=== PATIENT | male | born 1945 | race Caucasian/White ===

== ENCOUNTER → 2019-08-12 14:04 | Outpatient (BNVA) | payer OTHER, MEDICARE, SELFPAY | PROVIDERS: Family Provider Family Medicine; PCP Family Medicine; Visit Provider Urology | DX: R97.20 Elevated prostate specific antigen [PSA] (principal); R82.81 Pyuria; N40.1 Benign prostatic hyperplasia with lower urinary tract symptoms | CPT/HCPCS: 81001; 84153; 87077; 87086; 87186 ==

== ENCOUNTER 2019-08-26 13:12 | Outpatient (CLI) | payer MEDICARE, SELFPAY ==
[2019-08-26 14:10] LABS: Basophils % 0.2 %; Eosinophils # 0.1 10^3/uL (0.0-0.8); Eosinophils % 1.9 %; Hematocrit 39.5 % (42.0-52.0); Hemoglobin 13.8 g/dL (11.7-16.6); Lymphocytes # 1.2 10^3/uL (0.8-4.8); Lymphocytes % 25.9 %; Mean Corpuscular HGB Conc 34.9 g/dL (30.0-36.0); Mean Corpuscular Hemoglobin 33.7 pg (28.0-34.0); Mean Corpuscular Volume 96.3 fL (80-94); Mean Platelet Volume 10.8 fL (7.4-10.4); Monocytes # 0.4 10^3/uL (0.2-0.9); Monocytes % 8.6 %; Nucleated Red Blood Cells % 0 %; Platelet Count 158 10^3/cmm (130-400); Red Cell Distribution Width 12.4 % (12.1-15.1); White Blood Count 4.8 10^3/uL (4.0-10.0)
--- NOTE | 2019-08-26 16:58 | ONC CON_ITS ---
Dr. Sarabia New Patient Note Patient: Yan Piedra Unit #: [id number]: 1945 Dicatated By: Cara Sarabia M.D.Date of Visit: Aug 26, 2019 Onc MED New Patient/Consult Referring Physician: Dr. Deepak Estrada M.D. History of Present Illness: Mr. 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 Patient denies any history of gross bleeding, denies any history of hematological evaluation in the past, denies any history of night sweats or weight loss or recent fevers denies any history of peripheral lymphadenopathy, denies any history of alcohol abuse, denies any history of hepatic cirrhosis or splenomegaly. Next Patient denies any alcohol use or smoking. As per patient recently he was diagnosed with elevated PSA it was around 14 and he was given course of antibiotics for possible infection and now being monitored by urologist. Past Medical History: Mr. Piedra's medical history consists of atrial fibrillation, chronic anticoagulation, colon polyps, diverticulosis, dyslipidemia, goiter, hypertension, muscular dystrophy, and type II diabetes. Past Surgical History: Mr. Piedra's surgical/procedural history consists of back surgery x5, cholecystectomy, excision of tumor from chest, pacemaker placement, and thyroidectomy. Medications: Chlorthalidone 1 Tablet (of 25 mg) Oral daily, Cipro 1 Tablet (of 500 mg) Oral b.i.d. for 5 days, Famotidine (20 mg) Tablet Oral b.i.d., Levothyroxine Sodium 1 Tablet (of 125 mcg) Oral daily, metFORMIN HCl 1 Tablet (of 1000 mg) Oral b.i.d., Metoprolol Tartrate 1 Tablet (of 100 mg) Oral b.i.d., Pradaxa 1 Capsule (of 150 mg) Oral daily, Tamsulosin HCl 1 Capsule (of 0.4 mg) Oral daily Allergies: Amoxicillin, Codeine Sulfate, and HYDROmorphone HCl. Social History: Mr. Piedra is . Mr. Piedra has never smoked. He has no history of drinking. Family History: Mr. Piedra's mother at age 88: heart disease. Mr. Piedra's father at age 84: brain cancer. Mr. Piedra has 1 brother who is : bone cancer. He has 1 sister who is : colon cancer. Review Of Symptoms: Constitutional - Appetite is good and weight is stable. No fever, chills, hot flashes, or night sweats. Energy level is good, ENMT - No sinus congestion/drainage. No mouth sores. No sore throat or difficulty swallowing, Hematologic/Lymphatic - No abnormal bruising or bleeding, Respiratory - Occasionall shortness of breath. Positive for cough. No pleuritic pain or hemoptysis, Cardiovascular - No angina pain. No palpitations, Gastrointestinal - Occasional nausea, no vomiting. No heartburn or acid reflux. No diarrhea or constipation. No blood in the stool or black stools, Genitourinary (M) - No dysuria or hematuria. Positive for urinary frequency. No urgency or incontinence, Musculoskeletal - No joint or bone pain, Neurologic - No headache, positive for dizziness. No numbness/paresthesias or other focal neurologic symptoms, Psychiatric - No anxiety or depression. No insomnia. Vital Signs: Performed on Aug 26, 2019 14:54: 0, 32.43 (HIGH), 2.17 sq.m, 69.50 in, 98 %, 94 /min, 22 /min, 108/69 mm(hg), 98.0 F (LOW), and 222.8 lbs (HIGH). Performance Status: 0 - Fully active, able to carry on all predisease activities without restrictions. (ECOG) Physical Examination: ENMT - No oral exudates, ulcers, masses, thrush or mucositis. Oropharynx clear. Tongue normal, Respiratory - Lungs are clear to auscultation without rhonchi or wheezing, Cardiovascular - Regular rate and rhythm of heart, Abdomen - Non-tender, non-distended, no masses, Good bowel sounds. No guarding or rebound tenderness. No pulsatile masses, Extremities - no edema. Lab/Imaging: Most recent lab results are not available for this patient. Impression: long-standing history of isolated Thrombocytopenia, etiology unclear could be underlying low-grade ITP or considering his age early myelodysplasia or due to medication.or platelets clumping due to EDTA in the sampling tube. History of elevated PSA, now being monitored by urology Plan: Discussed with patient regarding his labs white blood count 4.8 hemoglobin 13.8 hematocrit 39.5, platelets 158,000 with a normal differential Clinically, patient has no evidence of gross bleeding and today's lab shows normalization of moderate thrombocytopenia seen on labs done on 07/24/2019. His remaining CBC is also within normal limits. At this point, we will monitor and he will return to clinic in one month with CBC and if there is a drop in his platelet count then will consider workup Signed By: Cara Sarabia M.D. <<Signature on File>>
== END 2019-08-26 13:13 | disposition home or self-care (01) ==
PROVIDERS: Family Provider Family Medicine; PCP Family Medicine; Referring Provider Family Medicine; Visit Provider Internal Medicine Hematology & Oncology
DX: D69.6 Thrombocytopenia, unspecified (principal); I48.91 Unspecified atrial fibrillation; R97.20 Elevated prostate specific antigen [PSA]; K57.90 Diverticulosis of intestine, part unspecified, without perforation or abscess without bleeding; E78.5 Hyperlipidemia, unspecified; I10 Essential (primary) hypertension; E11.9 Type 2 diabetes mellitus without complications; G71.00 Muscular dystrophy, unspecified; E89.0 Postprocedural hypothyroidism; Z79.01 Long term (current) use of anticoagulants; Z79.84 Long term (current) use of oral hypoglycemic drugs; Z95.0 Presence of cardiac pacemaker
CPT/HCPCS: 85025; 99204

== ENCOUNTER → 2019-10-13 12:01 | Outpatient (BNVA) | payer OTHER, MEDICARE, SELFPAY | PROVIDERS: Family Provider Family Medicine; PCP Family Medicine; Visit Provider Urology | DX: R97.20 Elevated prostate specific antigen [PSA] (principal); N40.1 Benign prostatic hyperplasia with lower urinary tract symptoms; R35.1 Nocturia | CPT/HCPCS: 81001; 84153 ==

== ENCOUNTER 2019-11-17 09:43 | Outpatient (CLI) | payer MEDICARE, SELFPAY ==
[2019-11-17 10:22] LABS: Basophils % 0.2 %; Eosinophils # 0.1 10^3/uL (0.0-0.8); Eosinophils % 1.5 %; Hematocrit 41.3 % (42.0-52.0); Hemoglobin 14.2 g/dL (11.7-16.6); Lymphocytes # 1.6 10^3/uL (0.8-4.8); Lymphocytes % 31.5 %; Mean Corpuscular HGB Conc 34.4 g/dL (30.0-36.0); Mean Corpuscular Hemoglobin 33.4 pg (28.0-34.0); Mean Corpuscular Volume 97.2 fL (80-94); Mean Platelet Volume 10.6 fL (7.4-10.4); Monocytes # 0.5 10^3/uL (0.2-0.9); Monocytes % 9.3 %; Neutrophils % 57.1 %; Nucleated Red Blood Cells % 0 %; Platelet Count 162 10^3/cmm (130-400); Red Blood Count 4.25 10^6/uL (4.1-5.3); Red Cell Distribution Width 12.4 % (12.1-15.1); White Blood Count 5.2 10^3/uL (4.0-10.0)
--- NOTE | 2019-11-17 18:00 | ONC FU_ITS ---
Dr. Sarabia follow up note Patient: Yan Piedra Unit #: [id number]: 1945 Dicatated By: Cara Sarabia M.D.Date of Visit:Nov 17, 2019 Onc Med Follow-up/Prog Note History of Present Illness: Mr. 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 Patient denies any history of gross bleeding, denies any history of hematological evaluation in the past, denies any history of night sweats or weight loss or recent fevers denies any history of peripheral lymphadenopathy, denies any history of alcohol abuse, denies any history of hepatic cirrhosis or splenomegaly. Next Patient denies any alcohol use or smoking. As per patient recently he was diagnosed with elevated PSA it was around 14 and he was given course of antibiotics for possible infection and now being monitored by urologist. Came for follow-up, denies any specific complaints, no nausea vomiting, no fever or chills, no melena hematochezia, no nosebleed or gum bleed, no petechiae or ecchymosis Medications: Chlorthalidone 1 Tablet (of 25 mg) Oral daily, Famotidine (20 mg) Tablet Oral b.i.d., Levothyroxine Sodium 1 Tablet (of 125 mcg) Oral daily, metFORMIN HCl 1 Tablet (of 1000 mg) Oral b.i.d., Metoprolol Tartrate 1 Tablet (of 100 mg) Oral b.i.d., Pradaxa 1 Capsule (of 150 mg) Oral daily, Tamsulosin HCl 1 Capsule (of 0.4 mg) Oral daily Allergies: Amoxicillin, Codeine Sulfate, and HYDROmorphone HCl. Review of Systems: Review of Systems is not available for this patient. Vital Signs: Performed on Nov 17, 2019 11:41 Height - 69.50 in Weight - 223.4 lbs (HIGH) BSA - 2.18 sq.m BMI - 32.52 (HIGH) Temperature - 98.2 F (LOW) Pulse - 80 /min Respiration - 18 /min BP - 120/83 mm(hg) O2 Sat - 100 % Pain - 0 Performance Status: 0 - Fully active, able to carry on all predisease activities without restrictions. (ECOG) Physical Examination: ENMT - no thrush, no mouth sores, Respiratory - Lungs are clear, Cardiovascular - Regular rate and rhythm of heart, Abdomen - soft, bowel sounds present, Extremities - no visible edema. Lab/Imaging: Test performed on Aug 26, 2019 13:23 WBC 4.8 10 3/uL RBC 4.10 10 6/uL HGB 13.8 g/dL HCT 39.5 % MCV 96.3 fL MCH 33.7 pg MCHC 34.9 g/dL RDW 12.4 % Platelet Count 158 10 3/cmm MPV 10.8 fL Neutrophils 3.0 10 3/uL Lymphocytes 1.2 10 3/uL Monocytes 0.4 10 3/uL Eosinophils 0.1 10 3/uL Basophils 0.0 10 3/uL Neutrophil % 63.0 % Lymphocyte % 25.9 % Monocyte % 8.6 % Eosinophil % 1.9 % Basophils % 0.2 % Impression: long-standing history of isolated Thrombocytopenia, etiology unclear could be underlying low-grade ITP or considering his age early myelodysplasia or due to medication.or platelets clumping due to EDTA in the sampling tube. History of elevated PSA, now being monitored by urology Plan: Discussed with patient regarding his labs white blood count 5.2 hemoglobin 14.2 crit 41.3 platelets 162,000 Clinically, patient doing well with no signs symptoms suggestive of gross bleeding, his follow-up lab shows resolution of thrombocytopenia, no further workup is needed, as per patient when his labs were done in his PMDs office, platelet clumping was mentioned., In that case, we will suggest repeating his CBC in heparinized tube to avoid EDTA induced platelet clumping in the simple. And we will see him on as-needed basis Signed By: Cara Sarabia M.D. <<Signature on File>>
== END 2019-11-17 09:44 | disposition home or self-care (01) ==
LOC: ONCMED 09:45
PROVIDERS: Family Provider Family Medicine; PCP Family Medicine; Visit Provider Internal Medicine Hematology & Oncology
DX: D69.6 Thrombocytopenia, unspecified (principal); I48.91 Unspecified atrial fibrillation; K57.90 Diverticulosis of intestine, part unspecified, without perforation or abscess without bleeding; E78.5 Hyperlipidemia, unspecified; E04.9 Nontoxic goiter, unspecified; I10 Essential (primary) hypertension; G71.00 Muscular dystrophy, unspecified; E11.9 Type 2 diabetes mellitus without complications; Z86.010 Personal history of colon polyps; Z79.899 Other long term (current) drug therapy
CPT/HCPCS: 36415; 85025; G0463

== ENCOUNTER 2020-02-26 08:03 | Outpatient (CLI) | payer MEDICARE, SELFPAY ==
[2020-02-26 08:11] VITALS: BMI 30.8
--- NOTE | 2020-02-26 08:11 | ECG_ITS ---
[facility] Test Date: 2020-02-26 Pat Name: Yan Alonso Department: Room: Gender: Male Radar Scientist: : 1945 Requested By: Germán Mcdonough Order Number: [id number] Jaquan MD: Germán Mcdonough M.D. Interpretive Statements NAME OF STUDY: LEXISCAN SESTAMIBI STRESS TEST INDICATION: [unspecified a fib, ] Procedure: At the baseline, the blood pressure was 111/43 mmHg, oxygen saturation 89% with a heart rate of 75 bpm. The electrocardiogram showed atrial fibrillation with no significant ST-T wave changes. The Lexiscan was infused over the period Of 20 seconds. A total of 0.4 mg of Lexiscan was infused. The stress phase was continued for a total of 5 minutes. Heart rate at the end of stress phase was 86 Bpm, oxygen saturation 93% with a blood pressure of 142/100 mmHg. The EKG at peak infusion revealed atrial fibrillation with no significant ST-T wave changes. Sestamibi was injected 20 seconds after the Lexiscan infusion. The blood pressure at the end of recovery phase was 124/89 mmHg, oxygen saturation 91% with a heart rate of 90bpm. Conclusions,: 1. Normal EKG response to Lexiscan infusion 2. No Lexiscan induced chest pain or cardiac arrhythmias. 3. Normal blood pressure and heart rate response. 4. Sestamibi/sestamibi perfusion scan pending: See separate report. Electronically Signed On 03-01-2020 11:22:53 CDT by Germán Mcdonough M.D. [email or web address]
--- NOTE | 2020-02-26 08:12 | NMCV_ITS ---
NM syed perf SPECT r/s* [id number] Yan Alonso Age: 74 Gender: M : 1945 Exam Date: 02/26/2020 09:23 Ordering Phys: Germán Mcdonough M.D ([email or web address]) Technologist: TREVA Lawler Exam Location: [facility] Indications: UNSPECIFIED ATRIAL FIBRILLATION STRESS TEST Please see separate stress test report in [facility] for full findings IMAGE PROTOCOL Rest/Stress 1 Lexiscan Day Radiopharmaceutical Dose (mCi) Administration Site Administered by Rest: Tc-99m 10.8 IV TREVA Lawler Sestamibi Stress:Tc-99m 32.3 IV TREVA Raya Sestamibi Rest: 26-Feb-2020 60 Discovery 630 Stress: 26-Feb-2020 30 Discovery 630 0.4mg Lexiscan. Images obtained in supine and prone position. SPECT RESULTS Technical Quality: Excellent Raw Data Analysis: Normal Image Corrections: No attenuation or motion correction applied Summed Stress Score: 2 Summed Rest Score: 1 Summed Difference Score: 1 PERFUSION FINDINGS There is a small, partially reversible perfusion defect in the inferior and apical inferior wall FUNCTIONAL RESULTS (calculated via Gated SPECT) Stress Image LV EF (%): 55 Stress EDV (mL):116 TID: 1.15 Stress ESV (mL):52 FUNCTIONAL FINDINGS: There is normal left ventricular systolic function. IMPRESSIONS 1. Small, partially reversible perfusion defect noted in the inferior and apical inferior wall. This could represent attenuation artifact or ischemia. Clinical correlation is required. 2. Normal LV systolic function. Germán Mcdonough MD (Electronically Signed) Final Date: 26 February 2020 12:35 S
[2020-02-26] MEDS: regadenoson 0.4 Mg/5 ml Syringe IVP (10:05)
[2020-02-26 10:25] VITALS: BP 124/89; PULSE 98
== END 2020-02-26 08:04 | disposition home or self-care (01) ==
LOC: CDL 08:06
PROVIDERS: PCP Family Medicine; Visit Provider Internal Medicine
DX: I48.91 Unspecified atrial fibrillation (principal)
CPT/HCPCS: 78452; 93017; A9500; J2785

== ENCOUNTER → 2020-03-05 15:21 | Outpatient (BNVA) | payer MEDICARE, SELFPAY | PROVIDERS: PCP Family Medicine; Visit Provider Internal Medicine Cardiovascular Disease | DX: Z20.828 Contact with and (suspected) exposure to other viral communicable diseases (principal) | CPT/HCPCS: 87635 ==

== ENCOUNTER 2020-03-09 09:18 | Day surgery (SDC) | payer MEDICARE, SELFPAY ==
[2020-03-05 16:09] LABS: Basophils % 0.5 %; Eosinophils # 0.1 10^3/uL (0.0-0.8); Eosinophils % 1.1 %; Hematocrit 41.2 % (42.0-52.0); Hemoglobin 14.3 g/dL (11.7-16.6); Lymphocytes # 1.4 10^3/uL (0.8-4.8); Lymphocytes % 25.6 %; Mean Corpuscular HGB Conc 34.7 g/dL (30.0-36.0); Mean Corpuscular Hemoglobin 33.5 pg (28.0-34.0); Mean Corpuscular Volume 96.5 fL (80-94); Mean Platelet Volume 10.2 fL (7.4-10.4); Monocytes # 0.4 10^3/uL (0.2-0.9); Monocytes % 7.4 %; Neutrophils # 3.61 10^3/uL (1.8-7.7); Neutrophils % 65.2 %; Nucleated Red Blood Cells % 0 %; Platelet Count 179 10^3/cmm (130-400); Red Blood Count 4.27 10^6/uL (4.1-5.3); Red Cell Distribution Width 12.3 % (12.1-15.1); White Blood Count 5.5 10^3/uL (4.0-10.0)
[2020-03-05 16:36] LABS: Anion Gap 15.2 (5-19); Blood Urea Nitrogen 17 mg/dL (8-23); Carbon Dioxide 26 mmol/L (22-29); Chloride 98 mmol/L (98-107); Glucose 197 mg/dL (65-115); Osmolality Calculated 287 mOsm/kg (285-295); Potassium 4.2 mmol/L (3.5-5.1); Sodium 135 mmol/L (136-145)
[2020-03-05 16:52] LABS: INR 0.93 (0.8-1.2)
[2020-03-09] VITALS (17 sets, daily range): BP systolic 100–153; BP diastolic 60–107; PULSE 70–100; RESP 8–20; TEMP 36.5–36.7; O2SAT 91–99; BMI 32.3
--- NOTE | 2020-03-09 09:00 | XACV_ITS ---
Ht: 175 cm Wt: 99 kg BSA: 2.23 m2 Gender: Male : 1945 Any Known Allergies: Penicillins Exam Priority: Routine Procedure(s): Procedure Description: Diagnostic procedure Procedure Description: Left Heart Catheterization Procedure Description: Left ventriculography Procedure Description: Coronary Angiography Diagnostic Cath Status: Elective Diagnostic Findings LM has 0% stenosis. mLAD: Mild 30% stenosis, JENNIFER: 3 flow. 2nd Diag: Moderate 50% stenosis, JENNIFER: 3 flow. pCIRC: Mild 30% stenosis, JENNIFER: 3 flow. dRCA: Mild 30% stenosis, JENNIFER: 3 flow. Coronary angiography shows right dominance. Conclusions Second diagonal artery has moderate disease. There is mild coronary artery disease with three vessel disease. Normal left ventricular systolic function. Ejection fraction of 55%. Recommendations No severe disease noted in epicardial vessels. There is mild atherosclerotic disease in circumflex, distal RCA and mid LAD. We will add Imdur 30 mg daily for possible small vessel disease. Aggressive blood pressure control. Diagnostic RX Recommendation: medical therapy and/or counseling Ejection Fraction: 55.0 % Pressures Phase:Rest AO : 107 mmHg / 69 mmHg ( 82 mmHg ) @ 5:17:00 AM 114 mmHg / 80 mmHg ( 97 mmHg ) @ 5:21:00 AM 128 mmHg / 82 mmHg ( 104 mmHg ) @ 5:35:00 AM 129 mmHg / 83 mmHg ( 101 mmHg ) @ 5:35:00 AM LV : 120 mmHg / 0 mmHg / @ 5:31:00 AM 124 mmHg / 0 mmHg / @ 5:35:00 AM 121 mmHg / 0 mmHg / @ 5:35:00 AM Valves Phase:DefaultPhase AV : 0.0 mmHg @ 10:45:05 AM AV Mean Gradient: 0.0 mmHg @ 10:45:05 AM Clinical Evaluation EBL: 5mL-10mL Procedural Details Pre-Procedure Time Out. Identified patient by full name and date of as verbalized by the patient/guarantor. Does the consent match the physician's order: Yes. Accurate & Complete Informed Consent: Yes. Inpatient/Outpatient History & Physical on Chart: Yes. If H&P is completed, is and addenduem needed: No; If yes, is the addendum complete: N/A. Visualize and Verify Site with Patient/Guarantor: N/A. Relevant Radiology Images available: Yes. Pre-op teaching completed and patient verbalized understanding. The risks, benefits, and alternatives of sedation and/or procedure were discussed by physician. The patient agrees to continue. Procedure started. [facility] Clinical Fraility Score: 3: Managing Well. Double End Tenoner Operator Indications: Suspected CAD. Chest Pain Symptom Assessment: Typical Angina Symptoms. Correct patient, site and procedure confirmed by cath team. Current diagnosis: Chest Pain. PERRLA. Strong, equal hand repair specialist bilaterally. Lungs clear x 5 lobes. IV Site on Arrival: 20 gauge in the left anticubital. IV Fluids: 0.9% NaCl at KVO. 50 mL infused prior to labor and delivery nurse. Oxygen started at 2liters/min via nasal canula. Vital chart was stopped. right groin was prepped with chloroprep then draped in the usual sterile fashion. right radial was prepped with chloroprep then draped in the usual sterile fashion. Baseline sample Acquired. HR: 83 BPM. Physician notified. Pre Procedural Pulses: bilateral radial was 2+. Pre Procedural Pulses: bilateral dorsalis pedis was Doppled. Patient's family unavailable. Physician arrived. Physician scrubbed in. Immediate Pre-Procedure Time Out. Correct Patient: Yes; Correct Procedure: Yes; Correct Site: Yes; Correct Patient Position: Yes; Correct Supplies: Yes; Dried Flammable Prep: Yes; Blood Products Available: N/A;. Lidocaine 1% infiltrated to the right radial. Arterial access obtained. A 5 senegalese TIG catheter in over wire. Multiple views taken of left coronary artery. Catheter redirected to the RCA. Multiple views taken of right coronary artery. Physician review of cine films. Catheter removed over the exchange wire. A 5 senegalese Angled Pig catheter in over wire. EDP Sample taken: LV 120/0,8; HR: 93 BPM; SpO2: Off%. LV gram performed in MCKEON @ 10 mL/second for a total of 30 mL. EDP Sample taken: LV 124/0,16; HR: 93 BPM; SpO2: Off%. Pullback taken: LV 121/0,10; AO 128/82(104); Mean: 0mmHg, Peak to Peak: 0mmHg, SEP: 8sec/min; HR: 93 BPM; SpO2: Off%. Catheter removed over the exchange wire. Physician scrubbed out. Physician review of cine films. A TR Band was successful obtaining hemostatsis at the Right Radial artery insertion site. TR band placed. Hemostasis obtained. Arterial sheath flushed and connected to tranducer and pressure bag with heparinized saline. Post Procedure: Pulses reassessed and unchanged. PERRLA. Strong, equal hand repair specialist bilaterally. No VTE prophylaxis required. Total IV fluids: 200 mL. Medication's Wasted: Lidocaine 1% = 18 mL. Medication's Wasted: Nitro = 49.8 mcg. Medication's Wasted: Heparin = 1000 units. Contrast type used: Omnipaque 300 mgI/mL, 500 mL bottle. Post-op diagnosis: Mild CAD. Complications: None. Estimated blood loss: 5mL-10mL. Procedure completed. Patient transferred by wheelchair to 1st floor. Vital chart was stopped. Site: Right Radial artery Sheath Size: 6 Fr Hemostasis Method: TR Band Hemostasis Success: Successful Procedure Medications Start: 10:10 AM Stop: 10:10 AM Medication: Versed Amount: 1 mg Route: I.V. Start: 10:10 AM Stop: 10:10 AM Medication: Fentanyl Amount: 50 mcg Route: I.V. Start: 10:13 AM Stop: 10:13 AM Medication: Versed Amount: 0.5 mg Route: I.V. Start: 10:13 AM Stop: 10: AM Medication: Fentanyl Amount: 25 mcg Route: I.V. Start: 10: AM Stop: 10: AM Medication: Nitrogylcerin Amount: 200 mcg Route: I.A. Start: 10:16 AM Stop: 10:16 AM Medication: Heparin Amount: 5000 units Route: I.V. Start: 10: AM Stop: : AM Medication: Versed Amount: 0.5 mg Route: I.V. Start: 10: AM Stop: : AM Medication: Fentanyl Amount: 25 mcg Route: I.V. I, the attending physician, have reviewed and verified all procedure medications. Yes, all medications given per verbal order History/Risk Factors Hypertension: Yes Dyslipidemia: Yes Diabetic Therapy: Oral Peripheral Arterial Disease (PAD): No Myocardial Infarction (IN): No Obesity: No Renal Disease: No Tobacco Use: Never Prior Interventions PCI: No CABG: No Valve Surgery: No Report Signatures Finalized by:Germán Mcdonough MD on 03/10/2020 11:34:39 AM
--- NOTE | 2020-03-09 10:00 | W.PM.OPSUD ---
Surgery/Procedure H&P Update DATE OF PROCEDURE: March 09, 2020 DATE H&P PERFORMED: 02/13/20 H&P UPDATE INFORMATION: I have reviewed H&P completed within last 30 days, I have examined patient prior to procedure and Changes to prior documentation as noted here CHANGES TO PREVIOUS DOCUMENTATION: 74-year-old man with past medical history of dyslipidemia, hypertension and diabetes, sick sinus syndrome with pacemaker in place was seen in the office with complaints of increasing shortness of breath partially on incline associated with squeezing chest pressure. Given his significant risk factors and symptoms that are interfering with his everyday activities and recently are worsening a stress test was performed. It was mildly abnormal and apical and inferior trveiño. We have decided to proceed with coronary angiogram with possible intervention after discussion with the patient. I had a detailed discussion with patient regarding risks and benefits of the procedure. Risks including bleeding, infection, renal function worsening, heart attack, stroke or have been described to the patient who understands it and wants to proceed with the procedure. PREOP DIAGNOSIS: Abnormal stress test/ Typical worsening chest pain PRIMARY INDICATION FOR PROCEDURE: Abnormal stress test/ Typical worsening chest pain PLANNED PROCEDURE: Operation Date: 03/09/20 10:00 Proposed Procedures p Cardiac Catheterization left(Left) - Germán Mcdonough M.D PATIENT REASSESSED PRIOR TO SEDATION, WITH NO CHANGE NOTED: Yes PHYSICAL EXAM: alert, oriented x 3, clear to auscultation bilaterally and regular rate & rhythm AIRWAY EVAL/ANESTHESIA PLAN: normal airway, ASA III, Risks, benefits & alternatives of sedation and/or procedure discussed and Patient agrees to continue as planned
--- NOTE | 2020-03-09 11:00 | PC.NURSE ---
Patient to floor from canvas shop laborer at 1050. 2 nurse verification of insertion site. TR band intact, site asymptomatic. Patient denies any pain at this time. VSS. Nurse to continue to monitor.
--- NOTE | 2020-03-09 15:10 | PC.NURSE ---
Discharge instructions given per the physician's orders. Patient verbalized understanding of information and did not have any further questions. Patient daughter waiting in parking lot to drive patient home. IV has been removed. Patient dressed self. Insertion site asymptomatic. No further needs identified.
== END 2020-03-09 15:10 | disposition home or self-care (01) ==
LOC: CCL 09:18 → CSU 10:58
PROVIDERS: PCP Family Medicine; Visit Provider Internal Medicine
DX: I25.10 Atherosclerotic heart disease of native coronary artery without angina pectoris (principal); I48.91 Unspecified atrial fibrillation; N40.1 Benign prostatic hyperplasia with lower urinary tract symptoms; I10 Essential (primary) hypertension; E78.5 Hyperlipidemia, unspecified; Z95.0 Presence of cardiac pacemaker; E11.9 Type 2 diabetes mellitus without complications
CPT/HCPCS: 12345; 36415; 80048; 85025; 85610; 93452; C1769; C1887; C1894; J1644; J2250; J3010; J3490; J7030; Q0163; Q9967

== ENCOUNTER → 2020-03-15 10:04 | Outpatient (BNVA) | payer MEDICARE, SELFPAY | PROVIDERS: PCP Family Medicine; Visit Provider Urology | DX: R97.20 Elevated prostate specific antigen [PSA] (principal) | CPT/HCPCS: 81001; 84153 ==

== ENCOUNTER 2020-03-16 15:02 | Outpatient (CLI) | payer MEDICARE, SELFPAY ==
--- NOTE | 2020-03-16 15:08 | XRR_ITS ---
PROCEDURE INFORMATION: Exam: XR Chest, 2 Views Exam date and time: 03/16/2020 3:17 PM Age: 74 years old Clinical indication: Chest pain; Type not specified; Prior surgery; Surgery type: Tumor removed, pacemaker TECHNIQUE: Imaging protocol: XR of the chest Views: 2 views. COMPARISON: CT chest w con* [id number] 03/21/2018 8:44 AM FINDINGS: Lungs: Unremarkable. No consolidation. Pleural space: Elevated right hemidiaphragm is present. No pleural effusion. No pneumothorax. Heart/Mediastinum: Unremarkable. No cardiomegaly. Bones/joints: Metallic sternotomy wires are in place. There is a unipolar cardiac pacemaker left anterior chest in good position. XR/XR chest 2V* [id number] IMPRESSION: No acute findings. Metallic stent sternotomy wires are in place. Cardiac pacemaker left anterior chest
== END 2020-03-16 15:03 | disposition home or self-care (01) ==
LOC: RAD 15:06
PROVIDERS: PCP Family Medicine; Visit Provider Family Medicine
DX: R07.9 Chest pain, unspecified (principal); Z95.0 Presence of cardiac pacemaker
CPT/HCPCS: 71046; 80048

== ENCOUNTER 2020-05-11 04:39 | Emergency (ER) | payer OTHER, MEDICARE, SELFPAY ==
[2020-05-11 04:47] VITALS: BP 122/86; PULSE 96; RESP 16; TEMP 36.5; O2SAT 96; BMI 29.5
--- NOTE | 2020-05-11 04:59 | XR_ITS ---
WS: [id number] XR chest 1V portable [id number] REASON FOR EXAM: shortness of breath FINDINGS: Compared to the previous examination of 03/16/2020, there is an alveolar and interstitial infiltrative process involving the lateral right lower and midlung calderón. No definite infiltrate identified on t he left. Cardiac pacemaker over the right chest with lead to the right ventricular apex unchanged compared to the previous examination. Degenerative changes in the left glenohumeral joint and mid and lower thoracic spine. XR/XR chest 1V portable [id number] IMPRESSION: Infiltrate of unknown chronicity in the right lung compatible with acute/subacu te pneumonitis.
[2020-05-11 05:07] VITALS: BP 122/78; PULSE 82; RESP 28; O2SAT 92
--- NOTE | 2020-05-11 05:09 | W.ED.SOB ---
Documented by User: Mishel Wayne 05/11/20 18:39 HPI - SOB/Dyspnea General: Chief Complaint: Shortness of Breath/Dyspnea Stated Complaint: COVID+ 05/04 test/SOB Time Seen by Provider: 05/11/20 05:10 Source: patient Mode of arrival: ambulatory Limitations: no limitations History of Present Illness: HPI Narrative: Mr. Alonso is a 74-year-old male who comes in complaining of increased shortness of breath and weakness. As he tested positive for the COVID-19 virus and was notified yesterday of the results. He has been sick approximately 1 week with the symptoms. Patient states he feels fatigued and has malaise. He has a dry cough occasionally. He has had a fever. His greatest complaint is that of increasing shortness of breath which got much worse tonight. He states that he just does not feel like he can get a deep breath in. His cough not productive and he states overall the cough is not severe it is just the shortness of breath. Does not describe her complaint of chest pain. Patient has a known history of A. fib and is anticoagulated with Pradaxa. Associated symptoms: Reports fever(s); Deny abdominal pain, chest congestion, chest pain, diaphoresis, dizziness, extremity pain, hemoptysis, lightheadedness, nausea, orthopnea, palpitations, syncope or vomiting Review of Systems Const: Reports: fever(s), chills, body aches, fatigue and malaise; Denies: diaphoresis Eyes: Denies: change in vision, blurry vision, photophobia, eye discomfort, eye discharge, eye redness or yellow eyes ENMT: Denies: throat pain, odynophagia, hoarseness, swelling of lips/tongue, ear or mastoid pain, ear discharge, change in hearing or nasal discharge Card: Denies: chest pain, palpitations, irregular heart rhythm, edema, lightheadedness, syncope, pre-syncope, dyspnea on exertion or orthopnea Resp: Reports: dyspnea and non-productive cough; Denies: productive cough, wheezing, hemoptysis or chest congestion GI: Denies: abdominal pain, nausea, vomiting, hematemesis, coffee ground emesis, heartburn, diarrhea, constipation, GI cramping, hematochezia or melena : Denies: flank pain, dysuria, urinary frequency, urinary urgency or hematuria Musc: Denies: neck pain, back pain, extremity pain, extremity swelling, joint pain, joint swelling, joint redness, joint warmth or joint stiffness Skin/Breast: Denies: rash, pruritus, erythema, skin pain or skin tenderness Neuro: Denies: headache(s), numbness in extremities, weakness in extremities, sensory changes, lack of coordination, difficulty walking, dizziness, vertigo, confusion, Slurred speech present or seizure-like activity Lul/Lymph: Denies: easy bruising, easy bleeding, petechiae, purpura or enlarged lymph nodes All/Imm: Denies: urticaria, throat swelling, tongue swelling, facial swelling or acute wheezing PFSH ED PFSH: Medical History (Updated 05/11/20 @ 08:40 by Laura Aguero MD) Anticoagulation adequate with anticoagulant therapy Pradaxa Atrial fibrillation Benign prostatic hyperplasia with lower urinary tract symptoms Cardiac pacemaker Coronary artery disease Diabetes Dyslipidemia Elevated PSA Essential hypertension Muscular dystrophy Pneumonia due to COVID-19 virus SOBOE (shortness of breath on exertion) Thrombocytopenia Surgical History History of back surgery S/P cholecystectomy S/P thyroidectomy Family History Mother , at age 88 CAD (coronary artery disease) Father , at age 84 Cancer BRAIN Sister Cancer COLON Social History Smoking and tobacco status: never smoked Alcohol intake: never Marital status: Current occupational status: retired History of recent travel: No Physical Exam Const: COMMON NORMALS: no acute distress, patient oriented x3, no limitations and alert GENERAL APPEARANCE: cooperative HENMT: COMMON NORMALS: normocephalic, atraumatic, external ears normal, EAC's normal and Normal external nose present HEAD & SCALP: normal to inspection, normocephalic and atraumatic FACE & SINUS: normal facial exam and face symmetric NOSE: Normal external nose present and Normal nares present EXTERNAL EAR: Yes external ears normal EXTERNAL AUDITORY CANAL: EAC's normal MOUTH: Normal oral and palatal mucosa present, lip normal and tongue normal Eye: COMMON NORMALS: Equal, round and reactive pupils present and conjunctivae normal GENERAL EYE: appearance normal, both eyes and all related structures ALIGNMENT: Yes alignment normal PERIORBITAL: periorbital findings normal EYELID: eyelids normal CONJUNCTIVA: Yes conjunctivae normal SCLERA: sclerae normal PUPIL: Yes Equal, round and reactive pupils present Neck/C-Spine: COMMON NORMALS: full ROM, no lymphadenopathy, supple, no meningeal signs and no JVD GENERAL: Yes normal visual inspection and Yes trachea midline Chest: COMMONS NORMALS: normal inspection of the chest and normal palpation of entire chest wall Resp: COMMON NORMALS: normal respiratory effort, No retractions, No use of accessory muscles and clear to auscultation bilaterally EFFORT & INSPECTION: Yes able to speak in complete sentences and Yes symmetric chest movement AUSCULTATION: clear to auscultation bilaterally, no crackles, no rales, no rhonchi and no wheezes Cardio: COMMON NORMALS: no JVD, regular rate, regular rhythm, S1 normal heart sound present and S2 normal heart sound present RATE: regular rate RHYTHM: regular rhythm HEART SOUNDS: S1 normal heart sound present, S2 normal heart sound present, no click, no gallops, no murmurs and no rubs GI: COMMON NORMALS: Soft to palpation and No hepatosplenomegaly present PALPATION: Yes Soft to palpation, No Tenderness to palpation present (GI), No Guarding due to palpation present (GI), No Rigid due to palpation, Yes No hepatosplenomegaly present, No Hernia present, No Palpable mass present and No Pulsatile mass present : COMMON NORMALS: Yes no CVA tenderness BLADDER/KIDNEY EXAM: Yes no CVA tenderness Back/Pelvis: COMMON NORMALS: no CVA tenderness, thoracic and lumbar spine normal to inspection, no thoracic nor lumbar tenderness and thoraco-lumbar ROM normal Extremity: COMMON NORMALS: normal to inspection, full ROM, capillary refill normal, no joint enlargement, no clubbing, cyanosis or edema and no calf tenderness Neuro: COMMON NORMALS: patient oriented x3, CN's II-XII intact bilaterally, moves all extremities, no focal motor deficits and no sensory deficits noted SENSORIUM/ORIENTATION: Yes alert MENINGEAL SIGNS: Yes no meningeal signs SPEECH: speech normal Psych: COMMON NORMALS: mental status grossly normal, Normal thought process present, cooperative, normal affect, speech normal and activity/motor behavior normal SPEECH: Yes normal speech THOUGHT PROCESS: Normal thought process present Skin: COMMON NORMALS: no rashes or lesions noted, turgor normal, no jaundice, no petechiae and no mottling GENERAL SKIN EXAM: no rashes or lesions noted and turgor normal Course Vital Signs: Vital signs: Vital Signs Temperature 97.7 F 05/11/20 04:47 Pulse Rate 84 05/11/20 09:10 Respiratory Rate 18 05/11/20 09:10 Blood Pressure 146/84 05/11/20 09:10 Pulse Oximetry 95 05/11/20 09:10 MDM - SOB/Dyspnea Lab Data: Labs: Lab Results 05/11/20 05/11/20 05/11/20 Range/Units 04:00 04:00 04:55 WBC 6.5 (4.0-10.0) 10^3/ uL RBC 3.90 L (4.1-5.3) 10^6/u L Hgb 12.8 (11.7-16.6) g/dL Hct 36.7 L (42.0-52.0) % MCV 94.1 H (80-94) fL MCH 32.8 (28.0-34.0) pg MCHC 34.9 (30.0-36.0) g/dL RDW 11.6 L (12.1-15.1) % Plt Count 148 (130-400) 10^3/c mm MPV 11.0 H (7.4-10.4) fL Neut % (Auto) 75.5 % Lymph % (Auto) 12.2 % [place] % (Auto) 11.1 % Eos % (Auto) 0.5 % Baso % (Auto) 0.2 % Neut # (Auto) 4.92 (1.8-7.7) 10^3/u L Lymph # (Auto) 0.8 (0.8-4.8) 10^3/u L [place] # (Auto) 0.7 (0.2-0.9) 10^3/u L Eos # (Auto) 0.0 (0.0-0.8) 10^3/u L Baso # (Auto) 0.0 (0.0-0.1) 10^3/u L Nucleated RBC % (a uto) 0 % Nucleated RBCs # 0.0 /100WBC D-Dimer (0-0.59) ug/mIFE U Specimen Type Sample Site ABG pH (7.35-7.45) ABG pCO2 (35-45) mmHg ABG pO2 (80.0-100.0) mmH g ABG HCO3 (22-26) mmol/L ABG Base Excess (-2.0-2.0) mmol/ L Pablo Test Hematocrit (42-52) % Engagement Specialist ID Sodium (136-145) mmol/L Potassium (3.5-5.1) mmol/L Chloride (98-107) mmol/L Carbon Dioxide (22-29) mmol/L Anion Gap (5-19) BUN (8-23) mg/dL Creatinine (0.7-1.2) mg/dL GFR Calculation Glucose (65-115) mg/dL Calculated Osmolal ity (285-295) mOsm/k g Lactic Acid (0.5-2.2) mmol/L Calcium (8.5-10.5) mg/dL Magnesium (1.7-2.3) mg/dL Ferritin (30-400) ng/mL Total Bilirubin (0.15-1.2) mg/dL AST (0-40) U/L ALT (0-41) U/L Alkaline Phosphata se (40-130) IU/L Troponin T Gen 5 n g/L (0-15) ng/L Troponin T Baselin e 27 H (0-15) ng/L Troponin T 120 Min lower [place]rule (0-15) ng/L Delta Troponin T (0-10) ABS# C-Reactive Protein (0.0-4.9) mg/L NT-Pro-B Natriuret Pep 835 H (0-450) pg/mL Total Protein (6.6-8.7) g/dL Albumin (3.5-5.2) g/dL Globulin (1.3-4.6) g/dL Influenza Type A A g (Negative) Influenza Type B A g (Negative) SARS-CoV-2 Ag (Rap id) (Negative) 05/11/20 05/11/20 05/11/20 Range/Units 04:55 04:55 04:55 WBC (4.0-10.0) 10^3/ uL RBC (4.1-5.3) 10^6/u L Hgb (11.7-16.6) g/dL Hct (42.0-52.0) % MCV (80-94) fL MCH (28.0-34.0) pg MCHC (30.0-36.0) g/dL RDW (12.1-15.1) % Plt Count (130-400) 10^3/c mm MPV (7.4-10.4) fL Neut % (Auto) % Lymph % (Auto) % [place] % (Auto) % Eos % (Auto) % Baso % (Auto) % Neut # (Auto) (1.8-7.7) 10^3/u L Lymph # (Auto) (0.8-4.8) 10^3/u L [place] # (Auto) (0.2-0.9) 10^3/u L Eos # (Auto) (0.0-0.8) 10^3/u L Baso # (Auto) (0.0-0.1) 10^3/u L Nucleated RBC % (a uto) % Nucleated RBCs # /100WBC D-Dimer 0.42 (0-0.59) ug/mIFE U Specimen Type Sample Site ABG pH (7.35-7.45) ABG pCO2 (35-45) mmHg ABG pO2 (80.0-100.0) mmH g ABG HCO3 (22-26) mmol/L ABG Base Excess (-2.0-2.0) mmol/ L Pablo Test Hematocrit (42-52) % Engagement Specialist ID Sodium 131 L (136-145) mmol/L Potassium 3.6 (3.5-5.1) mmol/L Chloride 90 L (98-107) mmol/L Carbon Dioxide 27 (22-29) mmol/L Anion Gap 17.6 (5-19) BUN 27 H (8-23) mg/dL Creatinine 1.4 H (0.7-1.2) mg/dL GFR Calculation Not Reportable Glucose 175 H (65-115) mg/dL Calculated Osmolal ity 281 L (285-295) mOsm/k g Lactic Acid (0.5-2.2) mmol/L Calcium 8.5 (8.5-10.5) mg/dL Magnesium (1.7-2.3) mg/dL Ferritin 890 H (30-400) ng/mL Total Bilirubin 0.9 (0.15-1.2) mg/dL AST 60 H (0-40) U/L ALT 57 H (0-41) U/L Alkaline Phosphata se 102 (40-130) IU/L Troponin T Gen 5 n g/L 26 H (0-15) ng/L Troponin T Baselin e (0-15) ng/L Troponin T 120 Min [place] (0-15) ng/L Delta Troponin T (0-10) ABS# C-Reactive Protein 240.8 H (0.0-4.9) mg/L NT-Pro-B Natriuret Pep (0-450) pg/mL Total Protein 6.2 L (6.6-8.7) g/dL Albumin 3.7 (3.5-5.2) g/dL Globulin 2.5 (1.3-4.6) g/dL Influenza Type A A g (Negative) Influenza Type B A g (Negative) SARS-CoV-2 Ag (Rap id) (Negative) 05/11/20 05/11/20 05/11/20 Range/Units 04:55 05:15 05:20 WBC (4.0-10.0) 10^3/ uL RBC (4.1-5.3) 10^6/u L Hgb (11.7-16.6) g/dL Hct (42.0-52.0) % MCV (80-94) fL MCH (28.0-34.0) pg MCHC (30.0-36.0) g/dL RDW (12.1-15.1) % Plt Count (130-400) 10^3/c mm MPV (7.4-10.4) fL Neut % (Auto) % Lymph % (Auto) % [place] % (Auto) % Eos % (Auto) % Baso % (Auto) % Neut # (Auto) (1.8-7.7) 10^3/u L Lymph # (Auto) (0.8-4.8) 10^3/u L [place] # (Auto) (0.2-0.9) 10^3/u L Eos # (Auto) (0.0-0.8) 10^3/u L Baso # (Auto) (0.0-0.1) 10^3/u L Nucleated RBC % (a uto) % Nucleated RBCs # /100WBC D-Dimer (0-0.59) ug/mIFE U Specimen Type Arterial Sample Site Radial, right ABG pH 7.52 H (7.35-7.45) ABG pCO2 35.2 (35-45) mmHg ABG pO2 58.9 L (80.0-100.0) mmH g ABG HCO3 28.7 H (22-26) mmol/L ABG Base Excess 5.7 H (-2.0-2.0) mmol/ L Pablo Test Pos Hematocrit 37.4 L (42-52) % Engagement Specialist ID [email or web address] Sodium (136-145) mmol/L Potassium (3.5-5.1) mmol/L Chloride (98-107) mmol/L Carbon Dioxide (22-29) mmol/L Anion Gap (5-19) BUN (8-23) mg/dL Creatinine (0.7-1.2) mg/dL GFR Calculation Glucose (65-115) mg/dL Calculated Osmolal ity (285-295) mOsm/k g Lactic Acid 1.9 (0.5-2.2) mmol/L Calcium (8.5-10.5) mg/dL Magnesium 1.7 (1.7-2.3) mg/dL Ferritin (30-400) ng/mL Total Bilirubin (0.15-1.2) mg/dL AST (0-40) U/L ALT (0-41) U/L Alkaline Phosphata se (40-130) IU/L Troponin T Gen 5 n g/L (0-15) ng/L Troponin T Baselin e (0-15) ng/L Troponin T 120 Min [place] (0-15) ng/L Delta Troponin T (0-10) ABS# C-Reactive Protein (0.0-4.9) mg/L NT-Pro-B Natriuret Pep (0-450) pg/mL Total Protein (6.6-8.7) g/dL Albumin (3.5-5.2) g/dL Globulin (1.3-4.6) g/dL Influenza Type A A g (Negative) Influenza Type B A g (Negative) SARS-CoV-2 Ag (Rap id) (Negative) 11/05/11/20 05/11/20 Range/Units 05:25 05:25 07:25 WBC (4.0-10.0) 10^3/ uL RBC (4.1-5.3) 10^6/u L Hgb (11.7-16.6) g/dL Hct (42.0-52.0) % MCV (80-94) fL MCH (28.0-34.0) pg MCHC (30.0-36.0) g/dL RDW (12.1-15.1) % Plt Count (130-400) 10^3/c mm MPV (7.4-10.4) fL Neut % (Auto) % Lymph % (Auto) % [place] % (Auto) % Eos % (Auto) % Baso % (Auto) % Neut # (Auto) (1.8-7.7) 10^3/u L Lymph # (Auto) (0.8-4.8) 10^3/u L [place] # (Auto) (0.2-0.9) 10^3/u L Eos # (Auto) (0.0-0.8) 10^3/u L Baso # (Auto) (0.0-0.1) 10^3/u L Nucleated RBC % (a uto) % Nucleated RBCs # /100WBC D-Dimer (0-0.59) ug/mIFE U Specimen Type Sample Site ABG pH (7.35-7.45) ABG pCO2 (35-45) mmHg ABG pO2 (80.0-100.0) mmH g ABG HCO3 (22-26) mmol/L ABG Base Excess (-2.0-2.0) mmol/ L Pablo Test Hematocrit (42-52) % Engagement Specialist ID Sodium (136-145) mmol/L Potassium (3.5-5.1) mmol/L Chloride (98-107) mmol/L Carbon Dioxide (22-29) mmol/L Anion Gap (5-19) BUN (8-23) mg/dL Creatinine (0.7-1.2) mg/dL GFR Calculation Glucose (65-115) mg/dL Calculated Osmolal ity (285-295) mOsm/k g Lactic Acid (0.5-2.2) mmol/L Calcium (8.5-10.5) mg/dL Magnesium (1.7-2.3) mg/dL Ferritin (30-400) ng/mL Total Bilirubin (0.15-1.2) mg/dL AST (0-40) U/L ALT (0-41) U/L Alkaline Phosphata se (40-130) IU/L Troponin T Gen 5 n g/L (0-15) ng/L Troponin T Baselin e (0-15) ng/L Troponin T 120 Min lower [place] 20.52 H (0-15) ng/L Delta Troponin T -6.48 L (0-10) ABS# C-Reactive Protein (0.0-4.9) mg/L NT-Pro-B Natriuret Pep (0-450) pg/mL Total Protein (6.6-8.7) g/dL Albumin (3.5-5.2) g/dL Globulin (1.3-4.6) g/dL Influenza Type A A g Negative (Negative) Influenza Type B A g Negative (Negative) SARS-CoV-2 Ag (Rap id) Positive H (Negative) Imaging Data^: CXR: Attestation: I personally reviewed and interpreted this imaging study as follows: My impression: Mild cardiomegaly with bilateral pleural effusions right greater than left. EKG Data^: EKG 1: Attestation: I personally reviewed and interpreted this EKG as follows: EKG Interpretation Date: 05/11/20 EKG interpretation time: 05:01 Interpretation: Atrial fibrillation with a ventricular rate of 93 beats a minute, left axis deviation, LVH, nonspecific ST and T wave changes. Discharge Plan Discharge Patient Disposition: Home Clinical Impression: SARS-associated coronavirus infection, Pneumonia due to 2019 novel coronavirus Condition: Stable Prescriptions: New Decadron 6 mg tablet 6 mg PO DAILY Qty: 7 RF: 0 No Action famotidine 20 mg tablet 20 mg PO BID RF: 0 tamsulosin 0.4 mg capsule 0.4 mg PO BID Qty: 180 RF: 3 chlorthalidone 25 mg tablet 25 mg PO DAILY RF: 0 Pradaxa 150 mg capsule 150 mg PO BID RF: 0 metformin 1,000 mg tablet 1,000 mg PO BID RF: 0 levothyroxine 150 mcg capsule 125 mcg PO DAILY RF: 0 metoprolol tartrate 100 mg tablet 100 mg PO BID RF: 0 isosorbide mononitrate 30 mg tablet extended release 24 hr 30 mg PO DAILY Qty: 30 RF: 3 Discharge Orders: Discharge Order (Routine); Ordered 05/11/20 Ordered By: Laura Aguero Other Ambulatory Orders: DME: Oxygen (Order) Location: None Selected Ordered By: Laura Aguero Referrals: Deepak Estrada MD [Primary Care Provider] - Discharge Diet: Usual diet Discharge Activity: Limit activity as instructed Patient Instructions: Viral Pneumonia (ED) Activity Restrictions/Additional Instructions: Use the oxygen as needed to keep your oxygen saturation around 93% or higher. Come back to the ED if you can't keep your oxygen over that even with up to 6 LPM of oxygen. Return as well if difficulty breathing, vomiting, confusion or any other new or concerning symptoms. It is very possible that your condition may worsen and you might need to be in the hospital within the next few days. Make sure to have someone check on you a few times a day to make sure that you are doing ok. 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 for Chg Fwd Exam Comprehensive Documented by User: Laura Aguero MD 05/11/20 16:53 HPI - SOB/Dyspnea General: Chief Complaint: Shortness of Breath/Dyspnea Stated Complaint: COVID+ 05/04 test/SOB Time Seen by Provider: 05/11/20 05:10 [facility] PFSH: Medical History (Updated 05/11/20 @ 08:40 by Laura Aguero MD) Anticoagulation adequate with anticoagulant therapy Pradaxa Atrial fibrillation Benign prostatic hyperplasia with lower urinary tract symptoms Cardiac pacemaker Coronary artery disease Diabetes Dyslipidemia Elevated PSA Essential hypertension Muscular dystrophy Pneumonia due to COVID-19 virus SOBOE (shortness of breath on exertion) Thrombocytopenia Surgical History History of back surgery S/P cholecystectomy S/P thyroidectomy Family History Mother , at age 88 CAD (coronary artery disease) Father , at age 84 Cancer BRAIN Sister Cancer COLON Social History Smoking and tobacco status: never smoked Alcohol intake: never Marital status: Current occupational status: retired History of recent travel: No Course ED course: I assumed care of this patient from Dr. Penny at shift change. He presents with Covid symptoms that started on April 29. He saw his primary care doctor, Dr. Estrada, on May 04 and just found out yesterday that he had a positive Covid test on that date. He presents today with increasing shortness of breath. He has been having cough, fever, body aches for the whole time. He also complains of a headache. He is not requiring oxygen at this time. He does have diabetes, hypertension, heart disease. He has atrial fibrillation and is on Pradaxa. Labs are fairly normal but he does have a obvious Covid pneumonia on x-ray and on CT. No PE was noted. We are considering Bamlamivibab, but researching to see if it is recommended for someone who is had symptoms for 12 days already. His positive test was 8 days ago. He has positive again today. Reevaluation(s): Reevaluation #1: Patient's oxygen remained good while he was at rest. With activity dropped to 90%. He wanted to go home and my intent was to send him home on 2 L nasal cannula. His home O2 evaluation would qualify under Medicare but not under the [facility]. His ABG showed a PaO2 of 58 and we will [facility] to the [facility] to see if that would qualify him for oxygen. He is also quite symptomatic and dyspneic with any movement. We also opted not to do the experimental monoclonal antibody treatment as he is 12 days into his symptoms. Recommendations are for it to only be used if 10 days into symptoms or less. That and the fact that he is requiring some oxygen is also another factor which rules him out for that medication. Reevaluation #2: I spoke with the patient's daughter by phone. She is very concerned about him and wants him to be admitted to the hospital. We discussed that he really does not meet any criteria for admission in the hospital we discussed the various treatments that are available in which ones are and are not recommended. We discussed that he is not actually requiring much oxygen in the ER right now but that I want him to go home with it because I am concerned that he might worsen. She wanted me to call [facility] and see if [facility] would [facility]. I spoke with the patient and he does not wish to be admitted and that he is his own decision maker so as long as he prefers to go home and I feel like that is medically appropriate he will be allowed to do so. Vital Signs: Vital signs: Vital Signs Temperature 97.7 F 05/11/20 04:47 Pulse Rate 84 05/11/20 09:10 Respiratory Rate 18 05/11/20 09:10 Blood Pressure 146/84 05/11/20 09:10 Pulse Oximetry 95 05/11/20 09:10 MDM - SOB/Dyspnea Lab Data: Labs: Lab Results 05/11/20 05/11/20 05/11/20 Range/Units 04:00 04:00 04:55 WBC 6.5 (4.0-10.0) 10^3/ uL RBC 3.90 L (4.1-5.3) 10^6/u L Hgb 12.8 (11.7-16.6) g/dL Hct 36.7 L (42.0-52.0) % MCV 94.1 H (80-94) fL MCH 32.8 (28.0-34.0) pg MCHC 34.9 (30.0-36.0) g/dL RDW 11.6 L (12.1-15.1) % Plt Count 148 (130-400) 10^3/c mm MPV 11.0 H (7.4-10.4) fL Neut % (Auto) 75.5 % Lymph % (Auto) 12.2 % [place] % (Auto) 11.1 % Eos % (Auto) 0.5 % Baso % (Auto) 0.2 % Neut # (Auto) 4.92 (1.8-7.7) 10^3/u L Lymph # (Auto) 0.8 (0.8-4.8) 10^3/u L [place] # (Auto) 0.7 (0.2-0.9) 10^3/u L Eos # (Auto) 0.0 (0.0-0.8) 10^3/u L Baso # (Auto) 0.0 (0.0-0.1) 10^3/u L Nucleated RBC % (a uto) 0 % Nucleated RBCs # 0.0 /100WBC D-Dimer (0-0.59) ug/mIFE U Specimen Type Sample Site ABG pH (7.35-7.45) ABG pCO2 (35-45) mmHg ABG pO2 (80.0-100.0) mmH g ABG HCO3 (22-26) mmol/L ABG Base Excess (-2.0-2.0) mmol/ L Pablo Test Hematocrit (42-52) % Engagement Specialist ID Sodium (136-145) mmol/L Potassium (3.5-5.1) mmol/L Chloride (98-107) mmol/L Carbon Dioxide (22-29) mmol/L Anion Gap (5-19) BUN (8-23) mg/dL Creatinine (0.7-1.2) mg/dL GFR Calculation Glucose (65-115) mg/dL Calculated Osmolal ity (285-295) mOsm/k g Lactic Acid (0.5-2.2) mmol/L Calcium (8.5-10.5) mg/dL Magnesium (1.7-2.3) mg/dL Ferritin (30-400) ng/mL Total Bilirubin (0.15-1.2) mg/dL AST (0-40) U/L ALT (0-41) U/L Alkaline Phosphata se (40-130) IU/L Troponin T Gen 5 n g/L (0-15) ng/L Troponin T Baselin e 27 H (0-15) ng/L Troponin T 120 Min lower [place] (0-15) ng/L Delta Troponin T (0-10) ABS# C-Reactive Protein (0.0-4.9) mg/L NT-Pro-B Natriuret Pep 835 H (0-450) pg/mL Total Protein (6.6-8.7) g/dL Albumin (3.5-5.2) g/dL Globulin (1.3-4.6) g/dL Influenza Type A A g (Negative) Influenza Type B A g (Negative) SARS-CoV-2 Ag (Rap id) (Negative) 05/11/20 05/11/20 05/11/20 Range/Units 04:55 04:55 04:55 WBC (4.0-10.0) 10^3/ uL RBC (4.1-5.3) 10^6/u L Hgb (11.7-16.6) g/dL Hct (42.0-52.0) % MCV (80-94) fL MCH (28.0-34.0) pg MCHC (30.0-36.0) g/dL RDW (12.1-15.1) % Plt Count (130-400) 10^3/c mm MPV (7.4-10.4) fL Neut % (Auto) % Lymph % (Auto) % [place] % (Auto) % Eos % (Auto) % Baso % (Auto) % Neut # (Auto) (1.8-7.7) 10^3/u L Lymph # (Auto) (0.8-4.8) 10^3/u L [place] # (Auto) (0.2-0.9) 10^3/u L Eos # (Auto) (0.0-0.8) 10^3/u L Baso # (Auto) (0.0-0.1) 10^3/u L Nucleated RBC % (a uto) % Nucleated RBCs # /100WBC D-Dimer 0.42 (0-0.59) ug/mIFE U Specimen Type Sample Site ABG pH (7.35-7.45) ABG pCO2 (35-45) mmHg ABG pO2 (80.0-100.0) mmH g ABG HCO3 (22-26) mmol/L ABG Base Excess (-2.0-2.0) mmol/ L Pablo Test Hematocrit (42-52) % Engagement Specialist ID Sodium 131 L (136-145) mmol/L Potassium 3.6 (3.5-5.1) mmol/L Chloride 90 L (98-107) mmol/L Carbon Dioxide 27 (22-29) mmol/L Anion Gap 17.6 (5-19) BUN 27 H (8-23) mg/dL Creatinine 1.4 H (0.7-1.2) mg/dL GFR Calculation Not Reportable Glucose 175 H (65-115) mg/dL Calculated Osmolal ity 281 L (285-295) mOsm/k g Lactic Acid (0.5-2.2) mmol/L Calcium 8.5 (8.5-10.5) mg/dL Magnesium (1.7-2.3) mg/dL Ferritin 890 H (30-400) ng/mL Total Bilirubin 0.9 (0.15-1.2) mg/dL AST 60 H (0-40) U/L ALT 57 H (0-41) U/L Alkaline Phosphata se 102 (40-130) IU/L Troponin T Gen 5 n g/L 26 H (0-15) ng/L Troponin T Baselin e (0-15) ng/L Troponin T 120 Min lower [place] (0-15) ng/L Delta Troponin T (0-10) ABS# C-Reactive Protein 240.8 H (0.0-4.9) mg/L NT-Pro-B Natriuret Pep (0-450) pg/mL Total Protein 6.2 L (6.6-8.7) g/dL Albumin 3.7 (3.5-5.2) g/dL Globulin 2.5 (1.3-4.6) g/dL Influenza Type A A g (Negative) Influenza Type B A g (Negative) SARS-CoV-2 Ag (Rap id) (Negative) 05/11/20 05/11/20 05/11/20 Range/Units 04:55 05:15 05:20 WBC (4.0-10.0) 10^3/ uL RBC (4.1-5.3) 10^6/u L Hgb (11.7-16.6) g/dL Hct (42.0-52.0) % MCV (80-94) fL MCH (28.0-34.0) pg MCHC (30.0-36.0) g/dL RDW (12.1-15.1) % Plt Count (130-400) 10^3/c mm MPV (7.4-10.4) fL Neut % (Auto) % Lymph % (Auto) % [place] % (Auto) % Eos % (Auto) % Baso % (Auto) % Neut # (Auto) (1.8-7.7) 10^3/u L Lymph # (Auto) (0.8-4.8) 10^3/u L [place] # (Auto) (0.2-0.9) 10^3/u L Eos # (Auto) (0.0-0.8) 10^3/u L Baso # (Auto) (0.0-0.1) 10^3/u L Nucleated RBC % (a uto) % Nucleated RBCs # /100WBC D-Dimer (0-0.59) ug/mIFE U Specimen Type Arterial Sample Site Radial, right ABG pH 7.52 H (7.35-7.45) ABG pCO2 35.2 (35-45) mmHg ABG pO2 58.9 L (80.0-100.0) mmH g ABG HCO3 28.7 H (22-26) mmol/L ABG Base Excess 5.7 H (-2.0-2.0) mmol/ L Pablo Test Pos Hematocrit 37.4 L (42-52) % Engagement Specialist ID [email or web address] Sodium (136-145) mmol/L Potassium (3.5-5.1) mmol/L Chloride (98-107) mmol/L Carbon Dioxide (22-29) mmol/L Anion Gap (5-19) BUN (8-23) mg/dL Creatinine (0.7-1.2) mg/dL GFR Calculation Glucose (65-115) mg/dL Calculated Osmolal ity (285-295) mOsm/k g Lactic Acid 1.9 (0.5-2.2) mmol/L Calcium (8.5-10.5) mg/dL Magnesium 1.7 (1.7-2.3) mg/dL Ferritin (30-400) ng/mL Total Bilirubin (0.15-1.2) mg/dL AST (0-40) U/L ALT (0-41) U/L Alkaline Phosphata se (40-130) IU/L Troponin T Gen 5 n g/L (0-15) ng/L Troponin T Baselin e (0-15) ng/L Troponin T 120 Min [place] (0-15) ng/L Delta Troponin T (0-10) ABS# C-Reactive Protein (0.0-4.9) mg/L NT-Pro-B Natriuret Pep (0-450) pg/mL Total Protein (6.6-8.7) g/dL Albumin (3.5-5.2) g/dL Globulin (1.3-4.6) g/dL Influenza Type A A g (Negative) Influenza Type B A g (Negative) SARS-CoV-2 Ag (Rap id) (Negative) 05/11/20 05/11/20 05/11/20 Range/Units 05:25 05:25 07:25 WBC (4.0-10.0) 10^3/ uL RBC (4.1-5.3) 10^6/u L Hgb (11.7-16.6) g/dL Hct (42.0-52.0) % MCV (80-94) fL MCH (28.0-34.0) pg MCHC (30.0-36.0) g/dL RDW (12.1-15.1) % Plt Count (130-400) 10^3/c mm MPV (7.4-10.4) fL Neut % (Auto) % Lymph % (Auto) % [place] % (Auto) % Eos % (Auto) % Baso % (Auto) % Neut # (Auto) (1.8-7.7) 10^3/u L Lymph # (Auto) (0.8-4.8) 10^3/u L [place] # (Auto) (0.2-0.9) 10^3/u L Eos # (Auto) (0.0-0.8) 10^3/u L Baso # (Auto) (0.0-0.1) 10^3/u L Nucleated RBC % (a uto) % Nucleated RBCs # /100WBC D-Dimer (0-0.59) ug/mIFE U Specimen Type Sample Site ABG pH (7.35-7.45) ABG pCO2 (35-45) mmHg ABG pO2 (80.0-100.0) mmH g ABG HCO3 (22-26) mmol/L ABG Base Excess (-2.0-2.0) mmol/ L Pablo Test Hematocrit (42-52) % Engagement Specialist ID Sodium (136-145) mmol/L Potassium (3.5-5.1) mmol/L Chloride (98-107) mmol/L Carbon Dioxide (22-29) mmol/L Anion Gap (5-19) BUN (8-23) mg/dL Creatinine (0.7-1.2) mg/dL GFR Calculation Glucose (65-115) mg/dL Calculated Osmolal ity (285-295) mOsm/k g Lactic Acid (0.5-2.2) mmol/L Calcium (8.5-10.5) mg/dL Magnesium (1.7-2.3) mg/dL Ferritin (30-400) ng/mL Total Bilirubin (0.15-1.2) mg/dL AST (0-40) U/L ALT (0-41) U/L Alkaline Phosphata se (40-130) IU/L Troponin T Gen 5 n g/L (0-15) ng/L Troponin T Baselin e (0-15) ng/L Troponin T 120 Min [place] 20.52 H (0-15) ng/L Delta Troponin T -6.48 L (0-10) ABS# C-Reactive Protein (0.0-4.9) mg/L NT-Pro-B Natriuret Pep (0-450) pg/mL Total Protein (6.6-8.7) g/dL Albumin (3.5-5.2) g/dL Globulin (1.3-4.6) g/dL Influenza Type A A g Negative (Negative) Influenza Type B A g Negative (Negative) SARS-CoV-2 Ag (Rap id) Positive H (Negative) Discharge Plan Discharge Patient Disposition: Home Clinical Impression: SARS-associated coronavirus infection, Pneumonia due to 2019 novel coronavirus Condition: Stable Prescriptions: New Decadron 6 mg tablet 6 mg PO DAILY Qty: 7 RF: 0 No Action famotidine 20 mg tablet 20 mg PO BID RF: 0 tamsulosin 0.4 mg capsule 0.4 mg PO BID Qty: 180 RF: 3 chlorthalidone 25 mg tablet 25 mg PO DAILY RF: 0 Pradaxa 150 mg capsule 150 mg PO BID RF: 0 metformin 1,000 mg tablet 1,000 mg PO BID RF: 0 levothyroxine 150 mcg capsule 125 mcg PO DAILY RF: 0 metoprolol tartrate 100 mg tablet 100 mg PO BID RF: 0 isosorbide mononitrate 30 mg tablet extended release 24 hr 30 mg PO DAILY Qty: 30 RF: 3 Discharge Orders: Discharge Order (Routine); Ordered 05/11/20 Ordered By: Laura Aguero Other Ambulatory Orders: DME: Oxygen (Order) Location: None Selected Ordered By: Laura Aguero Referrals: Deepak Estrada MD [Primary Care Provider] - Discharge Diet: Usual diet Discharge Activity: Limit activity as instructed Patient Instructions: Viral Pneumonia (ED) Activity Restrictions/Additional Instructions: Use the oxygen as needed to keep your oxygen saturation around 93% or higher. Come back to the ED if you can't keep your oxygen over that even with up to 6 LPM of oxygen. Return as well if difficulty breathing, vomiting, confusion or any other new or concerning symptoms. It is very possible that your condition may worsen and you might need to be in the hospital within the next few days. Make sure to have someone check on you a few times a day to make sure that you are doing ok. 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 for Dania Fwd Exam Comprehensive
[2020-05-11 05:23] LABS: ABG PCO2 35.2 mmHg (35-45); ABG PH Result 7.52 (7.35-7.45); Arterial Blood Gas Hematocrit 37.4 % (42-52); Base Excess ABG 5.7 mmol/L (-2.0-2.0); Blood Gas Allen Test Pos; Blood Gas Sample Site Radial, right; Blood Gas Sample Type Arterial; HCO3 ABG 28.7 mmol/L (22-26); PO2 ABG 58.9 mmHg (80.0-100.0)
[2020-05-11] MEDS: sodium chloride 0.9% 1,000 ML 150 ML IV (05:25)
[2020-05-11 05:29] LABS: Magnesium 1.7 mg/dL (1.7-2.3)
[2020-05-11 05:30] LABS: Troponin T (5th) Once 26 ng/L (0-15)
--- NOTE | 2020-05-11 05:38 | ECG_ITS ---
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1945 Requested By: Mishel Mercado Order Number: [id number] Jaquan MD: CELIO ENGLISH Measurements Intervals [place] Rate: 93 P: [place]: QRS: -42 QRSD: 104 T: -46 QT: 384 QTc: 478 Interpretive Statements ATRIAL FIBRILLATION LEFT AXIS DEVIATION [QRS AXIS < -30] SEPTAL MYOCARDIAL INFARCTION , PROBABLY OLD [40+ ms Q WAVE IN V1/V2] INTERPRETATION BASED ON A DEFAULT AGE OF 40 YEARS Compared to ECG 05/19/2017 09:08:54 Sinus rhythm no longer present Sinus arrhythmia no longer present Myocardial infarct finding still present Electronically Signed On 05-13-2020 15:28:09 SUPERVISOR PLATE PASTING by CELIO ENGLISH [id number]
[2020-05-11 05:41] LABS: Lactic Sepsis W/Reflex 1.9 mmol/L (0.5-2.2)
--- NOTE | 2020-05-11 05:41 | CTR_ITS ---
PROCEDURE INFORMATION: Exam: CT Angiography Chest With Contrast Exam date and time: 05/11/2020 5:42 AM Age: 74 years old Clinical indication: Shortness of breath; Prior surgery; Surgery date: 6+ months; Surgery type: Thyroid; Patient HX: Covid+; Additional info: Dyspnea TECHNIQUE: Imaging protocol: Computed tomographic angiography of the chest with intravenous contrast. 3D rendering (Not supervised by radiologist): MIP and/or 3D reconstructed images were created by the technologist. Radiation optimization: All CT scans at this facility use at least one of these dose optimization techniques: automated exposure control; mA and/or kV adjustment per patient size (includes targeted exams where dose is matched to clinical indication); or iterative reconstruction. Contrast material: VISIPAQUE 320; Contrast volume: 72 ml; Contrast route: INTRAVENOUS (IV); COMPARISON: CT chest w con* [id number] 03/21/2018 8:44 AM RADIATION DOSE METRICS: Total DLP (mGy-cm): 593.42 FINDINGS: Tubes, catheters and devices: Pacemaker overlies the upper left chest with single intracardiac lead at the right ventricle. Pulmonary arteries: Limited assessment of the aorta due to opacification of pulmonary arteries. Aorta: Dilated ascending thoracic aorta measures 4.2 cm. Dilated descending thoracic aorta maximum diameter 3.2 cm. Lungs: There are bilateral peripheral partially pleural based ground-glass opacities throughout both lungs. No pleural effusion. No lobar airspace consolidation. Pleural space: Pleural base calcified granuloma left upper lobe. Heart: Calcification thoracic aorta and distribution of coronary arteries. The cardiomegaly. Normal right to left ventricular ratio. Lymph nodes: Small mediastinal adenopathy. Calcified hilar lymph nodes. Bones/joints: Postoperative sternotomy. Soft tissues: Unremarkable. Partial air distention of the upper to mid esophagus. CT/CT angio chest PE protcl [id number] IMPRESSION: 1. No visualized pulmonary embolus. 2. Bilateral peripheral patchy ground-glass opacities. TheCommonly reported imaging features of COVID-19 pneumonia are present. Other processes such as influenza pneumonia and organizing pneumonia, as can be seen with drug toxicity and connective tissue disease, can cause a similar imaging pattern. (Reference: Jeremy) 3. Postoperative sternotomy. 4. Dilated ascending and descending thoracic aorta.Recommend clinical assessment and follow-up. REFERENCES: Jeremy Hyman, et al., Radiological Society of [place] Expert Consensus Statement on Reporting Chest CT Findings Related to COVID-19. Endorsed by the Society of Thoracic Radiology, the [place] [employer] [place] [employer], and RSNA. Published September 10, 2019. Radiation Dose CTDIVOL = (mGy): DLP = 593.42 (mGy-cm)
[2020-05-11 05:51] LABS: D Dimer 0.42 ug/mIFEU (0-0.59)
[2020-05-11] MEDS: levofloxacin-dextrose 5 % 750 MG/150 ML PREMIX 150 MG IV (05:58)
[2020-05-11 06:00] VITALS: BP 122/82; PULSE 84; RESP 21; O2SAT 92
[2020-05-11 06:03] LABS: Alanine Aminotransferase 57 U/L (0-41); Albumin Level 3.7 g/dL (3.5-5.2); Alkaline Phosphatase 102 IU/L (40-130); Aspartate Amino Transferase 60 U/L (0-40); Blood Urea Nitrogen 27 mg/dL (8-23); C Reactive Protein 240.8 mg/L (0.0-4.9); Calcium 8.5 mg/dL (8.5-10.5); Carbon Dioxide 27 mmol/L (22-29); Ferritin 890 ng/mL (30-400); Globulin 2.5 g/dL (1.3-4.6); Glucose 175 mg/dL (65-115); Total Bilirubin 0.9 mg/dL (0.15-1.2); Total Protein 6.2 g/dL (6.6-8.7)
[2020-05-11 06:04] LABS: Basophils % 0.2 %; Eosinophils % 0.5 %; Hematocrit 36.7 % (42.0-52.0); Hemoglobin 12.8 g/dL (11.7-16.6); Lymphocytes # 0.8 10^3/uL (0.8-4.8); Lymphocytes % 12.2 %; Mean Corpuscular HGB Conc 34.9 g/dL (30.0-36.0); Mean Corpuscular Hemoglobin 32.8 pg (28.0-34.0); Mean Corpuscular Volume 94.1 fL (80-94); Monocytes # 0.7 10^3/uL (0.2-0.9); Monocytes % 11.1 %; Neutrophils # 4.92 10^3/uL (1.8-7.7); Neutrophils % 75.5 %; Nucleated Red Blood Cells % 0 %; Platelet Count 148 10^3/cmm (130-400); Red Cell Distribution Width 11.6 % (12.1-15.1); White Blood Count 6.5 10^3/uL (4.0-10.0)
[2020-05-11 06:17] LABS: Influenza A by IFA Negative (Negative)
[2020-05-11 06:18] LABS: Influenza B by IFA Negative (Negative); SARS Covid-2 Antigen Positive (Negative)
[2020-05-11 06:22] LABS: Anion Gap 17.6 (5-19); Chloride 90 mmol/L (98-107); Osmolality Calculated 281 mOsm/kg (285-295); Potassium 3.6 mmol/L (3.5-5.1); Sodium 131 mmol/L (136-145)
[2020-05-11 06:40] VITALS: BP 151/86; PULSE 88; RESP 22; O2SAT 93
[2020-05-11 06:40] LABS: Troponin(5th) Baseline 27 ng/L (0-15)
[2020-05-11] MEDS: iodixanol 320 mg/mL 100mL Btl IV (06:43)
[2020-05-11 06:47] LABS: NT Pro B Type Natriuretic Pept 835 pg/mL (0-450)
--- NOTE | 2020-05-11 07:38 | ECG_ITS ---
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1945 Requested By: Mishel Mercado Order Number: [id number] Jaquan MD: CELIO ENGLISH Measurements Intervals [place] Rate: 90 P: [place]: QRS: -35 QRSD: 106 T: -50 QT: 380 QTc: 465 Interpretive Statements ATRIAL FIBRILLATION LEFT AXIS DEVIATION [QRS AXIS < -30] SEPTAL MYOCARDIAL INFARCTION , PROBABLY OLD [40+ ms Q WAVE IN V1/V2] Compared to ECG 05/19/2017 09:08:54 Sinus rhythm no longer present Sinus arrhythmia no longer present Myocardial infarct finding still present Electronically Signed On 05-13-2020 15:34:45 ROLL HANDLER by CELIO ENGLISH [id number]
[2020-05-11 08:09] LABS: Troponin 5 2HR 20.52 ng/L (0-15)
[2020-05-11] MEDS: acetaminophen 500 mg Tablet 1000 MG PO (08:15)
[2020-05-11 08:17] LABS: Troponin 5 2HR Delta -6.48 ABS# (0-10)
[2020-05-11 09:00] VITALS: O2SAT 90; O2SAT 95
[2020-05-11] MEDS: dexamethasone 4 mg/mL INJ 6 MG IVP (09:04)
[2020-05-11 09:10] VITALS: BP 146/84; PULSE 84; RESP 18; O2SAT 95
--- NOTE | 2020-05-11 11:36 | DCPLANNER ---
manager combination was asked to arrange for home oxygen for patient. Patient has [facility] insurance, embedded case manager sent patients information to September with the [facility] to see if patient would qualify for home oxygen. September with the [facility] called embedded case manager and informed embedded case manager that patient did qualify for home oxygen.
--- NOTE | 2020-05-14 08:52 | PC.NURSE ---
pt's family member called because pt turned in [facility] and he has not been able to get it due to holiday schedule. New prescription for dexamethasone 6mg daily *7 days called into [facility] pharmacy per Dr. Corrales.
== END 2020-05-11 13:07 | disposition home or self-care (01) ==
PROVIDERS: Emergency Medicine; Emergency Provider Emergency Medicine; PCP Family Medicine
DX: U07.1 COVID-19 (principal); J12.89 Other viral pneumonia; I48.91 Unspecified atrial fibrillation; Z95.0 Presence of cardiac pacemaker; I25.10 Atherosclerotic heart disease of native coronary artery without angina pectoris; E11.9 Type 2 diabetes mellitus without complications; E78.5 Hyperlipidemia, unspecified; I10 Essential (primary) hypertension
CPT/HCPCS: 12345; 36600; 71045; 71275; 80053; 82728; 82803; 83605; 83735; 83880; 84484; 85025; 85378; 86140; 87426; 87804; 93005; 96361; 96365; 96375; 99283; 99284; J1100; J1956; J7030; Q9967

== ENCOUNTER → 2020-10-15 13:16 | Outpatient (BNVA) | payer OTHER, SELFPAY | PROVIDERS: PCP Family Medicine; Visit Provider Surgery | DX: Z01.812 Encounter for preprocedural laboratory examination (principal); Z20.822 Contact with and (suspected) exposure to COVID-19 | CPT/HCPCS: 87635 ==

== ENCOUNTER 2020-10-20 09:30 | Day surgery (SDC) | payer OTHER, SELFPAY ==
[2020-10-18 13:56] VITALS: BMI 30.1
--- NOTE | 2020-10-20 10:16 | ANES.PREANE2 ---
Pre-Anesthetic Assessment Pre-Anesthetic Assessment: Height/Weight: Height 1.78 m Weight 95.254 kg Preop Diagnosis: Abnormal stress test/ Typical worsening chest pain Proposed Procedure: Operation Date: 10/20/20 11:00 Proposed Procedures p Colonoscopy 00567 Z86.010(Not Applicable) - Kwabena Banerjee MD Was Beta Eula taken within 24 hours: Yes Was Clonidine taken within 24 hours: N/A Social: Social History: No alcohol and No tobacco Exam: Pre-Anes Outpt Exam: alert, oriented x 3 and clear to auscultation bilaterally Airway: Submandibular: WNL Cervical ROM: WNL MP: 2 Dentition: False (upper) Pulmonary: Pulmonary: HEBERT CV/HEM: CV/HEM: Afib, CAD, DVT and HTN Comments: Pacemaker Metabolic: Metabolic: DM Musc/skel: Comments: Anesthetic Plan: ASA status: 3 Anesthesia: MAC Risk of > 500 ml blood loss (7ml/kg in children): No PFSH Anesthesia PFSH: Medical History Anticoagulation adequate with anticoagulant therapy Pradaxa Atrial fibrillation Benign prostatic hyperplasia with lower urinary tract symptoms Cardiac pacemaker Coronary artery disease Diabetes Dyslipidemia Elevated PSA Essential hypertension Muscular dystrophy Pneumonia due to COVID-19 virus SOBOE (shortness of breath on exertion) Thrombocytopenia Surgical History History of back surgery S/P cholecystectomy S/P thyroidectomy Family History Mother , at age 88 CAD (coronary artery disease) Father , at age 84 Cancer BRAIN Sister Cancer COLON Social History Smoking and tobacco status: never smoked Alcohol intake: never Marital status: Current occupational status: retired History of recent travel: No Data Anesthesia Cardiac Studies: No Data to Display
[2020-10-20 10:31] VITALS: BP 127/69; PULSE 90; RESP 18; TEMP 36.6; O2SAT 96
--- NOTE | 2020-10-20 10:41 | W.PM.OPSFHP ---
Same Day Surgery H&P Indication for Procedure/HPI DATE OF PROCEDURE: October 20, 2020 CHIEF COMPLAINT/INDICATIONFOR SURGICAL PROCEDURE: History of colon polyp PREOP DIAGNOSIS: Abnormal stress test/ Typical worsening chest pain PLANNED PROCEDRUE: Operation Date: 10/20/20 11:00 Proposed Procedures p Colonoscopy 24866 Z86.010(Not Applicable) - Kwabena Banerjee MD Clinic visit 09/16/2020 Patient comes today to discuss surveillance colonoscopy as last one was done last year and multiple polyps were removed Interim history 10/20/2020 Patient comes today for surveillance Medications/Allergies* Home Medications Medication Instructions Recorded Confirmed Type chlorthalidone 25 mg tablet 25 mg PO DAILY 08/11/19 10/18/20 History dabigatran etexilate 150 mg capsule 150 mg PO BID 08/11/19 10/18/20 History metformin 1,000 mg tablet 1,000 mg PO BID 08/11/19 10/18/20 History famotidine 20 mg tablet 20 mg PO BID 08/12/19 10/18/20 History metoprolol tartrate 100 mg tablet 100 mg PO BID tab 08/12/19 10/18/20 History levothyroxine 125 mcg PO DAILY 10/18/20 10/18/20 History Allergies/Adverse Reactions Allergy/AdvReac Type Severity Reaction Status Date / Time amoxicillin [From Amoxil] Allergy na Verified 10/20/20 10:44 codeine Allergy na Verified 10/20/20 10:44 hydromorphone Allergy na Verified 10/20/20 10:44 penicillin G Allergy Unknown Verified 10/20/20 10:44 Pertinent History/Comorbid Conditions* Medical History (Updated 09/17/20 @ 15:50 by Kwabena Banerjee MD) Anticoagulation adequate with anticoagulant therapy Pradaxa Atrial fibrillation Benign prostatic hyperplasia with lower urinary tract symptoms Cardiac pacemaker Coronary artery disease Diabetes Dyslipidemia Elevated PSA Essential hypertension Muscular dystrophy Pneumonia due to COVID-19 virus SOBOE (shortness of breath on exertion) Thrombocytopenia Surgical History (Updated 08/12/19 @ 12:42 by Imelda Sutherland APRN) History of back surgery S/P cholecystectomy S/P thyroidectomy Family History (Updated 08/05/19 @ 14:08 by Yuly Nichole RN) Father, at age 84 Mother, at age 88 CAD (coronary artery disease) Mother Cancer Father BRAIN Sister COLON Social History Smoking and tobacco status: never smoked Alcohol intake: never Marital status: Current occupational status: retired History of recent travel: No Pertinent Exam Findings alert, oriented x 3, clear to auscultation bilaterally, regular rate & rhythm and procedure specific exam findings (Abdominal exam nontender nondistended soft) Recommendations Surgery/Procedure today (Surveillance colonoscopy) Other Plans: Plan of care; After thorough history and physical examination and reviewing the chart, plan to perform surveillance colonoscopy. I discussed with the patient in details the risks,benefits,alternatives and indications.The risk of aspiration, bleeding, soft tissue injury, perforation of the colon and other potential concomitant complications were explained to the patient in details,also the potential need for Laproscoy/Laparotomy to repair any related complications including but not limited to colectomy and or Closotomy.The patient understood this well and did agree to proceed. Rationale was carefully and clearly discussed with the patient.Appropriate informed consent have been reviewed and signed All questions have been answered and all concerns have been addressed to patient's satisfaction. Verbal and written Instructions were given to the patient for colonoscopy prep Coding Level of Care Code Acute Technical Customer Support Specialist for Dania Sibley
[2020-10-20] MEDS: sodium chloride 0.9% 1,000 ML 30 ML IV (10:58)
[2020-10-20 11:37] LABS: Glucose Point of Care 191 mg/dL (70-110)
[2020-10-20 11:49] VITALS: BP 83/56; PULSE 76; RESP 18; TEMP 36.8; O2SAT 98
[2020-10-20 12:11] VITALS: BP 121/63; PULSE 74; RESP 18; O2SAT 96
--- NOTE | 2020-10-20 12:12 | ANE.PACU2 ---
Inpatient post-anesthesia follow up: Airway intact: Yes Vital signs: Temperature 98.2 F Pulse Rate 74 Respiratory Rate 18 Blood Pressure 121/63 Pulse Oximetry 96 Oxygen Delivery Me thod Room Air Oxygen Flow Rate Fraction of Inspir ed Oxygen Hydration adequate: Yes Nausea and vomiting: No Pain level: 1 Mental status: Baseline
== END 2020-10-20 12:10 | disposition home or self-care (01) ==
PROVIDERS: PCP Family Medicine; Visit Provider Surgery
PROC: 0DJD8ZZ Inspection of Lower Intestinal Tract, Via Natural or Artificial Opening Endoscopic (ICD-10-PCS; CPT 45378; principal; 2020-10-20 11:00)
DX: Z12.11 Encounter for screening for malignant neoplasm of colon (principal); Z86.010 Personal history of colon polyps; Z79.01 Long term (current) use of anticoagulants; I48.91 Unspecified atrial fibrillation; N40.0 Benign prostatic hyperplasia without lower urinary tract symptoms; Z95.0 Presence of cardiac pacemaker; I25.10 Atherosclerotic heart disease of native coronary artery without angina pectoris; E11.9 Type 2 diabetes mellitus without complications; E78.5 Hyperlipidemia, unspecified; I10 Essential (primary) hypertension; Z86.16 Personal history of COVID-19
CPT/HCPCS: 36416; 45380; 82962; 88305; 96360; J2704; J7030

== ENCOUNTER → 2020-10-28 10:12 | Outpatient (BNVA) | payer MEDICARE, SELFPAY | PROVIDERS: PCP Family Medicine; Visit Provider Urology | DX: R97.20 Elevated prostate specific antigen [PSA] (principal); N40.1 Benign prostatic hyperplasia with lower urinary tract symptoms; R35.1 Nocturia | CPT/HCPCS: G0103 ==

== ENCOUNTER → 2020-12-01 14:27 | Outpatient (BNVA) | payer MEDICARE, SELFPAY | PROVIDERS: PCP Family Medicine; Visit Provider Internal Medicine | DX: R06.02 Shortness of breath (principal); I25.10 Atherosclerotic heart disease of native coronary artery without angina pectoris; I48.91 Unspecified atrial fibrillation; I10 Essential (primary) hypertension | CPT/HCPCS: 80048; 83880 ==

== ENCOUNTER 2020-12-31 15:40 | Outpatient (CLI) | payer MEDICARE, SELFPAY ==
--- NOTE | 2020-12-31 15:45 | USCV_ITS ---
Yan Alonso Age: 75 Gender: M : 1945 Exam Date: 12/31/2020 16:21 Ordering Phys: Germán Mcdonough M.D ([email or web address]) Technologist: Marylou Key Exam Location: [facility] Indication: SOB BP: 106 / 60 HR: 75 Rhythm: Atrial fibrillation Technical Quality: Adequate MEASUREMENTS (Male / Female) Normal Values 2D ECHO LV Diastolic Diameter PLAX 4.8 cm 4.2 - 5.9 / 3.9 - 5.3 cm LV Systolic Diameter PLAX 3.5 cm IVS Diastolic Thickness 1.6 cm 0.6 - 1.0 / 0.6 - 0.9 cm IVS Systolic Thickness 1.8 cm LVPW Diastolic Thickness 1.5 cm 0.6 - 1.0 / 0.6 - 0.9 cm LVPW Systolic Thickness 1.9 cm LVOT Diameter 2.0 cm LV Ejection Fraction 2D Teich 50.8 % LV Ejection Fraction MOD 2C 61.6 % LV Ejection Fraction 2C AL 60.9 % LA Diameter 4.4 cm LA Width 3.0 cm LA Height 5.1 cm RA Width 2.5 cm RA Height 3.6 cm Aorta at Sinotubular Diameter 3.1 cm M-MODE Aortic Annulus Diameter 3.3 cm LA Ao Ratio MM 1.3 MV E Point Septal Separation 0.5 cm DOPPLER AV Peak Velocity 109.0 cm/s LVOT Peak Velocity 80.0 cm/s AV Area Cont Eq vti 2.1 cm squared AV Area Cont Eq pk 2.3 cm squared MV Area PHT 5.8 cm squared MV E' Velocity 40.5 cm/s Mitral E to MV E' Ratio 10.9 Mitral E to LV E' Lateral Ratio 9.4 Mitral E to LV E' Septal Ratio 12.8 TR Peak Velocity 222.8 cm/s TR Peak Gradient 19.9 mmHg TR Mean Velocity 172.4 cm/s TR Mean Gradient 13.0 mmHg TR Velocity Time Integral 64.7 cm TV Peak E Velocity 53.0 cm/s Right Atrial Pressure 3.0 mmHg Pulmonary Artery Systolic Pressu 22.9 mmHg PV Peak Velocity 69.0 cm/s RV Acceleration Time 0.1 s RV Ejection Time 0.2 s RV AcT/ET 0.3 FINDINGS Left Ventricle Normal left ventricular size. LV systolic function is normal with EF of 55-60%. No regional wall motion abnormalities. Septal motion consistent with paced rhtyhm. Diastolic function is indeterminate Right Ventricle The right ventricle is normal in size and function. Pacemaker lead is seen Right Atrium The right atrium is normal in size. Pacemaker lead is seen Left Atrium The left atrium is mildly dilated Mitral Valve Structurally normal mitral valve without significant stenosis or prolapse. There is mild to moderate mitral regurgitation. Aortic Valve Structurally normal aortic valve without significant sclerosis or stenosis. There is mild aortic regurgitation. Tricuspid Valve Structurally normal tricuspid valve without significant stenosis. Mild tricuspid regurgitation. Pulmonary artery systolic pressure is normal. Pulmonic Valve Structurally normal pulmonic valve without significant stenosis. There is no pulmonic regurgitation. Pericardium Normal pericardium without effusion. Aorta Normal ascending aorta dimension. CONCLUSIONS LV systolic function is normal with EF of 55-60% Diastolic function is indeterminate Left atrium is mildly dilated Mild to moderate mitral regurgitation Mild aortic regurgitation Mild tricuspid regurgitation Compared to prior echocardiogram from 06/14/2015, no significant changes are noted Germán Mcdonough MD (Electronically Signed) Final Date: 10 January 2021 11:37 S
== END 2020-12-31 15:41 | disposition home or self-care (01) ==
PROVIDERS: PCP Family Medicine; Visit Provider Internal Medicine
DX: R06.02 Shortness of breath (principal); I08.3 Combined rheumatic disorders of mitral, aortic and tricuspid valves
CPT/HCPCS: 93306

== ENCOUNTER → 2021-05-02 10:49 | Outpatient (BNVA) | payer MEDICARE, SELFPAY | PROVIDERS: PCP Family Medicine; Visit Provider Urology | DX: R97.20 Elevated prostate specific antigen [PSA] (principal); N40.1 Benign prostatic hyperplasia with lower urinary tract symptoms; R35.1 Nocturia | CPT/HCPCS: 81003; 84153 ==

== ENCOUNTER → 2021-05-03 08:42 | Outpatient (BNVA) | payer MEDICARE, SELFPAY | PROVIDERS: PCP Family Medicine; Referring Provider Family Medicine; Visit Provider Orthopaedic Surgery | DX: S12.9XXA Fracture of neck, unspecified, initial encounter (principal); X58.XXXA Exposure to other specified factors, initial encounter | CPT/HCPCS: 72040 ==

== ENCOUNTER 2021-05-30 13:15 | Outpatient (CLI) | payer MEDICARE, SELFPAY ==
--- NOTE | 2021-05-30 13:19 | CT_ITS ---
WS: [id number] CT CERVICAL SPINE TECHNIQUE: Noncontrast CT of the cervical spine with coronal and sagittal reformatted images. CLINICAL INFORMATION: S12.100A - Unspecified displaced fracture of second cervi... COMPARISON: None. DLP: 743.[address] scans at [facility] use at least one of these dose optimization techniques: automated e xposure control; mA and/or kV adjustment per patient size (includes targeted exams where dose is matc hed to clinical indication); or iterative reconstruction. FINDINGS: Straightening of the normal cervical lordosis with moderate to advanced spondylitic changes. Prominen t anterior hypertrophic changes. Slight ossification of the posterior longitudinal ligament in the lo wer cervical spine with disc osteophyte complexes at C6-C7. Normal craniocervical articulation. Normal C1-C2 articulation. No visualized acute appearing C2 fract ures. Small lucency base of the dens on the right. Otherwise no visualized C2 fractures. C2-C3: Normal. C3-C4: Disc osteophyte complex with mild central canal stenosis. Advanced left facet arthropathy. Mod erate to severe left and mild right bony foraminal narrowing. C4-C5: Disc osteophyte complex with endplate ridging. Mild central canal stenosis. Moderate to severe bilateral bony foraminal narrowing. Moderate to advanced facet arthropathy. C5-C6: Disc osteophyte complex with endplate ridging. Mild central canal stenosis. Moderate to severe bilateral bony foraminal narrowing. Moderate to advanced facet arthropathy. C6-C7: Disc osteophyte complex with endplate ridging. Ossification posterior longitudinal ligament. M oderate central canal stenosis. Moderate bilateral bony foraminal narrowing. Moderate facet arthropat hy. C7-T1: Disc osteophyte complex with endplate ridging. Mild central canal stenosis. Mild right bony fo raminal narrowing. Visualized posterior nasopharynx: Normal. Prevertebral soft tissues: Normal. Mastoid air cells are well aerated. CT/CT cervical spin wo con* [id number] IMPRESSION: 1. Straightening of the normal cervical lordosis. Moderate to advanced spondyl itic changes. 2. Small lucency at the base of the dens on the right may represent the area o f interest. Otherwise no acute appearing C2 fractures. 3. Normal C1-2 articulation. 4. Multilevel spondylitic changes described above.
== END 2021-05-30 13:16 | disposition home or self-care (01) ==
LOC: RAD 13:18
PROVIDERS: PCP Family Medicine; Visit Provider Orthopaedic Surgery
DX: S12.100A Unspecified displaced fracture of second cervical vertebra, initial encounter for closed fracture (principal); X58.XXXA Exposure to other specified factors, initial encounter
CPT/HCPCS: 72125

== ENCOUNTER 2021-07-06 11:36 | Emergency (ER) | payer OTHER, MEDICARE, SELFPAY ==
[2021-07-06 13:06] VITALS: BP 126/85; PULSE 94; RESP 18; TEMP 36.9; O2SAT 96; BMI 30.1
--- NOTE | 2021-07-06 13:16 | XR_ITS ---
WS: [id number] Exam: XR ribs RT mn 3V w CXR1V [id number] Date/Time of Exam: 07/06/2021 1:17 PM Reason For Exam: rib pain, fall No acute right rib fracture noted. The right lung is fully expanded. No significant pleural or pulmon harjinder reactive changes are seen. XR/XR ribs RT mn 3V w CXR1V [id number] IMPRESSION: 1. No acute right rib fracture or pneumothorax.
--- NOTE | 2021-07-06 13:17 | W.ED.FALL ---
Documented by User: JOHN Torres 07/06/21 16:47 HPI - Fall General: Chief Complaint: Fall Stated Complaint: Fall, rib area hurts Time Seen by Provider: 07/06/21 13:18 History of Present Illness: HPI Narrative: Patient states he fell yesterday striking his right-sided chest now he has rib pain. Pain with deep breath on right side denies any other injury Associated symptoms-after fall: Denies abdominal pain, chest pain or headache(s) Review of Systems Narrative: Right-sided rib pain that occurred after a fall yesterday. Hurts to take a deep breath. Patient in no acute distress and having no difficulty breathing. Patient is on anticoagulant therapy Const: Denies: fever(s), chills or body aches Eyes: Denies: change in vision or blurry vision ENMT: Denies: throat pain or nasal congestion Card: Denies: chest pain or dyspnea on exertion Resp: Denies: dyspnea, productive cough or non-productive cough GI: Denies: abdominal pain, nausea or vomiting : Denies: difficulty urinating Musc: Denies: extremity pain Skin/Breast: Denies: rash Neuro: Denies: headache(s) Psych: Denies: anxiety or depression Lul/Lymph: Denies: easy bruising PFSH ED PFSH: Medical History Anticoagulation adequate with anticoagulant therapy Pradaxa Atrial fibrillation Benign prostatic hyperplasia with lower urinary tract symptoms Cardiac pacemaker Coronary artery disease Diabetes Dyslipidemia Elevated PSA Essential hypertension History of colon polyps Muscular dystrophy Pneumonia due to COVID-19 virus SOBOE (shortness of breath on exertion) Thrombocytopenia Surgical History History of back surgery S/P cholecystectomy S/P thyroidectomy Family History Mother , at age 88 CAD (coronary artery disease) Father , at age 84 Cancer BRAIN Sister Cancer COLON Social History Smoking and tobacco status: never smoked Alcohol intake: never Marital status: Current occupational status: retired History of recent travel: No Physical Exam Const: COMMON NORMALS: no acute distress and patient oriented x3 GENERAL APPEARANCE: cooperative Chest: CHEST: Yes localized rib tenderness with anteroposterior compression (Right side) Resp: COMMON NORMALS: normal respiratory effort and No use of accessory muscles EFFORT & INSPECTION: Yes able to speak in complete sentences Cardio: COMMON NORMALS: regular rate RATE: regular rate Neuro: COMMON NORMALS: patient oriented x3 Psych: COMMON NORMALS: mental status grossly normal Course Vital Signs: Vital signs: Vital Signs Temperature 98.8 F 07/06/21 14:13 Pulse Rate 88 07/06/21 14:13 Respiratory Rate 15 07/06/21 14:13 Blood Pressure 123/78 07/06/21 14:13 Pulse Oximetry 97 07/06/21 14:13 MDM - Fall MDM Narrative Medical decision making narrative: Patient in no acute distress. [facility] x-ray Dr. Corrales. Patient no acute distress patient not coughing up blood patient not have any shortness of breath. [facility] Discharge Plan Discharge Patient Disposition: Home Clinical Impression: Contusion of rib on right side Qualifiers: Encounter type: initial encounter Qualified Code(s): S20.211A - Contusion of right front wall of thorax, initial encounter Condition: Stable Prescriptions: New tramadol 50 mg tablet 50 mg PO TID PRN (Reason: pain) Qty: 7 0RF No Action famotidine 20 mg tablet 20 mg PO BID 0RF tamsulosin 0.4 mg capsule 0.4 mg PO BID Qty: 180 3RF finasteride 5 mg tablet 5 mg PO DAILY Qty: 90 3RF chlorthalidone 25 mg tablet 25 mg PO DAILY 0RF Pradaxa 150 mg capsule 150 mg PO BID 0RF Hold Instructions: Resume on 10/27/20. metformin 1,000 mg tablet 1,000 mg PO BID 0RF metoprolol tartrate 100 mg tablet 100 mg PO BID 0RF furosemide 20 mg tablet 20 mg PO BID Qty: 20 0RF Rx Instructions: Take for 10 days twice a day. levothyroxine 125 mcg Capsule 125 mcg PO DAILY 0RF isosorbide mononitrate 30 mg tablet extended release 24 hr 30 mg PO DAILY Qty: 30 3RF Discharge Orders: Discharge ED (Routine); Ordered 07/06/21 Ordered By: Justin Hendrickson Referrals: Deepak Estrada MD [Primary Care Provider] - Discharge Diet: Usual diet Discharge Activity: Increase activity as tolerated Patient Instructions: Contusion in Adults (ED) Activity Restrictions/Additional Instructions: Follow-up with medical provider as directed. Take medications as prescribed. Return to the ER or your medical provider if condition worsens. Please read and understand discharge instructions. If any questions ask please. Coding Level of Care Code ED [employer] Science Tutor for Chg Fwd Exam Detailed Documented by User: Jarred Corrales DO 07/12/21 06:19 HPI - Fall General: Chief Complaint: Fall Stated Complaint: Fall, rib area hurts Time Seen by Provider: 07/06/21 13:18 PFSH ED PFSH: Medical History Anticoagulation adequate with anticoagulant therapy Pradaxa Atrial fibrillation Benign prostatic hyperplasia with lower urinary tract symptoms Cardiac pacemaker Coronary artery disease Diabetes Dyslipidemia Elevated PSA Essential hypertension History of colon polyps Muscular dystrophy Pneumonia due to COVID-19 virus SOBOE (shortness of breath on exertion) Thrombocytopenia Surgical History History of back surgery S/P cholecystectomy S/P thyroidectomy Family History Mother , at age 88 CAD (coronary artery disease) Father , at age 84 Cancer BRAIN Sister Cancer COLON Social History Smoking and tobacco status: never smoked Alcohol intake: never Marital status: Current occupational status: retired History of recent travel: No Course Vital Signs: Vital signs: Vital Signs Temperature 98.8 F 07/06/21 14:13 Pulse Rate 88 07/06/21 14:13 Respiratory Rate 15 07/06/21 14:13 Blood Pressure 123/78 07/06/21 14:13 Pulse Oximetry 97 07/06/21 14:13 MDM - Fall MDM Narrative Medical decision making narrative: Chart reviewed and patient discussed with midlevel. Agree with assessment and plan. Discharge Plan Discharge Patient Disposition: Home Clinical Impression: Contusion of rib on right side Qualifiers: Encounter type: initial encounter Qualified Code(s): S20.211A - Contusion of right front wall of thorax, initial encounter Condition: Stable Prescriptions: New tramadol 50 mg tablet 50 mg PO TID PRN (Reason: pain) Qty: 7 0RF No Action famotidine 20 mg tablet 20 mg PO BID 0RF tamsulosin 0.4 mg capsule 0.4 mg PO BID Qty: 180 3RF finasteride 5 mg tablet 5 mg PO DAILY Qty: 90 3RF chlorthalidone 25 mg tablet 25 mg PO DAILY 0RF Pradaxa 150 mg capsule 150 mg PO BID 0RF Hold Instructions: Resume on 10/27/20. metformin 1,000 mg tablet 1,000 mg PO BID 0RF metoprolol tartrate 100 mg tablet 100 mg PO BID 0RF furosemide 20 mg tablet 20 mg PO BID Qty: 20 0RF Rx Instructions: Take for 10 days twice a day. levothyroxine 125 mcg Capsule 125 mcg PO DAILY 0RF isosorbide mononitrate 30 mg tablet extended release 24 hr 30 mg PO DAILY Qty: 30 3RF Discharge Orders: Discharge ED (Routine); Ordered 07/06/21 Ordered By: Justin Hendrickson Referrals: Deepak Estrada MD [Primary Care Provider] - Discharge Diet: Usual diet Discharge Activity: Increase activity as tolerated Patient Instructions: Contusion in Adults (ED) Activity Restrictions/Additional Instructions: Follow-up with medical provider as directed. Take medications as prescribed. Return to the ER or your medical provider if condition worsens. Please read and understand discharge instructions. If any questions ask please. Coding Level of Care Code ED [employer] Science Tutor for Dania Sibley Exam Detailed
[2021-07-06 14:13] VITALS: BP 123/78; PULSE 88; RESP 15; TEMP 37.1; O2SAT 97
== END 2021-07-06 14:17 | disposition home or self-care (01) ==
PROVIDERS: Emergency Provider Nurse Practitioner Family; PCP Family Medicine
DX: S20.211A Contusion of right front wall of thorax, initial encounter (principal); W19.XXXA Unspecified fall, initial encounter; Z79.01 Long term (current) use of anticoagulants; I48.91 Unspecified atrial fibrillation; I25.10 Atherosclerotic heart disease of native coronary artery without angina pectoris; E11.9 Type 2 diabetes mellitus without complications; E78.5 Hyperlipidemia, unspecified; I10 Essential (primary) hypertension; G71.00 Muscular dystrophy, unspecified; Z86.16 Personal history of COVID-19; Z79.84 Long term (current) use of oral hypoglycemic drugs
CPT/HCPCS: 12345; 71101; 99282

== ENCOUNTER → 2021-07-27 10:39 | Outpatient (BNVA) | payer OTHER, SELFPAY | PROVIDERS: PCP Family Medicine; Referring Provider Family Medicine; Visit Provider Anesthesiology Pain Medicine | DX: G89.29 Other chronic pain (principal); M96.1 Postlaminectomy syndrome, not elsewhere classified; M47.816 Spondylosis without myelopathy or radiculopathy, lumbar region; M51.16 Intervertebral disc disorders with radiculopathy, lumbar region; Z79.891 Long term (current) use of opiate analgesic | CPT/HCPCS: 99204 ==

== ENCOUNTER 2021-07-27 12:03 | Outpatient (CLI) | payer OTHER, SELFPAY ==
--- NOTE | 2021-07-27 12:06 | XR_ITS ---
WS: [id number] XR lumbar spine min 4V [id number] REASON FOR EXAM: M47.816 - Spondylosis without myelopathy or radiculopathy... FINDINGS: Relatively normal lumbar spine curvature AP and lateral projections. No significant vertebral body abnormality. Narrowing of the intervertebral disc spaces from L2-3 to S1 with large marginal osteophytes. Previous laminectomy right L5. Degenerative changes in the facet joints L4-S1. No significant listhesis. XR/XR lumbar spine min 4V [id number] IMPRESSION: Multilevel degenerative spondylosis. The lumbar spine does not appear to be sig nificantly changed compared to 02/28/2016.
== END 2021-07-27 12:04 | disposition home or self-care (01) ==
PROVIDERS: PCP Family Medicine; Visit Provider Anesthesiology Pain Medicine
DX: M47.816 Spondylosis without myelopathy or radiculopathy, lumbar region (principal)
CPT/HCPCS: 72110

== ENCOUNTER → 2021-08-23 08:59 | Outpatient (BNVA) | payer OTHER, SELFPAY | PROVIDERS: PCP Family Medicine; Visit Provider Anesthesiology Pain Medicine | DX: M51.16 Intervertebral disc disorders with radiculopathy, lumbar region (principal); M47.816 Spondylosis without myelopathy or radiculopathy, lumbar region; M54.2 Cervicalgia; M96.1 Postlaminectomy syndrome, not elsewhere classified; M79.604 Pain in right leg; M79.605 Pain in left leg; Z79.891 Long term (current) use of opiate analgesic | CPT/HCPCS: 99214 ==

== ENCOUNTER → 2021-09-02 10:07 | Outpatient (BNVA) | payer MEDICARE, SELFPAY | PROVIDERS: PCP Family Medicine; Visit Provider Internal Medicine | DX: Z95.0 Presence of cardiac pacemaker (principal) ==

== ENCOUNTER 2021-09-20 11:17 | Outpatient (CLI) | payer MEDICARE, SELFPAY ==
--- NOTE | 2021-09-20 11:34 | US_ITS ---
WS: [id number] RENAL ULTRASOUND HISTORY: STAGE 3A CHRONIC KIDNEY DZ COMPARISON: No similar studies. Renal ultrasound 06/04/2014. TECHNIQUE: 2-D and color Doppler imaging of the kidney submitted. Right kidney: 11.2 cm x 5.2 cm x 5.2 cm. Kidney is normal size with moderate increased echogenicity. Poor cortical medullary differentiation. No mass. No hydronephrosis. Left kidney: 9.8 cm x 4.8 cm x 4.6 cm. Normal size kidney. Mild increased echogenicity with no hydronephrosis. Poor cortical medullary diffe rentiation. Aorta: Normal. Urinary Bladder: Nondistended. Enlarged prostate measures 3.4 x 2.7 x 3.1 cm with encroachment into t he urinary bladder. US/US renal BI* [id number] IMPRESSION: 1. Normal size kidneys with no hydronephrosis. 2. Chronic medical renal disease, moderate on the RIGHT and mild on the LEFT.
== END 2021-09-20 11:18 | disposition home or self-care (01) ==
LOC: RAD 11:21
PROVIDERS: PCP Family Medicine; Visit Provider Internal Medicine Nephrology
DX: N18.31 Chronic kidney disease, stage 3a (principal)
CPT/HCPCS: 76770

== ENCOUNTER 2021-09-21 06:00 | Outpatient (RCR) | payer MEDICARE, SELFPAY | END 2021-10-15 23:59 | disposition home or self-care (01) | LOC: SPT 06:00 | PROVIDERS: PCP Family Medicine; Referring Provider Anesthesiology Pain Medicine; Visit Provider Anesthesiology Pain Medicine | DX: M54.16 Radiculopathy, lumbar region (principal) | CPT/HCPCS: 97110; 97161 ==

== ENCOUNTER 2021-10-12 14:47 | Outpatient (CLI) | payer MEDICARE, SELFPAY ==
--- NOTE | 2021-10-12 14:57 | CT_ITS ---
WS: [id number] CT LUMBAR SPINE TECHNIQUE: Noncontrast CT of the lumbar spine with coronal and sagittal reformatted images. CLINICAL INFORMATION: SCIATICA COMPARISON: None. DLP: 1427.[address] scans at [facility] use at least one of these dose optimization techniques: automated e xposure control; mA and/or kV adjustment per patient size (includes targeted exams where dose is matc hed to clinical indication); or iterative reconstruction. FINDINGS: Mild lumbar curve. No acute compression. Bony ankylosis with fusion across the disc spaces at L4-L5 a nd L5-S1. Anterior hypertrophic changes at these levels. Evidence of prior LEFT L4-L5 and RIGHT L5-S1 hemilaminectomies. L1-L2: Normal L2-L3: Mild annular bulging with slight narrowing of the subarticular recess bilaterally. Moderate fa cet arthropathy ligamentum flavum hypertrophy. Foramen are patent. L3-L4: Mild annular bulging with osteophytic ridging. Slight effacement of ventral thecal sac. Periph eral disc calcification. Moderate facet arthropathy ligamentum flavum flavum hypertrophy. Mild centra l canal stenosis and impingement traversing L4 nerve roots bilaterally. Eccentric disc bulging and os teophytic ridging results in mild bilateral foraminal narrowing. L4-L5: Prior LEFT hemilaminectomy. RIGHT pericentral protruding osteophyte impinges the RIGHT subarti cular recess and traversing RIGHT L5 nerve root. In addition, osteophytic ridging results in impingem ent of the traversing LEFT L5 nerve root in the LEFT subarticular recess. Mild residual central canal stenosis. Mild LEFT bony foraminal narrowing. Moderate facet arthropathy. L5-S1: Prior postoperative changes RIGHT hemilaminectomy. LEFT S1 nerve root appears normal. Endplate bony spurring impinges the traversing S1 nerve root in the subarticular recess. Moderate RIGHT and m ild LEFT bony foraminal narrowing. Adrenal glands are normal. Small RIGHT renal cyst. Normal caliber abdominal aorta. Vascular calcifica tion. Visualized pelvic bony structures: Normal. Paravertebral soft tissues: Normal. CT/CT lumbar spine wo con* [id number] IMPRESSION: 1. Prior postoperative changes LEFT L4-L5 and L5-S1 hemilaminectomies with bon y fusion across the L4-L5 disc spaces. 2. Mild annular bulging L3-L4 with impingement traversing L4 nerve roots bilat erally and mild central canal stenosis. Moderate facet arthropathy at this leve l with ligamentum flavum hypertrophy. 3. Disc osteophytic ridging L4-L5 with RIGHT pericentral osteophyte impinges t he RIGHT and LEFT subarticular recess and traversing L5 nerve roots bilaterally . 4. Crowding of the RIGHT S1 nerve root in the subarticular recess L5-S1. 5. Moderate bony foraminal narrowing RIGHT L5-S1 with impingement on the exiti ng RIGHT L5 nerve root. 6. Otherwise mild bony foraminal narrowing LEFT L3-L4, LEFT L4-L5 and LEFT L5- S1. This is worse at LEFT L4-L5. 7. Moderate facet arthropathy L3-L5.
== END 2021-10-12 14:48 | disposition home or self-care (01) ==
LOC: RAD 14:51
PROVIDERS: PCP Family Medicine; Visit Provider Family Medicine
DX: M54.30 Sciatica, unspecified side (principal); M48.07 Spinal stenosis, lumbosacral region; M47.816 Spondylosis without myelopathy or radiculopathy, lumbar region; M25.78 Osteophyte, vertebrae
CPT/HCPCS: 72131

== ENCOUNTER → 2021-10-20 08:57 | Outpatient (BNVA) | payer OTHER, SELFPAY | PROVIDERS: PCP Family Medicine; Referring Provider Family Medicine; Visit Provider Physician Assistant | DX: M48.062 Spinal stenosis, lumbar region with neurogenic claudication (principal); M96.1 Postlaminectomy syndrome, not elsewhere classified | CPT/HCPCS: 72110; 99204; 99999 ==

== ENCOUNTER → 2021-10-26 14:33 | Outpatient (BNVA) | payer OTHER, SELFPAY | PROVIDERS: PCP Family Medicine; Visit Provider Surgery | DX: Z86.010 Personal history of colon polyps (principal) | CPT/HCPCS: 99213 ==

== ENCOUNTER 2021-11-17 10:08 | Outpatient (CLI) | payer OTHER, SELFPAY ==
--- NOTE | 2021-11-17 10:15 | IR_ITS ---
WS: [id number] MYELOGRAM LUMBAR SPINE Fluoroscopic guided lumbar myelogram CLINICAL INFORMATION: LUMBAR PAIN COMPARISON: None. TECHNIQUE: The procedure, including risks, benefits, and complications, were discussed with the patie nt who agreed to proceed. A timeout was performed to confirm correct patient, procedure, and site. Using sterile technique, the patient was prepped and draped in the usual sterile fashion. After admin istration of local anesthesia using 1% preservative-free lidocaine and using fluoroscopic guidance, a 22-gauge spinal needle was advanced into the subarachnoid space at the L2-L3 level. Subsequently 13 cc of Omnipaque 240 was administered into the thecal sac. The needle was removed and hemostasis was a chieved. Spot fluoroscopic images were obtained. FLUOROSCOPIC TIME: 2min [id number] # of spot films: 1 Spot fluoroscopic images demonstrate mixed injection with intrathecal and subdural extension of contr ast. Subdural contrast in the upper lumbar spine. Disc space narrowing worse at L4-L5 and L5-S1. Hype rtrophic changes mid and lower thoracic spine. Prior postoperative changes lower lumbar spine with la minectomy defects. Slight retrolisthesis L3 on L4. No instability on flexion-extension. Please see CT myelogram report for additional detail. IR/IR myelogram sp lumbar [id number] IMPRESSION: 1. Lumbar myelogram with CT to follow. Please see CT report for further anatom ic detail. 2. Slight retrolisthesis L3 on L4. No instability on flexion-extension. 3. Disc space narrowing worse L4-L5 and L5-S1. 4. Prior laminectomy defects lower lumbar spine. 5. Mixed contrast injection with intrathecal and subdural contrast visualized.
--- NOTE | 2021-11-17 10:30 | CT_ITS ---
WS: [id number] CT LUMBAR SPINE TECHNIQUE: Contrast-enhanced CT of the lumbar spine with coronal and sagittal reformatted images. CLINICAL INFORMATION: LUMBAR PAIN COMPARISON: CT October 12, 2021 DLP: 1323.[address] scans at [facility] use at least one of these dose optimization techniques: automated e xposure control; mA and/or kV adjustment per patient size (includes targeted exams where dose is matc hed to clinical indication); or iterative reconstruction. FINDINGS: Mixed epidural and subdural injection. Disc space narrowing worse L4-L5 and L5-S1 with partial ankylo sis. No acute appearing compression fractures. Hypertrophic changes lumbar spine. L1-L2: Normal. L2-L3: Mild annular bulging with slight effacement of ventral thecal sac. Narrowing of the subarticul ar recess bilaterally. Moderate facet arthropathy with ligamentum flavum hypertrophy. Foramen are pat ent. L3-L4: Mild annular bulging with slight effacement of ventral thecal sac. Moderate facet arthropathy with ligamentum flavum hypertrophy. LEFT eccentric osteophytic ridging with mild LEFT foraminal narro wing and slight encroachment on the far exiting LEFT L3 nerve root. Mild RIGHT foraminal narrowing. M ild to moderate central canal stenosis at this level with narrowing of the subarticular recess. L4-L5: RIGHT pericentral protruding osteophyte. Slight impingement on the RIGHT subarticular recess a nd traversing RIGHT L5 nerve root. Prior LEFT hemilaminectomy. Eccentric disc bulging results in mild LEFT greater than RIGHT foraminal narrowing. L5-S1: Prior postoperative changes remote RIGHT hemilaminectomy. Moderate facet arthropathy with liga mentum flavum flavum hypertrophy. Mild RIGHT bony foraminal narrowing. Spinal canal is patent. Adrenal glands are normal. CT/CT lumbar spine w con [id number] IMPRESSION: 1. Mild lumbar curve. Moderate spondylitic changes. 2. Mixed intrathecal and subdural contrast injection in the mid and upper lumb ar spine. 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 3. Small shallow central protrusion L3-L4 with mild to moderate central canal stenosis and impingement subarticular recess bilaterally. Moderate facet arthro michelle with ligamentum flavum hypertrophy. Mild LEFT greater than RIGHT bony for aminal narrowing at this level. 4. RIGHT pericentral protruding osteophyte L4-L5 impinges the RIGHT subarticul ar recess and traversing RIGHT L5 nerve root. LEFT hemilaminectomy. Mild LEFT b maverick foraminal narrowing. 5. Prior RIGHT L5-S1 hemilaminectomy with moderate RIGHT bony foraminal narrow ing.
[2021-11-17] MEDS: iohexol 240 mg/mL 50 mL Btl INTRATHECA (11:17)
[2021-11-17 17:38] LABS: Prothrombin Time (Patient) 11.9 Seconds (12.1-14.9)
== END 2021-11-17 10:09 | disposition home or self-care (01) ==
PROVIDERS: PCP Family Medicine; Visit Provider Physician Assistant
DX: M96.1 Postlaminectomy syndrome, not elsewhere classified (principal); M51.16 Intervertebral disc disorders with radiculopathy, lumbar region; M47.816 Spondylosis without myelopathy or radiculopathy, lumbar region; Z01.812 Encounter for preprocedural laboratory examination
CPT/HCPCS: 62304; 72120; 72132; 85610

== ENCOUNTER → 2021-11-24 10:27 | Outpatient (BNVA) | payer OTHER, SELFPAY | PROVIDERS: PCP Family Medicine; Visit Provider Orthopaedic Surgery | DX: M48.10 Ankylosing hyperostosis [Forestier], site unspecified (principal); M48.062 Spinal stenosis, lumbar region with neurogenic claudication | CPT/HCPCS: 99213; 99214 ==

== ENCOUNTER → 2021-11-29 14:30 | Outpatient (BNVA) | payer OTHER, SELFPAY | PROVIDERS: PCP Family Medicine; Referring Provider Physician Assistant; Visit Provider Specialist | DX: G62.89 Other specified polyneuropathies (principal) | CPT/HCPCS: 95908; 95909 ==

== ENCOUNTER → 2021-12-29 10:00 | Outpatient (BNVA) | payer OTHER, SELFPAY | PROVIDERS: PCP Family Medicine; Referring Provider Physician Assistant; Visit Provider Specialist | DX: G71.00 Muscular dystrophy, unspecified (principal); G62.9 Polyneuropathy, unspecified; M96.1 Postlaminectomy syndrome, not elsewhere classified | CPT/HCPCS: 95860; 99202 ==

== ENCOUNTER → 2022-01-03 09:52 | Outpatient (BNVA) | payer OTHER, SELFPAY | PROVIDERS: PCP Family Medicine; Visit Provider Anesthesiology Pain Medicine | DX: M51.16 Intervertebral disc disorders with radiculopathy, lumbar region (principal); M51.17 Intervertebral disc disorders with radiculopathy, lumbosacral region; M48.062 Spinal stenosis, lumbar region with neurogenic claudication; M47.816 Spondylosis without myelopathy or radiculopathy, lumbar region; M96.1 Postlaminectomy syndrome, not elsewhere classified; M54.2 Cervicalgia; G62.9 Polyneuropathy, unspecified; M79.604 Pain in right leg; M79.605 Pain in left leg | CPT/HCPCS: 99214 ==

== ENCOUNTER 2022-01-13 09:30 | Outpatient (CLI) | payer MEDICARE, SELFPAY ==
--- NOTE | 2022-01-13 09:30 | USCV_ITS ---
Yan Alonso Age: 76 Gender: M : 1945 Exam Date: 01/13/2022 09:50 Ordering Phys: Germán Mcdonough M.D ([email or web address]) Technologist: Bushra An Exam Location: [facility] [place] Indication: ASHD BP: 120 / 68 HR: 73 Rhythm: Sinus Technical Quality: Adequate MEASUREMENTS (Male / Female) Normal Values 2D ECHO LV Diastolic Diameter PLAX 4.6 cm 4.2 - 5.9 / 3.9 - 5.3 cm LV Systolic Diameter PLAX 3.3 cm IVS Diastolic Thickness 1.4 cm 0.6 - 1.0 / 0.6 - 0.9 cm IVS Systolic Thickness 1.9 cm LVPW Diastolic Thickness 1.3 cm 0.6 - 1.0 / 0.6 - 0.9 cm LVPW Systolic Thickness 1.6 cm LVOT Diameter 2.1 cm LV Ejection Fraction 2D Teich 56.2 % LV Ejection Fraction MOD 2C 55.8 % LV Ejection Fraction 2C AL 56.4 % LA Diameter 4.4 cm LA Width 4.4 cm LA Height 6.3 cm RA Width 3.3 cm RA Height 5.1 cm Aorta at Sinotubular Diameter 3.9 cm IVC Diameter 1.1 cm DOPPLER AV Peak Velocity 121.0 cm/s LVOT Peak Velocity 74.0 cm/s AV Area Cont Eq vti 2.0 cm squared AV Area Cont Eq pk 2.0 cm squared MV Peak Velocity 87.0 cm/s MV Area PHT 3.4 cm squared Mitral E to A Ratio 1.9 MV E' Velocity 44.5 cm/s Mitral E to MV E' Ratio 15.9 Mitral E to LV E' Lateral Ratio 15.3 Mitral E to LV E' Septal Ratio 16.9 TR Peak Velocity 185.0 cm/s TR Peak Gradient 13.7 mmHg Right Atrial Pressure 3.0 mmHg Pulmonary Artery Systolic Pressu 16.7 mmHg PV Peak Velocity 85.0 cm/s RV Acceleration Time 0.1 s FINDINGS Left Ventricle Normal left ventricular size. LV systolic function is normal with EF of 55-60%. No regional wall motion abnormalities. Right Ventricle The right ventricle is normal in size and function. Pacemaker lead is seen. Right Atrium The right atrium is normal in size. Left Atrium The left atrium is normal in size. Mitral Valve Structurally normal mitral valve without significant stenosis or prolapse. There is mild to moderate mitral regurgitation. Aortic Valve Structurally normal aortic valve without significant sclerosis or stenosis. There is mild aortic regurgitation. Tricuspid Valve Mild tricuspid regurgitation. Normal pulmonary artery systolic pressure. Pulmonic Valve Not well-visualized. Mild pulmonic regurgitation. Pericardium Normal pericardium without effusion. Aorta Normal ascending aorta dimension. IVC CONCLUSIONS LV systolic function is normal with EF 55- 60%. Mild to moderate mitral regurgitation. Mild aortic regurgitation. Mild tricuspid regurgitation. Mild pulmonic regurgitation. Compared to prior echocardiogram from 12/31/2020, no significant changes are seen. Germán Mcdonough MD (Electronically Signed) Final Date: 24 January 2022 18:35 S
== END 2022-01-13 09:31 | disposition home or self-care (01) ==
LOC: RAD 09:32
PROVIDERS: PCP Family Medicine; Visit Provider Internal Medicine
DX: I25.10 Atherosclerotic heart disease of native coronary artery without angina pectoris (principal); I08.3 Combined rheumatic disorders of mitral, aortic and tricuspid valves
CPT/HCPCS: 93306

== ENCOUNTER 2022-01-19 10:53 | Outpatient (CLI) | payer MEDICARE, SELFPAY ==
[2022-01-19 12:01] LABS: Prostate Specific AG Urology 4.32 ng/mL (0-4)
== END 2022-01-19 10:54 | disposition home or self-care (01) ==
LOC: LAB 10:56
PROVIDERS: PCP Family Medicine; Visit Provider Urology
DX: R97.20 Elevated prostate specific antigen [PSA] (principal); N40.1 Benign prostatic hyperplasia with lower urinary tract symptoms; R35.1 Nocturia
CPT/HCPCS: 36415; 84153; 99213

== ENCOUNTER → 2022-01-30 14:42 | Outpatient (BNVA) | payer OTHER, SELFPAY | PROVIDERS: PCP Family Medicine; Visit Provider Anesthesiology Pain Medicine | DX: M47.816 Spondylosis without myelopathy or radiculopathy, lumbar region (principal); M48.062 Spinal stenosis, lumbar region with neurogenic claudication | CPT/HCPCS: 64493; 64494; 64495; J3490 ==

== ENCOUNTER 2022-02-02 07:49 | Day surgery (SDC) | payer OTHER, SELFPAY ==
[2022-01-31 10:58] VITALS: BMI 30.1
[2022-02-02 08:10] VITALS: BP 124/73; PULSE 87; RESP 18; TEMP 36.3; O2SAT 99
[2022-02-02] MEDS: sodium chloride 0.9% 1,000 ML 30 ML IV (08:23)
--- NOTE | 2022-02-02 08:43 | W.PM.OPSFHP ---
Same Day Surgery H&P Indication for Procedure/HPI DATE OF PROCEDURE: February 02, 2022 CHIEF COMPLAINT/INDICATIONFOR SURGICAL PROCEDURE: Colon polyps PREOP DIAGNOSIS: History of colon polyps PLANNED PROCEDURE: Operation Date: 02/02/22 09:30 Proposed Procedures p Colonoscopy 42521/Z86.010(Not Applicable) - Kwabena Banerjee MD This is a pleasant 76 years old gentleman, comes today for surveillance colonoscopy because of history of colon polyps. ROS All systems have been reviewed negative except as for the above or per problem list. Medications/Allergies* Home Medications Medication Instructions Recorded Confirmed Type chlorthalidone 25 mg tablet 25 mg PO DAILY 08/11/19 01/31/22 History dabigatran etexilate 150 mg 150 mg PO BID 08/11/19 01/31/22 History capsule (Pradaxa) metformin 1,000 mg tablet 1,000 mg PO BID 08/11/19 01/31/22 History famotidine 20 mg tablet 20 mg PO BID 08/12/19 01/31/22 History metoprolol tartrate 100 mg tablet 100 mg PO BID 08/12/19 01/31/22 History levothyroxine 125 mcg capsule 125 mcg PO DAILY 10/18/20 01/31/22 History rosuvastatin 40 mg tablet 40 mg PO DAILY 12/29/21 01/31/22 History Allergies/Adverse Reactions Allergy/AdvReac Type Severity Reaction Status Date / Time amoxicillin [From Amoxil] Allergy na Verified 02/02/22 08:44 codeine Allergy na Verified 02/02/22 08:44 hydromorphone Allergy na Verified 02/02/22 08:44 penicillin G Allergy Unknown Verified 02/02/22 08:44 Current Medications: Generic Name Dose Route Start Last Admin Trade Name Freq PRN Reason Stop Dose Admin Sodium Chloride 1,000 mls @ 30 mls/hr 02/02/22 08:00 02/02/22 08:23 Sodium Chloride 0.9% IV 30 mls/hr .Q24H BETTE Administration Pertinent History/Comorbid Conditions* Medical History (Updated 11/29/21 @ 18:28 by Jessica Miranda MD) Anticoagulation adequate with anticoagulant therapy Pradaxa Atrial fibrillation Benign prostatic hyperplasia with lower urinary tract symptoms Cardiac pacemaker Coronary artery disease Diabetes Dyslipidemia Elevated PSA Essential hypertension History of colon polyps Muscular dystrophy Pneumonia due to COVID-19 virus SOBOE (shortness of breath on exertion) Thrombocytopenia Surgical History (Updated 08/12/19 @ 12:42 by Imelda Sutherland APRN) History of back surgery S/P cholecystectomy S/P thyroidectomy Family History (Updated 08/05/19 @ 14:08 by Yuly Nichole RN) Father, at age 84 Mother, at age 88 CAD (coronary artery disease) Mother Cancer Father BRAIN Sister COLON Social History Smoking and tobacco status: never smoked Second hand smoke exposure: No Alcohol intake: never Marital status: Current occupational status: retired History of recent travel: No Pertinent Exam Findings alert, oriented x 3, regular rate & rhythm and procedure specific exam findings (Abdominal examination nontender nondistended soft) Recommendations Surgery/Procedure today (Surveillance colonoscopy) Coding Level of Care Code Acute Electric Tape Slitter for Dania Sibley
--- NOTE | 2022-02-02 09:06 | ANES.PREANE2 ---
Pre-Anesthetic Assessment Height/Weight: Height 1.78 m Weight 95.254 kg Temp Pulse Resp BP Pulse Ox O2 Del Method 97.3 F L 87 18 124/73 99 02/02/22 08:10 02/02/22 08:10 02/02/22 08:10 02/02/22 08:10 02/02/22 08:10 02/02/22 08:10 Preop Diagnosis: History of colon polyps Operation Date: 02/02/22 09:30 Proposed Procedures p Colonoscopy 69503/Z86.010(Not Applicable) - Kwabena Banerjee MD Familial anesthetic complications: Hard to wake up Was Beta Eula taken within 24 hours: Yes Was Clonidine taken within 24 hours: N/A Last intake: Intake Last Liquid Date 02/01/22 Last Liquid Time 20:30 Last Solid Date 01/31/22 Last Solid Time 19:00 Social No alcohol and No tobacco Exam alert, oriented x 3, clear to auscultation bilaterally and regular rate & rhythm Airway Mallampati: Class III Dentition: false CV/HEM Atrial Fibrillation and Hypertension cardiac pacemaker for Sick sinus syndrome, mild to moderate CAD, mod MVR, mild AVR TVR and PVR on echo GI Gastroesophageal Reflux Disease Metabolic Diabetes Mellitus, Hyperlipidemia and Thyroid Disease Musc/skel muscular dystrophy - no symptoms, no medications Anesthetic Plan ASA status: 4 Anesthesia: MAC Risk of > 500 ml blood loss (7ml/kg in children): No Medications/Allergies Home Medications Medication Instructions Recorded Confirmed Last Taken Type chlorthalidone 25 mg tablet 25 mg PO DAILY 08/11/19 01/31/22 10/19/20 History dabigatran etexilate 150 mg 150 mg PO BID 08/11/19 01/31/22 02/01/22 History capsule (Pradaxa) metformin 1,000 mg tablet 1,000 mg PO BID 08/11/19 01/31/22 02/01/22 History famotidine 20 mg tablet 20 mg PO BID 08/12/19 01/31/22 02/01/22 History metoprolol tartrate 100 mg tablet 100 mg PO BID 08/12/19 01/31/22 02/02/22 History isosorbide mononitrate 30 mg 30 mg PO DAILY #30 tabs 03/09/20 01/31/22 02/01/22 Rx tablet,extended release 24 hr levothyroxine 125 mcg capsule 125 mcg PO DAILY 10/18/20 01/31/22 02/01/22 History finasteride 5 mg tablet 5 mg PO DAILY #90 tabs 07/26/21 01/31/22 02/01/22 Rx tamsulosin 0.4 mg capsule 0.4 mg PO BID #180 caps 08/18/21 01/31/22 02/01/22 Rx diltiazem HCl 120 mg 120 mg PO DAILY #90 tabs 12/08/21 01/31/22 Unknown Rx tablet,extended release 24 hr (Cardizem LA) rosuvastatin 40 mg tablet 40 mg PO DAILY 12/29/21 01/31/22 02/01/22 History gabapentin 100 mg capsule 100 mg PO BID pain #60 caps 01/03/22 01/31/22 02/01/22 Rx Allergies Allergy/AdvReac Type Severity Reaction Status Date / Time amoxicillin [From Amoxil] Allergy na Verified 02/02/22 08:44 codeine Allergy na Verified 02/02/22 08:44 hydromorphone Allergy na Verified 02/02/22 08:44 penicillin G Allergy Unknown Verified 02/02/22 08:44 Current Medications Generic Name Dose Route Start Last Admin Trade Name Freq PRN Reason Stop Dose Admin Sodium Chloride 1,000 mls @ 30 mls/hr 02/02/22 08:00 02/02/22 08:23 Sodium Chloride 0.9% IV 30 mls/hr .Q24H BETTE Administration PFSH Anesthesia Medical History Anticoagulation adequate with anticoagulant therapy Pradaxa Atrial fibrillation Benign prostatic hyperplasia with lower urinary tract symptoms Cardiac pacemaker Coronary artery disease Diabetes Dyslipidemia Elevated PSA Essential hypertension History of colon polyps Muscular dystrophy Pneumonia due to COVID-19 virus SOBOE (shortness of breath on exertion) Thrombocytopenia Surgical History History of back surgery S/P cholecystectomy S/P thyroidectomy Family History Mother , at age 88 CAD (coronary artery disease) Father , at age 84 Cancer BRAIN Sister Cancer COLON Social History Smoking and tobacco status: never smoked Second hand smoke exposure: No Alcohol intake: never Marital status: Current occupational status: retired History of recent travel: No Data Anesthesia Cardiac Studies: Echocardiogram 01/13/22 Sestamibi Stress Test (Cardiology) 02/26/20
--- NOTE | 2022-02-02 09:39 | ANE.PACU2 ---
Inpatient post-anesthesia follow up: Airway intact: Yes Vital signs: Temperature 97.3 F Pulse Rate 87 Respiratory Rate 18 Blood Pressure 124/73 Pulse Oximetry 99 Oxygen Delivery Me thod Room Air Oxygen Flow Rate Fraction of Inspir ed Oxygen Hydration adequate: Yes Nausea and vomiting: No Pain level: 1 Mental status: Baseline
[2022-02-02 09:40] VITALS: BP 112/66; PULSE 91; RESP 16; TEMP 36.1; O2SAT 100
[2022-02-02 09:48] VITALS: BP 92/65; PULSE 77; RESP 18; O2SAT 97
== END 2022-02-02 10:23 | disposition home or self-care (01) ==
PROVIDERS: PCP Family Medicine; Visit Provider Surgery
PROC: 0DJD8ZZ Inspection of Lower Intestinal Tract, Via Natural or Artificial Opening Endoscopic (ICD-10-PCS; CPT 45378; principal; 2022-02-02 09:30)
DX: Z12.11 Encounter for screening for malignant neoplasm of colon (principal); Z86.010 Personal history of colon polyps; Z79.01 Long term (current) use of anticoagulants; I48.91 Unspecified atrial fibrillation; Z95.0 Presence of cardiac pacemaker; E11.9 Type 2 diabetes mellitus without complications; E78.5 Hyperlipidemia, unspecified; I10 Essential (primary) hypertension; Z86.16 Personal history of COVID-19; K21.9 Gastro-esophageal reflux disease without esophagitis; Z79.84 Long term (current) use of oral hypoglycemic drugs
CPT/HCPCS: 45380; 88305; J2704; J7030

== ENCOUNTER → 2022-02-14 13:59 | Outpatient (BNVA) | payer OTHER, SELFPAY | PROVIDERS: PCP Family Medicine; Visit Provider Anesthesiology Pain Medicine | DX: M47.816 Spondylosis without myelopathy or radiculopathy, lumbar region (principal); M48.062 Spinal stenosis, lumbar region with neurogenic claudication | CPT/HCPCS: 64493; 64494; 64495; J3490 ==

== ENCOUNTER → 2022-02-15 11:02 | Outpatient (BNVA) | payer OTHER, SELFPAY | PROVIDERS: PCP Family Medicine; Visit Provider Surgery | DX: Z09 Encounter for follow-up examination after completed treatment for conditions other than malignant neoplasm (principal); Z86.010 Personal history of colon polyps | CPT/HCPCS: 99213 ==

== ENCOUNTER → 2022-03-01 09:22 | Outpatient (BNVA) | payer OTHER, SELFPAY | PROVIDERS: PCP Family Medicine; Visit Provider Anesthesiology Pain Medicine | DX: M48.062 Spinal stenosis, lumbar region with neurogenic claudication (principal); M54.2 Cervicalgia; M96.1 Postlaminectomy syndrome, not elsewhere classified; M47.816 Spondylosis without myelopathy or radiculopathy, lumbar region; M51.16 Intervertebral disc disorders with radiculopathy, lumbar region; G62.9 Polyneuropathy, unspecified | CPT/HCPCS: 99214 ==

== ENCOUNTER → 2022-03-16 13:29 | Outpatient (BNVA) | payer OTHER, SELFPAY | PROVIDERS: PCP Family Medicine; Visit Provider Anesthesiology Pain Medicine | DX: M47.816 Spondylosis without myelopathy or radiculopathy, lumbar region (principal); M48.062 Spinal stenosis, lumbar region with neurogenic claudication; E11.9 Type 2 diabetes mellitus without complications; Z79.84 Long term (current) use of oral hypoglycemic drugs | CPT/HCPCS: 36416; 64635; 64636; 82962; J1030 ==

== ENCOUNTER → 2022-03-22 09:33 | Outpatient (BNVA) | payer OTHER, SELFPAY | PROVIDERS: PCP Family Medicine; Visit Provider Family Medicine | DX: I48.91 Unspecified atrial fibrillation (principal); E78.5 Hyperlipidemia, unspecified; I10 Essential (primary) hypertension; I25.10 Atherosclerotic heart disease of native coronary artery without angina pectoris; R07.9 Chest pain, unspecified; E11.9 Type 2 diabetes mellitus without complications; U07.1 COVID-19; J12.89 Other viral pneumonia; Z79.01 Long term (current) use of anticoagulants | CPT/HCPCS: 80053; 80061; 83036; 84443 ==

== ENCOUNTER → 2022-03-30 13:02 | Outpatient (BNVA) | payer OTHER, SELFPAY | PROVIDERS: PCP Family Medicine; Visit Provider Anesthesiology Pain Medicine | DX: M47.816 Spondylosis without myelopathy or radiculopathy, lumbar region (principal); E11.9 Type 2 diabetes mellitus without complications; M48.062 Spinal stenosis, lumbar region with neurogenic claudication; Z79.84 Long term (current) use of oral hypoglycemic drugs; Z95.0 Presence of cardiac pacemaker | CPT/HCPCS: 36416; 64635; 64636; 82962; 93279; J1030 ==

== ENCOUNTER → 2022-04-17 10:19 | Outpatient (BNVA) | payer OTHER, SELFPAY | PROVIDERS: PCP Family Medicine; Visit Provider Anesthesiology Pain Medicine | DX: M48.062 Spinal stenosis, lumbar region with neurogenic claudication (principal); M47.816 Spondylosis without myelopathy or radiculopathy, lumbar region; M51.16 Intervertebral disc disorders with radiculopathy, lumbar region; M54.2 Cervicalgia; M96.1 Postlaminectomy syndrome, not elsewhere classified; G62.9 Polyneuropathy, unspecified | CPT/HCPCS: 99214 ==

== ENCOUNTER → 2022-05-25 11:16 | Outpatient (BNVA) | payer OTHER, SELFPAY | PROVIDERS: PCP Family Medicine; Visit Provider Anesthesiology Pain Medicine | DX: M48.062 Spinal stenosis, lumbar region with neurogenic claudication (principal); M51.16 Intervertebral disc disorders with radiculopathy, lumbar region; M47.816 Spondylosis without myelopathy or radiculopathy, lumbar region; G62.9 Polyneuropathy, unspecified; M96.1 Postlaminectomy syndrome, not elsewhere classified; M54.2 Cervicalgia | CPT/HCPCS: 99214 ==

== ENCOUNTER 2022-07-19 14:09 | Outpatient (CLI) | payer MEDICARE, SELFPAY ==
[2022-07-19 15:33] LABS: Prostate Specific AG Urology 5.95 ng/mL (0-4)
== END 2022-07-19 14:10 | disposition home or self-care (01) ==
PROVIDERS: PCP Family Medicine; Visit Provider Urology
DX: N40.1 Benign prostatic hyperplasia with lower urinary tract symptoms (principal); R35.1 Nocturia
CPT/HCPCS: 36415; 84153

== ENCOUNTER 2022-07-19 14:17 | Outpatient (CLI) | payer OTHER, SELFPAY ==
[2022-07-19 15:05] LABS: Basophils % 0.4 %; Eosinophils # 0.1 10^3/uL (0.0-0.8); Eosinophils % 1.2 %; Hematocrit 35.8 % (42.0-52.0); Hemoglobin 12.3 g/dL (11.7-16.6); Lymphocytes # 1.3 10^3/uL (0.8-4.8); Mean Corpuscular HGB Conc 34.4 g/dL (30.0-36.0); Mean Corpuscular Hemoglobin 32.5 pg (28.0-34.0); Mean Corpuscular Volume 94.7 fl (80-94); Mean Platelet Volume 9.4 fL (7.4-10.4); Monocytes # 0.4 10^3/uL (0.2-0.9); Monocytes % 7.1 %; Neutrophils # 3.82 10^3/uL (1.8-7.7); Neutrophils % 67.9 %; Nucleated Red Blood Cells % 0 %; Platelet Count 164 10^3/cmm (130-400); Red Blood Count 3.78 10^6/uL (4.1-5.3); Red Cell Distribution Width 14.6 % (12.1-15.1); White Blood Count 5.6 10^3/uL (4.0-10.0)
[2022-07-19 15:23] LABS: Albumin Level 4.3 g/dL (3.5-5.2); Anion Gap 13.3 (5-19); Blood Urea Nitrogen 18 mg/dL (8-23); Calcium 9.1 mg/dL (8.5-10.5); Carbon Dioxide 29 mmol/L (22-29); Chloride 94 mmol/L (98-107); Glucose 237 mg/dL (65-115); Phosphorus 2.6 mg/dL (2.5-4.5); Potassium 4.3 mmol/L (3.5-5.1); Sodium 132 mmol/L (136-145)
[2022-07-19 15:28] LABS: Creatinine Urine, Random 167 mg/dL (39-259); Microalbum Creatinine Ratio Ur 12 mg/dL (0-20); Microalbumin Random Urine 2 ug/dL (0-20)
[2022-07-19 16:22] LABS: Calcium 9.3 mg/dL (8.5-10.5); Parathyroid Hormone 39.9 pg/mL (15-65)
== END 2022-07-19 14:18 | disposition home or self-care (01) ==
PROVIDERS: PCP Family Medicine; Visit Provider Internal Medicine Nephrology
DX: N18.31 Chronic kidney disease, stage 3a (principal)
CPT/HCPCS: 36415; 80069; 82044; 82310; 83970; 85025

== ENCOUNTER → 2022-07-25 10:57 | Outpatient (BNVA) | payer OTHER, SELFPAY | PROVIDERS: PCP Family Medicine; Visit Provider Urology | DX: N40.1 Benign prostatic hyperplasia with lower urinary tract symptoms (principal); R35.1 Nocturia; R97.20 Elevated prostate specific antigen [PSA] | CPT/HCPCS: 81003; 99213 ==

== ENCOUNTER → 2022-08-08 10:09 | Outpatient (BNVA) | payer OTHER, SELFPAY | PROVIDERS: PCP Family Medicine; Visit Provider Anesthesiology Pain Medicine | DX: M48.062 Spinal stenosis, lumbar region with neurogenic claudication (principal); M47.816 Spondylosis without myelopathy or radiculopathy, lumbar region; M51.16 Intervertebral disc disorders with radiculopathy, lumbar region; G62.9 Polyneuropathy, unspecified; M54.2 Cervicalgia; M96.1 Postlaminectomy syndrome, not elsewhere classified | CPT/HCPCS: 99214 ==

== ENCOUNTER → 2022-08-11 09:59 | Outpatient (BNVA) | payer OTHER, SELFPAY | PROVIDERS: PCP Family Medicine; Visit Provider Internal Medicine | DX: I48.91 Unspecified atrial fibrillation (principal); R07.9 Chest pain, unspecified; I10 Essential (primary) hypertension; E78.5 Hyperlipidemia, unspecified; R06.02 Shortness of breath; Z79.01 Long term (current) use of anticoagulants | CPT/HCPCS: 99214 ==

== ENCOUNTER → 2022-09-20 11:42 | Outpatient (BNVA) | payer MEDICARE, SELFPAY | PROVIDERS: PCP Family Medicine; Visit Provider Family Medicine | DX: U07.1 COVID-19 (principal); J12.89 Other viral pneumonia; E11.9 Type 2 diabetes mellitus without complications; I48.91 Unspecified atrial fibrillation; I10 Essential (primary) hypertension | CPT/HCPCS: 80053; 83036; 84443 ==

== ENCOUNTER 2022-11-09 13:08 | Outpatient (RCR) | payer OTHER, SELFPAY | END 2022-11-15 23:59 | disposition home or self-care (01) | LOC: SOT 13:08 | PROVIDERS: Visit Provider Family Medicine | DX: M24.541 Contracture, right hand (principal) | CPT/HCPCS: 97022; 97110; 97530 ==

== ENCOUNTER 2022-11-16 06:00 | Outpatient (RCR) | payer OTHER, SELFPAY | END 2022-12-15 23:59 | disposition home or self-care (01) | LOC: SOT 06:00 | PROVIDERS: Visit Provider Family Medicine | DX: M24.541 Contracture, right hand (principal) | CPT/HCPCS: 97022; 97110; 97140 ==

== ENCOUNTER → 2022-12-21 09:58 | Outpatient (BNVA) | payer OTHER, SELFPAY | PROVIDERS: PCP Family Medicine; Visit Provider Family Medicine | DX: E11.9 Type 2 diabetes mellitus without complications (principal); I48.91 Unspecified atrial fibrillation; Z79.01 Long term (current) use of anticoagulants; I10 Essential (primary) hypertension; I25.10 Atherosclerotic heart disease of native coronary artery without angina pectoris; E78.5 Hyperlipidemia, unspecified | CPT/HCPCS: 80053; 80061; 83036; 84443; 85025 ==

== ENCOUNTER → 2023-01-29 10:03 | Outpatient (BNVA) | payer OTHER, SELFPAY | PROVIDERS: PCP Family Medicine; Visit Provider Anesthesiology Pain Medicine | DX: M48.062 Spinal stenosis, lumbar region with neurogenic claudication (principal); M54.2 Cervicalgia; M96.1 Postlaminectomy syndrome, not elsewhere classified; M47.816 Spondylosis without myelopathy or radiculopathy, lumbar region; M51.16 Intervertebral disc disorders with radiculopathy, lumbar region; G62.9 Polyneuropathy, unspecified | CPT/HCPCS: 99214 ==

== ENCOUNTER → 2023-02-09 10:19 | Outpatient (BNVA) | payer OTHER, SELFPAY | PROVIDERS: PCP Family Medicine; Visit Provider Internal Medicine | DX: R06.02 Shortness of breath (principal); I48.91 Unspecified atrial fibrillation; R07.9 Chest pain, unspecified; I10 Essential (primary) hypertension; E78.5 Hyperlipidemia, unspecified | CPT/HCPCS: 99214 ==

== ENCOUNTER → 2023-07-05 10:29 | Outpatient (BNVA) | payer MEDICARE, SELFPAY | PROVIDERS: PCP Family Medicine; Visit Provider Family Medicine | DX: E11.9 Type 2 diabetes mellitus without complications (principal); I10 Essential (primary) hypertension; I25.10 Atherosclerotic heart disease of native coronary artery without angina pectoris; I48.91 Unspecified atrial fibrillation; C61 Malignant neoplasm of prostate; R35.1 Nocturia; N40.1 Benign prostatic hyperplasia with lower urinary tract symptoms; R07.9 Chest pain, unspecified; Z86.010 Personal history of colon polyps | CPT/HCPCS: 80053; 80061; 83036; 84153; 85025 ==

== ENCOUNTER → 2023-07-18 14:28 | Outpatient (BNVA) | payer OTHER, SELFPAY | PROVIDERS: PCP Family Medicine; Visit Provider Internal Medicine Pulmonary Disease | DX: R06.02 Shortness of breath (principal); Z77.090 Contact with and (suspected) exposure to asbestos; G71.00 Muscular dystrophy, unspecified | CPT/HCPCS: 99204 ==

== ENCOUNTER 2023-09-12 13:11 | Oncology outpatient (recurring) (ONCR) | payer OTHER, SELFPAY ==
[2023-09-12 14:49] LABS: Basophils % 0.5 %; Eosinophils # 0.1 10^3/uL (0.0-0.8); Eosinophils % 1.7 %; Hematocrit 34.2 % (37-53); Lymphocytes # 1.9 10^3/uL (0.8-4.8); Lymphocytes % 29.4 %; Mean Corpuscular Hemoglobin 34.4 pg (27-33); Mean Corpuscular Volume 95.5 fl (82-101); Mean Platelet Volume 9.9 fL (7.4-10.4); Monocytes # 0.5 10^3/uL (0.2-0.9); Monocytes % 8.1 %; Neutrophils # 3.78 10^3/uL (1.8-7.7); Neutrophils % 59.8 %; Nucleated Red Blood Cells % 0 %; Platelet Count 164 10^3/cmm (157-399); Red Blood Count 3.58 10^6/uL (3.85-5.65); White Blood Count 6.32 10^3/uL (3.29-11.43)
[2023-09-12 15:07] LABS: Alanine Aminotransferase 16 U/L (0-41); Albumin Level 4.4 g/dL (3.5-5.2); Alkaline Phosphatase 59 U/L (40-130); Anion Gap 15.3 (5-19); Aspartate Amino Transferase 26 U/L (0-40); Blood Urea Nitrogen 22 mg/dL (8-23); Calcium 9.3 mg/dL (8.5-10.5); Carbon Dioxide 27 mmol/L (22-29); Chloride 96 mmol/L (98-107); Creatinine Clr Calc Pharmacy 64.1988; Globulin 2.3 g/dL (1.3-4.6); Glucose 129 mg/dL (65-115); Lactate Dehydrogenase 237 U/L (135-225); Osmolality Calculated 283 mOsm/kg (285-295); Potassium 4.3 mmol/L (3.5-5.1); Prostate Specific Antigen 0.053 ng/mL (0-4); Sodium 134 mmol/L (136-145); Testosterone Total 5.6 ng/dL (193-740); Total Bilirubin 0.5 mg/dL (0.15-1.2); Total Protein 6.7 g/dL (6.6-8.7)
== END 2023-09-16 23:59 | disposition home or self-care (01) ==
PROVIDERS: PCP Family Medicine; Visit Provider Internal Medicine
DX: C61 Malignant neoplasm of prostate (principal); C77.4 Secondary and unspecified malignant neoplasm of inguinal and lower limb lymph nodes; I48.91 Unspecified atrial fibrillation; E11.9 Type 2 diabetes mellitus without complications; Z19.1 Hormone sensitive malignancy status; Z79.818 Long term (current) use of other agents affecting estrogen receptors and estrogen levels
CPT/HCPCS: 36415; 80053; 83615; 84153; 84403; 85025; 99205

== ENCOUNTER 2023-09-17 15:37 | Outpatient (CLI) | payer OTHER, SELFPAY ==
--- NOTE | 2023-09-17 16:00 | CT_ITS ---
WS: [id number] Examination: CT chest wo con [id number] Reason for Exam: to check for resolution of infiltrates and shortness of angela Date: September 17, 2023 Comparison: May 11, 2020 DLP: 609.[address] scans at [facility] use at least one of these dose optimization techniques: automated e xposure control; mA and/or kV adjustment per patient size (includes targeted exams where dose is matc hed to clinical indication); or iterative reconstruction. Findings: The heart is enlarged. There is been a median sternotomy. Pacer leads are in place. Prominent bilater al mediastinal nodes are noted particularly in the subcarinal region prominent hilar nodes are presen t some of which are calcified. Images beneath the hemidiaphragms demonstrate distended stomach with ingested material. No pleural effusions are noted. The previously identified extensive peripheral groundglass infiltrate s have cleared. There is subtle central right upper lobe infiltrate. Minimal lower lung infiltrates a re identified. These may be chronic in nature. Correlation for active inflammatory process is needed. Impression: Prominent cardiomegaly is identified with similar-appearing enlarged lymph nodes. The peripheral groundglass infiltrates have cleared There are now faint more central infiltrates identified these may be chronic in nature.
== END 2023-09-17 15:38 | disposition home or self-care (01) ==
LOC: RAD 15:37
PROVIDERS: PCP Family Medicine; Visit Provider Internal Medicine Pulmonary Disease
DX: R06.02 Shortness of breath (principal); I51.7 Cardiomegaly; R59.0 Localized enlarged lymph nodes
CPT/HCPCS: 71250

== ENCOUNTER 2023-09-25 10:41 | Day surgery (SDC) | payer OTHER, SELFPAY ==
[2023-09-25] VITALS (10 sets, daily range): BP systolic 115–150; BP diastolic 69–93; PULSE 86–107; RESP 12–18; TEMP 36.1–36.3; O2SAT 93–99; BMI 30.1
--- NOTE | 2023-09-25 10:54 | ECG_ITS ---
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 Measurements Intervals [place] Rate: 98 P: 0 TN: 0 QRS: -44 QRSD: 98 T: -16 QT: 365 QTc: 468 Interpretive Statements ATRIAL FIBRILLATION LEFT AXIS DEVIATION [QRS AXIS < -30] SEPTAL MYOCARDIAL INFARCTION , OF INDETERMINATE AGE [40+ ms Q WAVE IN V1/V2] Compared to ECG 05/11/2020 07:28:16 No significant changes Electronically Signed On 09-25-2023 21:26:37 CDT by Bertrand iDal M.D. [id number]
--- NOTE | 2023-09-25 10:57 | PM.OPSURHP ---
Providers/Chief Complaint Admitting Physician: Zac Knowles MD/pulmonary Referring Physican: Traci Phipps MD Primary Care Provider: Deepak Estrada MD History of Present Illness Mr. Yan piedra is a 78-year-old male with past medical history of atrial fibrillation, diabetes, dyslipidemia, hypertension, BPH, CAD, comes for endobronchial ultrasound-guided biopsy of mediastinal adenopathy. Patient was diagnosed with prostate adenocarcinoma Stage ISIS [id number], [place] 3+4=7 diagnosed 03/2023 on Orgovyx and Xtandi-following up with oncology and radiation oncology. 05/10/2023 PSMA PET--Per urology note showed extensive tumor involvement of lymph node above and below the diaphragm with PSMA avidity. Radiation oncology Dr. Phipps reviewed the PSMA PET/CT and thought pattern of adenopathy appeared very unusual for prostate cancer. Dr. Phipps referred patient to pulmonary services to obtain biopsies of mediastinal lymph nodes to rule out other malignancies and even benign processes. Today scheduled for bronchoscopic airway inspection as well as endobronchial ultrasound-guided biopsy of right hilar mass/mediastinal lymph nodes to obtain tissue samples and rule out malignancy/lymphoma Patient denied any complaints. He held the Pradaxa 72 hours prior to procedure. Explained about the nature of procedure, alternatives, complications like bleeding/pneumothorax. Patient verbalized understanding and agreed to do the biopsies. Review of Systems General: Reports: 10 or more systems reviewed and unremarkable except in HPI and below Medications/Allergies Home Medications Medication Instructions Recorded Confirmed Last Taken Type dabigatran etexilate 150 mg 150 mg PO BID 08/11/19 09/25/23 09/21/23 History capsule (Pradaxa) famotidine 20 mg tablet 20 mg PO BID PRN Heartburn 08/12/19 09/25/23 02/01/22 History metoprolol tartrate 100 mg tablet 100 mg PO BID 08/12/19 09/25/23 09/25/23 History isosorbide mononitrate 30 mg 30 mg PO DAILY #30 tabs 03/09/20 09/25/23 09/24/23 Rx tablet,extended release 24 hr diltiazem HCl 120 mg 120 mg PO DAILY #90 tabs 12/08/21 09/25/23 09/24/23 Rx tablet,extended release 24 hr (Cardizem LA) lancets (Accu-Chek Fastclix Lancet #102 ea 04/05/23 04/09/24 Unknown Rx Drum) blood sugar diagnostic (Accu-Chek #100 ea 10/03/22 09/25/23 Unknown Rx Guide test strips) enzalutamide 80 mg tablet (Xtandi) 160 mg (2 x 80 mg) PO DAILY #60 09/14/23 09/25/23 09/24/23 Rx tabs relugolix 120 mg tablet (Orgovyx) 120 mg PO DAILY #30 tabs 09/14/23 09/25/23 09/24/23 Rx ascorbic acid (vitamin C) 1,000 mg 1 cap PO DAILY 09/24/23 09/25/23 09/24/23 History capsule,extended release bisacodyl 5 mg tablet,delayed 5 mg PO DAILY PRN Constipation 09/24/23 09/25/23 Unknown History release (Dulcolax (bisacodyl)) calcium carbonate 600 mg-vitamin 2 tab PO BEDTIME 09/24/23 09/25/23 09/24/23 History D3 5 mcg (200 unit) tablet cholecalciferol (vitamin D3) 25 25 mcg PO DAILY 09/24/23 09/25/23 09/24/23 History mcg (1,000 unit) capsule (Vitamin D3) docusate sodium 100 mg capsule 100 mg PO DAILY 09/24/23 09/25/23 09/24/23 History levothyroxine 150 mcg tablet 150 mcg PO DAILY 09/24/23 09/25/23 09/25/23 History metformin 1,000 mg tablet 1,000 mg PO DAILY 09/24/23 09/25/23 09/24/23 History tamsulosin 0.4 mg capsule 0.4 mg PO DAILY 09/24/23 09/25/23 09/24/23 History Allergies Allergy/AdvReac Type Severity Reaction Status Date / Time amoxicillin [From Amoxil] Allergy na Verified 09/19/23 11:05 codeine Allergy na Verified 09/19/23 11:05 hydromorphone Allergy na Verified 09/19/23 11:05 penicillin G Allergy Unknown Verified 09/19/23 11:05 lisinopril AdvReac Intermediate cough Verified 09/19/23 11:05 PFSH PFSH: Medical History Metastatic castration-sensitive adenocarcinoma of prostate Prostate cancer History of colon polyps Pneumonia due to COVID-19 virus Coronary artery disease Elevated PSA Benign prostatic hyperplasia with lower urinary tract symptoms Thrombocytopenia SOBOE (shortness of breath on exertion) Essential hypertension Dyslipidemia Anticoagulation adequate with anticoagulant therapy Pradaxa Atrial fibrillation Diabetes Muscular dystrophy Cardiac pacemaker Medtronic single-chamber implant 05/18/2017 Surgical History History of back surgery S/P thyroidectomy S/P cholecystectomy Family History Mother , at age 88 CAD (coronary artery disease) Father , at age 84 Cancer BRAIN Sister Cancer COLON Social History Smoking and tobacco/nicotine status: never used tobacco/nicotine Second hand smoke exposure: No Alcohol intake: never Substance/Drug Use: never Marital status: Current occupational status: retired Dietary Habits: Caffeine: Yes Caffeine intake frequency: carbonated beverages and tea Physical Exam Narrative: EXAM NARRATIVE: General: alert, NAD HEENT: conj clear, EOMI, PERRL, mmm, Neck: supple, no meningismus Heme: no cervical LAP Respiratory: Inspection: No visible deformity of the chest wall Palpation: Trachea is mildly deviated to the right, bilateral symmetric expansion Percussion: Bilateral tympanic percussion note both anterior and posteriorly Auscultation: Bilateral clear to auscultation both anterior and posteriorly, no crackles wheezing or rhonchi Cardiovascular: rrr, nl s1s2, no mrg Abdomen: soft, nt, nd, no r/g, bs+ Extremities: pulses +, no edema, no c/c : no CVA tenderness Skin: intact, no rash MSK: no back or neck pain Neurologic: grossly intact A&P Assessment and plan (1) Mediastinal adenopathy: Patient was diagnosed with prostate adenocarcinoma Stage ISIS [id number], [place] 3+4=7 diagnosed 03/2023 on Orgovyx and Xtandi-following up with oncology and radiation oncology. 05/10/2023 PSMA PET--Per urology note showed extensive tumor involvement of lymph node above and below the diaphragm with PSMA avidity. Radiation oncology Dr. Phipps reviewed the PSMA PET/CT and thought pattern of adenopathy appeared very unusual for prostate cancer. Dr. Phipps referred patient to pulmonary services to obtain biopsies of mediastinal lymph nodes to rule out other malignancies and even benign processes. Today scheduled for bronchoscopic airway inspection as well as endobronchial ultrasound-guided biopsy of right hilar mass/mediastinal lymph nodes to obtain tissue samples and rule out malignancy/lymphoma (2) Metastatic castration-sensitive adenocarcinoma of prostate: Coding Level of Care Code Acute Code for Chg Fwd Diagnoses Mediastinal adenopathy R59.0 Metastatic castration-sensitive adenocarcinoma of prostate C61; Z19.1 Time Spent (min) 21
[2023-09-25] MEDS: sodium chloride 0.9% 1,000 ML 30 ML IV (11:27)
[2023-09-25 11:34] LABS: Glucose Point of Care 145 mg/dL (70-110)
--- NOTE | 2023-09-25 11:52 | ANES.PREANE2 ---
Pre-Anesthetic Assessment Height/Weight: Height 1.78 m Weight 95.254 kg Temp Pulse Resp BP Pulse Ox O2 Del Method 97.3 F L 100 18 150/93 97 Room Air 09/25/23 11:00 09/25/23 11:00 09/25/23 11:00 09/25/23 11:00 09/25/23 11:00 09/25/23 11:00 Operation Date: 09/25/23 12:00 Proposed Procedures p Ebus(Not Applicable) - Zac Braga DatarMD Familial anesthetic complications: none Was Beta Eula taken within 24 hours: Yes Was Clonidine taken within 24 hours: N/A Last intake: Intake Last Liquid Date 09/24/23 Last Liquid Time 23:00 Last Solid Date 09/24/23 Last Solid Time 23:00 Social No alcohol and No tobacco Exam alert, oriented x 3, clear to auscultation bilaterally and regular rate & rhythm Airway Submandibular: within normal limits Cervical ROM: within normal limits Mallampati: Class II Dentition: false (upper) CV/HEM Atrial Fibrillation, Coronary Artery Disease and Hypertension Pacemaker GI Gastroesophageal Reflux Disease Metabolic Morbid Obesity Musc/skel Lower Back Pain and Osteoarthritis/DJD Neuropsych Neuropathy Anesthetic Plan ASA status: 3 Anesthesia: General Medications/Allergies Home Medications Medication Instructions Recorded Confirmed Last Taken Type dabigatran etexilate 150 mg 150 mg PO BID 08/11/19 09/25/23 09/21/23 History capsule (Pradaxa) famotidine 20 mg tablet 20 mg PO BID PRN Heartburn 08/12/19 09/25/23 02/01/22 History metoprolol tartrate 100 mg tablet 100 mg PO BID 08/12/19 09/25/23 09/25/23 History isosorbide mononitrate 30 mg 30 mg PO DAILY #30 tabs 03/09/20 09/25/23 09/24/23 Rx tablet,extended release 24 hr diltiazem HCl 120 mg 120 mg PO DAILY #90 tabs 12/08/21 09/25/23 09/24/23 Rx tablet,extended release 24 hr (Cardizem LA) lancets (Accu-Chek Fastclix Lancet #102 ea 09/20/22 09/25/23 Unknown Rx Drum) blood sugar diagnostic (Accu-Chek #100 ea 10/03/22 09/25/23 Unknown Rx Guide test strips) enzalutamide 80 mg tablet (Xtandi) 160 mg (2 x 80 mg) PO DAILY #60 09/14/23 09/25/23 09/24/23 Rx tabs relugolix 120 mg tablet (Orgovyx) 120 mg PO DAILY #30 tabs 09/14/23 09/25/23 09/24/23 Rx ascorbic acid (vitamin C) 1,000 mg 1 cap PO DAILY 09/24/23 09/25/23 09/24/23 History capsule,extended release bisacodyl 5 mg tablet,delayed 5 mg PO DAILY PRN Constipation 09/24/23 09/25/23 Unknown History release (Dulcolax (bisacodyl)) calcium carbonate 600 mg-vitamin 2 tab PO BEDTIME 09/24/23 09/25/23 09/24/23 History D3 5 mcg (200 unit) tablet cholecalciferol (vitamin D3) 25 25 mcg PO DAILY 09/24/23 09/25/23 09/24/23 History mcg (1,000 unit) capsule (Vitamin D3) docusate sodium 100 mg capsule 100 mg PO DAILY 09/24/23 09/25/23 09/24/23 History levothyroxine 150 mcg tablet 150 mcg PO DAILY 09/24/23 09/25/23 09/25/23 History metformin 1,000 mg tablet 1,000 mg PO DAILY 09/24/23 09/25/23 09/24/23 History tamsulosin 0.4 mg capsule 0.4 mg PO DAILY 09/24/23 09/25/23 09/24/23 History Allergies Allergy/AdvReac Type Severity Reaction Status Date / Time amoxicillin [From Amoxil] Allergy na Verified 09/19/23 11:05 codeine Allergy na Verified 09/19/23 11:05 hydromorphone Allergy na Verified 09/19/23 11:05 penicillin G Allergy Unknown Verified 09/19/23 11:05 lisinopril AdvReac Intermediate cough Verified 09/19/23 11:05 Current Medications Generic Name Dose Route Start Last Admin Trade Name Freq PRN Reason Stop Dose Admin Sodium Chloride 1,000 mls @ 30 mls/hr 09/25/23 11:00 09/25/23 11:27 Sodium Chloride 0.9% IV 09/26/23 10:59 30 mls/hr .Q24H BETTE Administration PFSH Anesthesia Medical History Metastatic castration-sensitive adenocarcinoma of prostate Prostate cancer History of colon polyps Pneumonia due to COVID-19 virus Coronary artery disease Elevated PSA Benign prostatic hyperplasia with lower urinary tract symptoms Thrombocytopenia SOBOE (shortness of breath on exertion) Essential hypertension Dyslipidemia Anticoagulation adequate with anticoagulant therapy Pradaxa Atrial fibrillation Diabetes Muscular dystrophy Cardiac pacemaker Surgical History History of back surgery S/P thyroidectomy S/P cholecystectomy Family History Mother , at age 88 CAD (coronary artery disease) Father , at age 84 Cancer BRAIN Sister Cancer COLON Social History Smoking and tobacco/nicotine status: never used tobacco/nicotine Second hand smoke exposure: No Alcohol intake: never Substance/Drug Use: never Marital status: Current occupational status: retired Data Anesthesia Cardiac Studies: Echocardiogram 01/13/22 Sestamibi Stress Test (Cardiology) 02/26/20
[2023-09-25] MEDS: lidocaine 1% INJ 10 mL (per mL) XX (12:38)
[2023-09-25 13:16] LABS: Cyto Order Verification Order Verified
[2023-09-25 13:17] LABS: Apprearance, Bronch Wash Cloudy (CLEAR); Color, Bronc Wash Red
--- NOTE | 2023-09-25 13:39 | XRR_ITS ---
PROCEDURE INFORMATION: Exam: XR Chest Exam date and time: 09/25/2023 12:55 PM Age: 78 years old Clinical indication: Device placement; Other: Post ebus bronch TECHNIQUE: Imaging protocol: Radiologic exam of the chest. Views: 1 view. COMPARISON: CT chest con [id number] 09/17/2023 3:50 PM FINDINGS: Tubes, catheters and devices: Unchanged left pacemaker projecting in satisfactory position. Lungs: A small amount compressive atelectasis in the right lung base is unchanged. Otherwise, unremarkable. Pleural spaces: Unremarkable. No pleural effusion. No pneumothorax. Heart/Mediastinum: Unremarkable. No cardiomegaly. Diaphragm: Unchanged moderate elevation of the right hemidiaphragm. Bones/joints: Unremarkable. Other findings: Stable surgical changes. XR/XR chest 1V portable [id number] IMPRESSION: Unchanged moderate elevation of the right hemidiaphragm with unchanged compressive atelectasis in the right lung base.
--- NOTE | 2023-09-25 14:09 | P.OP_ITS ---
Operative Report Date of procedure: September 25, 2023 Pre-op diagnosis: PSMA PET-- showed extensive tumor involvement of lymph node above and below the diaphragm with PSMA avidity. Post-op diagnosis: Same Procedure done: Dx Bronchoscope w/BAL Bronchoscopy w/ therapeutic aspiration of the tracheobronchial tree (clearance of airway secretions, removal of mucus plugs) EBUS Sampling 1-2 nodes Surgeon: Zac Knowles MD Brief History: Mr. Yan piedar is a 78-year-old male with past medical history of atrial fibrillation, diabetes, dyslipidemia, hypertension, BPH, CAD, comes for endobronchial ultrasound-guided biopsy of mediastinal adenopathy. Patient was diagnosed with prostate adenocarcinoma Stage ISIS [id number], [place] 3+4=7 diagnosed 03/2023 on Orgovyx and Xtandi-following up with oncology and radiation oncology. 05/10/2023 PSMA PET--Per urology note showed extensive tumor involvement of lymph node above and below the diaphragm with PSMA avidity. Radiation oncology Dr. Phipps reviewed the PSMA PET/CT and thought pattern of adenopathy appeared very unusual for prostate cancer. Dr. Phipps referred patient to pulmonary services to obtain biopsies of mediastinal lymph nodes to rule out other malignancies and even benign processes. Today scheduled for bronchoscopic airway inspection as well as endobronchial ultrasound-guided biopsy of right hilar mass/mediastinal lymph nodes to obtain tissue samples and rule out malignancy/lymphoma Patient denied any complaints. He held the Pradaxa 72 hours prior to procedure. Explained about the nature of procedure, alternatives, complications like bleeding/pneumothorax. Patient verbalized understanding and agreed to do the biopsies Procedure: Dx Bronchoscope w/BAL Bronchoscopy w/ therapeutic aspiration of the tracheobronchial tree (clearance of airway secretions, removal of mucus plugs) EBUS Sampling 1-2 nodes Indication: PSMA PET/CT-mediastinal adenopathy appeared very unusual for prostate cancer-biopsies to obtain tissue diagnosis Anesthesia: General anesthesia. Local anesthesia: The jasmin in the right and left mainstem bronchi were anesthetized with 1% lidocaine, 3 mL. Description of the procedure: The procedure was explained to the patient and the consent was obtained. The patient was brought to the OR. The patient underwent induction for general anesthesia and laryngeal mask airway (LMA)) was placed. The bronchoscope was advanced through the LMA. The vocal cords visualized. 1 mL 1% lidocaine was instilled on the vocal cords. They are mobile. Bronchoscope advanced through vocal cords into trachea. Tracheal mucosa appears normal with no endotracheal lesions. There were clear secretions which were suctioned right away. The jasmin was sharp. 1 mL each of 1% lidocaine was instilled in the trachea the right and left mainstem bronchi for local anesthesia. In a systematic manner bilateral bronchial tree was then examined. The bronchoscope was then introduced into the right mainstem bronchus. The right upper lobe, right middle lobe, right lower lobe segmental openings were visualized and scope was passed up to subsegmental level. There were no endobronchial lesions or mucosal abnormalities. There were mucoid secretions which were suctioned right away. The bronchoscope was advanced into the left mainstem bronchus. The left upper lobe, and lingula, left lower lobe were examined up to the third subsegmental level and no abnormalities were identified. There were clear secretions which were suctioned right away. BAL was taken from the right middle lobe. Bronchoscope was retracted and Endobronchial Ultrasound (EBUS) was introduced. Identified a hypoechoic mass in station station 7, station 11 R. Using [id number] were taken from all the stations; there was some evidence of bleeding which is controlled with instillation of cold saline. After making sure there is no active bleeding, bronchoscope retracted and procedure terminated. Samples: 1. Bronchoalveolar lavage was performed after wedging the bronchoscope at the entrance of medial segment of right middle lobe . 30 mL of saline was instilled, fluid return was 12 mL. Bronchoalveolar lavage specimen was sent for cell count and differential, gram stain and culture, cytology B. EBUS guided Fine-needle aspiration biopsies were taken from station station 7 and station 11 R. 1. Total of 3 passes were made using needle aspiration from station 7; the material was placed in formalin and sent for histopathology 2. Total of 3 passes were made using needle aspiration from station 11 R hilar mass; the material was placed in formalin and sent for histopathology; Some of the material from this 'station 7 and station 11 R' was placed in RPMI to rule out lymphoma; labeled as 'mediastinal nodes' Complications: None.The patient was extubated and brought to the PACU in stable condition. Disposition: Patient will be discharged in stable condition. Pt and his daughter is aware that I am going to call them to update final biopsy results once available. Related Problem List Diagnoses (1) Mediastinal adenopathy:
--- NOTE | 2023-09-25 14:39 | ANE.PACU2 ---
Inpatient post-anesthesia follow up: Airway intact: Yes Vital signs: Temperature 97 F Pulse Rate 97 Respiratory Rate 14 Blood Pressure 138/85 Pulse Oximetry 95 Oxygen Delivery Me thod Room Air Oxygen Flow Rate Fraction of Inspir ed Oxygen Hydration adequate: Yes Nausea and vomiting: No Pain level: 2 Mental status: Baseline
[2023-09-25 15:22] LABS: Total Cells Counted Bronch 200
[2023-09-25 15:25] LABS: PATH Referral Yes
[2023-09-27 07:15] LABS: Lymphoma Profile (BBPL) See Report
== END 2023-09-25 15:00 | disposition home or self-care (01) ==
PROVIDERS: PCP Family Medicine; Visit Provider Internal Medicine Pulmonary Disease
PROC: BB4BZZZ Ultrasonography of Pleura (ICD-10-PCS; principal; 2023-09-25 11:50)
DX: R59.0 Localized enlarged lymph nodes (principal); I48.91 Unspecified atrial fibrillation; E78.5 Hyperlipidemia, unspecified; I10 Essential (primary) hypertension; N40.0 Benign prostatic hyperplasia without lower urinary tract symptoms; I25.10 Atherosclerotic heart disease of native coronary artery without angina pectoris; C61 Malignant neoplasm of prostate; Z86.16 Personal history of COVID-19; Z79.01 Long term (current) use of anticoagulants; Z95.0 Presence of cardiac pacemaker
CPT/HCPCS: 31624; 31645; 31652; 36416; 71045; 80503; 82962; 87070; 87205; 88112; 88184; 88185; 88305; 89050; 93005; J1100; J2371; J2405; J2704; J7030

== ENCOUNTER 2023-09-26 12:44 | Outpatient (CLI) | payer OTHER, SELFPAY ==
[2023-09-26 13:35] LABS: Albumin Level 4.2 g/dL (3.5-5.2); Anion Gap 13.6 (5-19); Blood Urea Nitrogen 24 mg/dL (8-23); Calcium 9.2 mg/dL (8.5-10.5); Carbon Dioxide 27 mmol/L (22-29); Chloride 98 mmol/L (98-107); Glucose 113 mg/dL (65-115); Phosphorus 3.4 mg/dL (2.5-4.5); Potassium 4.6 mmol/L (3.5-5.1); Sodium 134 mmol/L (136-145)
--- NOTE | 2023-09-26 14:15 | USCV_ITS ---
Yan Alonso Age: 78 Gender: M : 1945 Exam Date: 09/26/2023 13:36 Ordering Phys: Edel Escobar Technologist: Ex[place] [facility] [place] Indication: valvular insuff BP: 130 / 75 HR: 142 Rhythm: Sinus Technical Quality: Adequate MEASUREMENTS (Male / Female) Normal Values 2D ECHO LV Diastolic Diameter PLAX 5.5 cm 4.2 - 5.9 / 3.9 - 5.3 cm IVS Diastolic Thickness 1.5 cm 0.6 - 1.0 / 0.6 - 0.9 cm IVS Systolic Thickness 1.8 cm LVPW Diastolic Thickness 1.4 cm 0.6 - 1.0 / 0.6 - 0.9 cm LVPW Systolic Thickness 1.6 cm LVOT Diameter 2.2 cm LV Ejection Fraction 2D Teich 69.7 % LV Ejection Fraction MOD 2C 53.9 % LV Ejection Fraction 2C AL 53.9 % LA Diameter 4.8 cm RA Systolic Volume 4C AL 51.2 ml RA Systolic Volume 4C MOD 50.1 ml Aorta at Sinotubular Diameter 3.1 cm IVC Diameter 2.8 cm M-MODE LA Ao Ratio MM 1.4 AV Cusp Separation MM 1.6 cm DOPPLER AV Peak Velocity 99.0 cm/s LVOT Peak Velocity 73.0 cm/s AV Area Cont Eq vti 3.1 cm squared AV Area Cont Eq pk 2.7 cm squared TV Peak Velocity 282.5 cm/s TR Peak Velocity 286.0 cm/s TR Peak Gradient 32.7 mmHg TV Peak E Velocity 89.0 cm/s Right Atrial Pressure 3.0 mmHg Pulmonary Artery Systolic Pressu 35.7 mmHg PV Peak Velocity 69.0 cm/s FINDINGS Left Ventricle Left ventricle is normal size. LV systolic function is normal with EF of 50-55 %. No regional wall motion abnormalities are seen. Right Ventricle Normal in size and function Right Atrium Normal size. Pacemaker lead seen. Left Atrium Dilated Mitral Valve Structurally normal mitral valve. Mild mitral regurgitation. Aortic Valve Structurally normal aortic valve. Mild aortic regurgitation. Tricuspid Valve Mild tricuspid regurgitation. RVSP is 35 to 40 mmHg. This is consistent with mild pulmonary hypertension. Pulmonic Valve Not well visualized Pericardium Normal Aorta Normal in size IVC Not well visualized CONCLUSIONS LV systolic function is normal with EF of 50 to 55%. Left atrial dilation. Mild mitral regurgitation Mild aortic regurgitation Mild tricuspid regurgitation Mild pulmonary hypertension. Compared to prior echocardiogram 2021, no significant changes are seen. Germán Mcodnough MD (Electronically Signed) Final Date: 29 September 2023 22:59 S
[2023-09-28 14:29] LABS: Osmolality Urine 243 mOsm/kg (50-1200)
== END 2023-09-26 12:45 | disposition home or self-care (01) ==
PROVIDERS: PCP Family Medicine; Visit Provider Nurse Practitioner Family
DX: E87.1 Hypo-osmolality and hyponatremia (principal); I48.21 Permanent atrial fibrillation; I51.7 Cardiomegaly; N18.31 Chronic kidney disease, stage 3a
CPT/HCPCS: 36415; 80069; 83935; 93306

== ENCOUNTER 2023-10-16 10:25 | Oncology outpatient (recurring) (ONCR) | payer OTHER, SELFPAY ==
--- NOTE | 2023-09-19 15:00 | N.ONRAD NP_ITS ---
Radiation Oncology New Patient Visit Patient: Yan Alonso MR#: [id number] : 1945 Age: 78 Sex: Male Dictated by: Dr. Traci Phipps Date of Service: 09/19/2023 Referring Physician(s) : Dr. 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 Chief Complaint / History of Present Illness: Patient is a 78-year-old gentleman who recalls how he has been followed by his urologist for several years. He recalls in 2019 his PSA was about 10. He was placed on finasteride and since that time his PSA has ranged between 5.2-5.7. In March 2023 he underwent a biopsy which showed a positive biopsy from the right base which was Homestead score 7. He was started on Orgovyx and Xtandi. He subsequently had CT scans and bone scan. Bone scan was negative. He then had a PSMA PET in April 2023 and this showed that he had cervical mediastinal hilar periaortic pelvic and inguinal adenopathy. Nodes had uptakes that ranged around 11 or 12. The area in the prostate had an SUV around 4. He is seen today in consultation to discuss treatment options Current Medications: blood sugar diagnostic (Accu-Chek Guide test strips) check daily, chlorthalidone 25 mg PO DAILY, dabigatran etexilate (Pradaxa) 150 mg PO BID, diltiazem HCl ER (Cardizem LA) 120 mg PO DAILY, famotidine 20 mg PO BID, isosorbide mononitrate ER 30 mg PO DAILY, lancets (Accu-Chek Fastclix Lancet Drum) USE 1 LANCET TO CHECK GLUCOSE ONCE DAILY. DX E11.9, levothyroxine 125 mcg PO DAILY, metoprolol tartrate 100 mg PO BID, omeprazole magnesium (Prilosec OTC) 20 mg PO DAILY, tamsulosin TAKE ONE CAPSULE BY MOUTH TWICE A DAY APPROXIMATELY 30 MINUTES AFTER THE SAME MEAL EACH DAY (FOR PROSTATE), tizanidine 4 mg PO BID PRN Allergies: Codeine Sulfate, Amoxicillin and HYDROmorphone HCl. 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 Family History: Father is at age 84 having experienced brain cancer. Mother is at age 88 having experienced heart disease. Brother is at age 60 having experienced bone cancer. Sister is at age 53 having experienced colon cancer. Social History: Smoking and tobacco/nicotine status: never used tobacco/nicotine, Second hand smoke exposure: No , Alcohol intake: never, Substance/Drug Use: never, Marital status: , Current occupational status: retired Current Complaints / Review of Systems: . Patiently currently has no overt symptoms in terms of aches or pains. Bowel and bladder habits are normal. Vital Signs: Performed on 09/19/2023 1:04 PM BMI - 30.849 kg/m2 (high), Height - 70 in, Weight - 215 lbs, Temperature - 96.7 f, Pulse - 93 /min, Respiration - 18 /min, O2 Sat - 98 %, Pain - 0, Fatigue - 2 and BP - 132/ 89 mm(hg). Physical Exam: General: Patient is in no apparent distress. He is alone today. HEENT: Normocephalic atraumatic. Pupils are equal, sclera clear, extraocular muscles intact Pulmonary: Respiratory rate is regular nonlabored Cardiovascular: Regular rate and rhythm Abdomen: Mildly protuberant and android pattern Extremities: Without clubbing cyanosis or edema Skin: Warm and dry without ecchymoses or lesions Neurological: Alert and orient x 3. Gait and speech within normal limits Psych: Affect appropriate for current situation Performance Status: KPS 100 Pathology: Primary, d69.6 - thrombocytopenia, unspecified, Diagnosed 08/26/2019 (active) . 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 Alonso the sequence of events. We talked about his PSA over the years. We talked about the scans that he has had and how the bone scan was clear. His PET scan however showed a pattern of adenopathy that was very unusual for prostate cancer. We did obtain the actual images from [facility] and the bulk of his adenopathy is actually in the mediastinum. The other nodes in the cervical and abdominal, pelvic and inguinal area are quite small. After looking at his imaging I have recommended to him that we proceed with a biopsy of the adenopathy in the mediastinum. I reviewed with him that there are many other malignancies and even benign processes that can show up on the PSMA PET. He verbalized understanding of the rationale to proceed with tissue biopsy. He has an appointment as an established patient with Dr. Knowles. I spoke with Dr. Knowles and he will be seeing him in the next few days to do a bronchoscopy and obtain tissue. Once that has been completed we will have him return so that we can go over those results and lay out a treatment plan for him. He verbalized understanding he is agreed to proceed. We gave him a card with our phone numbers so that he can contact us directly. I will otherwise have him scheduled for follow-up once he has had tissue obtained. Signed by: 09/19/2023 2:58:36 PM <<Signature on File>> Time spent with patient:60 CPT Code: CPT Code:
--- NOTE | 2023-10-04 09:38 | ONCRAD EPV_ITS ---
Radiation Oncology Established Patient Visit Patient: Celeste Heredia [id number] : 1945> Age: 78> Sex: Male> Dictated by: Dr. Traci Phipps Date of Service: 10/04/2023 Referring Physician(s) : Dr. Deepak Estrada Diagnosis: C61 - Malignant neoplasm of prostate, Diagnosed 03/28/2023 (Active) Patient returns today to go over the biopsy results and to also review the PSMA PET and discuss treatment for his prostate cancer. He was already aware that his biopsy did not show any malignancy. There were several good deep biopsies and washings none of which showed any malignancy. He does recount now how years ago he had a mass in his lung and had this resected and was ready to start radiation treatments when his tissue had been sent to the [facility]. The [facility] said it was not cancer. 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 He also had a significant bout with COVID with significant respiratory changes and cardiomegaly developing subsequently Radiotherapy to Date: None to date Current History: No current changes Current Medications: Chlorthalidone, famotidine, levothyroxine Sodium, metFORMIN HCl, metoprolol Tartrate, pradaxa, tamsulosin HCl. Allergies: Codeine Sulfate, Amoxicillin and HYDROmorphone HCl. Current Complaints / Review of Systems: . Patient is having difficulty with constipation and sleeping Vital Signs: Performed on 10/04/2023 8:17 AM BMI - 30.735 kg/m2 (high), Height - 70 in, Weight - 214.2 lbs, Temperature - 97.1 f, Pulse - 90 /min, Respiration - 18 /min, O2 Sat - 97 %, Pain - 0, Fatigue - 0 and BP - 129/ 86 mm(hg). Physical Exam: General: Alert and oriented x 3. No acute distress. HEENT: Normocephalic, atraumatic. Extraocular Movements Intact: Pupils Equal, Round, Reactive to Light .LUNGS: Respiratory rate is regular nonlabored HEART: Regular rate and rhythm,. EXTREMITIES: No peripheral edema is identified. NEUROLOGIC: Alert and orient x 3. Gait speech within normal limits. Performance Status: 90 Lab: None pending. Pathology: Primary, c61 - malignant neoplasm of prostate, Diagnosed 03/28/2023 (active) and Primary, d69.6 - thrombocytopenia, unspecified, Diagnosed 08/26/2019 (active) . Imaging: See HPI Impression: Adenocarcinoma the prostate Jessica score 7 Plan: I reviewed with him all the above. We talked about how the PSMA PET is fairly new imaging and it does show up a number of other things besides just prostate cancer. We reviewed his past history and I have recommended at this point that he receive an annual low-dose CT scan to monitor due to his asbestos exposure. We also reviewed the use of radiation for his prostate cancer. He will continue on his Xtandi. His last PSA was 0.02. I reviewed with him the simulation process. We discussed the daily treatment regiment. Reviewed the risks and side effects both acute and long-term. At this point he understands that we will need to proceed with additional imaging down the line to monitor for stability in terms of the lymph nodes and in the meantime we will proceed with radiation to cover both his prostate and the pelvic nodes. He will return for simulation early next week and begin his treatment shortly thereafter Signed by: 10/04/2023 9:37:53 AM <<Signature on File>> Time spent with patient:25 CPT Code: CPT Code:
[2023-10-11 12:51] LABS: Basophils % 0.3 %; Eosinophils # 0.1 10^3/uL (0.0-0.8); Eosinophils % 0.9 %; Hematocrit 36.5 % (37-53); Lymphocytes # 1.6 10^3/uL (0.8-4.8); Lymphocytes % 24.2 %; Mean Corpuscular HGB Conc 35.9 g/dL (30-55); Mean Corpuscular Hemoglobin 34.9 pg (27-33); Mean Corpuscular Volume 97.3 fl (82-101); Mean Platelet Volume 9.9 fL (7.4-10.4); Monocytes # 0.6 10^3/uL (0.2-0.9); Monocytes % 8.6 %; Neutrophils # 4.34 10^3/uL (1.8-7.7); Neutrophils % 65.7 %; Nucleated Red Blood Cells % 0 %; Platelet Count 193 10^3/cmm (157-399); Red Blood Count 3.75 10^6/uL (3.85-5.65); White Blood Count 6.61 10^3/uL (3.29-11.43)
[2023-10-11 13:24] LABS: Alanine Aminotransferase 15 U/L (0-41); Albumin Level 4.2 g/dL (3.5-5.2); Alkaline Phosphatase 65 U/L (40-130); Anion Gap 18.2 (5-19); Aspartate Amino Transferase 21 U/L (0-40); Blood Urea Nitrogen 23 mg/dL (8-23); Calcium 9.4 mg/dL (8.5-10.5); Carbon Dioxide 28 mmol/L (22-29); Chloride 96 mmol/L (98-107); Creatinine Clr Calc Pharmacy 57.8882; Globulin 2.7 g/dL (1.3-4.6); Glucose 152 mg/dL (65-115); Osmolality Calculated 293 mOsm/kg (285-295); Potassium 4.2 mmol/L (3.5-5.1); Sodium 138 mmol/L (136-145); Testosterone Total 10.8 ng/dL (193-740); Thyroid Stimulating Hormone 5.32 uIU/mL (0.27-4.20); Total Bilirubin 0.7 mg/dL (0.15-1.2); Total Protein 6.9 g/dL (6.6-8.7)
[2023-10-11 13:37] LABS: Lactate Dehydrogenase 238 U/L (135-225)
== END 2023-10-16 23:59 | disposition home or self-care (01) ==
PROVIDERS: Internal Medicine Hematology & Oncology; Absent Provider Internal Medicine; PCP Family Medicine; Visit Provider Radiology Radiation Oncology
DX: Z51.0 Encounter for antineoplastic radiation therapy (principal); C61 Malignant neoplasm of prostate
CPT/HCPCS: 36415; 77300; 77301; 77334; 77338; 77385; 80053; 83615; 84153; 84403; 84443; 85025; 99024; 99205; 99214

== ENCOUNTER 2023-11-02 10:19 | Oncology outpatient (recurring) (ONCR) | payer OTHER, SELFPAY ==
--- NOTE | 2023-10-19 08:06 | ONCRAD TMN_ITS ---
Radiation Oncology Weekly Treatment Management Patient: Yan Alonso MR#: [id number] : 1945> Attending Physician: hCuy Pineda Date of Service: 10/17/2023 Referring Physician(s) : Dr. Deepak Estrada Diagnosis: C61 - Malignant neoplasm of prostate, Diagnosed 03/28/2023 (Active) D69.6 - Thrombocytopenia, unspecified, Diagnosed 08/26/2019 (Active) Radiotherapy to date: Course: prostate/pelvic, Treatment Site: Pelvis 50Gy, Ref. ID: [id number], Energy: 15X, Dose/Fx (cGy): 200, #Fx: 3 , Dose Correction (cGy): 0, Total Dose Delivered (cGy): 600, Start Date: 10/15/2023, Elapsed Days: 2 Reason for visit: The patient is being seen today as part of their regularly scheduled weekly on treatment visits to assess for acute toxicities from radiotherapy. Review of Systems: GOOD FLOW WITHNO PAIN. On Flomax 1 Q HS. Nocturia 5 ??? 6 x . Constipated. Active. Vital Signs: Performed on 10/17/2023 10:46 AM BMI - 30.247 kg/m2 (high), Height - 70 in, Weight - 210.8 lbs, Temperature - 96.3 f, Pulse - 85 /min, Respiration - 18 /min, O2 Sat - 97 %, Pain - 0, Fatigue - 0 and BP - 137/ 85 mm(hg). Physical Exam: Imaging: Radiation therapy imaging related to accurate target localization (i.e. KV, MV and CBCT) was reviewed. Appropriate changes, if any, were made to ensure treatment accuracy. Plan: Good tolerance of treatment. OK to increase Flomax to2 q HS. Signed by: Chuy Pineda 10/19/2023 8:05:21 AM Telemedicine Consent Patient seen today via Telemedicine by agreement and consent of patient. Telemedicine technology used during the visit include audio and, as available, review of images. This patient encounter is appropriate and reasonable under the circumstances given the patient???s particular presentation at this time. The patient has been advised of the potential risks and limitations of this mode of treatment (including but not limited to the absence of in-person examination) and has agreed to be treated in a remote fashion in spite of them. Any and all of the patient???s/patient???s family???s questions on this issue have been answered and I have made no promises or guarantees to the patient. The patient has also been advised to contact this office for worsening conditions or problems, and seek emergency medical treatment and/or call 911 if the patient deems either necessary.
--- NOTE | 2023-10-23 13:34 | ONCRAD TMN_ITS ---
Radiation Oncology Weekly Treatment Management Patient: Yan Alonso MR#: [id number] : 1945 Attending Physician: Chuy Pineda Date of Service: 10/23/2023 Referring Physician(s) : Dr. Deepak Estrada Diagnosis: C61 - Malignant neoplasm of prostate, Diagnosed 03/28/2023 (Active) D69.6 - Thrombocytopenia, unspecified, Diagnosed 08/26/2019 (Active) Radiotherapy to date: Course: prostate/pelvic, Treatment Site: Pelvis 50Gy, Ref. ID: [id number], Energy: 15X, Dose/Fx (cGy): 200, #Fx: , Dose Correction (cGy): 0, Total Dose Delivered (cGy): 1,400, Start Date: 10/15/2023, Elapsed Days: 8 Reason for visit: The patient is being seen today as part of their regularly scheduled weekly on treatment visits to assess for acute toxicities from radiotherapy. Review of Systems: Not sleeping. Cannnot say why. Not woken by nocturia. Urination ok with no pain. Nocturia 5 -6 On Flomax 2 perday. Vital Signs: Performed on 10/23/2023 10:44 AM BMI - 30.419 kg/m2 (high), Height - 70 in, Weight - 212 lbs, Temperature - 96 f, Pulse - 86 /min, Respiration - 16 /min, O2 Sat - 98 %, Pain - 0, Fatigue - 10 and BP - 107/ 73 mm(hg). Physical Exam: Imaging: Radiation therapy imaging related to accurate target localization (i.e. KV, MV and CBCT) was reviewed. Appropriate changes, if any, were made to ensure treatment accuracy. Plan: Good tolerance of treatment. Used Flomax 2 q PM, Add Ambien 5 mg q HS. Continue treatment as planned. Signed by: Chuy Pineda 10/23/2023 1:32:06 PM
--- NOTE | 2023-10-30 22:35 | ONCRAD TMN_ITS ---
Radiation Oncology Weekly Treatment Management Patient: Celeste Springer MR#: [id number] : 1945> Attending Physician: Chuy Pineda Date of Service: 10/29/2023 Referring Physician(s) : Dr. Deepak Estrada Diagnosis: C61 - Malignant neoplasm of prostate, Diagnosed 03/28/2023 (Active) D69.6 - Thrombocytopenia, unspecified, Diagnosed 08/26/2019 (Active) Radiotherapy to date: Course: prostate/pelvic, Treatment Site: Pelvis 50Gy, Ref. ID: [id number], Energy: 15X, Dose/Fx (cGy): 200, #Fx: , Dose Correction (cGy): 0, Total Dose Delivered (cGy): 2,200, Start Date: 10/15/2023, Elapsed Days: 14 Reason for visit: The patient is being seen today as part of their regularly scheduled weekly on treatment visits to assess for acute toxicities from radiotherapy. Review of Systems: Not sleeping well despite use of Ambien. Fatigued. Ongoing significant nocturia despite 2 Flomax q HS. No buring. Vital Signs: Performed on 10/29/2023 9:15 AM BMI - 31.022 kg/m2 (high), Height - 70 in, Weight - 216.2 lbs, Temperature - 96.4 f, Pulse - 110 /min (high), Respiration - 18 /min, O2 Sat - 99 %, Pain - 0, Fatigue - 7 and BP - 135/ 91 mm(hg)(/high). Physical Exam: Imaging: Radiation therapy imaging related to accurate target localization (i.e. KV, MV and CBCT) was reviewed. Appropriate changes, if any, were made to ensure treatment accuracy. Plan: Good tolerance of treatment. Continue as planned. Switch from Ambien to Restoril 15 mg. 10 minutes spent with patient and in charting. Signed by: Chuy Pineda 10/30/2023 10:34:08 PM Telemedicine Consent Patient seen today via Telemedicine by agreement and consent of patient. Telemedicine technology used during the visit include audio and, as available, review of images. This patient encounter is appropriate and reasonable under the circumstances given the patient???s particular presentation at this time. The patient has been advised of the potential risks and limitations of this mode of treatment (including but not limited to the absence of in-person examination) and has agreed to be treated in a remote fashion in spite of them. Any and all of the patient???s/patient???s family???s questions on this issue have been answered and I have made no promises or guarantees to the patient. The patient has also been advised to contact this office for worsening conditions or problems, and seek emergency medical treatment and/or call 911 if the patient deems either necessary.
== END 2023-11-02 23:59 | disposition home or self-care (01) ==
PROVIDERS: Absent Provider Internal Medicine; PCP Family Medicine; Visit Provider Radiology Radiation Oncology
DX: Z51.0 Encounter for antineoplastic radiation therapy (principal); C61 Malignant neoplasm of prostate
CPT/HCPCS: 77336; 77385; 99024

== ENCOUNTER 2023-11-16 10:00 | Oncology outpatient (recurring) (ONCR) | payer OTHER, SELFPAY ==
--- NOTE | 2023-11-06 11:41 | ONCRAD TMN_ITS ---
Radiation Oncology Weekly Treatment Management Patient: Yan Alonso MR#: [id number] : 1945 Attending Physician: Dr. Traci Phipps Date of Service: 11/06/2023 Fractions: 17 of 25 to the pelvis with 8 to the boost remaining Referring Physician(s) : Dr. Deepak Estrada Diagnosis: C61 - Malignant neoplasm of prostate, Diagnosed 03/28/2023 (Active) D69.6 - Thrombocytopenia, unspecified, Diagnosed 08/26/2019 (Active) Radiotherapy to date: Course: prostate/pelvic, Treatment Site: Pelvis 50Gy, Ref. ID: [id number], Energy: 15X, Dose/Fx (cGy): 200, #Fx: 17 / 25, Dose Correction (cGy): 0, Total Dose Delivered (cGy): 3,400, Start Date: 10/15/2023, Elapsed Days: 22 Reason for visit: The patient is being seen today as part of their regularly scheduled weekly on treatment visits to assess for acute toxicities from radiotherapy. Review of Systems: Patient has had some increased frequency of stools. He is also having increasing back pain but has had 5 back surgeries. Vital Signs: Performed on 11/06/2023 10:37 AM BMI - 30.563 kg/m2 (high), Height - 70 in, Weight - 213 lbs, Temperature - 97.3 f, Pulse - 108 /min (high), Respiration - 17 /min, O2 Sat - 99 %, Pain - 0, Fatigue - 5 and BP - 128/ 81 mm(hg). Physical Exam: No changes on exam Imaging: Radiation therapy imaging related to accurate target localization (i.e. KV, MV and CBCT) was reviewed. Appropriate changes, if any, were made to ensure treatment accuracy. Plan: Will continue with his treatments as planned. I encouraged him to monitor the frequency of stools and if it increases to the point that it is causing him discomfort he can take 1 dose of Imodium. Signed by: Dr. Traci Phipps 11/06/2023 11:39:23 AM
[2023-11-08 13:00] LABS: Basophils % 0.2 %; Eosinophils # 0.1 10^3/uL (0.0-0.8); Eosinophils % 1.7 %; Lymphocytes # 0.6 10^3/uL (0.8-4.8); Lymphocytes % 15.1 %; Mean Corpuscular HGB Conc 35.2 g/dL (30-55); Mean Corpuscular Hemoglobin 34.9 pg (27-33); Mean Corpuscular Volume 99.4 fl (82-101); Mean Platelet Volume 9.6 fL (7.4-10.4); Monocytes # 0.5 10^3/uL (0.2-0.9); Monocytes % 11.1 %; Neutrophils # 2.87 10^3/uL (1.8-7.7); Neutrophils % 71.2 %; Nucleated Red Blood Cells % 0 %; Platelet Count 109 10^3/cmm (157-399); Red Blood Count 3.12 10^6/uL (3.85-5.65); Red Cell Distribution Width 14.6 % (12.1-15.1); White Blood Count 4.04 10^3/uL (3.29-11.43)
[2023-11-08 13:32] LABS: Alanine Aminotransferase 14 U/L (0-41); Albumin Level 3.9 g/dL (3.5-5.2); Alkaline Phosphatase 64 U/L (40-130); Anion Gap 16.2 (5-19); Aspartate Amino Transferase 20 U/L (0-40); Blood Urea Nitrogen 15 mg/dL (8-23); Calcium 8.9 mg/dL (8.5-10.5); Carbon Dioxide 25 mmol/L (22-29); Chloride 99 mmol/L (98-107); Creatinine Clr Calc Pharmacy 63.5001; Globulin 2.4 g/dL (1.3-4.6); Glucose 165 mg/dL (65-115); Lactate Dehydrogenase 235 U/L (135-225); Osmolality Calculated 287 mOsm/kg (285-295); Potassium 4.2 mmol/L (3.5-5.1); Prostate Specific Antigen 0.015 ng/mL (0-4); Sodium 136 mmol/L (136-145); Testosterone Total 2.5 ng/dL (193-740); Thyroid Stimulating Hormone 10.54 uIU/mL (0.27-4.20); Total Bilirubin 0.5 mg/dL (0.15-1.2); Total Protein 6.3 g/dL (6.6-8.7)
--- NOTE | 2023-11-13 11:10 | ONCRAD TMN_ITS ---
Radiation Oncology Weekly Treatment Management Patient: Yan Alonso MR#: [id number] : 1945 Attending Physician: Dr. Traci Phipps Date of Service: 11/13/2023 Fractions: He has 11 treatments remaining. He will be finished on November 28 Referring Physician(s) : Dr. Deepak Estrada Diagnosis: C61 - Malignant neoplasm of prostate, Diagnosed 03/28/2023 (Active) D69.6 - Thrombocytopenia, unspecified, Diagnosed 08/26/2019 (Active) Radiotherapy to date: Course: prostate/pelvic, Treatment Site: Pelvis 50Gy, Ref. ID: [id number], Energy: 15X, Dose/Fx (cGy): 200, #Fx: , Dose Correction (cGy): 0, Total Dose Delivered (cGy): 4,200, Start Date: 10/15/2023, Elapsed Days: 29 Reason for visit: The patient is being seen today as part of their regularly scheduled weekly on treatment visits to assess for acute toxicities from radiotherapy. Review of Systems: He still continues to have back issues which are chronic. He also has continued problems with fatigue. He is requesting refills on his [facility] his doctor that previously ordered Vital Signs: Performed on 11/13/2023 10:33 AM BMI - 30.333 kg/m2 (high), Height - 70 in, Weight - 211.4 lbs, Temperature - 96.7 f, Pulse - 97 /min, Respiration - 16 /min, O2 Sat - 98 %, Pain - 0, Fatigue - 8 and BP - 124/ 82 mm(hg). Physical Exam: No changes on examination. Patient appears more pale today. Imaging: Radiation therapy imaging related to accurate target localization (i.e. KV, MV and CBCT) was reviewed. Appropriate changes, if any, were made to ensure treatment accuracy. Plan: He has previous CBC had a hemoglobin of 10.9, with a CBC prior to that having a hemoglobin of 13.1. I put through an order for a CBC for tomorrow. I encouraged him to call the doctor who previously ordered a sleeping medication [facility]. Otherwise continue with his treatments as planned. Signed by: Dr. Traci Phipps 11/13/2023 11:08:07 AM
[2023-11-14 11:13] LABS: Basophils % 0.6 %; Eosinophils # 0.1 10^3/uL (0.0-0.8); Eosinophils % 1.7 %; Hematocrit 33.3 % (37-53); Lymphocytes # 0.7 10^3/uL (0.8-4.8); Lymphocytes % 13.9 %; Mean Corpuscular HGB Conc 35.7 g/dL (30-55); Mean Corpuscular Volume 97.9 fl (82-101); Mean Platelet Volume 9.4 fL (7.4-10.4); Monocytes # 0.6 10^3/uL (0.2-0.9); Monocytes % 12.2 %; Neutrophils # 3.38 10^3/uL (1.8-7.7); Neutrophils % 71.2 %; Nucleated Red Blood Cells % 0 %; Platelet Count 136 10^3/cmm (157-399); Red Cell Distribution Width 15.1 % (12.1-15.1); White Blood Count 4.75 10^3/uL (3.29-11.43)
[2023-11-14 11:31] LABS: Add Urine Microscopic? YES; Bilirubin Urine Neg (Negative); Blood Urine 2+ (Negative); Glucose Urine UA Norm (Normal); Ketones Urine Negative (Negative); Leukocyte Esterase Urine Trace (Negative); Nitrate Urine Negative (Negative); Protein Urine Trace (Negative); Urine Appearance Clear (CLEAR); Urine Color Yellow (Yellow); Urobilinogen Urine Norm (Negative); pH Urine 6.5 (5-7)
[2023-11-14 11:35] LABS: Bacteria Urine TRACE /hpf; RBC Urine 0-4 /hpf (0-2); Squamous Epithelial Cell Urine 0-4 /hpf (0-5); Transitional Epi Cells Urine 0-4 /hpf; WBC Urine 0-4 /hpf (0-5)
[2023-11-14 11:36] LABS: Add Urine Culture? No; Hyaline Casts Urine 15-25 /lpf; Mucus Urine 1+ /hpf
== END 2023-11-16 23:59 | disposition home or self-care (01) ==
PROVIDERS: Internal Medicine Hematology & Oncology; Absent Provider Internal Medicine; PCP Family Medicine; Visit Provider Radiology Radiation Oncology
DX: Z51.0 Encounter for antineoplastic radiation therapy (principal); C61 Malignant neoplasm of prostate
CPT/HCPCS: 36415; 77336; 77385; 80053; 81001; 83615; 84153; 84403; 84443; 85025; 99024; 99213

== ENCOUNTER 2023-11-29 10:16 | Oncology outpatient (recurring) (ONCR) | payer OTHER, SELFPAY ==
--- NOTE | 2023-11-20 11:04 | ONCRAD TMN_ITS ---
Radiation Oncology Weekly Treatment Management Patient: Celeste Heredia> MR#: [id number] : 1945> Attending Physician: Dr. Traci Phipps Date of Service: 11/20/2023 Fractions: He has completed 25 out of 25 to the pelvic calderón and the first out of 8 to the reduction Referring Physician(s) : Dr. Deepak Estrada Diagnosis: C61 - Malignant neoplasm of prostate, Diagnosed 03/28/2023 (Active) D69.6 - Thrombocytopenia, unspecified, Diagnosed 08/26/2019 (Active) Radiotherapy to date: Course: prostate/pelvic, Treatment Site: Pelvis 50Gy, Ref. ID: [id number], Energy: 15X, Dose/Fx (cGy): 200, #Fx: 25 / 25, Dose Correction (cGy): 0, Total Dose Delivered (cGy): 5,000, Start Date: 10/15/2023, End Date: 11/19/2023, Elapsed Days: 35 Treatment Site: ProstateBoost, Ref. ID: [id number], Energy: 15X, Dose/Fx (cGy): 250, #Fx: 1 / 8, Dose Correction (cGy): 0, Total Dose Delivered (cGy): 250, Start Date: 11/20/2023, Elapsed Days: 0 Reason for visit: The patient is being seen today as part of their regularly scheduled weekly on treatment visits to assess for acute toxicities from radiotherapy. Review of Systems: Patient is doing well. His only complaint today is that he is lost some muscle mass and gained some weight around his abdomen from his hormone pills Vital Signs: Performed on 11/20/2023 10:45 AM BMI - 28.525 kg/m2 (high), Height - 70 in, Weight - 198.8 lbs, Temperature - 96.7 f, Pulse - 88 /min, Respiration - 18 /min, O2 Sat - 97 %, Pain - 8, Fatigue - 8 and BP - 111/ 66 mm(hg). Physical Exam: No changes on exam Imaging: Radiation therapy imaging related to accurate target localization (i.e. KV, MV and CBCT) was reviewed. Appropriate changes, if any, were made to ensure treatment accuracy. Plan: Will continue with his treatments as planned. He has follow-up scheduled with scans already. I reminded him his PSA will be basically 0 as long as he is taking the hormone pills. Signed by: Dr. Traci Phipps 11/20/2023 11:03:08 AM
--- NOTE | 2023-11-27 11:17 | ONCRAD TMN_ITS ---
Radiation Oncology Weekly Treatment Management Patient: Yan Alonso MR#: [id number] : 1945 Attending Physician: Dr. Traci Phipps Date of Service: 11/27/2023 Fractions: 25 out of 25 completed and 6 out of 8 for the boost Referring Physician(s) : Dr. Deepak Estrada Diagnosis: C61 - Malignant neoplasm of prostate, Diagnosed 03/28/2023 (Active) D69.6 - Thrombocytopenia, unspecified, Diagnosed 08/26/2019 (Active) Radiotherapy to date: Course: prostate/pelvic, Treatment Site: Pelvis 50Gy, Ref. ID: [id number], Energy: 15X, Dose/Fx (cGy): 200, #Fx: 25 / 25, Dose Correction (cGy): 0, Total Dose Delivered (cGy): 5,000, Start Date: 10/15/2023, End Date: 11/19/2023, Elapsed Days: 35 Course: prostate/pelvic, Treatment Site: ProstateBoost, Ref. ID: [id number], Energy: 15X, Dose/Fx (cGy): 250, #Fx: 6 / 8, Dose Correction (cGy): 0, Total Dose Delivered (cGy): 1,500, Start Date: 11/20/2023, Elapsed Days: 7 Reason for visit: The patient is being seen today as part of their regularly scheduled weekly on treatment visits to assess for acute toxicities from radiotherapy. Review of Systems: He still has some frequent stools which are soft. He has no bladder issues. Vital Signs: Performed on 11/27/2023 10:33 AM BMI - 30.62 kg/m2 (high), Height - 70 in, Weight - 213.4 lbs, Temperature - 97.0 f, Pulse - 95 /min, Respiration - 17 /min, O2 Sat - 99 %, Pain - 0, Fatigue - 8 and BP - 137/ 80 mm(hg). Physical Exam: No changes on exam Imaging: Radiation therapy imaging related to accurate target localization (i.e. KV, MV and CBCT) was reviewed. Appropriate changes, if any, were made to ensure treatment accuracy. Plan: Will complete his treatments on . He has appointments with the [place] for lab on the . Will see him back in a month with his PSA. He also had questions about an appointment he has upcoming in medical oncology. Signed by: Dr. Traci Phipps 11/27/2023 11:15:09 AM
--- NOTE | 2023-11-29 11:30 | N.ONRD TS_ITS ---
Radiation Oncology Treatment Summary Patient: Yan Alonso MR#: [id number] : 1945 Age: 78 Sex: Male Dictated by: Dr. Traci Phipps Date of Service: 11/29/2023 Referring Physician(s) : Dr. Deepak Estrada Diagnosis: C61 - Malignant neoplasm of prostate, Diagnosed 03/28/2023 (Active) D69.6 - Thrombocytopenia, unspecified, Diagnosed 08/26/2019 (Active) Radiotherapy to Date: Course: prostate/pelvic, Treatment Site: Pelvis 50Gy, Ref. ID: [id number], Energy: 15X, /Fx (cGy): 200, #Fx: 25 / 25, Dose Correction (cGy): 0, Total Dose Delivered (cGy): 5,000, Start Date: 10/15/2023, End Date: 11/19/2023, Elapsed Days: 35 Course: prostate/pelvic, Treatment Site: ProstateBoost, Ref. ID: [id number], Energy: 15X, Dose/Fx (cGy): 250, #Fx: 8 / 8, Dose Correction (cGy): 0, Total Dose Delivered (cGy): 2,000, Start Date: 11/20/2023, End Date: 11/29/2023, Elapsed Days: 9 Clinical Summary: The patient tolerated RT well. He had minimal changes in bowel or bladder habits. Plan: End of treatment today. Continue on the above medication until the skin reaction resolves. Follow up in one month with PSA the day prior. Signed by: Dr. Traci Phipps>11/29/2023 11:28:42 AM <<Signature on File>>
== END 2023-12-16 23:59 | disposition home or self-care (01) ==
PROVIDERS: Absent Provider Internal Medicine; PCP Family Medicine; Visit Provider Radiology Radiation Oncology
DX: Z53.9 Procedure and treatment not carried out, unspecified reason (principal); Z51.0 Encounter for antineoplastic radiation therapy; C61 Malignant neoplasm of prostate; Z19.1 Hormone sensitive malignancy status; Z79.899 Other long term (current) drug therapy; I48.91 Unspecified atrial fibrillation; E11.9 Type 2 diabetes mellitus without complications; Z79.84 Long term (current) use of oral hypoglycemic drugs
CPT/HCPCS: 77336; 77385; 99024

== ENCOUNTER 2023-12-28 09:51 | Oncology outpatient (recurring) (ONCR) | payer OTHER, SELFPAY ==
--- OUTSIDE RECORDS SUMMARY | 2023-12-26 10:13 | XMS_ITS | Patient Health Record ---
Author Name Unknown Organization [facility] Address [address] [place] [address] Care Team Providers Care Forging Die Finisher Name Role Phone Kenyetta SOTO Primary Care Provider Unavailab Gavino Asencio Unavailable [phone] Migration, Provider Unavailable Unavailable Allergies Allergen (clinical drug ingredient) Drug/Non Drug Allergy documented on EMR Reaction Allergy Type Onset Date Status amoxicillin Amoxicillin Unknown Drug Allergy Act pam hydromorphone Dilaudid Unknown Drug Allergy 02/27/2023 ac tive codeine Codeine Unknown Drug Allergy Active hydromorphone Hydromorphone Unknown Drug Allergy Active lisinopril Lisinopril Unknown Drug Allergy Activ e Penicillin Unknown Drug Allergy Active Reason For Referral No Information Medications Medication SIG (Take, Route, Frequency, Duration) Notes Start Date End Date Status Famotidine Active Ascorbic Acid 1000 MG Oral 05/08/2023 Active Finasteride Active Tamsulosin HCl Activ e Dabigatran Etexilate Mesylate Active Omeprazole Active Chlorthalidone Activ e dilTIAZem HCl Active Topiramate Active DEPO-Medrol Active Metoprolol Tartrate 100 MG Oral Tablet ORAL *Reorder from [facility] for eRx and Interaction Alerts* 02/27/2023 Active Finasteride 1 MG Oral Tablet ORAL *Reorder from [facility] for eRx and Interaction Alerts* 04/04/2023 Active dabigatran etexilate 110 MG Oral Capsule [Pradaxa] ORAL *Reorder from [facility] for eRx and Interaction Alerts* 02/27/2023 Active enzalutamide 40 MG Oral Capsule [Xtandi] ORAL *Reorder from [facility] for eRx and Interaction Alerts* 06/07/2023 06/01/2024 Active levothyroxine sodium 0.1 MG Oral Tablet [Synthroid] ORAL *Reorder from [facility] for eRx and Interaction Alerts* 02/27/2023 Active relugolix 120 MG Oral Tablet [Orgovyx] ORAL *Reorder from [facility] for eRx and Interaction Alerts* 06/07/2023 06/01/2024 Active Levothyroxine Sodium Active Isosorbide Mononitrate Active Metoprolol Succinate Active BUPivacaine Active metFORMIN HCl ER Act pam Social History Tobacco Use: Social History Observation Description Date Details (start date - stop date) Never Smoker NA - NA xTobacco Use/Smoking Question Answer Notes Are you a nonsmoker Problems Problem Type SNOMED Code ICD Code Onset Dates Problem Status W/U Status Risk Notes Problem Elevated PSA (425820014) Elevated PSA (R97.20) Active confirmed Problem Benign prostatic hypertrophy with outflow obstruction (854995017) 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) Active confirmed Problem Malignant tumor of prostate (179236245) Malignant neoplasm of prostate (C61) 06/07/2023 Active confirmed Vital Signs Heart Rate 82 /min 07/10/2023 Temperature 97.8 degrees Fahrenheit 07/10/2023 Height-cm 177.80 cm 07/10/2023 Blood pressure diastolic 78 mm Hg 07/10/2023 Weight-kg 97.16 kg 07/10/2023 Height 70.00 in 07/10/2023 Blood pressure systolic 135 mm Hg 07/10/2023 Weight 214.201 lbs 07/10/2023 BMI 30.7 kg/m2 07/10/2023 Encounters Encounter Location Date Provider Diagnosis [facility] [address] [place] [id number] 01/18/2023 Gavino Elaine [facility] 0 02/27/2023 Provider Migration [facility] 0 03/27/2023 Provider Migration [facility] 0 04/03/2023 Provider Migration [facility] 0 0 05/08/2023 Provider Migration [facility] 0 06/05/2023 Provider [facility] 0 07/10/2023 Provider [facility] 0 12/08/2023 Provider Migration [facility] 0 0 12/09/2023 Provider Migration [facility] [address] [place] [address], [place] [address] 12/27/2022 Gavino Elaine Plan Of Treatment Pending Test Test Name Order Date PSA Diagnostic--[id number] 12/14/2022 MRI Pelvis w/ + w/o [id number] Insurance Providers Payer Name Payer Address Payer Phone Subscriber Number Group Number Insured Name Patient Relationship to Insured Coverage Start Date Coverage End Date [employer] [address] [place] [phone] [id number] Yan Alonso Self - patient is the insured Medical (General) History Medical History History ICD Code hypertension diabetes arthritis Surgical History Surgery Date(Month/Year) back surgery X 5 cholecystectomy tumor removal, chest cavity thyroidectomy
--- OUTSIDE RECORDS SUMMARY | 2023-12-26 10:13 | XMS_ITS | Patient Health Record ---
Author Name Unknown Organization [facility] Address [address] [place] [address] Care Team Providers Care Handy Worker Name Role Phone Vasu Garzon Primary Care Provider REYNA Ambrose Unavailable [phone] Allergies Allergen (clinical drug ingredient) Drug/Non Drug Allergy documented on EMR Reaction Allergy Type Onset Date Status amoxicillin Amoxicillin Unknown Drug Allergy Act pam lisinopril Lisinopril Unknown Drug Allergy Activ e codeine Codeine Unknown Drug Allergy Active hydromorphone Hydromorphone Unknown Drug Allergy Active Penicillin Unknown Drug Allergy Active Reason For Referral No Information Medications Medication SIG (Take, Route, Frequency, Duration) Notes Start Date End Date Status Topiramate *Pick strength-form from [facility] for eRX* Active [facility]FORMIN HCl ER [facility] Active Tamsulosin HCl *[facility] Active Omeprazole *[facility] Active BUPivacaine *Reorder from [facility] for eRx and Interaction Alerts* Active Chlorthalidone *Pick strength-form from [facility] for eRX* Active DEPO-Medrol *Pick strength-form from [facility] for eRX* Active Levothyroxine Sodium *[facility]* Active Dabigatran Etexilate Mesylate *Reorder from [facility] for eRx and Interaction Alerts* Active Metoprolol Succinate *Reorder fr [facility] for eRx and Interaction Alerts* Active Famotidine *Pick strength-form from [facility] for eRX* Active Finasteride *Pick strength-form from [facility] for eRX* Active dilTIAZem HCl *Pick strength-form from [facility] for eRX* Active Isosorbide Mononitrate *Pick strength-form from [facility] for eRX* Active Problems Problem Type SNOMED Code ICD Code Onset Dates Problem Status W/U Status Risk Notes Problem 150948037 Elevated PSA (R97.20) Active confirmed Problem 198510514 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) Active confirmed Encounters Encounter Location Date Provider Diagnosis [facility] [address] [facility] [place] [address] 01/18/2023 REYNA BRANNON [facility] [address] [facility] [place] [address] 12/27/2022 REYNA BRANNON Plan Of Treatment Pending Test Test Name Order Date PSA Diagnostic--[id number] 12/14/2022 MRI Pelvis w/ + w/o Cont-[id number] 3 Insurance Providers Payer Name Payer Address Payer Phone Subscriber Number Group Number Insured Name Patient Relationship to Insured Coverage Start Date Coverage End Date [employer] [address] [place], [place] [phone] [id number] Yan Alonso Self - patient is the insured Medical (General) History Medical History History ICD Code hypertension diabetes arthritis Surgical History Surgery Date(Month/Year) back surgery X 5 cholecystectomy tumor removal, chest cavity thyroidectomy
[2023-12-26 11:17] LABS: Basophils % 0.4 %; Eosinophils # 0.1 10^3/uL (0.0-0.8); Eosinophils % 1.7 %; Hematocrit 31.6 % (37-53); Lymphocytes # 0.5 10^3/uL (0.8-4.8); Lymphocytes % 11.2 %; Mean Corpuscular HGB Conc 34.8 g/dL (30-55); Mean Corpuscular Hemoglobin 34.6 pg (27-33); Mean Corpuscular Volume 99.4 fl (82-101); Mean Platelet Volume 9.3 fL (7.4-10.4); Monocytes # 0.5 10^3/uL (0.2-0.9); Monocytes % 10.6 %; Neutrophils # 3.55 10^3/uL (1.8-7.7); Neutrophils % 75.3 %; Nucleated Red Blood Cells % 0 %; Platelet Count 145 10^3/cmm (157-399); Red Blood Count 3.18 10^6/uL (3.85-5.65); Red Cell Distribution Width 14.1 % (12.1-15.1); White Blood Count 4.72 10^3/uL (3.29-11.43)
[2023-12-26 11:46] LABS: Alanine Aminotransferase 15 U/L (0-41); Alkaline Phosphatase 81 U/L (40-130); Aspartate Amino Transferase 19 U/L (0-40); Blood Urea Nitrogen 21 mg/dL (8-23); Calcium 9.2 mg/dL (8.5-10.5); Carbon Dioxide 25 mmol/L (22-29); Chloride 98 mmol/L (98-107); Globulin 2.5 g/dL (1.3-4.6); Glucose 143 mg/dL (65-115); Osmolality Calculated 285 mOsm/kg (285-295); Sodium 135 mmol/L (136-145); Testosterone Total 13.1 ng/dL (193-740); Total Bilirubin 0.6 mg/dL (0.15-1.2); Total Protein 6.5 g/dL (6.6-8.7)
[2023-12-26 11:52] LABS: Prostate Specific Antigen < 0.014 ng/mL (0-4)
--- NOTE | 2023-12-28 10:55 | ONCRAD EPV_ITS ---
Radiation Oncology Established Patient Visit Patient: Celeste Heredia [id number] : 1945> Age: 78> Sex: Male> Dictated by: Toi Shoemaker DO/JOSIAH/KUSH Date of Service: 12/28/2023 Referring Physician(s) : Dr. Deepak Estrada Diagnosis: C61 - Malignant neoplasm of prostate, Diagnosed 03/28/2023 (Active) D69.6 - Thrombocytopenia, unspecified, Diagnosed 08/26/2019 (Active) thrombocytopenia Mr. 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 Patient denies any history of gross bleeding, denies any history of hematological evaluation in the past, denies any history of night sweats or weight loss or recent fevers denies any history of peripheral lymphadenopathy, denies any history of alcohol abuse, denies any history of hepatic cirrhosis or splenomegaly. Next Patient denies any alcohol use or smoking. As per patient recently he was diagnosed with elevated PSA it was around 14 and he was given course of antibiotics for possible infection and now being monitored by urologist. Came for follow-up, denies any specific complaints, no nausea vomiting, no fever or chills, no melena hematochezia, no nosebleed or gum bleed, no petechiae or ecchymosis Radiotherapy to Date: Course: prostate/pelvic, Treatment Site: Pelvis 50Gy, Ref. ID: [id number], Energy: 15X, Dose/Fx (cGy): 200, #Fx: 25 / 25, Dose Correction (cGy): 0, Total Dose Delivered (cGy): 5,000, Start Date: 10/15/2023, End Date: 11/19/2023, Elapsed Days: 35 Treatment Site: ProstateBoost, Ref. ID: [id number], Energy: 15X, Dose/Fx (cGy): 250, #Fx: 8 / 8, Dose Correction (cGy): 0, Total Dose Delivered (cGy): 2,000, Start Date: 11/20/2023, End Date: 11/29/2023, Elapsed Days: 9 Current History: This is a pleasant 74-year-old male who is now 1 month s/p definitive XRT to the prostate and lymph nodes. 7000 cGy in 33 fractions over 44 elapsed days completing this on 11/29/2023. He specifically denies any blood in the urine, blood in stool, diarrhea, constipation, or new bony tenderness. Patient does complain of fatigue and sleep dysfunction. He has been treated by another practitioner with Ambien with some relief. Patient is to see his family doctor next week for review evaluation of his thyroid dysfunction. He states he may ask him about vitamin B12 shots. Also PSMA PET noted mediastinal adenopathy. He underwent bronchoscopy with biopsy and this returned asbestosis. 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 Patient underwent PSA evaluation on 12/26/2023. This returned a value of <0.014. Patient to see Dr. Jones at the end of January. Current Medications: Chlorthalidone, famotidine, levothyroxine Sodium, metFORMIN HCl, metoprolol Tartrate, pradaxa, tamsulosin HCl. Allergies: Codeine Sulfate, Amoxicillin and HYDROmorphone HCl. Current Complaints / Review of Systems: . ABOVE Vital Signs: Performed on 12/28/2023 10:02 AM BMI - 30.276 kg/m2 (high), Height - 70 in, Weight - 211 lbs, Temperature - 96.7 f, Pulse - 93 /min, Respiration - 18 /min, O2 Sat - 98 %, Pain - 0, Fatigue - 8 and BP - 114/ 66 mm(hg). Physical Exam: General: Alert and oriented x 3. No acute distress. HEENT: Normocephalic, atraumatic. Extraocular Movements Intact: Pupils Equal, Round, Reactive to Light and Accommodation: Sclerae anicteric. Oral cavity is clear without lesions, masses or ulcers. NECK: Supple without supraclavicular or jugular lymphadenopathy. LUNGS: Clear to auscultation bilaterally without rales, rhonchi or wheeze. HEART: Regular rate and rhythm, normal S1 and S2 without murmur, gallop or rub. MUSCULOSKELETAL: No tenderness or percussion pain over the axial skeleton, scapulae or pelvis. ABDOMEN: Soft, nontender, nondistended without masses or organomegaly. Bowell sounds are present. EXTREMITIES: No peripheral edema is identified. Limited motor and sensory examination are grossly intact and symmetric bilaterally. NEUROLOGIC: Cranial nerves II ???XII are grossly intact. Normal sensation, strength 5/5 in all extremities, normal gait, no ataxia. Performance Status: KPS 90 Lab: None pending. Pathology: Primary, c61 - malignant neoplasm of prostate, Diagnosed 03/28/2023 (active) and Primary, d69.6 - thrombocytopenia, unspecified, Diagnosed 08/26/2019 (active) . Imaging: See HPI Impression: Asbestosis Active prostate cancer with good recent PSA PLAN: Continue follow-up with family doctor next week See Dr. Jones at the end of January RTC in 3 months with PSA or sooner if need be. Signed by: 12/28/2023 10:54:13 AM <<Signature on File>> Time spent with patient: NO CHARGE due to less than 90 days from XRT CPT Code: CPT Code:
== END 2024-01-16 23:59 | disposition home or self-care (01) ==
PROVIDERS: Absent Provider Internal Medicine; PCP Family Medicine; Visit Provider Radiology Radiation Oncology
DX: C61 Malignant neoplasm of prostate (principal); D69.6 Thrombocytopenia, unspecified; Z92.3 Personal history of irradiation
CPT/HCPCS: 36415; 80053; 84153; 84403; 85025; 99024

== ENCOUNTER → 2024-01-02 13:17 | Outpatient (BNVA) | payer OTHER, SELFPAY | PROVIDERS: PCP Family Medicine; Visit Provider Family Medicine | DX: E11.9 Type 2 diabetes mellitus without complications (principal); I10 Essential (primary) hypertension; I25.10 Atherosclerotic heart disease of native coronary artery without angina pectoris; I48.21 Permanent atrial fibrillation; E03.9 Hypothyroidism, unspecified | CPT/HCPCS: 80061; 83036; 84443 ==

== ENCOUNTER 2024-01-23 07:48 | Outpatient (CLI) | payer OTHER, SELFPAY ==
--- NOTE | 2024-01-23 08:30 | ECG_ITS ---
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 Interpretive Statements NAME OF STUDY: LEXISCAN SESTAMIBI STRESS TEST INDICATION: [WORSENING DYSPNEA AND FATIGUE, ] Procedure: At the baseline, the blood pressure was 153/83 mmHg with a heart rate of 81 bpm. The electrocardiogram showed atrial fibrillation with normal ST and T's. The Lexiscan was infused over a period of 20 seconds. A total of 0.4 mg of Lexiscan was infused. The stress phase was continued for a total of 5 minutes. Heart rate was at the end of stress phase was 88 bpm and a blood pressure of 135/84 mmHg. The EKG at the peak infusion revealed atrial fibrillation with no significant ST-T wave changes. Sestamibi was injected 20 seconds after the Lexiscan infusion. Blood pressure at the end of recovery phase was 128/74 mmHg with a heart rate of 84 bpm. Conclusion: 1. Normal EKG response to Lexiscan infusion 2. No Lexiscan induced chest pain or cardiac arrhythmia. 3. Normal blood pressure and heart rate response. 4. Sestamibi/sestamibi perfusion scan pending; see separate report. Electronically Signed On 01-27-2024 21:18:17 CDT by Germán Mcdonough M.D. [email or web address]
--- NOTE | 2024-01-23 08:31 | NMCV_ITS ---
NM syed perf SPECT r/s* [id number] Yan Alonso Age: 78 Gender: M : 1945 Exam Date: 01/23/2024 08:31 Ordering Phys: Edel Esocbar Technologist: TREVA Raya Exam Location: [facility] Indications: Fatigue, dyspnea STRESS TEST Please see separate stress test report in [facility] for full findings IMAGE PROTOCOL Rest/Stress 1 Lexiscan Day Radiopharmaceutical Dose (mCi) Administration Site Administered by Rest: Tc-99m 10.6 IV TREVA Raya Sestamibi Stress:Tc-99m 32.6 IV TREVA Raya Sestamibi Rest: 23-Jan-2024 60 Discovery 630 Stress: 23-Jan-2024 30 Discovery 630 0.4mg Lexiscan. Images obtained in supine and prone position. SPECT RESULTS Technical Quality: Excellent Raw Data Analysis: Normal Image Corrections: No attenuation or motion correction applied Summed Stress Score: 0 Summed Rest Score: 2 Summed Difference Score: 0 PERFUSION FINDINGS SPECT images demonstrate homogeneous tracer distribution throughout the myocardium. FUNCTIONAL RESULTS (calculated via Gated SPECT) Stress Image LV EF (%): 50 Stress EDV (mL):125 TID: 1 Stress ESV (mL):62 FUNCTIONAL FINDINGS: There is normal left ventricular systolic function. IMPRESSIONS 1. Normal myocardial perfusion imaging with no evidence of ischemia 2. LV systolic function is normal Germán Mcdonough MD (Electronically Signed) Final Date: 24 January 2024 11:35 S
[2024-01-23 08:46] VITALS: BMI 30.4
[2024-01-23] MEDS: regadenoson 0.4 Mg/5 ml Syringe IVP (09:45)
[2024-01-23 10:10] VITALS: BP 123/88; PULSE 89
== END 2024-01-23 07:49 | disposition home or self-care (01) ==
LOC: CDL 07:49
PROVIDERS: PCP Family Medicine; Visit Provider Nurse Practitioner Family
DX: R06.00 Dyspnea, unspecified (principal); R53.81 Other malaise
CPT/HCPCS: 36415; 78452; 93017; 96374; A9500; J2785

== ENCOUNTER 2024-02-14 12:00 | Oncology outpatient (recurring) (ONCR) | payer MEDICARE, SELFPAY ==
--- NOTE | 2024-02-06 12:00 | CT_ITS ---
WS: [id number] CT CHEST, ABDOMEN AND PELVIS WITH CONTRAST HISTORY: prostate cancer TECHNIQUE: Contiguous 5 mm axial imaging performed through the chest, abdomen and pelvis with IV cont rast, oral contrast has been provided. Coronal and sagittal reformats chest. Coronal and sagittal ref ormats through the abdomen and pelvis. All CT scans at [facility] use at least one of these d ose optimization techniques: automated exposure control; mA and/or kV adjustment per patient size (in cludes targeted exams where dose is matched to clinical indication); or iterative reconstruction. CONTRAST: Omnipaque 350; 100 mL IV. DLP: 1327.45 mGy.cm COMPARISON: 09/17/2023, 02/03/[address]: New small but slightly loculated LEFT pleural effusion. No pleural thickening or enhancemen t. New central areas of groundglass attenuation. Most significant in the RIGHT upper lobe. Smaller ar eas of groundglass attenuation in the RIGHT middle lobe. There is no mass. Moderate elevation of the RIGHT diaphragm. Prior CABG. Single lead defibrillator. Reidentified are numerous mediastinal and hilar lymph nodes. These lymph nodes have been previously d escribed and do not appear to be increasing in size. Subcarinal lymph node is the largest at 1.8 cm. High RIGHT paratracheal lymph node at 1.5 cm. Mild atherosclerosis aorta. Normal size pulmonary arter y. Heart is moderately enlarged. No pericardial effusion. Abdomen CT: Normal size liver with a prior cholecystectomy. No bile duct dilatation. Normal portal ve in. Normal size spleen with granulomata. Diffuse pancreatic atrophy with no pancreatic duct dilatatio n. There are calcifications along the pancreas suggesting prior episodes of pancreatitis. Slight nodu larity of the LEFT adrenal gland but similar to prior studies. Negative RIGHT adrenal gland. Mild cor tical thinning and atrophy of each kidney. No obstruction. No solid mass. Mild atherosclerosis aorta. Calcification at the origin of the SMA and celiac axis. Normally distended stomach. No small bowel obstruction. Limited contrast in the colon. No acute infla mmation is identified. There is no obstruction of the colon. Mild diverticular disease. Pelvic CT: Urinary bladder is normal. No free fluid or adenopathy. Minimal prostate enlargement with central calcifications. Thoracic and lumbar spondylosis. No osteoblastic or osteolytic bone disease. CT/CT chest abdpel w/*[id number] IMPRESSION: 1. New small but slightly loculated LEFT pleural effusion of uncertain etiolog y. 2. Progression of groundglass opacifications since 09/17/2023. These are predomi nantly in the RIGHT lung. Fever pneumonitis is a possible etiology. 3. Stable indeterminate mediastinal and hilar lymph nodes. 4. Prior cholecystectomy. 5. Atrophic pancreas with evidence of prior chronic pancreatitis. 6. No GI tract obstruction. 7. No osteoblastic bone disease identified.
[2024-02-06] MEDS: iohexol 350 mg/mL 500 mL Btl (per mL) PO (12:30)
[2024-02-06] MEDS: iohexol 350 mg/mL 500 mL Btl (per mL) IV (12:30)
[2024-02-14 13:08] LABS: Reticulocyte % 2.2 % (0.5-2.0)
[2024-02-14 13:09] LABS: Basophils % 0.5 %; Eosinophils # 0.1 10^3/uL (0.0-0.8); Eosinophils % 1.4 %; Hematocrit 33.3 % (37-53); Lymphocytes # 0.6 10^3/uL (0.8-4.8); Lymphocytes % 11.1 %; Mean Corpuscular HGB Conc 34.5 g/dL (30-55); Mean Corpuscular Hemoglobin 33.5 pg (27-33); Mean Corpuscular Volume 97.1 fl (82-101); Mean Platelet Volume 9.3 fL (7.4-10.4); Monocytes # 0.4 10^3/uL (0.2-0.9); Monocytes % 6.9 %; Neutrophils # 4.47 10^3/uL (1.8-7.7); Neutrophils % 78.5 %; Nucleated Red Blood Cells % 0 %; Platelet Count 173 10^3/cmm (157-399); Red Blood Count 3.43 10^6/uL (3.85-5.65); Red Cell Distribution Width 13.1 % (12.1-15.1); White Blood Count 5.69 10^3/uL (3.29-11.43)
[2024-02-14 13:59] LABS: Alanine Aminotransferase 20 U/L (0-41); Albumin Level 4.4 g/dL (3.5-5.2); Alkaline Phosphatase 100 U/L (40-130); Anion Gap 18.9 (5-19); Aspartate Amino Transferase 25 U/L (0-40); Blood Urea Nitrogen 28 mg/dL (8-23); Calcium 9.5 mg/dL (8.5-10.5); Carbon Dioxide 28 mmol/L (22-29); Chloride 95 mmol/L (98-107); Globulin 2.4 g/dL (1.3-4.6); Glucose 202 mg/dL (65-115); Lactate Dehydrogenase 349 U/L (135-225); Osmolality Calculated 295 mOsm/kg (285-295); Potassium 4.9 mmol/L (3.5-5.1); Sodium 137 mmol/L (136-145); Testosterone Total 8.1 ng/dL (193-740); Total Bilirubin 0.7 mg/dL (0.15-1.2); Total Protein 6.8 g/dL (6.6-8.7)
[2024-02-14 14:12] LABS: Prostate Specific Antigen < 0.014 ng/mL (0-4)
[2024-02-14 14:35] LABS: Ferritin 210 ng/mL (30-400); Iron 95 ug/dL (59-158); Percent Saturation 40.9 % (20-50); Total Iron Binding Capacity 232 mcg/dl; Unsaturated Iron Binding 137 ug/dL (112-347)
[2024-02-19 13:54] LABS: Soluble Transferrin Receptor 2.61 mg/L (0.76-1.76)
== END 2024-02-16 23:59 | disposition home or self-care (01) ==
PROVIDERS: Absent Provider Internal Medicine; PCP Family Medicine; Visit Provider Radiology Radiation Oncology
DX: Z53.9 Procedure and treatment not carried out, unspecified reason; C61 Malignant neoplasm of prostate; D64.9 Anemia, unspecified; Z19.1 Hormone sensitive malignancy status; Z92.3 Personal history of irradiation
CPT/HCPCS: 36415; 71260; 74177; 80053; 82728; 83540; 83550; 83615; 84153; 84238; 84403; 85025; 85045; 99214; Q9967

== ENCOUNTER 2024-03-17 09:43 | Oncology outpatient (recurring) (ONCR) | payer MEDICARE, SELFPAY ==
--- OUTSIDE RECORDS SUMMARY | 2024-03-17 09:46 | XMS_ITS ---
Author Name Unknown Organization [facility] Address [address] [place] [address] Care Team Providers Care Laminating Machine Tender Name Role Phone Kenyetta SOTO Primary Care Provider Unavailab neil Elaine Gavino Unavailable [phone] Migration, Provider Unavailable Unavailable REASON FOR VISIT EMR-[facility] Encounters Encounter Location Date Provider Diagnosis [facility]rated[facility]Facility 0 0 12/08/2023 Provider Migration Plan Of Treatment Medication Medication Name Sig Start Date Stop Date Notes Metoprolol Tartrate 100 MG Oral Tablet ORAL 05/08/2023 *Reorder from [facility] for eRx and Interaction Alerts* Sulfamethoxazole-Trimethopri m 800-160 MG Oral 05/08/2023 05/13/2023 Progress Notes * Yan RODRIGUEZDOB: [birth year] (78 yo M)Acc No.[id number]:12/08/2023 Patient:?Yan RODRIGUEZ :1945???Age:78 Y???Sex:Male Address:[address], [place] [address] * Refills? Stop Sulfamethoxazole-Trimethoprim Tablet, 800-160 MG, Oral Stop Metoprolol Tartrate 100 MG Oral Tablet, ORAL Subjective: * Chief Complaints: * ???EMR-[facility] * Medical History:? * Surgical History:? * Hospitalization/Major Diagno stic Procedure:? * Medications:? Objective: * Vitals:? * Physical Examination:? Assessment: Plan: * Treatment: * Procedure Codes:? * * Date:?
--- OUTSIDE RECORDS SUMMARY | 2024-03-17 09:46 | XMS_ITS ---
Author Name Unknown Organization [facility] Address [address] [place] [address] Care Team Providers Care Wood Boatbuilder Name Role Phone Kenyetta SOTO Primary Care Provider Unavailab Gavino Asencio Unavailable [phone] Migration, Provider Unavailable Unavailable Allergies Allergen (clinical drug ingredient) Drug/Non Drug Allergy documented on EMR Reaction Allergy Type Onset Date Status amoxicillin Amoxicillin Unknown Drug Allergy Act pam hydromorphone Dilaudid Unknown Drug Allergy 02/27/2023 ac tive codeine Codeine Unknown Drug Allergy Active hydromorphone Hydromorphone Unknown Drug Allergy Active lisinopril Lisinopril Unknown Drug Allergy Activ e Penicillin Unknown Drug Allergy Active REASON FOR VISIT EMR-[facility] Medications Medication SIG (Take, Route, Frequency, Duration) Notes Start Date End Date Status Finasteride 1 MG Oral Tablet ORAL *Reorder from [facility] for eRx and Interaction Alerts* 04/04/2023 Active dabigatran etexilate 110 MG Oral Capsule [Pradaxa] ORAL *Reorder from [facility] for eRx and Interaction Alerts* 02/27/2023 Active enzalutamide 40 MG Oral Capsule [Xtandi] ORAL *Reorder from [facility] for eRx and Interaction Alerts* 06/07/2023 06/01/2024 Active levothyroxine sodium 0.1 MG Oral Tablet [Synthroid] ORAL *Reorder from [facility] for eRx and Interaction Alerts* 02/27/2023 Active relugolix 120 MG Oral Tablet [Orgovyx] ORAL *Reorder from [facility] for eRx and Interaction Alerts* 06/07/2023 06/01/2024 Active Ascorbic Acid 1000 MG Oral 05/08/2023 Active Tamsulosin HCl 0.4 MG Oral 04/03/2023 024 Active tizanidine 4 MG Oral Capsule *Reorder from [facility] for eRx and Interaction Alerts* 02/27/2023 03/29/2023 Active Metoprolol Tartrate 100 MG Oral Tablet ORAL *Reorder from [facility] for eRx and Interaction Alerts* 02/27/2023 Active Encounters Encounter Location Date Provider Diagnosis Migrated_Facility 0 0 12/09/2023 Provider Migration Plan Of Treatment No Information Progress Notes * Yan RODRIGUEZDOB: 4 (78 yo M)Acc No.[id number]:12/09/2023 Patient:?Yan RODRIGUEZ :1945???Age:78 Y???Sex:Male Address:[address] [place] [address] Subjective: * Chief Complaints: * ???EMR-[facility] * Medical History:? * Surgical History:? * Hospitalization/Major Diagno stic Procedure:? * Family History:?Father: PRN - Father: :: Neoplasm of brain,,known absent .?Siblings: SIB - Sister: :: Leukemia,,known absent , :: Cancer of colon,,known absent .? * Social History:?Migrated Social History:?Migrated Social History: History of tobacco use : , Smoking Status : Never used tobacco. * Medications:?TakingAscorbic Acid 1000 MG Tablet Oral Tamsulosin HCl 0.4 MG Capsule Oral , stop date 09/30/2023tizanidine 4 MG Oral Capsule , stop date 03/29/2023, Notes to Pharmacist: *Reorder from [facility] for eRx and Interaction Alerts*Metoprolol Tartrate 100 MG Oral Tablet ORAL , Notes to Pharmacist: *Reorder from [facility] for eRx and Interaction Alerts*Finasteride 1 MG Oral Tablet ORAL , Notes to Pharmacist: *Reorder from [facility] for eRx and Interaction Alerts*dabigatran etexilate 110 MG Oral Capsule [Pradaxa] ORAL , Notes to Pharmacist: *Reorder from [facility] for eRx and Interaction Alerts*enzalutamide 40 MG Oral Capsule [Xtandi] ORAL , stop date 06/01/2024, Notes to Pharmacist: *Reorder from [facility] for eRx and Interaction Alerts*levothyroxine sodium 0.1 MG Oral Tablet [Synthroid] ORAL , Notes to Pharmacist: *Reorder from [facility] for eRx and Interaction Alerts*relugolix 120 MG Oral Tablet [Orgovyx] ORAL , stop date 06/01/2024, Notes to Pharmacist: *Reorder from [facility] for eRx and Interaction Alerts*Taking Ascorbic Acid 1000 MG Tablet Oral Taking Tamsulosin HCl 0.4 MG Capsule Oral , stop date 09/30/2023Taking tizanidine 4 MG Oral Capsule , stop date 03/29/2023, Notes to Pharmacist: *Reorder from [facility] for eRx and Interaction Alerts*Taking Metoprolol Tartrate 100 MG Oral Tablet ORAL , Notes to Pharmacist: *Reorder from [facility] for eRx and Interaction Alerts*Taking Finasteride 1 MG Oral Tablet ORAL , Notes to Pharmacist: *Reorder from [facility] for eRx and Interaction Alerts*Taking dabigatran etexilate 110 MG Oral Capsule [Pradaxa] ORAL , Notes to Pharmacist: *Reorder from [facility] for eRx and Interaction Alerts*Taking enzalutamide 40 MG Oral Capsule [Xtandi] ORAL , stop date 06/01/2024, Notes to Pharmacist: *Reorder from [facility] for eRx and Interaction Alerts*Taking levothyroxine sodium 0.1 MG Oral Tablet [Synthroid] ORAL , Notes to Pharmacist: *Reorder from [facility] for eRx and Interaction Alerts*Taking relugolix 120 MG Oral Tablet [Orgovyx] ORAL , stop date 06/01/2024, Notes to Pharmacist: *Reorder from [facility] for eRx and Interaction Alerts* * Allergies:?Dilaudid: Allergy - Onset Date 3Codeine: AllergyAmoxicillin: AllergyHydromorphone: AllergyPenicillin: AllergyLisinopril: Allergy Objective: * Vitals:? * Physical Examination:? Assessment: Plan: * Treatment: * Procedure Codes:? * * Date:?
--- OUTSIDE RECORDS SUMMARY | 2024-03-17 09:46 | XMS_ITS | Patient Health Record ---
Author Name Unknown Organization [facility] Address [address] [place] [address] Care Team Providers Care Service Superintendent Name Role Phone Kenyetta SOTO Primary Care Provider Unavailab Gavino Asencio Unavailable [phone] Migration, Provider Unavailable Unavailable Allergies Allergen (clinical [...] 100 MG Oral Tablet ORAL *Reorder from [facility] for eRx and Interaction Alerts* 02/27/2023 Active Finasteride 1 MG Oral Tablet ORAL *Reorder from [facility] for eRx and Interaction Alerts* 04/04/2023 Active dabigatran etexilate 110 MG Oral Capsule [Pradaxa] ORAL *Reorder from [facility] for eRx and Interaction Alerts* [...] W/U Status Risk Notes Problem Elevated PSA (342788574) Elevated PSA (R97.20) Active confirmed Problem Benign prostatic hypertrophy with outflow obstruction (863015412) 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) Active confirmed Problem Malignant tumor of prostate (332847772) Malignant neoplasm of prostate (C61) 06/07/2023 Active confirmed Vital Signs Heart Rate 82 /min 07/10/2023 Temperature 97.8 degrees Fahrenheit 07/10/2023 Height-cm 177.80 cm 07/10/2023 Blood pressure diastolic 78 mm Hg 07/10/2023 Weight-kg 97.16 kg 07/10/2023 Height 70.00 in 07/10/2023 Blood pressure systolic 135 mm Hg 07/10/2023 Weight 214.201 lbs 07/10/2023 BMI 30.7 kg/m2 07/10/2023 Encounters Encounter Location Date Provider Diagnosis Migrated_Facility 0 0 03/27/2023 Provider Migration Migrated_Facility 0 0 04/03/2023 Provider Migration Migrated_Facility 0 0 05/08/2023 Provider Migration Migrated_Facility 0 0 06/05/2023 Provider Migration Migrated_Facility 0 0 07/10/2023 Provider Migration Migrated_Facility 0 0 12/08/2023 Provider Migration Migrated_Facility 0 0 12/09/2023 Provider Migration Plan Of Treatment Pending Test Test Name Order Date PSA Diagnostic--[id number] 12/14/2022 MRI Pelvis w/ + w/o Cont-[id number] Insurance Providers Payer Name Payer Address Payer Phone Subscriber Number Group Number Insured Name Patient Relationship to Insured Coverage Start Date Coverage End Date VACCN [employer]UM [address] [place] [phone] [id number] Yan Alonso Self - patient is the insured Medical (General) History Medical History History ICD Code hypertension diabetes arthritis Surgical History Surgery Date(Month/Year) thyroidectomy tumor removal, chest cavity cholecystectomy back surgery X 5
--- OUTSIDE RECORDS SUMMARY | 2024-03-17 09:46 | XMS_ITS ---
Author Name Unknown Organization [facility] Address [address] [place] [address] Care Team Providers Care Rectangular Tank Cooper Name Role Phone Vasu Garzon Primary Care Provider REYNA Ambrose [phone] REASON FOR VISIT 3-4 wks w/ ua/psa/mri Encounters Encounter Location Date Provider Diagnosis [facility] [address] [place] [address] 01/18/2023 REYNA BRANNON Plan Of Treatment No Information Progress Notes * Yan RODRIGUEZDOB: 4 (78 yo M)Acc No.[id number]:01/18/2023 Progress Notes Patient:?Yan RODRIGUEZ Provider:?REYNA BRANNON MD :1945???Age:77 Y???Sex:Male Arsh e:01/18/2023 Address:[address] Pcp:Vasu Garzon Subjective: * Chief Complaints: * ???1. 3-4 wks w/ ua/psa/mri. * Medical History:? Objective: * Vitals:? Assessment: Plan: * Treatment: * Billing Information: * Visit Code:? * Procedure Codes:? * Electronic signature of AUST IN MD CLOVIS on 03/17/2024 at 09:46 AM CDT Sign off status: Pending * Provider:?REYNA BRANNON MD Date:?08/2022 Generated for Printi ng/Raymond/Dovitting on:?03/17/2024 09:46 AM CDT
--- OUTSIDE RECORDS SUMMARY | 2024-03-17 09:46 | XMS_ITS ---
Author Name Unknown Organization [facility] Address [address] [place] [address] Care Team Providers Care Suppository Molding Machine Operator Name Role Phone Vasu Garzon Primary Care Provider REYNA Ambrose [phone] REASON FOR VISIT Other Encounters Encounter Location Date Provider Diagnosis [facility] [address] [place] [address] 12/27/2022 REYNA BRANNON Plan Of Treatment No Information Progress Notes * Yan RODRIGUEZDOB: 4 (77 yo M)Acc No.[id number]:12/27/2022 Patient:?Yan Rodriguez :1945???Age:77 Y???Sex:Male Address:[address] [facility] [facility] [address] * true * Date:? Generated for Juaquini christopher/Raymond/eTransmitting on:?03/17/2024 09:46 AM CDT
--- OUTSIDE RECORDS SUMMARY | 2024-03-17 09:46 | XMS_ITS ---
Author Name Unknown Organization [facility] Address [address] [place] [address] Care Team Providers Care Tire Man Name Role Phone Kenyetta SOTO Primary Care Provider Unavailab Gavino Asencio Unavailable [phone] Migration, Provider Unavailable Unavailable REASON FOR VISIT EMR-[facility] Vital Signs Temperature 97.8 degrees Fahrenheit 07/10/19 24 Blood pressure systolic 135 mm Hg 07/10/19 24 Blood pressure diastolic 78 mm Hg 024 Heart Rate 82 /min 07/10/2023 Height 70.00 in 07/10/2023 Weight 214.201 lbs 07/10/2023 BMI 30.7 kg/m2 07/10/2023 Height-cm 177.80 cm 07/10/2023 Weight-kg 97.16 kg 07/10/2023 Encounters Encounter Location Date Provider Diagnosis Migrated_Facility 0 0 07/10/2023 Provider Migration Plan Of Treatment No Information Progress Notes * Yan RODRIGUEZDOB: 4 (78 yo M)Acc No.[id number]:07/10/2023 Patient:?Yan RODRIGUEZ Provider:?Provider Migration :1945???Age:78 Y???Sex:Male Arsh e:07/10/2023 Address:[address] Pcp:Kenyetta SOTO Subjective: * Chief Complaints: * ???1. EMR-[facility]. * Medical History:? Objective: * Vitals:?Ht: 70.00 in, Wt: 21 4.201 lbs, Wt-k.16 kg, BMI: 30.7 Index, Temp: 97.8 F, BP: 135/78 mm Hg, HR: 82 /min, Ht-cm: 177.80 cm. Assessment: Plan: * Treatment: * Procedure Codes:?41396 URINA LYSIS, AUTO, W/O SCOPE * Billing Information: * Visit Code:? * Procedure Codes:? 03663 URINALYSIS, AUTO, W/O SCOPE. * Electronic signature of Prov ider Migration on 03/17/2024 at 09:46 AM CDT Sign off status: Pending * Provider:?Provider Migration Date:?07/10 Generated for Verna white/Raymond/Elina on:?03/17/2024 09:46 AM CDT
--- OUTSIDE RECORDS SUMMARY | 2024-03-17 09:47 | XMS_ITS | Patient Health Record ---
Author Name Unknown Organization [facility] Address [address] [place] [address] Care Team Providers Care Sales Expert Name Role Phone Vasu Garzon Primary Care Provider REYNA Ambrose Unavailable [phone] Allergies Allergen (clinical drug ingredient) Drug/Non Drug [...] Active metFORMIN HCl ER *[facility]* Active Tamsulosin HCl *[facility]* Active Omeprazole *[facility]* Active BUPivacaine *Reorder from [facility] for eRx and Interaction Alerts* Active Chlorthalidone *Pick strength-form from [facility] for eRX* Active DEPO-Medrol *Pick strength-form from [facility] for eRX* Active Levothyroxine Sodium *[facility]* Active Dabigatran Etexilate Mesylate *Reorder [...] Problem Status W/U Status Risk Notes Problem 730319327 Elevated PSA (R97.20) Active confirmed Problem 911910468 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) Active confirmed Plan Of Treatment Pending Test Test Name Order Date PSA Diagnostic--[id number] 12/14/2022 MRI Pelvis w/ + w/o Cont-[id number] Insurance Providers Payer Name Payer Address Payer Phone Subscriber Number Group Number Insured Name Patient Relationship to Insured Coverage Start Date Coverage End Date VACCN [employer]UM [address] [place] [id number] Yan Alonso Self - patient is the insured Medical (General) History Medical History History ICD Code hypertension diabetes arthritis Surgical History Surgery Date(Month/Year) back surgery X 5 cholecystectomy tumor removal, chest cavity thyroidectomy
--- OUTSIDE RECORDS SUMMARY | 2024-03-17 09:47 | XMS_ITS ---
Author Name Unknown Organization [facility] Address [address] [place] [address] Care Team Providers Care Track Broom Operator Name Role Phone Vasu Garzon Primary Care Provider REYNA Ambrose [phone] REASON FOR VISIT Other Encounters Encounter Location Date Provider Diagnosis [facility] [address] [facility] [place] [address] 12/22/2022 REYNA BRANNON Plan Of Treatment No Information Progress Notes * Yan RODRIGUEZDOB: 4 (78 yo M)Acc No.[id number]:12/22/2022 Patient:?Yan RODRIGUEZ :1945???Age:77 Y???Sex:Male Address:[address] [address] * true * Date:? Generated for Juaquini christopher/Raymond/eTransmitting on:?03/17/2024 09:46 AM CDT
[2024-03-17 10:01] LABS: Basophils % 0.3 %; Eosinophils # 0.1 10^3/uL (0.0-0.8); Eosinophils % 1.3 %; Hematocrit 32.3 % (37-53); Lymphocytes # 0.6 10^3/uL (0.8-4.8); Lymphocytes % 15.7 %; Mean Corpuscular HGB Conc 34.4 g/dL (30-55); Mean Corpuscular Hemoglobin 32.6 pg (27-33); Mean Platelet Volume 9.2 fL (7.4-10.4); Monocytes # 0.5 10^3/uL (0.2-0.9); Monocytes % 12.2 %; Neutrophils # 2.75 10^3/uL (1.8-7.7); Neutrophils % 69.7 %; Nucleated Red Blood Cells % 0 %; Platelet Count 147 10^3/cmm (157-399); Red Cell Distribution Width 13.5 % (12.1-15.1); White Blood Count 3.94 10^3/uL (3.29-11.43)
[2024-03-17 10:29] LABS: Alanine Aminotransferase 19 U/L (0-41); Alkaline Phosphatase 79 U/L (40-130); Anion Gap 11.8 (5-19); Aspartate Amino Transferase 29 U/L (0-40); Blood Urea Nitrogen 25 mg/dL (8-23); Calcium 8.8 mg/dL (8.5-10.5); Carbon Dioxide 29 mmol/L (22-29); Chloride 100 mmol/L (98-107); Globulin 2.4 g/dL (1.3-4.6); Glucose 155 mg/dL (65-115); Lactate Dehydrogenase 202 U/L (135-225); Osmolality Calculated 292 mOsm/kg (285-295); Potassium 3.8 mmol/L (3.5-5.1); Sodium 137 mmol/L (136-145); Testosterone Total 2.5 ng/dL (193-740); Total Bilirubin 0.5 mg/dL (0.15-1.2); Total Protein 6.4 g/dL (6.6-8.7)
[2024-03-17 10:33] LABS: Prostate Specific Antigen < 0.014 ng/mL (0-4)
== END 2024-03-17 23:59 | disposition home or self-care (01) ==
PROVIDERS: Nurse Practitioner Family; Absent Provider Internal Medicine Hematology & Oncology; PCP Family Medicine; Visit Provider Radiology Radiation Oncology
DX: Z53.9 Procedure and treatment not carried out, unspecified reason (principal); C61 Malignant neoplasm of prostate; D64.9 Anemia, unspecified; Z19.1 Hormone sensitive malignancy status; Z92.3 Personal history of irradiation; D69.6 Thrombocytopenia, unspecified
CPT/HCPCS: 36415; 80053; 83615; 84153; 84403; 85025

== ENCOUNTER → 2024-03-19 11:11 | Outpatient (BNVA) | payer MEDICARE, SELFPAY | PROVIDERS: PCP Family Medicine; Visit Provider Internal Medicine | DX: R06.02 Shortness of breath (principal); I48.21 Permanent atrial fibrillation; R07.9 Chest pain, unspecified; I10 Essential (primary) hypertension; E78.5 Hyperlipidemia, unspecified | CPT/HCPCS: 99214 ==

== ENCOUNTER 2024-04-02 10:11 | Oncology outpatient (recurring) (ONCR) | payer MEDICARE, SELFPAY ==
--- OUTSIDE RECORDS SUMMARY | 2024-04-02 10:14 | XMS_ITS ---
Author Name Unknown Organization [facility] Address [address] [place] [address] Care Team Providers Care Tire Mounter Name Role Phone Kenyetta SOTO Primary Care Provider Unavailab neil Elaine Gavino Unavailable [phone] Migration, Provider Unavailable Unavailable REASON FOR VISIT EMR-[facility] Encounters Encounter Location Date Provider Diagnosis Migrated_Facility 0 0 12/08/2023 Provider Migration Plan Of Treatment Medication Medication Name Sig Start Date Stop Date Notes Metoprolol Tartrate 100 MG Oral Tablet ORAL 05/08/2023 *Reorder from [facility] for eRx and Interaction Alerts* Sulfamethoxazole-Trimethopri m 800-160 MG Oral 05/08/2023 05/13/2023 Progress Notes * Yan RODRIGUEZDOB: [birth year] (78 yo M)Acc No.[id number]:12/08/2023 Patient:?Yan RODRIGUEZ :1945???Age:78 Y???Sex:Male Address:[address], [place] [address] * Refills? Stop Sulfamethoxazole-Trimethoprim Tablet, 800-160 MG, Oral Stop Metoprolol Tartrate 100 MG Oral Tablet, ORAL Subjective: * Chief Complaints: * ???EMR-[facility] * Medical History:? * Surgical History:? * Hospitalization/Major Diagno stic Procedure:? * Medications:? Objective: * Vitals:? * Physical Examination:? Assessment: Plan: * Treatment: * Procedure Codes:? * * Date:?
--- OUTSIDE RECORDS SUMMARY | 2024-04-02 10:14 | XMS_ITS ---
Author Name Unknown Organization [facility] Address [address] [place] [address] Care Team Providers Care General Service Technician Name Role Phone Kenyetta SOTO Primary Care Provider Unavailab Gavino Asencio Unavailable [phone] Migration, Provider Unavailable Unavailable Allergies Allergen (clinical [...] 1 MG Oral Tablet ORAL *Reorder from [facility] for eRx and Interaction Alerts* 04/04/2023 Active dabigatran etexilate 110 MG Oral Capsule [Pradaxa] ORAL *Reorder from [facility] for eRx and Interaction Alerts* 02/27/2023 Active enzalutamide 40 MG Oral Capsule [Xtandi] ORAL *Reorder from [facility] for eRx and Interaction Alerts* 06/07/2023 06/01/2024 Active levothyroxine sodium 0.1 MG Oral Tablet [Synthroid] ORAL *Reorder from [facility] for eRx and Interaction Alerts* 02/27/2023 Active relugolix 120 MG Oral Tablet [Orgovyx] ORAL *Reorder from [facility] for eRx and Interaction Alerts* 06/07/2023 06/01/2024 Active Ascorbic Acid 1000 MG Oral 05/08/2023 Active Tamsulosin HCl 0.4 MG Oral 04/03/2023 024 Active tizanidine 4 MG Oral Capsule *Reorder from [facility] for eRx and Interaction Alerts* 02/27/2023 03/29/2023 Active Metoprolol Tartrate 100 MG Oral Tablet ORAL *Reorder from [facility] for eRx and Interaction Alerts* 02/27/2023 Active Encounters Encounter Location Date Provider Diagnosis Migrated_Facility 0 0 12/09/2023 Provider Migration Plan Of Treatment No Information Progress Notes * Yan RODRIGUEZDOB: [birth year] (78 yo M)Acc No.[id number]:12/09/2023 Patient:?Yan RODRIGUEZ :1945???Age:78 Y???Sex:Male Address:[address] [place] [address] Subjective: * Chief Complaints: * ???EMR-[facility] * [...] date 03/29/2023, Notes to Pharmacist: *Reorder from [facility] for eRx and Interaction Alerts*Metoprolol Tartrate 100 MG Oral Tablet ORAL , Notes to Pharmacist: *Reorder from [facility] for eRx and Interaction Alerts*Finasteride 1 MG Oral Tablet ORAL , Notes to Pharmacist: *Reorder from [facility] for eRx and Interaction Alerts*dabigatran etexilate 110 MG Oral Capsule [Pradaxa] ORAL , Notes to Pharmacist: *Reorder from [facility] for eRx and Interaction Alerts*enzalutamide 40 MG Oral Capsule [Xtandi] ORAL , stop date 06/01/2024, Notes to Pharmacist: *Reorder from [facility] for eRx and Interaction Alerts*levothyroxine sodium 0.1 MG Oral Tablet [Synthroid] ORAL , Notes to Pharmacist: *Reorder from [facility] for eRx and Interaction Alerts*relugolix 120 MG Oral Tablet [Orgovyx] ORAL , stop date 06/01/2024, Notes to Pharmacist: *Reorder from [facility] for eRx and Interaction Alerts*Taking Ascorbic Acid 1000 MG Tablet Oral Taking Tamsulosin HCl 0.4 MG Capsule Oral , stop date 09/30/2023Taking tizanidine 4 MG Oral Capsule , stop date 03/29/2023, Notes to Pharmacist: *Reorder from [facility] for eRx and Interaction Alerts*Taking Metoprolol Tartrate 100 MG Oral Tablet ORAL , Notes to Pharmacist: *Reorder from [facility] for eRx and Interaction Alerts*Taking Finasteride 1 MG Oral Tablet ORAL , Notes to Pharmacist: *Reorder from [facility] for eRx and Interaction Alerts*Taking dabigatran etexilate 110 MG Oral Capsule [Pradaxa] ORAL , Notes to Pharmacist: *Reorder from [facility] for eRx and Interaction Alerts*Taking enzalutamide 40 MG Oral Capsule [Xtandi] ORAL , stop date 06/01/2024, Notes to Pharmacist: *Reorder from [facility] for eRx and Interaction Alerts*Taking levothyroxine sodium 0.1 MG Oral Tablet [Synthroid] ORAL , Notes to Pharmacist: *Reorder from [facility] for eRx and Interaction Alerts*Taking relugolix 120 MG Oral Tablet [Orgovyx] ORAL , stop date 06/01/2024, Notes to Pharmacist: *Reorder from [facility] for eRx and Interaction Alerts* * Allergies:?Dilaudid: Allergy - Onset Date 3Codeine: AllergyAmoxicillin: AllergyHydromorphone: AllergyPenicillin: AllergyLisinopril: Allergy Objective: * Vitals:? * Physical Examination:? Assessment: Plan: * Treatment: * Procedure Codes:? * * Date:?
--- OUTSIDE RECORDS SUMMARY | 2024-04-02 10:15 | XMS_ITS ---
Author Name Unknown Organization [facility] Address [address] [place] [address] Care Team Providers Care Engineering Aide Name Role Phone Vasu Garzon Primary Care Provider REYNA Ambrose [phone] REASON FOR VISIT Other Encounters Encounter Location Date Provider Diagnosis [facility] [address] [facility] [place] [address] 12/22/2022 REYNA BRANNON Plan Of Treatment No Information Progress Notes * Yan RODRIGUEZDOB: 4 (78 yo M)Acc No.[id number]:12/22/2022 Patient:?Yan RODRIGUEZ :1945???Age:77 Y???Sex:Male Address:[address] [address] * true * Date:? Generated for Juaquini christopher/Raymond/eTransmitting on:?04/02/2024 10:15 AM CDT
--- OUTSIDE RECORDS SUMMARY | 2024-04-02 10:15 | XMS_ITS | Patient Health Record ---
Author Name Unknown Organization [facility] Address [address] [place] [address] Care Team Providers Care Animated Cartoons Painter Name Role Phone Kenyetta SOTO Primary Care Provider Unavailab Gavino Asencio Unavailable [phone] Migration, Provider Unavailable Unavailable Allergies Allergen (clinical [...] W/U Status Risk Notes Problem Elevated PSA (699030116) Elevated PSA (R97.20) Active confirmed Problem Benign prostatic hypertrophy with outflow obstruction (252354887) 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) Active confirmed Problem Malignant tumor of prostate (343079491) Malignant neoplasm of prostate (C61) 06/07/2023 Active confirmed Vital Signs Heart Rate 82 /min 07/10/2023 Temperature 97.8 degrees Fahrenheit 07/10/2023 Height-cm 177.80 cm 07/10/2023 Blood pressure diastolic 78 mm Hg 07/10/2023 Weight-kg 97.16 kg 07/10/2023 Height 70.00 in 07/10/2023 Blood pressure systolic 135 mm Hg 07/10/2023 Weight 214.201 lbs 07/10/2023 BMI 30.7 kg/m2 07/10/2023 Encounters Encounter Location Date Provider Diagnosis Migrated_Facility 0 0 04/03/2023 Provider Migration Migrated_Facility 0 0 05/08/2023 Provider Migration Migrated_Facility 0 0 06/05/2023 Provider Migration Migrated_Facility 0 0 07/10/2023 Provider Migration Migrated_Facility 0 0 12/08/2023 Provider Migration Migrated_Facility 0 0 12/09/2023 Provider Migration Plan Of Treatment Pending Test Test Name Order Date PSA Diagnostic--[id number] 12/14/2022 MRI Pelvis w/ + w/o [id number] Insurance Providers Payer Name Payer Address Payer Phone Subscriber Number Group Number Insured Name Patient Relationship to Insured Coverage Start Date Coverage End Date V[employer] [address] [place] [phone] [id number] Yan Alonso Self - patient is the insured Medical (General) History Medical History History ICD Code hypertension diabetes arthritis Surgical History Surgery Date(Month/Year) back surgery X 5 cholecystectomy tumor removal, chest cavity thyroidectomy
--- OUTSIDE RECORDS SUMMARY | 2024-04-02 10:15 | XMS_ITS ---
Author Name Unknown Organization [facility] Address [address] [place] [address] Care Team Providers Care Weight Training Instructor Name Role Phone Vasu Garzon Primary Care Provider REYNA Ambrose [phone] REASON FOR VISIT 3-4 wks w/ ua/psa/mri Encounters Encounter Location Date Provider Diagnosis [facility] [address] [place] [address] 01/18/2023 REYNA BRANNON Plan Of Treatment No Information Progress Notes * Yan RODRIGUEZDOB: 4 (78 yo M)Acc No.[id number]:01/18/2023 Progress Notes Patient:?Yan RODRIGUEZ Provider:?REYNA BRANNON MD :1945???Age:77 Y???Sex:Male Arsh e:01/18/2023 Address:[address] Pcp:Vasu Garzon Subjective: * Chief Complaints: * ???1. 3-4 wks w/ ua/psa/mri. * Medical History:? Objective: * Vitals:? Assessment: Plan: * Treatment: * Billing Information: * Visit Code:? * Procedure Codes:? * Electronic signature of AUST IN MD CLOVIS on 04/02/2024 at 10:15 AM CDT Sign off status: Pending * Provider:?REYNA BRANNON MD Date:?08/2022 Generated for Printi ng/Raymond/Dovitting on:?04/02/2024 10:15 AM CDT
--- OUTSIDE RECORDS SUMMARY | 2024-04-02 10:15 | XMS_ITS ---
Author Name Unknown Organization [facility] Address [address] [place] [address] Care Team Providers Care Jail Manager Name Role Phone Kenyetta SOTO Primary Care Provider Unavailab Gavino Asencio Unavailable [phone] Migration, Provider Unavailable Unavailable REASON FOR VISIT [...] * Yan RODRIGUEZDOB: 4 (78 yo M)Acc No.[id number]:07/10/2023 Patient:?Yan RODRIGUEZ Provider:?Provider Migration :1945???Age:78 Y???Sex:Male Arsh e:07/10/2023 Address:[address] Pcp:Kenyetta SOTO Subjective: * Chief Complaints: * ???1. EMR-Randolph. * Medical History:? Objective: * Vitals:?Ht: 70.00 in, Wt: 21 4.201 lbs, Wt-k.16 kg, BMI: 30.7 Index, Temp: 97.8 F, BP: 135/78 mm Hg, HR: 82 /min, Ht-cm: 177.80 cm. Assessment: Plan: * Treatment: * Procedure Codes:?84668 URINA LYSIS, AUTO, W/O SCOPE * Billing Information: * Visit Code:? * Procedure Codes:? 84655 URINALYSIS, AUTO, W/O SCOPE. * Electronic signature of Prov ider Migration on 04/02/2024 at 10:14 AM CDT Sign off status: Pending * Provider:?Provider Migration Date:?07/10 Generated for Verna white/Raymond/Elina on:?04/02/2024 10:14 AM CDT
--- OUTSIDE RECORDS SUMMARY | 2024-04-02 10:15 | XMS_ITS ---
Author Name Unknown Organization [facility] Address [address] [place] [address] Care Team Providers Care Shelver Name Role Phone Vasu Garzon Primary Care Provider REYNA Ambrose [phone] REASON FOR VISIT Other Encounters Encounter Location Date Provider Diagnosis [facility] [address] [place] [facility] [place] [address] 12/27/2022 REYNA BRANNON Plan Of Treatment No Information Progress Notes * Yan RODRIGUEZDOB: 4 (77 yo M)Acc No.[id number]:12/27/2022 Patient:?Yna Rodriguez :1945???Age:77 Y???Sex:Male Address:[address] [facility] [address] * true * Date:? Generated for Juaquini christopher/Raymond/eTransmitting on:?04/02/2024 10:15 AM CDT
--- OUTSIDE RECORDS SUMMARY | 2024-04-02 10:16 | XMS_ITS | Patient Health Record ---
Author Name Unknown Organization [facility] Address [address] [place] [address] Care Team Providers Care Band Master Name Role Phone Vasu Garzon Primary Care Provider REYNA Ambrose Unavailable [phone] Allergies Allergen (clinical drug ingredient) Drug/Non Drug [...] Active metFORMIN HCl ER *[facility]* Active Tamsulosin HCl *[facility]* Active Omeprazole *[facility] strength-form [facility]* Active BUPivacaine *Reorder from [facility] for eRx and Interaction Alerts* Active Chlorthalidone *Pick strength-form from [facility] for eRX* Active DEPO-Medrol *Pick strength-form from [facility] for eRX* Active Levothyroxine Sodium *[facility]* Active Dabigatran Etexilate Mesylate [...] Problem Status W/U Status Risk Notes Problem 604272376 Elevated PSA (R97.20) Active confirmed Problem 870945177 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) Active confirmed Plan Of Treatment Pending Test Test Name Order Date PSA Diagnostic--[id number] 12/14/2022 MRI Pelvis w/ + w/o [id number] 3 Insurance Providers Payer Name Payer Address Payer Phone Subscriber Number Group Number Insured Name Patient Relationship to Insured Coverage Start Date Coverage End Date VAC[employer]UM [address] [place] [id number] Yan Alonso Self - patient is the insured Medical (General) History Medical History History ICD Code hypertension diabetes arthritis Surgical History Surgery Date(Month/Year) back surgery X 5 cholecystectomy tumor removal, chest cavity thyroidectomy
--- NOTE | 2024-04-02 13:53 | ONCRAD EPV_ITS ---
Radiation Oncology Established Patient Visit Patient: Yan Alonso [id number] : 1945 Age: 78 Sex: Male Dictated by: Dr. Traci Phipps Date of Service: 04/02/2024 Referring Physician(s) : Dr. Deepak Estrada Diagnosis: C61 - Malignant neoplasm of prostate, Diagnosed 03/28/2023 (Active) D69.6 - Thrombocytopenia, unspecified, Diagnosed 08/26/2019 (Active) Patient returns today for his 4-1/2-month check since completing radiation for his prostate cancer mid November. His most recent PSA mid February was again undetectable because of the androgen blockade that he is currently on. He is due for his next injection in May. He says his bowel bladder habits have returned to normal. Sometimes he can go 1 hour sometimes 3 hours at night before he has to pee. He does continue to have a weak stream. His main complaint today is that about a month ago he began to develop some low back pain. He has had several back surgeries. This then became pain in the right leg and intermittently his leg will go numb. He is also found that he cannot bear weight on that side and he has trouble lifting it up off the floor when he sitting. When I asked him whether the difficulties with moving that leg have to do with pain he says partially but possibly that it is just weaker than the other side. Radiotherapy to Date: Course: prostate/pelvic, Treatment Site: Pelvis 50Gy, Ref. ID: [id number], Energy: 15X, Dose/Fx (cGy): 200, #Fx: 25 / 25, Dose Correction (cGy): 0, Total Dose Delivered (cGy): 5,000, Start Date: 10/15/2023, End Date: 11/19/2023, Elapsed Days: 35 prostate/pelvic, Treatment Site: ProstateBoost, Ref. ID: [id number], Energy: 15X, Dose/Fx (cGy): 250, #Fx: 8 / 8, Dose Correction (cGy): 0, Total Dose Delivered (cGy): 2,000, Start Date: 11/20/2023, End Date: 11/29/2023, Elapsed Days: 9 Current History: Current Medications: Chlorthalidone, famotidine, levothyroxine Sodium, metFORMIN HCl, metoprolol Tartrate, pradaxa, tamsulosin HCl. Allergies: Codeine Sulfate, Amoxicillin and HYDROmorphone HCl. Current Complaints / Review of Systems: . Vital Signs: Performed on 04/02/2024 10:18 AM BMI - 30.276 kg/m2 (high), Height - 70 in, Weight - 211 lbs, Temperature - 97.1 f, Pulse - 105 /min (high), Respiration - 18 /min, O2 Sat - 97 %, Pain - 7, Fatigue - 4 and BP - 118/ 75 mm(hg). Physical Exam: General: Alert and oriented x 3. No acute distress. HEENT: Normocephalic atraumatic. Pupils are equal, sclera clear, extraocular muscles intact LUNGS: Respiratory rate is regular nonlabored. HEART: Regular rate and rhythm,. . ABDOMEN: Soft, nontender, nondistended EXTREMITIES: No peripheral edema is identified NEUROLOGIC: He is unable to really lift the right leg at all even just with the weight of the leg. He is able to rise up out of the chair. He is able to walk. The left leg is without abnormalities. Performance Status: 90 Lab: None pending. Pathology: Primary, c61 - malignant neoplasm of prostate, Diagnosed 03/28/2023 (active) and Primary, d69.6 - thrombocytopenia, unspecified, Diagnosed 08/26/2019 (active) . Imaging: See HPI Impression: Adenocarcinoma the prostate status post radiation and currently on ADT Plan: This point we talked about [facility] but at this point I have recommended to him that we go ahead and get scans ordered of the pelvis and bone scan ordered for a full skeletal review. His most recent PSA is undetectable but we need to determine what is causing his leg weakness. He has had several back surgeries which could complicate matters. At this point we will get those scans ordered and get back with him with those results as soon as they are done. Signed by: 04/02/2024 1:51:58 PM <<Signature on File>> Time spent with patient: 20 CPT Code: CPT Code:
== END 2024-04-17 23:59 | disposition home or self-care (01) ==
PROVIDERS: Absent Provider Internal Medicine Hematology & Oncology; PCP Family Medicine; Visit Provider Radiology Radiation Oncology
DX: Z53.9 Procedure and treatment not carried out, unspecified reason (principal); C61 Malignant neoplasm of prostate; D64.9 Anemia, unspecified; Z19.1 Hormone sensitive malignancy status; Z92.3 Personal history of irradiation; D69.6 Thrombocytopenia, unspecified
CPT/HCPCS: 99213

== ENCOUNTER 2024-05-12 08:22 | Oncology outpatient (recurring) (ONCR) | payer MEDICARE, SELFPAY ==
--- OUTSIDE RECORDS SUMMARY | 2024-04-22 14:14 | XMS_ITS ---
Author Name Unknown Organization [facility] Address [address] [place] [address] Care Team Providers Care Automotive Upholsterer Name Role Phone Kenyetta SOTO Primary Care Provider Unavailab Gavino Asencio Unavailable [phone] Migration, Provider Unavailable Unavailable REASON FOR VISIT [...] * Yan RODRIGUEZDOB: 4 (78 yo M)Acc No.[id number]:07/10/2023 Patient:?Yan RODRIGUEZ Provider:?Provider Migration :1945???Age:78 Y???Sex:Male Arsh e:07/10/2023 Address:[address] Pcp:Kenyetta SOTO Subjective: * Chief Complaints: * ???1. EMR-Randolph. * Medical History:? Objective: * Vitals:?Ht: 70.00 in, Wt: 21 4.201 lbs, Wt-k.16 kg, BMI: 30.7 Index, Temp: 97.8 F, BP: 135/78 mm Hg, HR: 82 /min, Ht-cm: 177.80 cm. Assessment: Plan: * Treatment: * Procedure Codes:?92861 URINA LYSIS, AUTO, W/O SCOPE * Billing Information: * Visit Code:? * Procedure Codes:? 94337 URINALYSIS, AUTO, W/O SCOPE. * Electronic signature of Prov ider Migration on 04/22/2024 at 02:14 PM CAR RENTAL CLERK Sign off status: Pending * Provider:?Provider Migration Date:?07/10 Generated for Verna white/Raymond/Elina on:?04/22/2024 02:14 PM CAR RENTAL CLERK
--- OUTSIDE RECORDS SUMMARY | 2024-04-22 14:14 | XMS_ITS ---
Author Name Unknown Organization [facility] Address [address] [place] [address] Care Team Providers Care Hotel Services Supervisor Name Role Phone Kenyetta SOTO Primary Care Provider Unavailab Gavino Asencio Unavailable [phone] Migration, Provider Unavailable Unavailable Allergies Allergen (clinical [...] 1 MG Oral Tablet ORAL *Reorder from [facility] for eRx and Interaction Alerts* 04/04/2023 Active dabigatran etexilate 110 MG Oral Capsule [Pradaxa] ORAL *Reorder from [facility] for eRx and Interaction Alerts* 02/27/2023 Active enzalutamide 40 MG Oral Capsule [Xtandi] ORAL *Reorder from [facility] for eRx and Interaction Alerts* 06/07/2023 06/01/2024 Active levothyroxine sodium 0.1 MG Oral Tablet [Synthroid] ORAL *Reorder from [facility] for eRx and Interaction Alerts* 02/27/2023 Active relugolix 120 MG Oral Tablet [Orgovyx] ORAL *Reorder from [facility] for eRx and Interaction Alerts* 06/07/2023 06/01/2024 Active Ascorbic Acid 1000 MG Oral 05/08/2023 Active Tamsulosin HCl 0.4 MG Oral 04/03/2023 024 Active tizanidine 4 MG Oral Capsule *Reorder from [facility] for eRx and Interaction Alerts* 02/27/2023 03/29/2023 Active Metoprolol Tartrate 100 MG Oral Tablet ORAL *Reorder from [facility] for eRx and Interaction Alerts* 02/27/2023 Active Encounters Encounter Location Date Provider Diagnosis Migrated_Facility 0 0 12/09/2023 Provider Migration Plan Of Treatment No Information Progress Notes * Yan RODRIGUEZDOB: [birth year] (78 yo M)Acc No.[id number]:12/09/2023 Patient:?Yan RODRIGUEZ :1945???Age:78 Y???Sex:Male Address:[address] [place] [address] Subjective: * Chief Complaints: * ???EMR-Randolph * [...] date 03/29/2023, Notes to Pharmacist: *Reorder from [facility] for eRx and Interaction Alerts*Metoprolol Tartrate 100 MG Oral Tablet ORAL , Notes to Pharmacist: *Reorder from [facility] for eRx and Interaction Alerts*Finasteride 1 MG Oral Tablet ORAL , Notes to Pharmacist: *Reorder from [facility] for eRx and Interaction Alerts*dabigatran etexilate 110 MG Oral Capsule [Pradaxa] ORAL , Notes to Pharmacist: *Reorder from [facility] for eRx and Interaction Alerts*enzalutamide 40 MG Oral Capsule [Xtandi] ORAL , stop date 06/01/2024, Notes to Pharmacist: *Reorder from [facility] for eRx and Interaction Alerts*levothyroxine sodium 0.1 MG Oral Tablet [Synthroid] ORAL , Notes to Pharmacist: *Reorder from [facility] for eRx and Interaction Alerts*relugolix 120 MG Oral Tablet [Orgovyx] ORAL , stop date 06/01/2024, Notes to Pharmacist: *Reorder from [facility] for eRx and Interaction Alerts*Taking Ascorbic Acid 1000 MG Tablet Oral Taking Tamsulosin HCl 0.4 MG Capsule Oral , stop date 09/30/2023Taking tizanidine 4 MG Oral Capsule , stop date 03/29/2023, Notes to Pharmacist: *Reorder from [facility] for eRx and Interaction Alerts*Taking Metoprolol Tartrate 100 MG Oral Tablet ORAL , Notes to Pharmacist: *Reorder from [facility] for eRx and Interaction Alerts*Taking Finasteride 1 MG Oral Tablet ORAL , Notes to Pharmacist: *Reorder from [facility] for eRx and Interaction Alerts*Taking dabigatran etexilate 110 MG Oral Capsule [Pradaxa] ORAL , Notes to Pharmacist: *Reorder from [facility] for eRx and Interaction Alerts*Taking enzalutamide 40 MG Oral Capsule [Xtandi] ORAL , stop date 06/01/2024, Notes to Pharmacist: *Reorder from [facility] for eRx and Interaction Alerts*Taking levothyroxine sodium 0.1 MG Oral Tablet [Synthroid] ORAL , Notes to Pharmacist: *Reorder from [facility] for eRx and Interaction Alerts*Taking relugolix 120 MG Oral Tablet [Orgovyx] ORAL , stop date 06/01/2024, Notes to Pharmacist: *Reorder from [facility] for eRx and Interaction Alerts* * Allergies:?Dilaudid: Allergy - Onset Date 3Codeine: AllergyAmoxicillin: AllergyHydromorphone: AllergyPenicillin: AllergyLisinopril: Allergy Objective: * Vitals:? * Physical Examination:? Assessment: Plan: * Treatment: * Procedure Codes:? * * Date:?
--- OUTSIDE RECORDS SUMMARY | 2024-04-22 14:14 | XMS_ITS ---
Author Name Unknown Organization [facility] Address [address] [place] [address] Care Team Providers Care Substitute Bus Driver Name Role Phone Kenyetta SOTO Primary Care Provider Unavailab neil Elaine Gavino Unavailable [phone] Migration, Provider Unavailable Unavailable REASON FOR VISIT EMR-Randolph Encounters Encounter Location Date Provider Diagnosis Migrated_Facility 0 0 12/08/2023 Provider Migration Plan Of Treatment Medication Medication Name Sig Start Date Stop Date Notes Metoprolol Tartrate 100 MG Oral Tablet ORAL 05/08/2023 *Reorder from [facility] for eRx and Interaction Alerts* Sulfamethoxazole-Trimethopri m 800-160 MG Oral 05/08/2023 05/13/2023 Progress Notes * Yan RODRIGUEZDOB: [birth year] (78 yo M)Acc No.[id number]:12/08/2023 Patient:?Yan RODRIGUEZ :1945???Age:78 Y???Sex:Male Address:[address] [address] * Refills? Stop Sulfamethoxazole-Trimethoprim Tablet, 800-160 MG, Oral Stop Metoprolol Tartrate 100 MG Oral Tablet, ORAL Subjective: * Chief Complaints: * ???EMR-Randolph * Medical History:? * Surgical History:? * Hospitalization/Major Diagno stic Procedure:? * Medications:? Objective: * Vitals:? * Physical Examination:? Assessment: Plan: * Treatment: * Procedure Codes:? * * Date:?
--- OUTSIDE RECORDS SUMMARY | 2024-04-22 14:15 | XMS_ITS ---
Author Name Unknown Organization [facility] Address [address] [place] [address] Care Team Providers Care Acetylene Torch Solderer Name Role Phone Vasu Garzon Primary Care Provider REYNA Ambrose [phone] REASON FOR VISIT Other Encounters Encounter Location Date Provider Diagnosis [facility] [address] [place] [address] 12/22/2022 REYNA BRANNON Plan Of Treatment No Information Progress Notes * Yan RODRIGUEZDOB: 4 (78 yo M)Acc No.[id number]:12/22/2022 Patient:?Yan RODRIGUEZ :1945???Age:77 Y???Sex:Male Address:[address] [address] * true * Date:? Generated for Verna white/Raymond/eTransmitting on:?04/22/2024 02:15 PM TOOL CARRIER
--- OUTSIDE RECORDS SUMMARY | 2024-04-22 14:15 | XMS_ITS | Patient Health Record ---
Author Name Unknown Organization [facility] Address [address] [place] [address] Care Team Providers Care Package Liner Name Role Phone Vasu Garzon Primary Care Provider REYNA Ambrose Unavailable [phone] Allergies Allergen (clinical drug ingredient) Drug/Non Drug [...] Active metFORMIN HCl ER *Pick strength-form from [facility] for eRX* Active Tamsulosin HCl *Pick strength-form from [facility] for eRX* Active Omeprazole *Pick strength-form from [facility] for eRX* Active BUPivacaine *Reorder from [facility] for eRx and Interaction Alerts* Active Chlorthalidone *Pick strength-form from [facility] for eRX* Active DEPO-Medrol *Pick strength-form from [facility] for eRX* Active Levothyroxine Sodium *Pick strength-form from [facility] for eRX* Active Dabigatran Etexilate Mesylate *Reorder [...] Problem Status W/U Status Risk Notes Problem 276889962 Elevated PSA (R97.20) Active confirmed Problem 285559947 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) Active confirmed Plan Of Treatment Pending Test Test Name Order Date PSA Diagnostic--[id number] 12/14/2022 MRI Pelvis w/ + w/o Cont-[id number] 3 Insurance Providers Payer Name Payer Address Payer Phone Subscriber Number Group Number Insured Name Patient Relationship to Insured Coverage Start Date Coverage End Date VACCN OPTUM [address] [place] [id number] Yan Alonso Self - patient is the insured Medical (General) History Medical History History ICD Code hypertension diabetes arthritis Surgical History Surgery Date(Month/Year) back surgery X 5 cholecystectomy tumor removal, chest cavity thyroidectomy
--- OUTSIDE RECORDS SUMMARY | 2024-04-22 14:15 | XMS_ITS ---
Author Name Unknown Organization [facility] Address [address] [place] [address] Care Team Providers Care Softball Core Molder Name Role Phone Vasu Garzon Primary Care Provider REYNA Ambrose [phone] REASON FOR VISIT 3-4 wks w/ ua/psa/mri Encounters Encounter Location Date Provider Diagnosis [facility] [address] [place] [address] 01/18/2023 REYNA BRANNON Plan Of Treatment No Information Progress Notes * Yan RODRIGUEZDOB: 4 (78 yo M)Acc No.[id number]:01/18/2023 Progress Notes Patient:?Yan RODRIGUEZ Provider:?REYNA BRANNON MD :1945???Age:77 Y???Sex:Male Arsh e:01/18/2023 Address:[address] Pcp:Vasu Garzon Subjective: * Chief Complaints: * ???1. 3-4 wks w/ ua/psa/mri. * Medical History:? Objective: * Vitals:? Assessment: Plan: * Treatment: * Billing Information: * Visit Code:? * Procedure Codes:? * Electronic signature of AUST IN MD CLOVIS on 04/22/2024 at 02:14 PM CITY DRIVER Sign off status: Pending * Provider:?REYNA BRANNON MD Date:?08/2022 Generated for Verna white/Raymond/Dovitting on:?04/22/2024 02:14 PM CITY DRIVER
--- OUTSIDE RECORDS SUMMARY | 2024-04-22 14:15 | XMS_ITS ---
Author Name Unknown Organization [facility] Address [address] [place] [address] Care Team Providers Care Radiagraph Operator Name Role Phone Vasu Garzon Primary Care Provider REYNA Ambrose [phone] REASON FOR VISIT Other Encounters Encounter Location Date Provider Diagnosis [facility] [address] [place] [address] 12/27/2022 REYNA BRANNON Plan Of Treatment No Information Progress Notes * Yan RODRIGUEZDOB: 4 (77 yo M)Acc No.[id number]:12/27/2022 Patient:?Yan Rodriguez :1945???Age:77 Y???Sex:Male Address:[address] [facility] [address] * true * Date:? Generated for Verna white/Raymond/eTransmitting on:?04/22/2024 02:14 PM UNDERCUTTER OPERATOR
--- OUTSIDE RECORDS SUMMARY | 2024-04-22 14:15 | XMS_ITS | Patient Health Record ---
Author Name Unknown Organization [facility] Address [address] [place] [address] Care Team Providers Care Independent Living Instructor Name Role Phone Kenyetta SOTO Primary Care Provider Unavailab Gavino Asencio Unavailable [phone] Migration, Provider Unavailable Unavailable Allergies Allergen (clinical [...] 100 MG Oral Tablet ORAL *Reorder from [facility] for eRx and Interaction Alerts* 02/27/2023 Active Finasteride 1 MG Oral Tablet ORAL *Reorder from [facility] for eRx and Interaction Alerts* 04/04/2023 Active dabigatran etexilate 110 MG Oral Capsule [Pradaxa] ORAL *Reorder from [facility] for eRx and Interaction Alerts* 02/27/2023 Active [...] W/U Status Risk Notes Problem Elevated PSA (644508783) Elevated PSA (R97.20) Active confirmed Problem Benign prostatic hypertrophy with outflow obstruction (216224599) 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) Active confirmed Problem Malignant tumor of prostate (621625973) Malignant neoplasm of prostate (C61) 06/07/2023 Active confirmed Vital Signs Heart Rate 82 /min 07/10/2023 Temperature 97.8 degrees Fahrenheit 07/10/2023 Height-cm 177.80 cm 07/10/2023 Blood pressure diastolic 78 mm Hg 07/10/2023 Weight-kg 97.16 kg 07/10/2023 Height 70.00 in 07/10/2023 Blood pressure systolic 135 mm Hg 07/10/2023 Weight 214.201 lbs 07/10/2023 BMI 30.7 kg/m2 07/10/2023 Encounters Encounter Location Date Provider Diagnosis [facility]rated_Facility 0 0 05/08/2023 Provider Migration [facility]rated[facility]Facility 0 0 06/05/2023 Provider Migration [facility]rated[facility]Facility 0 0 07/10/2023 Provider Migration [facility]rated[facility]Facility 0 0 12/08/2023 Provider Migration Migrated_Facility 0 0 12/09/2023 Provider Migration Plan Of Treatment Pending Test Test Name Order Date PSA Diagnostic--[id number] 12/14/2022 MRI Pelvis w/ + w/o Cont-[id number] 3 Insurance Providers Payer Name Payer Address Payer Phone Subscriber Number Group Number Insured Name Patient Relationship to Insured Coverage Start Date Coverage End Date VACCN [employer]UM [address] [place] [id number] Yan Alonso Self - patient is the insured Medical (General) History Medical History History ICD Code hypertension diabetes arthritis Surgical History Surgery Date(Month/Year) back surgery X 5 cholecystectomy tumor removal, chest cavity thyroidectomy
[2024-04-22 15:38] LABS: Prostate Specific Antigen < 0.014 ng/mL (0-4)
--- NOTE | 2024-04-22 15:45 | CTR_ITS ---
PROCEDURE INFORMATION: Exam: CT Pelvis Without And With Contrast Exam date and time: 04/22/2024 4:07 PM Age: 78 years old Clinical indication: Condition or disease; Cancer; Location of cancer or specific organ: Prostate; Prior surgery; Surgery date: 6+ months; Surgery type: Lumbar, gb; Additional info: Prostate cancer TECHNIQUE: Imaging protocol: Computed tomography of the pelvis without and with contrast. Radiation optimization: All CT scans at this facility use at least one of these dose optimization techniques: automated exposure control; mA and/or kV adjustment per patient size (includes targeted exams where dose is matched to clinical indication); or iterative reconstruction. Contrast material: OMNI 350; Contrast volume: 100 ml; Contrast route: INTRAVENOUS (IV); COMPARISON: CT chest abdpel w/*[id number] 02/06/2024 12:23 PM RADIATION DOSE METRICS: Total DLP (mGy-cm): 854.28 FINDINGS: Intestine: Unremarkable visualized bowel. Appendix: No evidence of appendicitis. Intraperitoneal space: Unremarkable. No free air. No significant fluid collection. Vasculature: Unchanged small amount of arterial calcification. Otherwise, unremarkable. Lymph nodes: Unremarkable. No enlarged lymph nodes. Reproductive: Unchanged minimal enlargement of the prostate gland. Known prostate cancer. Otherwise, unremarkable. Urinary bladder: New, diffuse thickening of the urinary bladder wall could be cystitis or due to partial bladder outlet obstruction. Correlate clinically. Otherwise, unremarkable. Bones/joints: Unchanged severe spondylosis lower lumbar spine. Unchanged mild bilateral hip arthritis. Unchanged right L5 laminectomy with unchanged associated scar tissue, and without obvious acute complication. A 3 mm sclerotic focus in the right iliac bone adjacent to the SI joint is unchanged, so is very likely to be a benign bone island. However, with a history of prostate cancer this could be a very subtle, somewhat indolent osteoblastic metastasis. Soft tissues: Otherwise, unremarkable visualized body wall. Otherwise, unremarkable soft tissues. CT/CT pelvis wo/w con [id number] IMPRESSION: 1. Unchanged minimal enlargement of the prostate gland. 2. New, diffuse thickening of the urinary bladder wall could be cystitis or due to partial bladder outlet obstruction. Correlate clinically. 3. A 3 mm sclerotic focus in the right iliac bone adjacent to the SI joint is unchanged, so is very likely to be a benign bone island. However, with a history of prostate cancer this could be a very subtle, somewhat indolent osteoblastic metastasis. 4. No other acute pelvic findings. 5. Additional details as above.
[2024-04-22 16:06] LABS: Blood Urea Nitrogen 27 mg/dL (8-23)
[2024-04-22] MEDS: iohexol 350 mg/mL 500 mL Btl (per mL) IV (16:14)
--- NOTE | 2024-05-12 08:00 | NM_ITS ---
WS: [id number] NUCLEAR MEDICINE BONE SCAN Radiopharmaceutical: 24.8 Tc-99m MDP mCi IV Injection site: Antecubital Postinjection imaging delay: 1 hr CLINICAL INFORMATION: prostate cancer/ right LE weakness FINDINGS: Bone lesions: There are no osseous lesions suspicious for metastatic disease. Soft tissue contours: Normal. Kidneys: Normal. Other findings: Degenerative arthritis AC joints and bilateral knees NM/NM bone scan whole body* 24045 IMPRESSION: No evidence of osseous metastatic disease.
--- OUTSIDE RECORDS SUMMARY | 2024-05-12 08:03 | XMS_ITS ---
Author Name Unknown Organization [facility] Address [address] [facility] [place] [address] Care Team Providers Care Collision Estimator Name Role Phone Vasu Garzon Primary Care Provider REYNA Ambrose [phone] REASON FOR VISIT Other Encounters Encounter Location Date Provider Diagnosis [facility] [address] [place] [facility] [place] [address] 12/27/2022 REYNA BRANNON Plan Of Treatment No Information Progress Notes * Yan RODRIGUEZDOB: 4 (77 yo M)Acc No.[id number]:12/27/2022 Patient:?Yan Rodriguez :1945???Age:77 Y???Sex:Male Address:[address] [facility] [address] * true * Date:? Generated for Juaquini christopher/Raymond/eTransmitting on:?05/12/2024 08:03 AM LINUX PROGRAMMER
--- OUTSIDE RECORDS SUMMARY | 2024-05-12 08:03 | XMS_ITS | Patient Health Record ---
Author Name Unknown Organization [facility] Address [address] [place] [address] Care Team Providers Care Lamp Shade Sewer Name Role Phone Kenyetta SOTO Primary Care Provider Unavailab Gavino Asencio Unavailable [phone] Migration, Provider Unavailable Unavailable Allergies Allergen (clinical [...] 100 MG Oral Tablet ORAL *Reorder from [facility] for eRx and Interaction Alerts* 02/27/2023 Active Finasteride 1 MG Oral Tablet ORAL *Reorder from [facility] for eRx and Interaction Alerts* 04/04/2023 Active dabigatran etexilate 110 MG Oral Capsule [Pradaxa] ORAL *Reorder from [facility] for eRx and Interaction Alerts* [...] W/U Status Risk Notes Problem Elevated PSA (356483095) Elevated PSA (R97.20) Active confirmed Problem Benign prostatic hypertrophy with outflow obstruction (506593090) 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) Active confirmed Problem Malignant tumor of prostate (594276276) Malignant neoplasm of prostate (C61) 06/07/2023 Active confirmed Vital Signs Heart Rate 82 /min 07/10/2023 Temperature 97.8 degrees Fahrenheit 07/10/2023 Blood pressure diastolic 78 mm Hg 07/10/2023 Height-cm 177.80 cm 07/10/2023 Weight-kg 97.16 kg 07/10/2023 Height 70.00 in 07/10/2023 Blood pressure systolic 135 mm Hg 07/10/2023 Weight 214.201 lbs 07/10/2023 BMI 30.7 kg/m2 07/10/2023 Encounters Encounter Location Date Provider Diagnosis [facility] 0 0 06/05/2023 Provider Migration [facility] 0 0 07/10/2023 Provider Migration [facility] 0 0 12/08/2023 Provider Migration [facility] 0 0 12/09/2023 Provider Migration Plan Of Treatment Pending Test Test Name Order Date PSA Diagnostic--74605 12/14/2022 MRI Pelvis w/ + w/o Cont-[id number] 3 Insurance Providers Payer Name Payer Address Payer Phone Subscriber Number Group Number Insured Name Patient Relationship to Insured Coverage Start Date Coverage End Date VAC[employer]UM [address] [place] [phone] [id number] Yan Alonso Self - patient is the insured Medical (General) History Medical History History ICD Code hypertension diabetes arthritis Surgical History Surgery Date(Month/Year) back surgery X 5 cholecystectomy tumor removal, chest cavity thyroidectomy
--- OUTSIDE RECORDS SUMMARY | 2024-05-12 08:03 | XMS_ITS ---
Author Name Unknown Organization [facility] Address [address] [place] [address] Care Team Providers Care Behavioral Instructor Name Role Phone Vasu Garzon Primary Care Provider REYNA Ambrose [phone] REASON FOR VISIT Other Encounters Encounter Location Date Provider Diagnosis [facility] [address] [facility] [address] 12/22/2022 REYNA BRANNON Plan Of Treatment No Information Progress Notes * Yan RODRIGUEZDOB: 4 (78 yo M)Acc No.[id number]:12/22/2022 Patient:?Yan RODRIGUEZ :1945???Age:77 Y???Sex:Male Address:[address] [address] * true * Date:? Generated for Juaquini christopher/Raymond/eTransmitting on:?05/12/2024 08:03 AM ROTARY OPERATOR
--- OUTSIDE RECORDS SUMMARY | 2024-05-12 08:03 | XMS_ITS ---
Author Name Unknown Organization [facility] Address [address] [place] [address] Care Team Providers Care Cut Out Operator Name Role Phone Kenyetta SOTO Primary Care Provider Unavailab Gavino Asencio Unavailable [phone] Migration, Provider Unavailable Unavailable Allergies Allergen (clinical [...] 1 MG Oral Tablet ORAL *Reorder from [facility] for eRx and Interaction Alerts* 04/04/2023 Active dabigatran etexilate 110 MG Oral Capsule [Pradaxa] ORAL *Reorder from [facility] for eRx and Interaction Alerts* 02/27/2023 Active enzalutamide 40 MG Oral Capsule [Xtandi] ORAL *Reorder from [facility] for eRx and Interaction Alerts* 06/07/2023 06/01/2024 Active levothyroxine sodium 0.1 MG Oral Tablet [Synthroid] ORAL *Reorder from [facility] for eRx and Interaction Alerts* 02/27/2023 Active relugolix 120 MG Oral Tablet [Orgovyx] ORAL *Reorder from [facility] for eRx and Interaction Alerts* 06/07/2023 06/01/2024 Active Ascorbic Acid 1000 MG Oral 05/08/2023 Active Tamsulosin HCl 0.4 MG Oral 04/03/2023 024 Active tizanidine 4 MG Oral Capsule *Reorder from [facility] for eRx and Interaction Alerts* 02/27/2023 03/29/2023 Active Metoprolol Tartrate 100 MG Oral Tablet ORAL *Reorder from [facility] for eRx and Interaction Alerts* 02/27/2023 Active Encounters Encounter Location Date Provider Diagnosis [facility]rated_Facility 0 0 12/09/2023 Provider Migration Plan Of Treatment No Information Progress Notes * Yan RODRIGUEZDOB: 4 (78 yo M)Acc No.[id number]:12/09/2023 Patient:?Yan RODRIGUEZ :1945???Age:78 Y???Sex:Male Address:[address] [place] [address] Subjective: * Chief Complaints: * ???EMR-Randolph * [...] date 03/29/2023, Notes to Pharmacist: *Reorder from [facility] for eRx and Interaction Alerts*Metoprolol Tartrate 100 MG Oral Tablet ORAL , Notes to Pharmacist: *Reorder from [facility] for eRx and Interaction Alerts*Finasteride 1 MG Oral Tablet ORAL , Notes to Pharmacist: *Reorder from [facility] for eRx and Interaction Alerts*dabigatran etexilate 110 MG Oral Capsule [Pradaxa] ORAL , Notes to Pharmacist: *Reorder from [facility] for eRx and Interaction Alerts*enzalutamide 40 MG Oral Capsule [Xtandi] ORAL , stop date 06/01/2024, Notes to Pharmacist: *Reorder from [facility] for eRx and Interaction Alerts*levothyroxine sodium 0.1 MG Oral Tablet [Synthroid] ORAL , Notes to Pharmacist: *Reorder from [facility] for eRx and Interaction Alerts*relugolix 120 MG Oral Tablet [Orgovyx] ORAL , stop date 06/01/2024, Notes to Pharmacist: *Reorder from [facility] for eRx and Interaction Alerts*Taking Ascorbic Acid 1000 MG Tablet Oral Taking Tamsulosin HCl 0.4 MG Capsule Oral , stop date 09/30/2023Taking tizanidine 4 MG Oral Capsule , stop date 03/29/2023, Notes to Pharmacist: *Reorder from [facility] for eRx and Interaction Alerts*Taking Metoprolol Tartrate 100 MG Oral Tablet ORAL , Notes to Pharmacist: *Reorder from [facility] for eRx and Interaction Alerts*Taking Finasteride 1 MG Oral Tablet ORAL , Notes to Pharmacist: *Reorder from [facility] for eRx and Interaction Alerts*Taking dabigatran etexilate 110 MG Oral Capsule [Pradaxa] ORAL , Notes to Pharmacist: *Reorder from [facility] for eRx and Interaction Alerts*Taking enzalutamide 40 MG Oral Capsule [Xtandi] ORAL , stop date 06/01/2024, Notes to Pharmacist: *Reorder from [facility] for eRx and Interaction Alerts*Taking levothyroxine sodium 0.1 MG Oral Tablet [Synthroid] ORAL , Notes to Pharmacist: *Reorder from [facility] for eRx and Interaction Alerts*Taking relugolix 120 MG Oral Tablet [Orgovyx] ORAL , stop date 06/01/2024, Notes to Pharmacist: *Reorder from [facility] for eRx and Interaction Alerts* * Allergies:?Dilaudid: Allergy - Onset Date 3Codeine: AllergyAmoxicillin: AllergyHydromorphone: AllergyPenicillin: AllergyLisinopril: Allergy Objective: * Vitals:? * Physical Examination:? Assessment: Plan: * Treatment: * Procedure Codes:? * * Date:?
--- OUTSIDE RECORDS SUMMARY | 2024-05-12 08:03 | XMS_ITS ---
Author Name Unknown Organization [facility] Address [address] [place] [address] Care Team Providers Care Recruitment Director Name Role Phone Kenyetta SOTO Primary Care Provider Unavailab Gavino Asencio Unavailable [phone] Migration, Provider Unavailable Unavailable REASON FOR VISIT [...] * Yan RODRIGUEZDOB: 4 (78 yo M)Acc No.[id number]:07/10/2023 Patient:?Yan RODRIGUEZ Provider:?Provider Migration :1945???Age:78 Y???Sex:Male Arsh e:07/10/2023 Address:[address] Pcp:Kenyetta SOTO Subjective: * Chief Complaints: * ???1. EMR-Randolph. * Medical History:? Objective: * Vitals:?Ht: 70.00 in, Wt: 21 4.201 lbs, Wt-k.16 kg, BMI: 30.7 Index, Temp: 97.8 F, BP: 135/78 mm Hg, HR: 82 /min, Ht-cm: 177.80 cm. Assessment: Plan: * Treatment: * Procedure Codes:?31047 URINA LYSIS, AUTO, W/O SCOPE * Billing Information: * Visit Code:? * Procedure Codes:? 51192 URINALYSIS, AUTO, W/O SCOPE. * Electronic signature of Prov ider Migration on 05/12/2024 at 08:02 AM AIR AND HYDRONIC BALANCING TECHNICIAN Sign off status: Pending * Provider:?Provider Migration Date:?07/10 Generated for Verna white/Raymond/Elina on:?05/12/2024 08:02 AM AIR AND HYDRONIC BALANCING TECHNICIAN
--- OUTSIDE RECORDS SUMMARY | 2024-05-12 08:03 | XMS_ITS ---
Author Name Unknown Organization [facility] Address [address] [place] [address] Care Team Providers Care Pens And Pencils Dipper Name Role Phone Vasu Garzon Primary Care Provider REYNA Ambrose [phone] REASON FOR VISIT 3-4 wks w/ ua/psa/mri Encounters Encounter Location Date Provider Diagnosis [facility] [address] [facility] [place] [address] 01/18/2023 REYNA BRANNON Plan Of Treatment No Information Progress Notes * Yan RODRIGUEZDOB: 4 (78 yo M)Acc No.[id number]:01/18/2023 Progress Notes Patient:?Yan RODRIGUEZ Provider:?REYNA BRANNON MD :1945???Age:77 Y???Sex:Male Arsh e:01/18/2023 Address:[address] Pcp:Vasu Garzon Subjective: * Chief Complaints: * ???1. 3-4 wks w/ ua/psa/mri. * Medical History:? Objective: * Vitals:? Assessment: Plan: * Treatment: * Billing Information: * Visit Code:? * Procedure Codes:? * Electronic signature of AUST IN MD CLOVIS on 05/12/2024 at 08:03 AM RIGGING ENGINEER Sign off status: Pending * Provider:?REYNA BRANNON MD Date:?08/2022 Generated for Verna white/Raymond/Dovitting on:?05/12/2024 08:03 AM RIGGING ENGINEER
--- OUTSIDE RECORDS SUMMARY | 2024-05-12 08:03 | XMS_ITS ---
Author Name Unknown Organization [facility] Address [address] [place] [address] Care Team Providers Care Metrology Manager Name Role Phone Kenyetta SOTO Primary Care Provider Unavailab neil Elaine Gavino Unavailable [phone] Migration, Provider Unavailable Unavailable REASON FOR VISIT EMR-Randolph Encounters Encounter Location Date Provider Diagnosis Migrated_Facility 0 0 12/08/2023 Provider Migration Plan Of Treatment Medication Medication Name Sig Start Date Stop Date Notes Metoprolol Tartrate 100 MG Oral Tablet ORAL 05/08/2023 *Reorder from [facility] for eRx and Interaction Alerts* Sulfamethoxazole-Trimethopri m 800-160 MG Oral 05/08/2023 05/13/2023 Progress Notes * Yan RODRIGUEZDOB: 4 (78 yo M)Acc No.[id number]:12/08/2023 Patient:?Yan RODRIGUEZ :1945???Age:78 Y???Sex:Male Address:[address] [address] * Refills? Stop Sulfamethoxazole-Trimethoprim Tablet, 800-160 MG, Oral Stop Metoprolol Tartrate 100 MG Oral Tablet, ORAL Subjective: * Chief Complaints: * ???EMR-Randolph * Medical History:? * Surgical History:? * Hospitalization/Major Diagno stic Procedure:? * Medications:? Objective: * Vitals:? * Physical Examination:? Assessment: Plan: * Treatment: * Procedure Codes:? * * Date:?
--- OUTSIDE RECORDS SUMMARY | 2024-05-12 08:04 | XMS_ITS | Patient Health Record ---
Author Name Unknown Organization [facility] Address [address] [place] [address] Care Team Providers Care Weapons Specialist Name Role Phone Vasu Garzon Primary Care Provider REYNA Ambrose Unavailable [phone] Allergies Allergen (clinical drug ingredient) Drug/Non Drug [...] Active metFORMIN HCl ER *[facility]* Active Tamsulosin HCl *[facility]* Active Omeprazole *[facility]* Active BUPivacaine *[facility]* Active Chlorthalidone *Pick strength-form from [facility] for eRX* Active DEPO-Medrol *Pick strength-form from [facility] for eRX* Active Levothyroxine Sodium *[facility]* Active Dabigatran Etexilate [...] Problem Status W/U Status Risk Notes Problem 050308721 Elevated PSA (R97.20) Active confirmed Problem 235397648 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) Active confirmed Plan Of Treatment Pending Test Test Name Order Date PSA Diagnostic--27157 12/14/2022 MRI Pelvis w/ + w/o Cont-[id number] 3 Insurance Providers Payer Name Payer Address Payer Phone Subscriber Number Group Number Insured Name Patient Relationship to Insured Coverage Start Date Coverage End Date V[employer] [address] [place] [id number] Yan Alonso Self - patient is the insured Medical (General) History Medical History History ICD Code hypertension diabetes arthritis Surgical History Surgery Date(Month/Year) back surgery X 5 cholecystectomy tumor removal, chest cavity thyroidectomy
--- NOTE | 2024-05-12 12:30 | CT_ITS ---
WS: [id number] CT LUMBAR SPINE, noncontrast. HISTORY: prostate cancer, LE pain and weak TECHNIQUE: Contiguous 2.0 mm axial imaging are performed. Sagittal and coronal reformats are submitte d and reviewed. All CT scans at [facility] use at least one of these dose optimization techni ques: automated exposure control; mA and/or kV adjustment per patient size (includes targeted exams w here dose is matched to clinical indication); or iterative reconstruction. IV contrast: None DLP: 729.61 mGy.cm COMPARISON: 11/17/2021 Mild curvature lumbar spine. Very slight straightening of the normal lumbar lordosis. Mild retrolisth esis of L4. No fractures or bone destruction. No lytic or sclerotic bone lesions. L1-2: Mild annular disc bulging. No high-grade stenosis or disc protrusions. L2-3: Mild annular disc bulging with osteophytic ridging. Mild effacement of the subarticular recess and ventral thecal sac. Moderate facet arthritis. Similar to the prior study. L3-4: Moderate annular disc bulging with osteophytic ridging. Disc disease, ligamentum flavum and fac et arthritis. Mild effacement of the ventral thecal sac. Mild to moderate central stenosis with disc and osteophyte contacting the traversing L4 nerve roots. Mild bilateral foraminal stenosis. L4-5: Osteophytic ridging with annular disc bulging. Central osteophyte encroaches upon the ventral t hecal sac marked facet joint arthropathy. Moderate to severe bilateral foraminal stenosis, LEFT great er than RIGHT. Prior LEFT hemilaminectomy defect. L5-S1: Osteophytic ridging. RIGHT hemilaminectomy defect. Marked facet joint arthritis. Severe bilate ral foraminal stenosis predominantly due to osteophyte disease. Calcifications scattered throughout the abdominal aorta. Mesenteric artery calcifications are also id entified. No ascites or adenopathy is visualized. CT/CT lumbar spine wo con* [id number] IMPRESSION: 1. No destructive bone lesions. No osteoblastic disease identified. 2. L5-S1: Severe bilateral foraminal stenosis predominate osteophytes. Progres sed since 11/17/2020. 3. Prior hemilaminectomy defects at L4-5 and L5-S1. 4. L4-5: Moderate to severe bilateral foraminal stenosis, LEFT greater than RI GHT and mild osteophyte encroachment upon the ventral thecal sac. 5. L3-4: Mild to moderate central stenosis due to disc and osteophyte disease contacting the traversing L4 nerve roots. Mild bilateral foraminal stenosis. 6. L2-3: No significant stenosis.
== END 2024-05-17 23:59 | disposition home or self-care (01) ==
LOC: ONCMED 09:20
PROVIDERS: Absent Provider Internal Medicine Hematology & Oncology; PCP Family Medicine; Visit Provider Radiology Radiation Oncology
DX: C61 Malignant neoplasm of prostate (principal); M17.0 Bilateral primary osteoarthritis of knee; M25.78 Osteophyte, vertebrae; M48.061 Spinal stenosis, lumbar region without neurogenic claudication; Z87.39 Personal history of other diseases of the musculoskeletal system and connective tissue; Z53.9 Procedure and treatment not carried out, unspecified reason
CPT/HCPCS: 36415; 72131; 72194; 78306; 82565; 84153; 84520; A9561

== ENCOUNTER 2024-05-22 12:14 | Oncology outpatient (recurring) (ONCR) | payer MEDICARE, SELFPAY ==
[2024-05-22 13:05] LABS: Basophils % 0.4 %; Eosinophils # 0.1 10^3/uL (0.0-0.8); Eosinophils % 1.2 %; Hematocrit 33.9 % (37-53); Lymphocytes # 0.7 10^3/uL (0.8-4.8); Lymphocytes % 14.8 %; Mean Corpuscular HGB Conc 34.5 g/dL (30-55); Mean Corpuscular Hemoglobin 32.5 pg (27-33); Mean Corpuscular Volume 94.2 fl (82-101); Mean Platelet Volume 9.1 fL (7.4-10.4); Monocytes # 0.4 10^3/uL (0.2-0.9); Monocytes % 8.4 %; Neutrophils # 3.66 10^3/uL (1.8-7.7); Nucleated Red Blood Cells % 0 %; Platelet Count 165 10^3/cmm (157-399); Red Cell Distribution Width 14.1 % (12.1-15.1); White Blood Count 4.88 10^3/uL (3.29-11.43)
[2024-05-22 13:35] LABS: Alanine Aminotransferase 23 U/L (0-41); Albumin Level 4.2 g/dL (3.5-5.2); Alkaline Phosphatase 90 U/L (40-130); Anion Gap 16.5 (5-19); Aspartate Amino Transferase 23 U/L (0-40); Blood Urea Nitrogen 40 mg/dL (8-23); Calcium 9.6 mg/dL (8.5-10.5); Carbon Dioxide 28 mmol/L (22-29); Chloride 94 mmol/L (98-107); Globulin 2.5 g/dL (1.3-4.6); Glucose 138 mg/dL (65-115); Osmolality Calculated 290 mOsm/kg (285-295); Potassium 4.5 mmol/L (3.5-5.1); Prostate Specific Antigen 0.066 ng/mL (0-4); Sodium 134 mmol/L (136-145); Total Bilirubin 0.5 mg/dL (0.15-1.2); Total Protein 6.7 g/dL (6.6-8.7)
[2024-05-22 14:31] LABS: Testosterone Total 13.9 ng/dL (193-740)
[2024-05-22] MEDS: sodium chloride 0.9% 1,000 ML 999 ML IV (15:19)
[2024-05-22 16:30] VITALS: BP 111/72; PULSE 90; RESP 16; TEMP 36.6; O2SAT 98
== END 2024-06-17 23:59 | disposition home or self-care (01) ==
PROVIDERS: Nurse Practitioner Family; Absent Provider Internal Medicine Hematology & Oncology; PCP Family Medicine; Visit Provider Radiology Radiation Oncology
DX: C61 Malignant neoplasm of prostate (principal); N40.1 Benign prostatic hyperplasia with lower urinary tract symptoms; R35.1 Nocturia; Z19.1 Hormone sensitive malignancy status
CPT/HCPCS: 80053; 84153; 84403; 85025; 96360; 99214; J7030

== ENCOUNTER → 2024-07-03 11:49 | Outpatient (BNVA) | payer MEDICARE, SELFPAY | PROVIDERS: PCP Family Medicine; Visit Provider Family Medicine | DX: E03.9 Hypothyroidism, unspecified (principal); I10 Essential (primary) hypertension; R07.9 Chest pain, unspecified | CPT/HCPCS: 80048; 80061; 83036; 84443 ==

== ENCOUNTER 2024-07-06 00:13 | Inpatient (IN) | payer OTHER, SELFPAY ==
[2024-07-06] VITALS (29 sets, daily range): BP systolic 123–164; BP diastolic 71–114; PULSE 95–127; RESP 12–31; TEMP 36.4–36.8; O2SAT 87–95; BMI 29.4
--- NOTE | 2024-07-06 00:28 | ECG_ITS ---
[facility]: 2024-[facility]06 Pat Name: Yan Alonso Department: Room: Gender: Male Senior Unix Administrator: : 1945 Requested By: Harrison Lloyd Order Number: [id number] Jaquan MD: CELIO ENGLISH Measurements Intervals Edward Rate: 110 P: 0 [place]: 0 QRS: -36 QRSD: 112 T: 77 QT: 352 QTc: 478 Interpretive Statements ATRIAL FIBRILLATION WITH RAPID VENTRICULAR RESPONSE LEFT AXIS DEVIATION [QRS AXIS < -30] SEPTAL MYOCARDIAL INFARCTION , PROBABLY OLD [40+ ms Q WAVE IN V1/V2] Compared to ECG 09/25/2023 11:01:01 No significant changes Electronically Signed On 07-07-2024 23:21:13 INVESTIGATION MANAGER by CELIO ENGLISH [email or web address]
--- NOTE | 2024-07-06 00:59 | XRR_ITS ---
PROCEDURE INFORMATION: Exam: XR Chest Exam date and time: 07/06/2024 1:02 AM Age: 79 years old Clinical indication: Chest pressure; Prior surgery; Surgery date: 6+ months; Surgery type: Pacer. Open heart for cyst resection; Patient HX: C/O chest pain with palpitations; Additional info: Cp, palpitations TECHNIQUE: Imaging protocol: Radiologic exam of the chest. Views: 1 view. COMPARISON: CT chest abdpel w/*[id number] 02/06/2024 12:23 PM FINDINGS: Tubes, catheters and devices: There is a left-sided single lead pacemaker. Lungs: Patchy airspace disease present in the right lung base and left mid/lower lung field. Pleural spaces: Unremarkable. No pleural effusion. No pneumothorax. Heart/Mediastinum: Stable cardiomegaly. Bones/joints: Sternotomy wires present. XR/XR chest 1V portable [id number] IMPRESSION: Patchy airspace disease bilaterally which may reflect subsegmental atelectasis, pulmonary edema or developing pneumonia.
[2024-07-06 01:16] LABS: Basophils % 0.1 %; Eosinophils % 0.1 %; Hematocrit 28.8 % (37-53); Lymphocytes # 0.4 10^3/uL (0.8-4.8); Lymphocytes % 4.1 %; Mean Corpuscular HGB Conc 31.9 g/dL (30-55); Mean Corpuscular Hemoglobin 31.5 pg (27-33); Mean Corpuscular Volume 98.6 fl (82-101); Mean Platelet Volume 9.5 fL (7.4-10.4); Monocytes # 0.6 10^3/uL (0.2-0.9); Monocytes % 6.5 %; Neutrophils # 7.48 10^3/uL (1.8-7.7); Neutrophils % 88.1 %; Nucleated Red Blood Cells % 0 %; Platelet Count 167 10^3/cmm (157-399); Red Blood Count 2.92 10^6/uL (3.85-5.65); Red Cell Distribution Width 13.7 % (12.1-15.1); White Blood Count 8.49 10^3/uL (3.29-11.43)
[2024-07-06] MEDS: sodium chloride 0.9% 500 ML 999 ML IV (01:21)
[2024-07-06 01:24] LABS: INR 1.37 (0.8-1.2)
[2024-07-06 01:26] LABS: Partial Thromboplastin Time 65.5 SECONDS (23.9-36.7)
[2024-07-06 01:31] LABS: Troponin(5th) Baseline 51 ng/L (0-15)
[2024-07-06 01:35] LABS: Albumin Level 3.9 g/dL (3.5-5.2)
[2024-07-06] MEDS: methylPREDNISolone sod succ 125 mg/2 mL INJ IVP (02:01)
[2024-07-06] MEDS: sodium chloride 0.9% 1,000 ML 999 ML IV (02:01)
[2024-07-06 02:06] LABS: Alanine Aminotransferase 21 U/L (0-41); Alkaline Phosphatase 102 U/L (40-130); Aspartate Amino Transferase 22 U/L (0-40); Blood Urea Nitrogen 30 mg/dL (8-23); Calcium 9.2 mg/dL (8.5-10.5); Carbon Dioxide 25 mmol/L (22-29); Creatinine Clr Calc Pharmacy 67.4953; Globulin 2.2 g/dL (1.3-4.6); Glucose 210 mg/dL (65-115); NT Pro B Type Natriuretic Pept 6159 pg/mL (0-450); Total Bilirubin 1.4 mg/dL (0.15-1.2); Total Protein 6.1 g/dL (6.6-8.7)
[2024-07-06 02:10] LABS: Chloride 94 mmol/L (98-107); Osmolality Calculated 290 mOsm/kg (285-295); Sodium 134 mmol/L (136-145)
--- NOTE | 2024-07-06 03:43 | P.HP_ITS ---
Providers/Chief Complaint 2 Primary Care Provider: Deepak Estrada MD Chief Complaint: WEAKNESS History of Present Illness Yan Alonso is a 79 year old male with a past medical history significant for prostate cancer, coronary artery disease, hypertension, dyslipidemia, atrial fibrillation, pacemaker placement, and multiple other comorbidities who presents to the emergency department with shortness of breath associated with generalized weakness. Patient reports symptom onset around 3 days ago with progressive worsening daily. He endorses shortness of breath with cough. He did note some productive cough with grayish blackish sputum production prior to arrival. Exertion worsens symptoms. Rest improves. He reportedly received 10 mg IV Cardizem by EMS after found to be in A-fib with RVR. In the emergency department, he was found to have atrial fibrillation with rapid ventricular rate. Checks x-ray obtained concerning for community-acquired pneumonia for which patient was started on antibiotics. Review of Systems 2 Narrative: A complete review of systems was obtained and is negative except as stated in HPI. Medications/Allergies Home Medications Medication Instructions Recorded Confirmed Last Taken Type dabigatran etexilate 150 mg 150 mg PO BID 08/11/19 07/03/24 09/21/23 History capsule (Pradaxa) famotidine 20 mg tablet 20 mg PO BID PRN Heartburn 08/12/19 07/03/24 02/01/22 History metoprolol tartrate 100 mg tablet 100 mg PO BID 08/12/19 07/03/24 09/25/23 History diltiazem HCl 120 mg 120 mg PO DAILY #90 tabs 12/08/21 07/03/24 09/24/23 Rx tablet,extended release 24 hr (Cardizem LA) ascorbic acid (vitamin C) 1,000 mg 1 cap PO DAILY 09/24/23 07/03/24 09/24/23 History capsule,extended release bisacodyl 5 mg tablet,delayed 5 mg PO DAILY PRN Constipation 09/24/23 07/03/24 Unknown History release (Dulcolax (bisacodyl)) calcium 600 mg (as 2 tab PO BEDTIME 09/24/23 07/03/24 09/24/23 History carbonate)-vitamin D3 5 mcg (200 unit) tablet cholecalciferol (vitamin D3) 25 25 mcg PO DAILY 09/24/23 07/03/24 09/24/23 History mcg (1,000 unit) capsule (Vitamin D3) docusate sodium 100 mg capsule 100 mg PO DAILY 09/24/23 07/03/24 09/24/23 History levothyroxine 150 mcg tablet 150 mcg PO DAILY 09/24/23 07/03/24 09/25/23 History metformin 1,000 mg tablet 1,000 mg PO DAILY 09/24/23 07/03/24 09/24/23 History tamsulosin 0.4 mg capsule 0.4 mg PO DAILY 09/24/23 07/03/24 09/24/23 History albuterol sulfate 90 mcg/actuation 2 puff inhalation Q6H PRN 10/18/23 07/03/24 Unknown Rx aerosol inhaler shortness of breath or wheezing #8.5 grams isosorbide mononitrate 30 mg 30 mg PO DAILY #30 tabs 11/23/23 07/03/24 Unknown Rx tablet,extended release 24 hr dorzolamide 2 % eye drops 1 drp ophthalmic (eye) TID 03/19/24 07/03/24 Unknown History multivitamin with iron 1 tab PO DAILY 03/19/24 07/03/24 Unknown History nitroglycerin 0.4 mg sublingual 0.4 mg sublingual Q5M PRN 03/19/24 07/03/24 Unknown History tablet tizanidine 4 mg capsule 4 mg PO BID PRN 03/19/24 07/03/24 Unknown History torsemide 20 mg tablet 20 mg PO DAILY 03/19/24 07/03/24 Unknown History zinc gluconate 50 mg tablet 50 mg PO DAILY 03/19/24 07/03/24 Unknown History temazepam 15 mg capsule 15 mg PO ONCE insomnia 1 month #30 04/02/24 07/03/24 Unknown Rx caps Walker #1 ea 05/22/24 07/03/24 Unknown Rx relugolix 120 mg tablet (Orgovyx) See Rx Instructions .Route 06/09/24 07/03/24 Unknown Rx .COMPLEX #90 tabs tramadol 50 mg tablet 50 mg PO Q6H PRN pain #120 tabs 06/09/24 07/03/24 Unknown Rx blood sugar diagnostic (Accu-Chek #100 ea 06/12/24 07/03/24 Unknown Rx Guide test strips) lancets (Accu-Chek Fastclix Lancet #102 ea 06/12/24 07/03/24 Unknown Rx Drum) Allergies Allergy/AdvReac Type Severity Reaction Status Date / Time amoxicillin [From Amoxil] Allergy na Verified 05/22/24 13:23 codeine Allergy na Verified 05/22/24 13:23 hydromorphone Allergy na Verified 05/22/24 13:23 penicillin G Allergy Unknown Verified 05/22/24 13:23 lisinopril AdvReac Intermediate cough Verified 05/22/24 13:23 PFSH Acute 2 PFSH: Medical History (Updated 07/06/24 @ 04:54 by Vasu Galvan MD) Asbestos exposure Pneumonia due to 2019 novel coronavirus Pyuria Metastatic castration-sensitive adenocarcinoma of prostate Prostate cancer History of colon polyps Pneumonia due to COVID-19 virus Coronary artery disease Elevated PSA Benign prostatic hyperplasia with lower urinary tract symptoms Thrombocytopenia SOBOE (shortness of breath on exertion) Essential hypertension Dyslipidemia Anticoagulation adequate with anticoagulant therapy Pradaxa Atrial fibrillation Diabetes Muscular dystrophy Cardiac pacemaker Medtronic single-chamber implant 05/18/2017 Surgical History History of back surgery S/P thyroidectomy S/P cholecystectomy Family History Mother , at age 88 CAD (coronary artery disease) Father , at age 84 Cancer BRAIN Sister Cancer COLON Social History Smoking and tobacco/nicotine status: unknown if used tobacco/nicotine Second hand smoke exposure: No Alcohol intake: never Substance/Drug Use: never Marital status: Current occupational status: retired Vitals/I&O/Wt Last Vital Signs Temp 98 F 07/06/24 00:18 Pulse 96 07/06/24 01:45 Resp 20 H 07/06/24 01:45 BP 148/97 07/06/24 01:30 Pulse Ox 91 07/06/24 01:45 O2 Del Method Nasal Cannula 07/06/24 00:18 O2 Flow Rate 4 07/06/24 00:18 07/05/24 07/05/24 07/06/24 14:59 22:59 06:59 Intake Total 500 / 500 Balance 500 / 500 Weight last 48 hrs Weight 92.986 kg Physical Exam 2 Narrative: General: Patient is awake. Conversational. Appears fatigued but pleasant. Head: Normocephalic. Atraumatic. EOM intact. Slightly hard of hearing Neck: No JVD. Cardiovascular: No gallops. No murmurs. Rhythm is irregular. Slightly tachycardic. Lungs: Bilateral rhonchi. Conversational dyspnea. Skin: No jaundice. No rashes. Abdomen: Normal bowel sounds, abdomen soft and nontender. Genito Urinary: Genital exam not performed since complaints not related. Rectal: Rectal exam not performed since no symptoms indicated blood loss. Extremities: No cyanosis or clubbing. Musculoskeletal:No swollen or erythematous joints. Neurological: Moves all 4 extremities. No myoclonus. Data 07/06/24 01:05 07/06/24 01:05 Micro: Microbiology 07/06/24 03:34 Blood Culture - Preliminary Blood SPECIMEN COLLECTED 07/06/24 03:15 Blood Culture - Preliminary Blood SPECIMEN COLLECTED A&P Assessment and plan (1) Community acquired pneumonia: Community-acquired pneumonia Start ceftriaxone azithromycin Check bacterial antigens Check procalcitonin Sputum culture Supportive care (2) Atrial fibrillation with RVR: Atrial fibrillation with RVR likely secondary to underlying pneumonia, unspecified type Received IV Cardizem prior to arrival Restart home metoprolol and Cardizem with dose now for rate control May need additional agents pending clinical course Continue home Pradaxa for stroke prophylaxis Continues telemetry monitoring Monitor electrolytes (3) Diabetes: Hold metformin Sliding-scale insulin correction Avoid hypoglycemia (4) Coronary artery disease: Will plan to continue home meds Qualifiers: Coronary Disease-Associated Artery/Lesion type: [place] artery [place] vs. transplanted heart: [place] heart Associated angina: without angina Qualified Code(s): I25.10 - Atherosclerotic heart disease of [place] coronary artery without angina pectoris (5) Hypothyroidism: Plan to continue home Synthroid after med list is updated (6) Prostate cancer: Follows with medical oncology Plan DVT prophylaxis: Pradaxa Attestations 2 Medical Necessity Statement*: Patient presents with shortness of breath and severe weakness, found to have pneumonia with A-fib with RVR with expected hospitalization not to cross 2 midnights for IV antibiotics, rate control, and supportive care. Coding Level of Care Code Acute Code for [facility] Diagnoses Community acquired pneumonia J18.9 Atrial fibrillation with RVR I48.91 Diabetes E11.9 Coronary artery disease involving [place] coronary artery of [place] heart without angina pectoris I25.10 Coronary Disease-Associated Artery/Lesion type: [place] artery [place] vs. transplanted heart: [place] heart Associated angina: without angina Hypothyroidism E03.9 Prostate cancer C61
[2024-07-06] MEDS: cefTRIAXone 1,000 mg SDV 1000 MG IVP (04:06)
[2024-07-06] MEDS: AZITHROMYCIN ADD-Vantage 500 MG in 0.9% NaCl ADD-Vantage 250 ML 250 MG IV (04:09)
--- NOTE | 2024-07-06 04:28 | ED_ITS ---
HPI - Arrhythmia/Palpitations 2 General: Chief Complaint: Arrhythmia/Palpitations Stated Complaint: AFIB RVR Time Seen by Provider: 07/06/24 00:23 Source: patient, family and EMS Mode of arrival: EMS Limitations: altered mental status History of Present Illness: Patient was in complaint of rapid heartbeat, shortness of breath. Appears to be in an irregularly irregular rhythm, reports he is normally just in regular irregularly rhythm. Given 10 of diltiazem by EMS and has improved some. He also reports some shortness of breath. Related Data Home Medications Medication Instructions Recorded Confirmed dabigatran etexilate 150 mg 150 mg PO BID 08/11/19 07/06/24 capsule (Pradaxa) metoprolol tartrate 100 mg tablet 100 mg PO BID 08/12/19 07/06/24 levothyroxine 150 mcg tablet 150 mcg PO DAILY 09/24/23 07/06/24 metformin 1,000 mg tablet 1,000 mg PO DAILY 09/24/23 07/06/24 tamsulosin 0.4 mg capsule 0.4 mg PO DAILY 09/24/23 07/06/24 nitroglycerin 0.4 mg sublingual 0.4 mg sublingual Q5M PRN Chest 03/19/24 07/06/24 tablet Pain torsemide 20 mg tablet 20 mg PO DAILY 03/19/24 07/06/24 gabapentin 100 mg capsule 200 mg PO QPM 07/06/24 07/06/24 relugolix 120 mg tablet (Orgovyx) 120 mg PO DAILY 07/06/24 07/06/24 vitamins A,C,E-gciv-segyab 4,296 1 cap PO BID 07/06/24 07/06/24 mcg-226 mg-90 mg capsule (PreserVision AREDS) Previous Rx's Medication Instructions Recorded diltiazem HCl 120 mg 120 mg PO DAILY #90 tabs 12/08/21 tablet,extended release 24 hr (Cardizem LA) albuterol sulfate 90 mcg/actuation 2 puff inhalation Q6H PRN 10/18/23 aerosol inhaler shortness of breath or wheezing #8.5 grams isosorbide mononitrate 30 mg 30 mg PO DAILY #30 tabs 11/23/23 tablet,extended release 24 hr temazepam 15 mg capsule 15 mg PO ONCE insomnia 1 month #30 04/02/24 caps tramadol 50 mg tablet 50 mg PO Q6H PRN pain #120 tabs 06/09/24 Allergies Allergy/AdvReac Type Severity Reaction Status Date / Time amoxicillin [From Amoxil] Allergy na Verified 05/22/24 13:23 codeine Allergy na Verified 05/22/24 13:23 hydromorphone Allergy na Verified 05/22/24 13:23 penicillin G Allergy Unknown Verified 05/22/24 13:23 lisinopril AdvReac Intermediate cough Verified 05/22/24 13:23 Review of Systems 2 General: Reports: 10 or more systems reviewed and unremarkable except in HPI and below PFSH ED 2 PFSH: Medical History (Updated 07/06/24 @ 16:58 by Santiago Alston DO) Asbestos exposure Pneumonia due to 2019 novel coronavirus Pyuria Metastatic castration-sensitive adenocarcinoma of prostate Prostate cancer History of colon polyps Pneumonia due to COVID-19 virus Coronary artery disease Elevated PSA Benign prostatic hyperplasia with lower urinary tract symptoms Thrombocytopenia SOBOE (shortness of breath on exertion) Essential hypertension Dyslipidemia Anticoagulation adequate with anticoagulant therapy Pradaxa Atrial fibrillation Diabetes Muscular dystrophy Cardiac pacemaker Medtronic single-chamber implant 05/18/2017 Surgical History History of back surgery S/P thyroidectomy S/P cholecystectomy Family History Mother , at age 88 CAD (coronary artery disease) Father , at age 84 Cancer BRAIN Sister Cancer COLON Social History Smoking and tobacco/nicotine status: unknown if used tobacco/nicotine Second hand smoke exposure: No Alcohol intake: never Substance/Drug Use: never Marital status: Current occupational status: retired Physical Exam 2 Const: COMMON NORMALS: no acute distress, average body habitus, patient oriented x3, healthy appearing, alert and well nourished GENERAL APPEARANCE: well kempt and well developed HENMT: COMMON NORMALS: normocephalic, atraumatic, external ears normal and moist oral mucous membranes HEAD & SCALP: normocephalic and atraumatic E XTERNAL EAR: Yes external ears normal Eye: COMMON NORMALS: Equal, round and reactive pupils present, EOMs intact bilaterally and conjunctivae normal CONJUNCTIVA: Yes conjunctivae normal P UPIL: Yes Equal, round and reactive pupils present Neck/C-Spine: COMMON NORMALS: full ROM, no lymphadenopathy and supple Chest: CHEST: Yes Symmetrical chest wall rise and No Surgical scars present (Chest) Resp: COMMON NORMALS: normal respiratory effort, No retractions, No use of accessory muscles and clear to auscultation bilaterally (Except left lower lobe rhonchi) AUSCULTATION: clear to auscultation bilaterally (Except left lower lobe rhonchi) Cardio: COMMON NORMALS: S1 normal heart sound present, S2 normal heart sound present, No gallops present (Cardio), No clicks present (Cardio), No murmurs present (Cardio) and No rub (Cardio) RATE: tachycardic RHYTHM: abnormal rhythm irregularly irregular HEART SOUNDS: S1 normal heart sound present, S2 normal heart sound present and no murmurs PERIPHERAL PULSES: other (Radial pulses 2+ and symmetric) GI: COMMON NORMALS: Soft to palpation, non-tender and no masses INSPECTION: No abdominal distension PALPATION: Yes Soft to palpation, No Guarding due to palpation present (GI) and No Rebound tenderness present : COMMON NORMALS: Yes no CVA tenderness BLADDER/KIDNEY EXAM: Yes no CVA tenderness Back/Pelvis: COMMON NORMALS: no CVA tenderness Extremity: COMMON NORMALS: normal to inspection, full ROM, capillary refill normal and no clubbing, cyanosis or edema Neuro: COMMON NORMALS: patient oriented x3 SENSORIUM/ORIENTATION: Yes alert Psych: APPEARANCE: Yes well kempt Skin: COMMON NORMALS: no rashes or lesions noted, no wounds, turgor normal and no jaundice GENERAL SKIN EXAM: no rashes or lesions noted and turgor normal Course 2 Vital Signs: Vital signs: Vital Signs Temperature 97.4 F L 07/07/24 03:59 Pulse Rate 96 07/07/24 03:59 Respiratory Rate 14 07/07/24 03:59 Blood Pressure 133/90 07/07/24 03:59 Pulse Oximetry 90 07/07/24 03:59 Oxygen Delivery Me thod Nasal Cannula 07/07/24 03:59 Oxygen Flow Rate 4.5 07/07/24 02:00 MDM - Arrhythmia/Palpitations Medical Decision Making X-ray shows bilateral pneumonia developing. White count currently normal. Chronic anemia. Electrolytes unremarkable. Requiring oxygen is on 4 L when he is normally on 0. Given the fact that patient is in A-fib RVR with pneumonia and acute hypoxic respite failure. He will be admitted to the hospitalist service. RVR has subsided since the Dilt from EMS and the treatment of his hypoxia. Differential Diagnosis Likely palpitations, anxiety, sinus tachycardia, artial fibrillation, ventricular premature beats and supraventricular tachycardia Medical Records I reviewed the patient's medical records. Lab Data I reviewed the patient's lab results. 07/07/24 04:18 07/07/24 04:18 Radiology Impressions Chest X-Ray 07/06/24 00:59 IMPRESSION: Patchy airspace disease bilaterally which may reflect subsegmental atelectasis, pulmonary edema or developing pneumonia. Laboratory Results WBC 8.49 10^3/uL (3.29-11.43) 07/06/24 01:05 RBC 2.92 10^6/uL (3.85-5.65) L 07/06/24 01:05 Hgb 9.20 g/dL (11.27-16.99) L 07/06/24 01:05 Hct 28.8 % (37-53) L 07/06/24 01:05 MCV 98.6 fl (82-101) 07/06/24 01:05 MCH 31.5 pg (27-33) 07/06/24 01:05 MCHC 31.9 g/dL (30-55) 07/06/24 01:05 RDW 13.7 % (12.1-15.1) 07/06/24 01:05 Plt Count 167 10^3/cmm (157-399) 07/06/24 01:05 MPV 9.5 fL (7.4-10.4) 07/06/24 01:05 Neut % (Auto) 88.1 % 07/06/24 01:05 Lymph % (Auto) 4.1 % 07/06/24 01:05 [place] % (Auto) 6.5 % 07/06/24 01:05 Eos % (Auto) 0.1 % 07/06/24 01:05 Baso % (Auto) 0.1 % 07/06/24 01:05 Neut # (Auto) 7.48 10^3/uL (1.8-7.7) 07/06/24 01:05 Lymph # (Auto) 0.4 10^3/uL (0.8-4.8) L 07/06/24 01:05 [place] # (Auto) 0.6 10^3/uL (0.2-0.9) 07/06/24 01:05 Eos # (Auto) 0.0 10^3/uL (0.0-0.8) 07/06/24 01:05 Baso # (Auto) 0.0 10^3/uL (0.0-0.1) 07/06/24 01:05 Nucleated RBC % (auto) 0 % 07/06/24 01:05 Nucleated RBCs # 0.0 /100WBC 07/06/24 01:05 PT 17.80 SECONDS (12.1-14.9) H 07/06/24 01:05 INR 1.37 (0.8-1.2) H 07/06/24 01:05 APTT 65.5 SECONDS (23.9-36.7) H 07/06/24 01:05 Sodium 134 mmol/L (136-145) L 07/06/24 01:05 Potassium 4.0 mmol/L (3.5-5.1) 07/06/24 01:05 Chloride 94 mmol/L (98-107) L 07/06/24 01:05 Carbon Dioxide 25 mmol/L (22-29) 07/06/24 01:05 Anion Gap 19.0 (5-19) 07/06/24 01:05 BUN 30 mg/dL (8-23) H 07/06/24 01:05 Creatinine 1.0 mg/dL (0.7-1.2) 07/06/24 01:05 GFR Calculation Not Reportable 07/06/24 01:05 Glucose 210 mg/dL (65-115) H 07/06/24 01:05 Calculated Osmolality 290 mOsm/kg (285-295) 07/06/24 01:05 Calcium 9.2 mg/dL (8.5-10.5) 07/06/24 01:05 Total Bilirubin 1.4 mg/dL (0.15-1.2) H 07/06/24 01:05 AST 22 U/L (0-40) 07/06/24 01:05 ALT 21 U/L (0-41) 07/06/24 01:05 Alkaline Phosphatase 102 U/L (40-130) 07/06/24 01:05 Troponin T Baseline 51 ng/L (0-15) H 07/06/24 01:05 Troponin T 120 Minute 47.80 ng/L (0-15) H 07/06/24 03:15 Delta Troponin T -3.20 ABS# (0-10) L 07/06/24 03:15 NT-Pro-B Natriuret Pep 6159 pg/mL (0-450) H 07/06/24 01:05 Total Protein 6.1 g/dL (6.6-8.7) L 07/06/24 01:05 Albumin 3.9 g/dL (3.5-5.2) 07/06/24 01:05 Globulin 2.2 g/dL (1.3-4.6) 07/06/24 01:05 Procalcitonin 1.50 ng/mL (0-0.5) H 07/06/24 01:05 All radiology interpretation(s) finalized by discharge ED provider radiology interpretation(s): X-ray with scattered infiltrates Critical Care Time 2 Critical Care Time: Critical Care Time: Yes Total Critical Care Time: 32 Attestation: Exclusive of other billable procedures. Composed of bedside counseling, bedside examination and treatment, documentation, discussion with other physicians. Discussion with staff. Discharge Plan Discharge Patient Disposition: Admitted As Inpatient Admit Provider: Vasu Galvan Clinical Impression: Atrial fibrillation with RVR, Acute hypoxic respiratory failure Pneumonia Qualifiers: Pneumonia type: due to unspecified organism Laterality: bilateral Lung location: lower lobe of lung Qualified Code(s): J18.9 - Pneumonia, unspecified organism Condition: Stable Coding Level of Care Code ED Review Appraiser for Dania Sibley
[2024-07-06 04:38] LABS: Bilirubin Urine Negative (Negative); Blood Urine Negative (Negative); Glucose Urine UA Negative (Normal); Ketones Urine Trace (Negative); Leukocyte Esterase Urine Negative (Negative); Nitrate Urine Negative (Negative); Protein Urine 2+ (Negative); Specific Gravity, Urine 1.025 (1.005-1.030); Urine Appearance Clear (CLEAR); Urine Color Yellow (Yellow)
[2024-07-06 04:43] LABS: Add Urine Microscopic? YES; Bacteria Urine None Seen /hpf; Hyaline Casts Urine 2.46 /lpf; RBC Urine 0-2 /hpf (0-2); Squamous Epithelial Cell Urine 0-5 /hpf (0-5); WBC Urine 0-5 /hpf (0-5)
[2024-07-06 06:44] LABS: Glucose Point of Care 231 mg/dL (70-110)
[2024-07-06] MEDS: ipratropium-albuterol 3 mL Neb INHALATION ×3 (07:41→21:09)
[2024-07-06 07:47] LABS: Troponin 5 6HR 38.59 ng/L (0-15)
--- NOTE | 2024-07-06 07:47 | PC.PHAR ---
[facility] but patient brought all meds with them to hospital. went over meds in room
[2024-07-06 07:49] LABS: Troponin 5 6HR Delta -12.41 ng/L (0-12)
[2024-07-06] MEDS: insulin lispro 100 unit/1 mL SUBCUT ×4 (08:32→21:13)
[2024-07-06] MEDS: metoprolol tartrate 50 mg Tablet 100 MG PO ×2 (08:33→17:43)
[2024-07-06] MEDS: dilTIAZem ER (24HR) 120 mg Capsule PO (08:33)
--- NOTE | 2024-07-06 09:14 | PC.NURSE ---
report received from Yumiko CLARK
--- NOTE | 2024-07-06 11:11 | P.PN_ITS ---
Subjective 2 Subjective: Admitted early this morning. Feeling a little better. Did not take his home medications since yesterday and has questions about these. Medications: Reviewed: Yes Vitals/I&O/Wt Last Vital Signs Temp 97.5 F L 07/06/24 08:28 Pulse 112 H 07/06/24 08:28 Resp 16 07/06/24 08:28 BP 132/72 07/06/24 08:28 Pulse Ox 92 07/06/24 08:28 O2 Del Method Nasal Cannula 07/06/24 08:28 O2 Flow Rate 4 07/06/24 08:28 07/05/24 07/06/24 07/06/24 22:59 06:59 14:59 Intake Total 1750 / 1750 240 / 240 Balance 1750 / 1750 240 / 240 Weight last 48 hrs Weight 205 lb Weight 205 lb Physical Exam 2 Narrative: General: Ill appearing. sleeping on admission. HEENT: Normocephalic, Atraumatic. External ears normal. Nasal passages patent without drainage. MMM. Heart: RRR. Resp: Scattered fine rales and wheezes. Abd: Soft, non-tender. Non-distended. Extremities: No edema. Skin: No rash or lesions on exposed areas. Neuro: No focal motor or sensory loss. Data 07/06/24 01:05 07/06/24 01:05 Micro: Microbiology 07/06/24 03:34 Blood Culture - Preliminary Blood SPECIMEN COLLECTED 07/06/24 03:15 Blood Culture - Preliminary Blood SPECIMEN COLLECTED A&P Assessment and plan (1) Community acquired pneumonia: Qualifiers: Lung location: unspecified part of lung (2) Atrial fibrillation with RVR: (3) Diabetes: Qualifiers: Diabetes mellitus type: type 2 Diabetes mellitus [facility] insulin use: with termite control servicer use Diabetes mellitus complication status: without complication Qualified Code(s): E11.9 - Type 2 diabetes mellitus without complications; Z79.4 - buttermaker continuous churn (current) use of insulin (4) Coronary artery disease: Qualifiers: Coronary Disease-Associated Artery/Lesion type: [place] artery [place] vs. transplanted heart: [place] heart Associated angina: without angina Qualified Code(s): I25.10 - Atherosclerotic heart disease of [place] coronary artery without angina pectoris (5) Hypothyroidism: (6) Prostate cancer: Plan 79 y/o M admitted for CAP, afib with RVR and anemia. Continue close inpatient monitoring. Atrial fibrillation with RVR likely secondary to underlying pneumonia, unspecified type Received IV Cardizem prior to arrival. Continue metoprolol and Cardizem. CXR shows likely pneumonia. Continue Rocephin and Azithromycin. Received dose of steroids in ER. WBC count is normal. Hgb at 9.2 currently. Na mildly low, but likey pseudo given his glucose elevation to 277. Recheck his CBC and will monitor normocytic anemia for now as may be related to cancer or chronic disease. Bili is at 1.4. Recheck in morning. Continue home Pradaxa for stroke prophylaxis. Continue telemetry monitoring Prostate cancer followed by oncology. Restarted levothyroxine for hypothyroidism. Code Status: Full IVF: none DVT PPx: Pradaxa GI PPx: None ABx: Ceftriaxone Diet: Low Na Diet. Discharge plan: Home when stable. Attestations 2 Medical Necessity Statement*: Will need ongoing hospital stay for treatment of pneumonia, a-fib with RVR, anemia management of acute BP and diabetes control during illness. Coding Level of Care Code Acute Code for Chg Fwd Moderate MDM includes number and complexity of problems actively addressed during encounter, amount and/or complexity of data reviewed/ordered and described risk of complication, morbidity or mortality of management as documented Diagnoses Community acquired pneumonia J18.9 Lung location: unspecified part of lung Atrial fibrillation with RVR I48.91 Type 2 diabetes mellitus without complication, with long-term current use of insulin E11.9; Z79.4 Diabetes mellitus type: type 2 Diabetes mellitus [facility] insulin use: with termite control servicer use Diabetes mellitus complication status: without complication Coronary artery disease involving [place] coronary artery of [place] heart without angina pectoris I25.10 Coronary Disease-Associated Artery/Lesion type: [place] artery [place] vs. transplanted heart: [place] heart Associated angina: without angina Hypothyroidism E03.9 Prostate cancer C61
[2024-07-06 11:43] LABS: Glucose Point of Care 349 mg/dL (70-110)
[2024-07-06 16:39] LABS: Glucose Point of Care 277 mg/dL (70-110)
[2024-07-06] MEDS: gabapentin 100 mg Capsule 200 MG PO (17:46)
[2024-07-06 20:54] LABS: Glucose Point of Care 221 mg/dL (70-110)
[2024-07-06] MEDS: temazepam 15 mg Capsule PO (22:09)
[2024-07-07] VITALS (13 sets, daily range): BP systolic 133–166; BP diastolic 78–90; PULSE 81–117; RESP 14–20; TEMP 36.3–36.5; O2SAT 90–94
[2024-07-07] MEDS: cefTRIAXone 1,000 mg SDV 1000 MG IVP (02:47)
[2024-07-07] MEDS: AZITHROMYCIN ADD-Vantage 500 MG in 0.9% NaCl ADD-Vantage 250 ML 250 MG IV (02:58)
[2024-07-07 04:34] LABS: Basophils % 0.1 %; Lymphocytes # 0.4 10^3/uL (0.8-4.8); Lymphocytes % 3.7 %; Mean Corpuscular Hemoglobin 31.3 pg (27-33); Mean Corpuscular Volume 100.7 fl (82-101); Monocytes # 0.5 10^3/uL (0.2-0.9); Monocytes % 4.8 %; Neutrophils # 8.49 10^3/uL (1.8-7.7); Neutrophils % 89.7 %; Nucleated Red Blood Cells % 0 %; Platelet Count 157 10^3/cmm (157-399); Red Blood Count 2.88 10^6/uL (3.85-5.65); Red Cell Distribution Width 13.6 % (12.1-15.1); White Blood Count 9.46 10^3/uL (3.29-11.43)
[2024-07-07] MEDS: ipratropium-albuterol 3 mL Neb INHALATION ×3 (04:34→19:45)
[2024-07-07 05:00] LABS: Anion Gap 16.6 (5-19); Blood Urea Nitrogen 26 mg/dL (8-23); Calcium 8.9 mg/dL (8.5-10.5); Carbon Dioxide 24 mmol/L (22-29); Chloride 100 mmol/L (98-107); Creatinine Clr Calc Pharmacy 84.3692; Glucose 163 mg/dL (65-115); Magnesium 1.8 mg/dL (1.7-2.3); Osmolality Calculated 290 mOsm/kg (285-295); Potassium 4.6 mmol/L (3.5-5.1); Sodium 136 mmol/L (136-145)
[2024-07-07 06:47] LABS: Glucose Point of Care 178 mg/dL (70-110)
[2024-07-07] MEDS: insulin lispro 100 unit/1 mL SUBCUT ×4 (08:17→21:19)
[2024-07-07] MEDS: levothyroxine 150 mcg Tablet PO (08:18)
[2024-07-07] MEDS: dilTIAZem ER (24HR) 120 mg Capsule PO (08:19)
[2024-07-07] MEDS: tamsulosin 0.4 mg Capsule PO (08:19)
[2024-07-07] MEDS: isosorbide mononitrate ER 30 mg Tablet PO (08:19)
[2024-07-07] MEDS: metoprolol tartrate 50 mg Tablet 100 MG PO ×2 (08:19→17:37)
--- NOTE | 2024-07-07 09:19 | PC.CHAP ---
Pastoral Care Encounter/Spiritual Assessment Type of Contact [] Declined nursing informatics clinical analyst visit [] Patient/Family/Request visit [] Outpatient visit [] Follow-up visit [] Physician referral [] Code/Alert [x] Routine visit [] Staff referral [] Actively dying [] Patient sleeping [] Family support [] [] Out of room [] Palliative care [] [x] Receiving care in room [] Pre-surgical visit [] Trauma [] Long length of stay [] ICU visit [] Other: Relational/Emotional Strength [] Patient feels connected with others/family/visitors/staff [] Distress [] Loneliness/isolation [] Abandonment Spirituality of Patient [] Person of [place]an [] Attends Sikhism of their [place] [] Believes in Prayer [] Reads Bible or Shinto materials [] There are Spiritual issues to be addressed [employer] Molder Interventions [] Prayer [] Active listening [] Non-anxious presence [] Spiritual/emotional support [] Crisis/trauma care [] Spiritual counseling [] Bereavement support [] Provided bereavement packet [] Provided Bible/devotional materials [] Provided toy/stuffed animal, coloring book to patient or family member [] Provided Communion [] Anointing/[place] [] Salvation [] Completed spiritual assessment [] Other: Impact on Illness or Injury [] Angry [] Fearful [] Anxious [] Often cries [] Exhaustion [] Unable to work [] Unable to attend mu-ism [] Unable to walk/stand [] Unable to read [] Unable to drive [] Unable to eat/drink [] Unable to sleep [] Unable to be with family [] Patient intubated [] Other: Summary Time spent with patient
[2024-07-07 12:15] LABS: Glucose Point of Care 255 mg/dL (70-110)
[2024-07-07] MEDS: FUROsemide 10 mg/mL SDV 4mL 40 MG IVP (13:56)
[2024-07-07 14:18] LABS: Free T4 Free Thyroxine 0.88 ng/dL (0.82-1.77); T3 Free 1.2 PG/ML (2.0-4.4); Thyroid Stimulating Hormone 5.74 uIU/mL (0.27-4.20)
[2024-07-07 14:54] LABS: D Dimer 0.41 ug/mLFEU (0-0.59)
[2024-07-07 15:35] LABS: MRSA PCR OZH (swab) NOT DETECTED (Negative)
--- NOTE | 2024-07-07 15:56 | CTR_ITS ---
PROCEDURE INFORMATION: Exam: CT Chest Without Contrast; Diagnostic Exam date and time: 07/07/2024 8:31 PM Age: 79 years old Clinical indication: Other: Respiratory failure; Prior surgery; Surgery date: 6+ months; Surgery type: Soft tissue mass near sternum and thyroid in 2003 TECHNIQUE: Imaging protocol: Diagnostic computed tomography of the chest without contrast. Radiation optimization: All CT scans at this facility use at least one of these dose optimization techniques: automated exposure control; mA and/or kV adjustment per patient size (includes targeted exams where dose is matched to clinical indication); or iterative reconstruction. COMPARISON: CT chest abdpel w/*[id number] 02/06/2024 12:23 PM RADIATION DOSE METRICS: Total DLP (mGy-cm): 593.87 FINDINGS: Lungs: Significant progression in the peribronchovascular ground-glass opacities when compared to the prior examination of 02/06/2024. Differential is broad but would certainly include an organizing pneumonia. Left pleural effusion has increased slightly compared to the prior study with adjacent compressive atelectasis. Heart is normal in size. Small right effusion is new. Pacemaker again noted. Pleural spaces: See Lungs finding. Heart: Heart is normal in size. Lymph nodes: Shotty mediastinal nodes are similar to prior. Vasculature: Unremarkable. No aortic aneurysm. Bones/joints: Unremarkable. No acute fracture. Soft tissues: Unremarkable. CT/CT chest con [id number] IMPRESSION: Increased peribronchovascular ground-glass opacities, possibly an organizing pneumonia. Increased bilateral effusions. No lobar consolidation.
--- NOTE | 2024-07-07 15:58 | P.PN_ITS ---
Subjective 2 Subjective: Hospital course, labs appreciated. Examination patient sitting up in recliner. Family at bedside. Currently on 4 to 5 L of oxygen supplementation. Complaining of difficulty in breathing on minimal exertion. Medications: Reviewed: Yes Vitals/I&O/Wt Last Vital Signs Temp 97.6 F 07/07/24 12:00 Pulse 87 07/07/24 14:22 Resp 20 H 07/07/24 14:00 BP 149/90 07/07/24 12:00 Pulse Ox 94 07/07/24 14:00 O2 Del Method Nasal Cannula 07/07/24 14:00 O2 Flow Rate 4 07/07/24 14:00 07/07/24 07/07/24 07/07/24 06:59 14:59 22:59 Intake Total 250 / 1330 40 / 40 Balance 250 / 1330 40 / 40 Weight last 48 hrs Weight 99.609 kg Weight 99.609 kg Weight 92.986 kg Weight 92.986 kg Physical Exam 2 Narrative: General: Ill appearing. AOx3, nasal cannula HEENT: Normocephalic, Atraumatic. External ears normal. Nasal passages patent without drainage. MMM. Heart: Irregularly irregular, pansystolic murmur in fourth intercostal space. Resp: Bronchial breath sounds over lung calderón with occasional rhonchi scattered all over lung calderón Abd: Soft, non-tender. Non-distended. Extremities: No edema. Skin: No rash or lesions on exposed areas. Neuro: No focal motor or sensory loss. Data 07/07/24 04:18 07/07/24 04:18 Micro: Microbiology 07/07/24 08:24 Gram Stain - Final Sputum - Expectorated Sputum 07/06/24 03:34 Blood Culture - Preliminary Blood NEGATIVE TO DATE 07/06/24 03:15 Blood Culture - Preliminary Blood NEGATIVE TO DATE 07/06/24 09:20 Bacterial Antigens - Final Urine,Voided A&P Assessment and plan (1) Hypoxic respiratory failure: Oxygen supplementation keeping saturation over 90%. If needed will transition over to heated high flow. Pulmicort twice daily, DuoNeb every 6 hour. Solu-Medrol 125 mg stat followed by 40 mg Q6 hourly. Check D-dimer. Appreciate proBNP. Echocardiogram from September 2023 shows Normal EF, dilated LA, mild MR, pulmonary hypertension with RVSP of 35 to 40 mmHg. IV Lasix 40 mg one-time. Strict and proper charting, daily weights. Depending on D-dimer will plan for CTA versus CT chest. (2) Community acquired pneumonia: Check respiratory viral panel, MRSA swab. COVID-19, flu antigen negative. For now continue with azithromycin and IV ceftriaxone. Follow-up blood culture, sputum culture. Bacterial antigen negative. If MRSA swab is positive will add vancomycin. Qualifiers: Lung location: unspecified part of lung (3) Atrial fibrillation with RVR: Currently rate controlled. Continue with home dose of Cardizem, metoprolol. Continue with home dose of dabigatran. (4) Diabetes: Appreciate recent A1c. Takes metformin 1000 mg twice. Continue on sliding scale for now. Starting on steroids as above. Daily Qualifiers: Diabetes mellitus type: type 2 Diabetes mellitus lobsterman insulin use: with lobsterman use Diabetes mellitus complication status: without complication Qualified Code(s): E11.9 - Type 2 diabetes mellitus without complications; Z79.4 - terminal makeup operator (current) use of insulin (5) Coronary artery disease: No active chest pain. History of CAD. Appreciate recent myocardial perfusion scan. Troponin cycled downtrending yesterday. Check troponin one-time. Appreciate A1c, lipid panel. Qualifiers: Coronary Disease-Associated Artery/Lesion type: [place] artery [place] vs. transplanted heart: [place] heart Associated angina: without angina Qualified Code(s): I25.10 - Atherosclerotic heart disease of [place] coronary artery without angina pectoris (6) Hypothyroidism: Appreciate recent elevated TSH. Repeat thyroid profile. Continue with home dose of levothyroxine for now. (7) Essential hypertension: Goal blood pressure less than 140/90 mmHg. Continue with home dose of Cardizem, Imdur, metoprolol. Uptitrate as for goal blood pressure. 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 Discharge plan: Home when stable. Will need home O2 evaluation prior to discharge Attestations 2 Medical Necessity Statement*: Requires further hospitalization for management of hypoxic respiratory failure in setting of community-acquired pneumonia while viral infection is ruled out in a patient with history of A-fib, CAD Diagnoses Hypoxic respiratory failure J96.91 Community acquired pneumonia J18.9 Lung location: unspecified part of lung Atrial fibrillation with RVR I48.91 Type 2 diabetes mellitus without complication, with long-term current use of insulin E11.9; Z79.4 Diabetes mellitus type: type 2 Diabetes mellitus lobsterman insulin use: with lobsterman use Diabetes mellitus complication status: without complication Coronary artery disease involving [place] coronary artery of [place] heart without angina pectoris I25.10 Coronary Disease-Associated Artery/Lesion type: [place] artery [place] vs. transplanted heart: [place] heart Associated angina: without angina Hypothyroidism E03.9 Essential hypertension I10 Cardiac pacemaker Z95.0 Anticoagulation adequate with anticoagulant therapy Z79.01 Metastatic castration-sensitive adenocarcinoma of prostate C61; Z19.1
[2024-07-07 16:49] LABS: Glucose Point of Care 194 mg/dL (70-110)
[2024-07-07] MEDS: pantoprazole 40 mg SDV IVP (17:01)
[2024-07-07] MEDS: methylPREDNISolone sod succ 125 mg/2 mL INJ IVP (17:01)
--- NOTE | 2024-07-07 17:15 | ECG_ITS ---
[facility] Date: 2024-07-07 Pat Name: Yan Alonso Department: Room: 273 Gender: Male Circular Stuffer: : 1945 Requested By: Tim Conner Order Number: [id number] Reading MD: CELIO ENGLISH Measurements Intervals [place] Rate: 129 P: 0 MN: 0 QRS: -30 QRSD: 106 T: 72 QT: 322 QTc: 472 Interpretive Statements ATRIAL FIBRILLATION WITH RAPID VENTRICULAR RESPONSE SEPTAL MYOCARDIAL INFARCTION , OF INDETERMINATE AGE [40+ ms Q WAVE IN V1/V2] Compared to ECG 07/06/2024 00:28:49 Left-axis deviation no longer present Myocardial infarct finding still present Electronically Signed On 07-07-2024 23:19:05 MANAGER LAB by CELIO ENGLISH [email or web address]
[2024-07-07] MEDS: gabapentin 100 mg Capsule 200 MG PO (17:36)
[2024-07-07 17:44] LABS: Troponin T (5th) Once 43 ng/L (0-15)
[2024-07-07 18:47] LABS: Adenovirus Not Detected (NOT DETECT); Chlamydia Pneumoniae Not Detected (NOT DETECT); Coronavirus 229E,HKU1,NL63,OC4 Not Detected (NOT DETECT); Human Metapneumovirus Not Detected (NOT DETECT); Human Rhinovirus/Enterovirus Not Detected (NOT DETECT); Influenza A Not Detected (NOT DETECT); Influenza A H1 Not Detected (NOT DETECT); Influenza A H1-2009 Not Detected (NOT DETECT); Influenza A H3 Not Detected (NOT DETECT); Influenza B Not Detected (NOT DETECT); Mycoplasma Pneumoniae Not Detected (NOT DETECT); Parainfluenza Virus Type 1 Not Detected (NOT DETECT); Parainfluenza Virus Type 2 Not Detected (NOT DETECT); Parainfluenza Virus Type 3 Not Detected (NOT DETECT); Parainfluenza Virus Type 4 Not Detected (NOT DETECT); Respiratory Syncytial Virus A Not Detected (NOT DETECT); Respiratory Syncytial Virus B Not Detected (NOT DETECT); SARS-COV-2 Not Detected (NOT DETECT)
[2024-07-07] MEDS: budesonide 0.5 mg/2 mL Neb INHALATION (19:45)
[2024-07-07 20:50] LABS: Glucose Point of Care 359 mg/dL (70-110)
[2024-07-07] MEDS: methylPREDNISolone sod succ 40 mg/mL INJ IVP (21:20)
[2024-07-07] MEDS: temazepam 15 mg Capsule PO (22:23)
[2024-07-08] VITALS (16 sets, daily range): BP systolic 122–177; BP diastolic 80–104; PULSE 76–126; RESP 17–18; TEMP 36.3–36.6; O2SAT 91–96
[2024-07-08] MEDS: AZITHROMYCIN ADD-Vantage 500 MG in 0.9% NaCl ADD-Vantage 250 ML 250 MG IV (02:35)
[2024-07-08] MEDS: cefTRIAXone 1,000 mg SDV 1000 MG IVP (02:36)
[2024-07-08] MEDS: ipratropium-albuterol 3 mL Neb INHALATION ×3 (03:00→14:02)
[2024-07-08] MEDS: methylPREDNISolone sod succ 40 mg/mL INJ IVP ×4 (03:51→21:28)
[2024-07-08 06:10] LABS: Basophils % 0.2 %; Lymphocytes # 0.3 10^3/uL (0.8-4.8); Lymphocytes % 5.1 %; Mean Corpuscular HGB Conc 32.3 g/dL (30-55); Mean Corpuscular Hemoglobin 31.3 pg (27-33); Mean Corpuscular Volume 96.8 fl (82-101); Monocytes # 0.1 10^3/uL (0.2-0.9); Monocytes % 1.8 %; Neutrophils # 5.73 10^3/uL (1.8-7.7); Neutrophils % 91.5 %; Nucleated Red Blood Cells % 0 %; Platelet Count 200 10^3/cmm (157-399); Red Cell Distribution Width 13.7 % (12.1-15.1); White Blood Count 6.26 10^3/uL (3.29-11.43)
[2024-07-08 06:25] LABS: Glucose Point of Care 275 mg/dL (70-110)
[2024-07-08 06:28] LABS: Alanine Aminotransferase 111 U/L (0-41); Albumin Level 3.6 g/dL (3.5-5.2); Alkaline Phosphatase 101 U/L (40-130); Anion Gap 20.1 (5-19); Aspartate Amino Transferase 71 U/L (0-40); Blood Urea Nitrogen 26 mg/dL (8-23); Calcium 8.8 mg/dL (8.5-10.5); Carbon Dioxide 25 mmol/L (22-29); Chloride 96 mmol/L (98-107); Creatinine Clr Calc Pharmacy 77.1452; Glucose 241 mg/dL (65-115); Osmolality Calculated 297 mOsm/kg (285-295); Potassium 4.1 mmol/L (3.5-5.1); Sodium 137 mmol/L (136-145); Total Bilirubin 0.6 mg/dL (0.15-1.2); Total Protein 6.6 g/dL (6.6-8.7)
[2024-07-08] MEDS: tamsulosin 0.4 mg Capsule PO (09:04)
[2024-07-08] MEDS: metoprolol tartrate 50 mg Tablet 100 MG PO ×2 (09:04→16:59)
[2024-07-08] MEDS: levothyroxine 150 mcg Tablet PO (09:05)
[2024-07-08] MEDS: dilTIAZem 5 mg/mL SDV 5 mL 10 MG IVP (09:05)
[2024-07-08] MEDS: isosorbide mononitrate ER 30 mg Tablet PO (09:05)
[2024-07-08] MEDS: meropenem 1,000 mg SDV 1000 MG IVP ×2 (09:05→16:42)
[2024-07-08] MEDS: insulin lispro 100 unit/1 mL SUBCUT ×4 (09:06→21:29)
[2024-07-08] MEDS: pantoprazole 40 mg SDV IVP (09:07)
[2024-07-08] MEDS: budesonide 0.5 mg/2 mL Neb INHALATION ×2 (09:18→19:57)
--- NOTE | 2024-07-08 10:13 | PC.CHAP ---
Pastoral Care Encounter/Spiritual Assessment Type of Contact [] Declined junior high math teacher visit [] Patient/Family/Request visit [] Outpatient visit [] Follow-up visit [] Physician referral [] Code/Alert [x] Routine visit [] Staff referral [] Actively dying [] Patient sleeping [x] Family support [] [] Out of room [] Palliative care [] [x] Receiving care in room [] Pre-surgical visit [] Trauma [] Long length of stay [] ICU visit [] Other: Relational/Emotional Strength [x] Patient feels connected with others/family/visitors/staff [] Distress [] Loneliness/isolation [] Abandonment Spirituality of Patient [x] Person of Rowan [] Attends Restoration of their [place]an [x] Believes in Prayer [] Reads Bible or Anglican materials [] There are Spiritual issues to be addressed Rv Body Mechanic Interventions [x] Prayer [x] Active listening [x] Non-anxious presence [x] Spiritual/emotional support [] Crisis/trauma care [] Spiritual counseling [] Bereavement support [] Provided bereavement packet [] Provided Bible/devotional materials [] Provided toy/stuffed animal, coloring book to patient or family member [] Provided Communion [] Anointing/[place] [] Salvation [x] Completed spiritual assessment [] Other: Impact on Illness or Injury [] Angry [] Fearful [] Anxious [] Often cries [] Exhaustion [] Unable to work [] Unable to attend congregation [] Unable to walk/stand [] Unable to read [] Unable to drive [] Unable to eat/drink [] Unable to sleep [] Unable to be with family [] Patient intubated [] Other: Summary Time spent with patient 5 min
[2024-07-08] MEDS: TRAMadol 50 mg Tablet PO (11:16)
[2024-07-08] MEDS: dilTIAZem 60 mg Tablet PO ×3 (11:17→21:28)
[2024-07-08] MEDS: FUROsemide 10 mg/mL SDV 4mL 40 MG IVP (11:17)
[2024-07-08 11:27] LABS: Glucose Point of Care 318 mg/dL (70-110)
--- NOTE | 2024-07-08 14:32 | PM.PN ---
Subjective Subjective: Today morning seen with daughter at bedside. Patient having episodes of A-fib with RVR both at rest on exertion. He states his breathing is slightly better. Currently on 4 L of oxygen supplementation. Complaining of pain in his leg which seems to be chronic for which she is probably following up with neurosurgeon as an outpatient. Medications: Reviewed: Yes Vitals/I&O/Wt Last Vital Signs Temp 97.4 F L 07/08/24 11:30 Pulse 97 07/08/24 14:04 Resp 18 07/08/24 14:04 BP 148/80 07/08/24 11:30 Pulse Ox 95 07/08/24 14:04 O2 Del Method Nasal Cannula 07/08/24 14:04 O2 Flow Rate 4 07/08/24 14:04 07/07/24 07/08/24 07/08/24 22:59 06:59 14:59 Intake Total 700 / 740 800 / 1540 720 / 720 Output Total 500 / 500 625 / 1125 1350 / 1350 Balance 200 / 240 175 / 415 -630 / -630 Weight last 48 hrs Weight 98.792 kg Weight 99.609 kg Weight 99.609 kg Physical Exam Narrative: General: Ill appearing. AOx3, nasal cannula HEENT: Normocephalic, Atraumatic. External ears normal. Nasal passages patent without drainage. MMM. Heart: Irregularly irregular, pansystolic murmur in fourth intercostal space. Resp: Bronchial breath sounds over lung calderón with occasional rhonchi scattered all over lung calderón Abd: Soft, non-tender. Non-distended. Extremities: No edema. Skin: No rash or lesions on exposed areas. Neuro: No focal motor or sensory loss. Data 07/08/24 05:21 07/08/24 05:21 Micro: Microbiology 07/07/24 08:24 Gram Stain - Final Sputum - Expectorated Sputum Sputum Culture - Preliminary A&P Assessment and plan (1) Hypoxic respiratory failure: Oxygen supplementation keeping saturation over 90%. If needed will transition over to heated high flow. Pulmicort twice daily, ipratropium and Xopenex every 6 hour. Switching from DuoNeb given tachycardia Solu-Medrol 40 mg Q6 hourly. D-dimer negative. Appreciate CT chest concerning for bilateral pneumonia Echocardiogram from September 2023 shows Normal EF, dilated LA, mild MR, pulmonary hypertension with RVSP of 35 to 40 mmHg. Repeat IV Lasix 40 mg one-time. Strict and proper charting, daily weights. (2) Community acquired pneumonia: Negative respiratory viral panel, MRSA swab. Repeat procalcitonin. Patient has finished 3-day course of azithromycin. Given significant pneumonia for now we will switch from ceftriaxone to IV meropenem. Patient is allergic to penicillin. Follow-up sputum culture. Bacterial antigen negative. Qualifiers: Lung location: unspecified part of lung (3) Atrial fibrillation with RVR: Currently in RVR. Increase Cardizem to 60 mg 4 times daily. Continue with home dose of metoprolol. If needed will add amiodarone drip. Continue with home dose of dabigatran. (4) Diabetes: Appreciate recent A1c. Takes metformin 1000 mg twice. Blood sugars elevated most likely in setting of steroids. Add Lantus 10 units nightly. Continue on sliding scale for now. Qualifiers: Diabetes mellitus type: type 2 Diabetes mellitus senior living insulin use: with supervisor intermediates use Diabetes mellitus complication status: without complication Qualified Code(s): E11.9 - Type 2 diabetes mellitus without complications; Z79.4 - USP (current) use of insulin (5) Coronary artery disease: No active chest pain. History of CAD. Appreciate recent myocardial perfusion scan. Appreciate troponin cycled. Appreciate A1c, lipid panel. Qualifiers: Coronary Disease-Associated Artery/Lesion type: [place] artery [place] vs. transplanted heart: [place] heart Associated angina: without angina Qualified Code(s): I25.10 - Atherosclerotic heart disease of [place] coronary artery without angina pectoris (6) Hypothyroidism: Continue with home dose of levothyroxine for now. (7) Essential hypertension: Goal blood pressure less than 140/90 mmHg. Continue with home dose of Cardizem, Imdur, metoprolol. Uptitrate as for goal blood pressure. 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 Continue with home dose of tramadol. Change gabapentin 200 mg 3 times daily. Code Status: Full IVF: none DVT PPx: Pradaxa GI PPx: Protonix, ABx: Ceftriaxone, azithromycin Diet: Low Na Diet. Discharge plan: Home when stable. Will need home O2 evaluation prior to discharge Attestations Medical Necessity Statement*: Requires further hospitalization for management of hypoxic respiratory failure in setting of bilateral pneumonia, A-fib with RVR Diagnoses Hypoxic respiratory failure J96.91 Community acquired pneumonia J18.9 Lung location: unspecified part of lung Atrial fibrillation with RVR I48.91 Type 2 diabetes mellitus without complication, with long-term current use of insulin E11.9; Z79.4 Diabetes mellitus type: type 2 Diabetes mellitus supervisor intermediates insulin use: with senior living use Diabetes mellitus complication status: without complication Coronary artery disease involving [place] coronary artery of [place] heart without angina pectoris I25.10 Coronary Disease-Associated Artery/Lesion type: [place] artery [place] vs. transplanted heart: [place] heart Associated angina: without angina Hypothyroidism E03.9 Essential hypertension I10 Cardiac pacemaker Z95.0 Anticoagulation adequate with anticoagulant therapy Z79.01 Metastatic castration-sensitive adenocarcinoma of prostate C61; Z19.1
[2024-07-08] MEDS: gabapentin 100 mg Capsule 200 MG PO ×2 (15:17→21:27)
[2024-07-08 16:54] LABS: Glucose Point of Care 176 mg/dL (70-110)
[2024-07-08] MEDS: levalbuterol 0.63 mg/3 mL Neb INHALATION (19:56)
[2024-07-08] MEDS: ipratropium 0.5 mg/2.5 mL Neb INHALATION (19:56)
[2024-07-08 20:18] LABS: Glucose Point of Care 276 mg/dL (70-110)
[2024-07-08] MEDS: temazepam 15 mg Capsule PO (21:28)
[2024-07-09] VITALS (14 sets, daily range): BP systolic 124–154; BP diastolic 60–86; PULSE 79–98; RESP 16–18; TEMP 36.4–36.8; O2SAT 90–96
[2024-07-09] MEDS: meropenem 1,000 mg SDV 1000 MG IVP ×3 (00:42→16:10)
[2024-07-09] MEDS: levalbuterol 0.63 mg/3 mL Neb INHALATION ×4 (03:02→20:23)
[2024-07-09] MEDS: ipratropium 0.5 mg/2.5 mL Neb INHALATION ×4 (03:03→20:23)
[2024-07-09 03:09] LABS: Basophils % 0.1 %; Hematocrit 28.7 % (37-53); Lymphocytes # 0.3 10^3/uL (0.8-4.8); Lymphocytes % 4.5 %; Mean Corpuscular HGB Conc 33.4 g/dL (30-55); Mean Corpuscular Hemoglobin 32.1 pg (27-33); Mean Platelet Volume 9.5 fL (7.4-10.4); Monocytes # 0.2 10^3/uL (0.2-0.9); Monocytes % 3.2 %; Neutrophils # 6.36 10^3/uL (1.8-7.7); Neutrophils % 89.9 %; Nucleated Red Blood Cells % 0.3 %; Platelet Count 203 10^3/cmm (157-399); Red Blood Count 2.99 10^6/uL (3.85-5.65); Red Cell Distribution Width 13.8 % (12.1-15.1); White Blood Count 7.08 10^3/uL (3.29-11.43)
[2024-07-09] MEDS: dilTIAZem 60 mg Tablet PO ×5 (03:17→20:58)
[2024-07-09] MEDS: methylPREDNISolone sod succ 40 mg/mL INJ IVP ×4 (03:17→20:58)
[2024-07-09 03:49] LABS: Alanine Aminotransferase 77 U/L (0-41); Albumin Level 3.6 g/dL (3.5-5.2); Alkaline Phosphatase 89 U/L (40-130); Anion Gap 17.9 (5-19); Aspartate Amino Transferase 28 U/L (0-40); Blood Urea Nitrogen 30 mg/dL (8-23); Carbon Dioxide 25 mmol/L (22-29); Chloride 95 mmol/L (98-107); Creatinine Clr Calc Pharmacy 77.1452; Globulin 2.6 g/dL (1.3-4.6); Glucose 177 mg/dL (65-115); Osmolality Calculated 289 mOsm/kg (285-295); Potassium 3.9 mmol/L (3.5-5.1); Sodium 134 mmol/L (136-145); Total Bilirubin 0.5 mg/dL (0.15-1.2); Total Protein 6.2 g/dL (6.6-8.7)
[2024-07-09 06:28] LABS: Glucose Point of Care 225 mg/dL (70-110)
[2024-07-09] MEDS: budesonide 0.5 mg/2 mL Neb INHALATION ×2 (08:41→20:23)
[2024-07-09] MEDS: pantoprazole 40 mg SDV IVP (09:05)
[2024-07-09] MEDS: levothyroxine 150 mcg Tablet PO (09:06)
[2024-07-09] MEDS: isosorbide mononitrate ER 30 mg Tablet PO (09:07)
[2024-07-09] MEDS: metoprolol tartrate 50 mg Tablet 100 MG PO ×2 (09:07→17:15)
[2024-07-09] MEDS: tamsulosin 0.4 mg Capsule PO (09:07)
[2024-07-09] MEDS: gabapentin 100 mg Capsule 200 MG PO ×3 (09:07→20:58)
[2024-07-09] MEDS: insulin lispro 100 unit/1 mL SUBCUT ×4 (09:08→20:59)
[2024-07-09] MEDS: [UNRECOGNIZED DRUG - OTHER] 1 EACH XX ×2 (09:51→17:17)
[2024-07-09 10:42] LABS: Glucose Point of Care 472 mg/dL (70-110)
--- NOTE | 2024-07-09 11:50 | PC.SOCIAL ---
IMM Update Pg. 2 of IMM updated. Copy provided at bedside.
[2024-07-09] MEDS: insulin glargine 100 units/1 mL 10 UNIT SUBCUT (11:55)
--- NOTE | 2024-07-09 13:25 | PM.PN ---
Subjective Subjective: No acute events overnight. Down down to 2 L today. Denies any nausea, vomiting, headache. States feeling better. Nerve pain in the leg is improving. Daughter at bedside. Medications: Reviewed: Yes Vitals/I&O/Wt Last Vital Signs Temp 98.0 F 07/09/24 07:54 Pulse 93 07/09/24 09:03 Resp 18 07/09/24 08:44 BP 153/86 07/09/24 07:54 Pulse Ox 95 07/09/24 08:44 O2 Del Method Nasal Cannula 07/09/24 08:44 O2 Flow Rate 3 07/09/24 08:44 07/08/24 07/09/24 07/09/24 22:59 06:59 14:59 Intake Total 960 / 1680 400 / 2080 360 / 360 Output Total 1450 / 2800 700 / 3500 Balance -490 / -1120 -300 / -1420 360 / 360 Weight last 48 hrs Weight 98.021 kg Weight 98.792 kg Physical Exam Narrative: General: Ill appearing. AOx3, nasal cannula HEENT: Normocephalic, Atraumatic. External ears normal. Nasal passages patent without drainage. MMM. Heart: Irregularly irregular, pansystolic murmur in fourth intercostal space. Resp: Bronchial breath sounds over lung calderón with occasional rhonchi scattered all over lung calderón Abd: Soft, non-tender. Non-distended. Extremities: No edema. Skin: No rash or lesions on exposed areas. Neuro: No focal motor or sensory loss. Data 07/09/24 02:38 07/09/24 02:38 Micro: Microbiology 07/07/24 08:24 Gram Stain - Final Sputum - Expectorated Sputum Sputum Culture - Preliminary A&P Assessment and plan (1) Hypoxic respiratory failure: Oxygen supplementation keeping saturation over 90%. If needed will transition over to heated high flow. Pulmicort twice daily, ipratropium and Xopenex every 6 hour. Switching from DuoNeb given tachycardia Solu-Medrol 40 mg Q6 hourly. D-dimer negative. Appreciate CT chest concerning for bilateral pneumonia Echocardiogram from September 2023 shows Normal EF, dilated LA, mild MR, pulmonary hypertension with RVSP of 35 to 40 mmHg. Repeat IV Lasix 40 mg one-time. Strict and proper charting, daily weights. (2) Community acquired pneumonia: Negative respiratory viral panel, MRSA swab. Repeat procalcitonin. Patient has finished 3-day course of azithromycin. Given significant pneumonia for now we will switch from ceftriaxone to IV meropenem. Patient is allergic to penicillin. Follow-up sputum culture. Bacterial antigen negative. Qualifiers: Lung location: unspecified part of lung (3) Atrial fibrillation with RVR: Currently in RVR. Increase Cardizem to 60 mg 4 times daily. Continue with home dose of metoprolol. If needed will add amiodarone drip. Continue with home dose of dabigatran. (4) Diabetes: Appreciate recent A1c. Takes metformin 1000 mg twice. Blood sugars elevated most likely in setting of steroids. Add Lantus 10 units nightly. Continue on sliding scale for now. 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 History of CAD. Appreciate recent myocardial perfusion scan. Appreciate troponin cycled. Appreciate A1c, lipid panel. Qualifiers: Coronary Disease-Associated Artery/Lesion type: [place] artery [place] vs. transplanted heart: [place] heart Associated angina: without angina Qualified Code(s): I25.10 - Atherosclerotic heart disease of [place] coronary artery without angina pectoris (6) Hypothyroidism: Continue with home dose of levothyroxine for now. (7) Essential hypertension: Goal blood pressure less than 140/90 mmHg. Continue with home dose of Cardizem, Imdur, metoprolol. Uptitrate as for goal blood pressure. 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 Continue with home dose of tramadol. Change gabapentin 200 mg 3 times daily. Code Status: Full IVF: none DVT PPx: Pradaxa GI PPx: Protonix, ABx: Ceftriaxone, azithromycin Diet: Low Na Diet. Discharge plan: Home when stable. Will need home O2 evaluation prior to discharge Plan for the day: Heart rate better controlled today. Continue with Cardizem 60 mg 4 times daily. Will walk patient to see how his heart rate responds. Wean Solu-Medrol to 40 mg Q8 hourly. Will plan to wean further tomorrow. Oxygen supplementation keeping saturation over 90%. Wean accordingly. Repeat IV Lasix 40 mg one-time. Monitor renal functions daily. Follow-up sputum culture results. For now continue with IV meropenem. Blood sugars elevated. Most likely in setting of steroids. Weaning down today. Continue with insulin sliding scale moderate dose protocol. Add Lantus every morning 10 units. Attestations Medical Necessity Statement*: Requires further hospitalization for management of hypoxic respiratory failure in setting of bilateral pneumonia, A-fib with RVR, hyperglycemia Diagnoses Hypoxic respiratory failure J96.91 Community acquired pneumonia J18.9 Lung location: unspecified part of lung Atrial fibrillation with RVR I48.91 Type 2 diabetes mellitus without complication, with long-term current use of insulin E11.9; Z79.4 Diabetes mellitus type: type 2 Diabetes mellitus [facility] insulin use: with termite exterminator helper use Diabetes mellitus complication status: without complication Coronary artery disease involving [place] coronary artery of [place] heart without angina pectoris I25.10 Coronary Disease-Associated Artery/Lesion type: [place] artery [place] vs. transplanted heart: [place] heart Associated angina: without angina Hypothyroidism E03.9 Essential hypertension I10 Cardiac pacemaker Z95.0 Anticoagulation adequate with anticoagulant therapy Z79.01 Metastatic castration-sensitive adenocarcinoma of prostate C61; Z19.1
[2024-07-09] MEDS: FUROsemide 10 mg/mL SDV 4mL 40 MG IVP (14:16)
[2024-07-09] MEDS: potassium chloride ER 20 mEq Tablet 40 MEQ PO (14:17)
[2024-07-09 16:02] LABS: Glucose Point of Care 276 mg/dL (70-110)
[2024-07-09 20:18] LABS: Glucose Point of Care 260 mg/dL (70-110)
[2024-07-09] MEDS: temazepam 15 mg Capsule PO (21:08)
[2024-07-10] VITALS (11 sets, daily range): BP systolic 141–146; BP diastolic 80–91; PULSE 79–105; RESP 16–17; TEMP 36.3–36.8; O2SAT 92–96
[2024-07-10] MEDS: meropenem 1,000 mg SDV 1000 MG IVP ×2 (00:54→07:57)
[2024-07-10] MEDS: levalbuterol 0.63 mg/3 mL Neb INHALATION ×2 (01:38→09:31)
[2024-07-10] MEDS: ipratropium 0.5 mg/2.5 mL Neb INHALATION ×2 (01:38→09:32)
[2024-07-10 06:15] LABS: Basophils % 0.1 %; Hematocrit 27.5 % (37-53); Lymphocytes # 0.2 10^3/uL (0.8-4.8); Lymphocytes % 3.4 %; Mean Corpuscular HGB Conc 33.8 g/dL (30-55); Mean Corpuscular Hemoglobin 32.2 pg (27-33); Mean Corpuscular Volume 95.2 fl (82-101); Monocytes # 0.2 10^3/uL (0.2-0.9); Monocytes % 3.4 %; Neutrophils # 6.27 10^3/uL (1.8-7.7); Neutrophils % 88.3 %; Nucleated Red Blood Cells # 0.1 /100WBC; Nucleated Red Blood Cells % 0.8 %; Platelet Count 172 10^3/cmm (157-399); Red Blood Count 2.89 10^6/uL (3.85-5.65); Red Cell Distribution Width 13.7 % (12.1-15.1)
[2024-07-10 06:20] LABS: Glucose Point of Care 191 mg/dL (70-110)
[2024-07-10] MEDS: insulin glargine 100 units/1 mL 10 UNIT SUBCUT (06:24)
[2024-07-10 06:33] LABS: Alanine Aminotransferase 60 U/L (0-41); Albumin Level 3.3 g/dL (3.5-5.2); Alkaline Phosphatase 75 U/L (40-130); Anion Gap 13.9 (5-19); Aspartate Amino Transferase 24 U/L (0-40); Blood Urea Nitrogen 35 mg/dL (8-23); Calcium 8.3 mg/dL (8.5-10.5); Carbon Dioxide 28 mmol/L (22-29); Chloride 97 mmol/L (98-107); Creatinine Clr Calc Pharmacy 77.0948; Globulin 2.2 g/dL (1.3-4.6); Glucose 175 mg/dL (65-115); Osmolality Calculated 292 mOsm/kg (285-295); Potassium 3.9 mmol/L (3.5-5.1); Sodium 135 mmol/L (136-145); Total Bilirubin 0.5 mg/dL (0.15-1.2); Total Protein 5.5 g/dL (6.6-8.7)
[2024-07-10] MEDS: [UNRECOGNIZED DRUG - OTHER] 1 EACH XX (07:55)
[2024-07-10] MEDS: pantoprazole 40 mg SDV IVP (07:56)
[2024-07-10] MEDS: insulin lispro 100 unit/1 mL SUBCUT ×2 (07:57→11:48)
[2024-07-10] MEDS: gabapentin 100 mg Capsule 200 MG PO (07:58)
[2024-07-10] MEDS: methylPREDNISolone sod succ 40 mg/mL INJ IVP (07:58)
[2024-07-10] MEDS: tamsulosin 0.4 mg Capsule PO (07:58)
[2024-07-10] MEDS: dilTIAZem 60 mg Tablet PO ×2 (07:59→13:03)
[2024-07-10] MEDS: isosorbide mononitrate ER 30 mg Tablet PO (07:59)
[2024-07-10] MEDS: levothyroxine 150 mcg Tablet PO (07:59)
[2024-07-10] MEDS: metoprolol tartrate 50 mg Tablet 100 MG PO (07:59)
[2024-07-10] MEDS: budesonide 0.5 mg/2 mL Neb INHALATION (09:31)
--- NOTE | 2024-07-10 11:18 | PM.DCS ---
Discharge Providers Date of Admission: 07/07/24 10:46 Date of Discharge: July 10, 2024 Attending Provider at Admission: Vasu Galvan MD Attending Provider at Discharge: Tim Conner MD Primary Care Provider: Deepak Estrada MD Diagnoses at Discharge Discharge Diagnosis (1) Hypoxic respiratory failure: Status: Acute (2) Community acquired pneumonia: Status: Acute Qualifiers: Lung location: unspecified part of lung (3) Atrial fibrillation with RVR: Status: Acute (4) Diabetes: Status: Acute Qualifiers: Diabetes mellitus complication status: without complication Diabetes mellitus [facility] insulin use: with [facility] use Diabetes mellitus type: type 2 Qualified Code(s): E11.9 - Type 2 diabetes mellitus without complications; Z79.4 - half-way (current) use of insulin (5) Coronary artery disease: Status: Acute Qualifiers: Associated angina: without angina Coronary Disease-Associated Artery/Lesion type: [place] artery [place] vs. 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 Patient reports symptom onset around 3 days ago with progressive worsening daily. He endorses shortness of breath with cough. He did note some productive cough with grayish blackish sputum production prior to arrival. Exertion worsens symptoms. Rest improves. He reportedly received 10 mg IV Cardizem by EMS after found to be in A-fib with RVR. In the emergency department, he was found to have atrial fibrillation with rapid ventricular rate. Checks x-ray obtained concerning for community-acquired pneumonia for which patient was started on antibiotics. Hospital Course Hospital Course Patient was admitted to the hospital further evaluation and management of hypoxic respiratory failure in setting of community-acquired pneumonia. He was started on broad-spectrum antibiotics along with treatment for COPD with nebulization and steroids. His hospitalization was complicated by him developing A-fib with RVR for which his home dose of Cardizem was adjusted. His blood culture and sputum culture remain negative. Patient responded well to the treatment and has been at his baseline oxygen supplementation for last 24 hours. Home O2 evaluation was done prior to discharge. He has been discharged in hemodynamically stable condition on oral cefdinir and Levaquin for 3 more days. He has been discharged on steroid taper with nebulization treatment. Dose of Cardizem has been increased. He is to check his blood pressure daily at home and maintain a blood pressure diary. He is to follow-up with his primary care provider within next 1 week for further adjustment medications. Discharge medicines detail with patient and his family at bedside. All the questions were answered. Physical Exam Narrative: General: Ill appearing. AOx3, nasal cannula HEENT: Normocephalic, Atraumatic. External ears normal. Nasal passages patent without drainage. MMM. Heart: Irregularly irregular, pansystolic murmur in fourth intercostal space. Resp: Bronchial breath sounds over lung [place] with occasional rhonchi scattered all over lung [place] Abd: Soft, non-tender. Non-distended. Extremities: No edema. Skin: No rash or lesions on exposed areas. Neuro: No focal motor or sensory loss. Discharge Data Studies Completed and Pending Completed Studies During Hospitalization Category Date Time Status CT chest wo con [id number] Routine Cat Scan 07/07/24 15:56 Completed XR chest 1V portable [id number] Stat Exams 07/06/24 00:59 Completed Pending at discharge Category Date Time Status Blood Culture Stat Lab 07/06/24 03:34 Results Radiology Impressions Chest X-Ray 07/06/24 00:59 IMPRESSION: Patchy airspace disease bilaterally which may reflect subsegmental atelectasis, pulmonary edema or developing pneumonia. Chest CT 07/07/24 15:56 IMPRESSION: Increased peribronchovascular ground-glass opacities, possibly an organizing pneumonia. Increased bilateral effusions. No lobar consolidation. Microbiology 07/07/24 08:24 Sputum - Expectorated Sputum Gram Stain - Final 07/07/24 08:24 Sputum - Expectorated Sputum Sputum Culture - Final 07/06/24 03:34 Blood Blood Culture - Preliminary NEGATIVE TO DATE 07/06/24 03:15 Blood Blood Culture - Preliminary NEGATIVE TO DATE 07/06/24 09:20 Urine,Voided Bacterial Antigens - Final Laboratory Results WBC 7.10 10^3/uL (3.29-11.43) 07/10/24 05:57 RBC 2.89 10^6/uL (3.85-5.65) L 07/10/24 05:57 Hgb 9.30 g/dL (11.27-16.99) L 07/10/24 05:57 Hct 27.5 % (37-53) L 07/10/24 05:57 MCV 95.2 fl (82-101) 07/10/24 05:57 MCH 32.2 pg (27-33) 07/10/24 05:57 MCHC 33.8 g/dL (30-55) 07/10/24 05:57 RDW 13.7 % (12.1-15.1) 07/10/24 05:57 Plt Count 172 10^3/cmm (157-399) 07/10/24 05:57 MPV 9.0 fL (7.4-10.4) 07/10/24 05:57 Neut % (Auto) 88.3 % 07/10/24 05:57 Lymph % (Auto) 3.4 % 07/10/24 05:57 [place] % (Auto) 3.4 % 07/10/24 05:57 Eos % (Auto) 0.0 % 07/10/24 05:57 Baso % (Auto) 0.1 % 07/10/24 05:57 Neut # (Auto) 6.27 10^3/uL (1.8-7.7) 07/10/24 05:57 Lymph # (Auto) 0.2 10^3/uL (0.8-4.8) L 07/10/24 05:57 [place] # (Auto) 0.2 10^3/uL (0.2-0.9) 07/10/24 05:57 Eos # (Auto) 0.0 10^3/uL (0.0-0.8) 07/10/24 05:57 Baso # (Auto) 0.0 10^3/uL (0.0-0.1) 07/10/24 05:57 Nucleated RBC % (auto) 0.8 % 07/10/24 05:57 Nucleated RBCs # 0.1 /100WBC 07/10/24 05:57 PT 17.80 SECONDS (12.1-14.9) H 07/06/24 01:05 INR 1.37 (0.8-1.2) H 07/06/24 01:05 APTT 65.5 SECONDS (23.9-36.7) H 07/06/24 01:05 D-Dimer 0.41 ug/mLFEU (0-0.59) 07/07/24 14:26 Sodium 135 mmol/L (136-145) L 07/10/24 05:57 Potassium 3.9 mmol/L (3.5-5.1) 07/10/24 05:57 Chloride 97 mmol/L (98-107) L 07/10/24 05:57 Carbon Dioxide 28 mmol/L (22-29) 07/10/24 05:57 Anion Gap 13.9 (5-19) 07/10/24 05:57 BUN 35 mg/dL (8-23) H 07/10/24 05:57 Creatinine 0.9 mg/dL (0.7-1.2) 07/10/24 05:57 GFR Calculation Not Reportable 07/10/24 05:57 Glucose 175 mg/dL (65-115) H 07/10/24 05:57 POC Glucose 191 mg/dL (70-110) H 07/10/24 06:15 Calculated Osmolality 292 mOsm/kg (285-295) 07/10/24 05:57 Calcium 8.3 mg/dL (8.5-10.5) L 07/10/24 05:57 Phosphorus 3.0 mg/dL (2.5-4.5) 07/07/24 04:18 Magnesium 1.8 mg/dL (1.7-2.3) 07/07/24 04:18 Total Bilirubin 0.5 mg/dL (0.15-1.2) 07/10/24 05:57 AST 24 U/L (0-40) 07/10/24 05:57 ALT 60 U/L (0-41) H 07/10/24 05:57 Alkaline Phosphatase 75 U/L (40-130) 07/10/24 05:57 Troponin T 5th Gen ng/L 43 ng/L (0-15) H 07/07/24 16:44 Troponin T Baseline 51 ng/L (0-15) H 07/06/24 01:05 Troponin T 120 Minute 47.80 ng/L (0-15) H 07/06/24 03:15 Delta Troponin T -3.20 ABS# (0-10) L 07/06/24 03:15 Troponin T Hi Sens 6Hr 38.59 ng/L (0-15) H 07/06/24 07:17 Troponin T Hi Sens 6Hr Delta -12.41 ng/L (0-12) L 07/06/24 07:17 NT-Pro-B Natriuret Pep 6159 pg/mL (0-450) H 07/06/24 01:05 Total Protein 5.5 g/dL (6.6-8.7) L 07/10/24 05:57 Albumin 3.3 g/dL (3.5-5.2) L 07/10/24 05:57 Globulin 2.2 g/dL (1.3-4.6) 07/10/24 05:57 Procalcitonin 0.70 ng/mL (0-0.5) H 07/08/24 05:21 TSH 5.74 uIU/mL (0.27-4.20) H 07/07/24 04:18 Free T4 0.88 ng/dL (0.82-1.77) 07/07/24 04:18 Free T3 1.2 PG/ML (2.0-4.4) L 07/07/24 04:18 Urine Color Yellow (Yellow) 07/06/24 04:12 Urine Appearance Clear (CLEAR) 07/06/24 04:12 Urine pH 6.0 (5-7) 07/06/24 04:12 Ur Specific [place] 1.025 (1.005-1.030) 07/06/24 04:12 Urine Protein 2+ (Negative) A 07/06/24 04:12 Urine Glucose (UA) Negative (Normal) 07/06/24 04:12 Urine Ketones Trace (Negative) 07/06/24 04:12 Urine Blood Negative (Negative) 07/06/24 04:12 Urine Nitrate Negative (Negative) 07/06/24 04:12 Urine Bilirubin Negative (Negative) 07/06/24 04:12 Urine Urobilinogen 1.0 mg/dL (Negative) 07/06/24 04:12 Ur Leukocyte Esterase Negative (Negative) 07/06/24 04:12 Urine RBC 0-2 /hpf (0-2) 07/06/24 04:12 Urine WBC 0-5 /hpf (0-5) 07/06/24 04:12 Ur Squamous Epith Cells 0-5 /hpf (0-5) 07/06/24 04:12 Amorphous Sediment Not Reportable 07/06/24 04:12 Urine Bacteria None seen /hpf (NONE) 07/06/24 04:12 Hyaline Casts 2.46 /lpf 07/06/24 04:12 Nasal MRSA (PCR) Not detected (Negative) 07/07/24 14:13 Adenovirus (PCR) Not detected (NOT DETECT) 07/07/24 14:13 C. pneumoniae DNA (PCR) Not detected (NOT DETECT) 07/07/24 14:13 Coronavirus 229E (PCR) Not detected (NOT DETECT) 07/07/24 14:13 Human Metapneumovir PCR Not detected (NOT DETECT) 07/07/24 14:13 Influenza A (H1) PCR Not detected (NOT DETECT) 07/07/24 14:13 Influ A (H1/09) PCR Not detected (NOT DETECT) 07/07/24 14:13 Influenza A (H3) PCR Not detected (NOT DETECT) 07/07/24 14:13 Influenza Type A (PCR) Not detected (NOT DETECT) 07/07/24 14:13 Influenza Type B (PCR) Not detected (NOT DETECT) 07/07/24 14:13 M. pneumoniae (PCR) Not detected (NOT DETECT) 07/07/24 14:13 Parainfluenza 1 (PCR) Not detected (NOT DETECT) 07/07/24 14:13 Parainfluenza 2 (PCR) Not detected (NOT DETECT) 07/07/24 14:13 Parainfluenza 3 (PCR) Not detected (NOT DETECT) 07/07/24 14:13 Parainfluenza 4 (PCR) Not detected (NOT DETECT) 07/07/24 14:13 RSV Type A (PCR) Not detected (NOT DETECT) 07/07/24 14:13 RSV Type B (PCR) Not detected (NOT DETECT) 07/07/24 14:13 Entero/Rhino (PCR) Not detected (NOT DETECT) 07/07/24 14:13 SARS-CoV-2 (PCR) Not detected (NOT DETECT) 07/07/24 14:13 Vitals Last Vital Signs Temp 97.6 F 07/10/24 07:49 Pulse 80 07/10/24 09:37 Resp 16 07/10/24 09:20 BP 141/88 07/10/24 07:49 Pulse Ox 94 07/10/24 10:35 O2 Del Method Room Air 07/10/24 09:20 O2 Flow Rate 1 07/10/24 08:00 Discharge Plan Discharge Patient Disposition: Home Health Service Condition: Stable Prescriptions: New ipratropium bromide 0.02 % Solution 0.5 mg inhalation TID 14 Days Qty: 105 0RF levalbuterol HCl 0.63 mg/3 mL Solution For Nebulization 0.63 mg inhalation TID Qty: 90 0RF prednisone 10 mg tablet See Taper PO DIRECTED Qty: 42 0RF Taper: predniSONE 60-10 60 mg Daily for 2 Days and 0 Hour 50 mg Daily for 2 Days and 0 Hour 40 mg Daily for 2 Days and 0 Hour 30 mg Daily for 2 Days and 0 Hour 20 mg Daily for 2 Days and 0 Hour 10 mg Daily for 2 Days and 0 Hour Rx Instructions: see taper instructions cefdinir 300 mg capsule 300 mg PO BID 3 Days Qty: 6 0RF levofloxacin 750 mg tablet 750 mg PO Q24H 3 Days Qty: 3 0RF Continued Pradaxa 150 mg capsule 150 mg PO BID Hold Instructions: Resume on 02/07/22. metoprolol tartrate 100 mg tablet 100 mg PO BID torsemide 20 mg tablet 20 mg PO DAILY nitroglycerin 0.4 mg tablet, sublingual 0.4 mg sublingual Q5M PRN (Reason: Chest Pain) Rx Instructions: do not exceed 3 doses per episode albuterol sulfate 90 mcg/actuation HFA aerosol inhaler 2 puff inhalation Q6H PRN (Reason: shortness of breath or wheezing) Qty: 8.5 6RF isosorbide mononitrate 30 mg tablet extended release 24 hr 30 mg PO DAILY Qty: 30 3RF temazepam 15 mg capsule 15 mg PO ONCE 30 Days Qty: 30 3RF tramadol 50 mg tablet 50 mg PO Q6H MDD max 400 mg a day PRN (Reason: pain) Qty: 120 0RF PreserVision AREDS 4,296 mcg-226 mg-90 mg Capsule 1 cap PO BID Orgovyx 120 mg tablet 120 mg PO DAILY Rx Instructions: TAKE ONE TABLET BY MOUTH ONCE A DAY metformin 1,000 mg Tablet 1,000 mg PO DAILY levothyroxine 150 mcg Tablet 150 mcg PO DAILY tamsulosin 0.4 mg capsule 0.4 mg PO DAILY Rx Instructions: TAKE ONE CAPSULE BY MOUTH TWICE A DAY APPROXIMATELY 30 MINUTES AFTER THE SAME MEAL EACH DAY (FOR PROSTATE) Changed Cardizem [place] 120 mg tablet extended release 24 hr 240 mg PO DAILY Qty: 90 3RF gabapentin 100 mg Capsule 200 mg PO TID Qty: 30 0RF Discharge Orders: Discharge Order (Routine); Ordered 07/10/24 Ordered By: Tim Conner Other Ambulatory Orders: DME: Nebulizer with Neb Kit (Order) Location: None Selected Ordered By: Tim Conner Referrals: [facility] ([facility]) [Outside] Ayesha Camarillo MD [Referring] - 2 weeks (Please schedule a f/u appt with Dr. Camarillo within 2 weeks. Homemaker services are temporary, and you need to have a case mix study for evaluation of [facility] homemaker services to continue. ) Deepak Estrada MD [Primary Care Provider] - 2 weeks (We have notified your physician's clinic of the need for a follow-up appointment to be scheduled. If you have not heard from them within the next 2 business days, please call them directly. ) Discharge Diet: Cardiac and Diabetic Discharge Activity: Resume usual activity and Increase activity as tolerated Patient Instructions: Opioid Safety Activity Restrictions/Additional Instructions: Restrict fluid intake to less than 1500 cc, salt intake to less than 2 g daily. Advised to check his weight daily at home. Is advised that weight today would be the dry weight and if body weight increases by around 5 pounds, patient is to take an extra dose of Lasix daily till body weight comes down to weight today. If not able to come down to dry body weight in 1 week, then is to call cardiology office for further recommendations. Patient was counseled in detail to take medications regularly as prescribed. Follow-up with a primary care provider within next 2 weeks. Dose of her Cardizem has been changed to 240 mg daily. Cefdinir and Levaquin are the antibiotic which you are supposed to take twice daily. Take prednisone taper as directed. Discharge Attestations Time Spent in Discharge Care*: greater than 30 min Specific Discharge Activities: educating patient, educating and/or supporting family/caregiver, discussing with pcp/other providers, discussing with case management coordinator/social workers/dc planners, documenting/other paperwork and evaluating patient/reviewing data Status at Discharge: Cognitive status at discharge: cognitively intact, Behavioral status at discharge: cooperative, Functional status at discharge: independent ambulation, Overall status at discharge: patient is back to baseline Quality Metrics Clinical Quality Measures [ No reported AMI, CVA or VTE this stay] Coding Level of Care Code 56326 Total time (in minutes) for Discharge: 60 Diagnoses Hypoxic respiratory failure J96.91 Community acquired pneumonia J18.9 Lung location: unspecified part of lung Atrial fibrillation with RVR I48.91 Type 2 diabetes mellitus without complication, with long-term current use of insulin E11.9; Z79.4 Diabetes mellitus complication status: without complication Diabetes mellitus terminologist insulin use: with terminologist use Diabetes mellitus type: type 2 Coronary artery disease involving [place] coronary artery of [place] heart without angina pectoris I25.10 Associated angina: without angina Coronary Disease-Associated Artery/Lesion type: [place] artery [place] vs. transplanted heart: [place] heart Hypothyroidism E03.9 Essential hypertension I10 Cardiac pacemaker Z95.0 Anticoagulation adequate with anticoagulant therapy Z79.01 Metastatic castration-sensitive adenocarcinoma of prostate C61; Z19.1
[2024-07-10 11:32] LABS: Glucose Point of Care 280 mg/dL (70-110)
--- NOTE | 2024-07-10 13:46 | PC.NURSE ---
Discharge instructions provided to pt and his daughter. NO questions or concerns at this time. Pt awaiting meds to beds.
== END 2024-07-10 14:58 | disposition home health service (06) | DRG 193 ==
LOC: ER 01:18 → MEDSURG 04:14
PROVIDERS: Family Medicine; Admitting Provider Internal Medicine; Emergency Provider Emergency Medicine; PCP Family Medicine; Visit Provider Student in an Organized Health Care Education/Training Program
DX: J18.9 Pneumonia, unspecified organism (principal); J96.01 Acute respiratory failure with hypoxia; J44.0 Chronic obstructive pulmonary disease with (acute) lower respiratory infection; I48.91 Unspecified atrial fibrillation; E11.65 Type 2 diabetes mellitus with hyperglycemia; I25.10 Atherosclerotic heart disease of native coronary artery without angina pectoris; E03.9 Hypothyroidism, unspecified; C61 Malignant neoplasm of prostate; I10 Essential (primary) hypertension; G89.29 Other chronic pain; M54.9 Dorsalgia, unspecified; Z95.0 Presence of cardiac pacemaker; Z79.01 Long term (current) use of anticoagulants; Z79.84 Long term (current) use of oral hypoglycemic drugs; T38.0X5A Adverse effect of glucocorticoids and synthetic analogues, initial encounter; Y92.239 Unspecified place in hospital as the place of occurrence of the external cause
CPT/HCPCS: 36415; 36416; 71045; 71250; 80048; 80053; 81001; 82962; 83735; 83880; 84100; 84145; 84439; 84443; 84481; 84484; 85025; 85378; 85610; 85730; 86403; 87040; 87070; 87205; 87486; 87581; 87633; 93005; 94640; 94664; 94760; 96365; 96372; 96375; 96376; 97110; 97116; 97161; 99285; G0378; J0456; J0696; J1815; J1940; J2185; J2470; J2919; J3490; J7030; J7040; J7050; J7614; J7626; J7644